=== PATIENT | female | born 1950 | race Caucasian/White ===

== ENCOUNTER 2021-06-21 01:28 | Day surgery (SDC) | payer MEDICARE, SELFPAY ==
[2021-06-10 09:20] VITALS: BMI 27.1
--- NOTE | 2021-06-20 12:38 | WPDANESEPPF ---
Anes - Initial Pre Proc Eval Procedure: Operation Date: 06/21/21 09:30 Proposed Procedures p Screening Colonoscopy - Stephon García MD Date/Time: 06/20/21 12:38 Surgeon: Stephon García MD Pre Op Diagnosis: hx of colon polyps Patient Data Age: 70 Gender: F Height: 1.5 m Weight: 61 kg Allergies Allergy/AdvReac Type Severity Reaction Status Date / Time cephalexin Allergy Mild Rash Verified 06/21/21 08:12 Cephalosporins Allergy Mild Rash Verified 06/21/21 08:12 clindamycin Allergy Mild Rash Verified 06/21/21 08:12 codeine Allergy Mild Rash Verified 06/21/21 08:12 duloxetine Allergy Mild Rash Verified 06/21/21 08:12 simvastatin Allergy Mild Rash Verified 06/21/21 08:12 Home Medications Medication Instructions Recorded Confirmed Type cholecalciferol (vitamin D3) 125 125 mcg PO DAILY #30 cap 01/04/20 06/21/21 Rx mcg (5,000 unit) capsule lorazepam 0.5 mg tablet 0.5 mg PO DAILY PRN #30 tablet 06/06/21 06/21/21 Rx Patient hx anesthesia problems: none Family hx anesthesia problems: none Results Review: All pre-operative results and documents have been reviewed as part of the pre-operative evaluation. [facility] Past Medical History Medical History (Updated 06/21/21 @ 08:43 by Stephon García MD) Breast cancer Emphysema/COPD Fibromyalgia Hyperlipidemia LDL goal <130 PAD (peripheral artery disease) Palpitations Stenosis of carotid artery 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 Family History Family History Sibling Family history of bipolar disorder Mother Hypertension Family history of transient ischemic attacks Cerebrovascular accident Father Malignant neoplasm of prostate Other Family history of mental disorder Social History Social History (Updated 06/01/21 @ 07:13 by Maico Elaine APRN) Smoking status: Former smoker Tobacco type: cigarettes Smoking end date: 03/12/16 Alcohol intake: current Alcohol use details: 2x montly Living arrangements: with family Spiritual care concerns: No Anes - Eval Final PreProcedure Day of Procedure 06/20/21 12:38 Patient weight: overweight Heart: regular rate and rhythm Lungs: clear to auscultation and normal air movement Airway: Mallampati scale class II Neurological: alert and oriented Last oral intake: >/= 8 hours ASA classification: III Emergent: no Anesthetic plan: proceed Anesthesia type and monitoring: general GIVS and standard monitoring Results Review: All pre-operative results and documents have been reviewed as part of the pre-operative evaluation. Informed Consent: The patient's anesthetic plan and its attendant risks and benefits were discussed with the patient/family/POA. Questions were solicited and answers provided to the satisfaction of the patient/family/POA.
[2021-06-21 08:13] VITALS: BP 131/52; PULSE 68; RESP 17; TEMP 36.2; O2SAT 99; BMI 26.3
[2021-06-21] MEDS: LACTATED RINGERS 1,000 ML 150 ML IV CONT (08:30)
--- NOTE | 2021-06-21 08:41 | WPDGICN ---
Assessment and Plan Assessment and plan (1) History of colon polyps: Code(s): Z86.010 - Personal history of colonic polyps Status: Acute Assessment and Plan: Patient has a personal history of colon polyps. Most recently 2012. Plan is for screening colonoscopy at this time. Patient is advised to use fiber supplementation for possible irritable bowel syndrome. She may benefit from a trial of probiotics because of change of bowel older. Charcoal taps are another consideration. Further recommendations will be given after colonoscopy. GI Consult Note Consult date/time: 06/21/21 08:41 HPI: Tiffany Palacio is a 70 year old female Presents for screening colonoscopy. Patient has a prior history of colon polyps. Most recently [address] Galicia. previous to that in 2006. Patient reports a vague right-sided abdominal pain with lifting. She is concerned whether this could be coming from her abdomen. Also can not discern because of foul-smelling stools. Patient denies any bleeding. She has had no weight loss. She has no associated pain with bowel movements. Her family history for is noncontributory. Review of Systems Review of Systems: All systems reviewed & are unremarkable except as noted in HPI and below PMFSH Past Medical History Medical History (Updated 06/21/21 @ 08:43 by Stephon García MD) Breast cancer Emphysema/COPD Fibromyalgia Hyperlipidemia LDL goal <130 PAD (peripheral artery disease) Palpitations Stenosis of carotid artery 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 Family History Family History Sibling Family history of bipolar disorder Mother Hypertension Family history of transient ischemic attacks Cerebrovascular accident Father Malignant neoplasm of prostate Other Family history of mental disorder Social History Social History (Updated 06/01/21 @ 07:13 by Maico Elaine APRN) Smoking status: Former smoker Tobacco type: cigarettes Smoking end date: 03/12/16 Alcohol intake: current Alcohol use details: 2x montly Living arrangements: with family Spiritual care concerns: No Meds Home Medications and Allergies Home Medications Medication Instructions Recorded Confirmed Type cholecalciferol (vitamin D3) 125 125 mcg PO DAILY #30 cap 01/04/20 06/21/21 Rx mcg (5,000 unit) capsule lorazepam 0.5 mg tablet 0.5 mg PO DAILY PRN #30 tablet 06/06/21 06/21/21 Rx Allergies Allergy/AdvReac Type Severity Reaction Status Date / Time cephalexin Allergy Mild Rash Verified 06/21/21 08:12 Cephalosporins Allergy Mild Rash Verified 06/21/21 08:12 clindamycin Allergy Mild Rash Verified 06/21/21 08:12 codeine Allergy Mild Rash Verified 06/21/21 08:12 duloxetine Allergy Mild Rash Verified 06/21/21 08:12 simvastatin Allergy Mild Rash Verified 06/21/21 08:12 Vital Signs Vital Signs - 24 hr 06/21/21 08:13 Temperature 97.1 F L Pulse Rate 68 Respiratory Rate 17 Blood Pressure 131/52 L Pulse Oximetry 99 Exam Narrative: Physical exam reveals patient be alert. Vital signs stable. HEENT exam is unremarkable. Patient is anicteric. Lungs are clear to auscultation and percussion. Heart is without murmur or extra sounds. Abdomen bowel sounds present soft nontender with no organomegaly. Digital external rectal exam is normal.
[2021-06-21 09:39] VITALS: BP 107/45; PULSE 74; RESP 18; O2SAT 100
[2021-06-21 09:49] VITALS: BP 117/49; PULSE 66; RESP 20; O2SAT 100
[2021-06-21 09:59] VITALS: BP 136/94; PULSE 68; RESP 22; O2SAT 100
== END 2021-06-21 10:05 | disposition home or self-care (01) ==
PROVIDERS: PCP Internal Medicine; Visit Provider Internal Medicine Gastroenterology
PROC: 0DJD8ZZ Inspection of Lower Intestinal Tract, Via Natural or Artificial Opening Endoscopic (ICD-10-PCS; CPT 45378; principal; 2021-06-21 09:30)
DX: Z12.11 Encounter for screening for malignant neoplasm of colon (principal); D12.3 Benign neoplasm of transverse colon; K63.5 Polyp of colon; K57.30 Diverticulosis of large intestine without perforation or abscess without bleeding; K64.8 Other hemorrhoids; J44.9 Chronic obstructive pulmonary disease, unspecified; I73.9 Peripheral vascular disease, unspecified; G45.8 Other transient cerebral ischemic attacks and related syndromes; E78.5 Hyperlipidemia, unspecified; M79.7 Fibromyalgia; Z87.891 Personal history of nicotine dependence
CPT/HCPCS: 45385; 88305; J2704; J7120

== ENCOUNTER 2022-02-17 11:02 | Outpatient (CLI) | payer MEDICARE, SELFPAY ==
--- NOTE | ~2022-02-17 | US_ITS ---
EXAMINATION: US carotid duplex BI DATE: 02/17/2022 11:45 INDICATION: Carotid stenosis TECHNIQUE: Grayscale, color Doppler, and pulsed Doppler images of the cervical carotid arteries were obtained. The degree of vessel stenosis is placed in one of the following categories: normal, <50%, 5 0-69%, >=70% but less than near-occlusion, near-occlusion, or total occlusion. Note that percent sten osis relative to normal distal artery lumen diameter is indirectly measured from velocity measurement s as described by Tylor, et al. Radiology 2003; 229:340-346. Notes: Normal: Peak systolic velocity <125 centimeters/sec and no plaque <50%. Peak systolic velocity <125 ( EDV <40; ICA/CCA PSV ratio <2.0; used these factors only a tandem lesions or low cardiac output or co ntralateral disease) 50-69 %: PSV 125-230 (EDV 40-100; ratio 2-4) >= 70% but less than near occlusion: PSV greater than 230 (EDV > 100; ratio> 4.0) Near Occlusion: PSV that is variable; markedly narrowed lumen Occlusion: Absent flow on color/spectral Doppler and no lumen on torres scale. COMPARISON: Ultrasound dated 08/16/2018. FINDINGS: RIGHT: The right common carotid artery (CCA) peak systolic velocity (PSV) is 96 cm/s. The right internal car otid artery (ICA) PSV is 162 cm/s. The right ICA end-diastolic velocity (EDV) is 44 cm/s. The right I CA/CCA PSV ratio is 1.7. The external carotid artery (ECA) PSV is 156 cm/s. There is antegrade flow i n the right vertebral artery. LEFT: The left CCA PSV is 91 cm/s. The left ICA PSV is 144 cm/s. The left ICA EDV is 40 cm/s. The left ICA/ CCA PSV ratio is 1.6. The ECA PSV is 94 cm/s. There is antegrade flow in the left vertebral artery. IMPRESSION: 1. 50-69% stenosis in the right internal carotid artery by sonographic criteria. 2. 50-69% stenosis in the left internal carotid artery by sonographic criteria. Reviewed, dictated and finalized at location A. ER IMPRESSION: 1. 50-69% stenosis in the right internal carotid artery by sonographic criteria . 2. 50-69% stenosis in the left internal carotid artery by sonographic criteria.
== END 2022-02-17 11:03 | disposition home or self-care (01) ==
LOC: ANHIMG 11:04
PROVIDERS: PCP Internal Medicine; Visit Provider Nurse Practitioner
DX: I65.23 Occlusion and stenosis of bilateral carotid arteries (principal)
CPT/HCPCS: 93880

== ENCOUNTER 2022-03-09 08:07 | Outpatient (CLI) | payer MEDICARE, SELFPAY ==
[2022-03-09 09:20] LABS: Cholesterol 271 mg/dL (0-200); HDL Direct 68 mg/dL; Triglycerides 123 mg/dL (<150)
[2022-03-09 09:31] LABS: LDL Cholesterol Direct 149 mg/dL
== END 2022-03-09 08:08 | disposition home or self-care (01) ==
LOC: ANHLAB 08:08
PROVIDERS: PCP Internal Medicine; Visit Provider Nurse Practitioner
DX: E78.5 Hyperlipidemia, unspecified (principal); Z13.29 Encounter for screening for other suspected endocrine disorder
CPT/HCPCS: 36415; 80061; 84443

== ENCOUNTER 2022-11-30 12:31 | Outpatient (CLI) | payer MEDICARE, SELFPAY ==
[2022-11-30 12:54] LABS: Cholesterol 236 mg/dL (0-200); HDL Direct 37 mg/dL; Triglycerides 164 mg/dL (<150)
[2022-11-30 13:05] LABS: LDL Cholesterol Direct 151 mg/dL
== END 2022-11-30 12:32 | disposition home or self-care (01) ==
LOC: ANHLAB 12:32
PROVIDERS: PCP Nurse Practitioner; Visit Provider Nurse Practitioner
DX: E78.5 Hyperlipidemia, unspecified (principal)
CPT/HCPCS: 36415; 80061

== ENCOUNTER 2022-12-22 14:48 | Outpatient (CLI) | payer MEDICARE, SELFPAY ==
--- NOTE | ~2022-12-22 | MR_ITS ---
EXAMINATION: MR pelvis wo con DATE: 12/22/2022 15:42 INDICATION: Pelvic and perineal pain. Left groin pain. TECHNIQUE: Magnetic resonance imaging (MRI) of the pelvis was performed without intravenous contrast. COMPARISON: None. FINDINGS: There is diverticulosis of the colon without evidence of diverticulitis. There are no dilated loops o f bowel. There is a left inguinal hernia containing fat. Bone alignment is normal. No fracture. There is mild osteoarthritis of the hips. There are small bilateral hip joint effusions. There is mild rig ht gluteus minimus and gluteus medius tendinopathy. There is mild right trochanteric bursitis. There is severe lumbar spondylosis. IMPRESSION: 1. Left inguinal hernia containing fat. 2. Mild osteoarthritis of the hips. 3. Small bilateral hip joint effusions. Reviewed, dictated and finalized at location A.
== END 2022-12-22 14:49 | disposition home or self-care (01) ==
LOC: ANHIMG 14:50
PROVIDERS: PCP Nurse Practitioner; Visit Provider Nurse Practitioner
DX: R10.2 Pelvic and perineal pain (principal); K40.90 Unilateral inguinal hernia, without obstruction or gangrene, not specified as recurrent; M16.0 Bilateral primary osteoarthritis of hip; M25.451 Effusion, right hip; M25.452 Effusion, left hip
CPT/HCPCS: 72195

== ENCOUNTER 2023-01-05 13:50 | Outpatient (CLI) | payer MEDICARE, SELFPAY ==
--- NOTE | ~2023-01-05 | CT_ITS ---
EXAMINATION: CT lung screening DATE: 01/05/2023 14:24 INDICATION: Personal history of nicotine dependence, prior smoker with 108 pack year history TECHNIQUE: Computed tomography (CT) of the chest was performed without intravenous contrast. The dose -length product (DLP) was 70.24 mGy-cm. Automated exposure control and iterative reconstruction techn Meal Mantraue were employed. COMPARISON: 04/12/2006 FINDINGS: There is moderate emphysema. No suspicious pulmonary nodules are identified. The lungs are free of acute opacities. No pleural effusion or pneumothorax. No pathologically enlarged thoracic lym ph nodes are identified. The heart size is normal. Bilateral breast implants are noted. There is a sm all sliding hiatal hernia. There is moderate thoracic spondylosis. IMPRESSION: 1. Lung-RADS category 1: Negative. Continue annual screening with noncontrast low-dose chest CT in 12 months. Reviewed, dictated and finalized at location F. IMPRESSION: 1. Lung-RADS category 1: Negative. Continue annual screening with noncontrast l ow-dose chest CT in 12 months.
== END 2023-01-05 13:51 | disposition home or self-care (01) ==
PROVIDERS: PCP Nurse Practitioner; Visit Provider Nurse Practitioner
DX: Z12.2 Encounter for screening for malignant neoplasm of respiratory organs (principal); Z87.891 Personal history of nicotine dependence
CPT/HCPCS: 71271

== ENCOUNTER 2023-01-08 14:33 | Outpatient (CLI) | payer MEDICARE, SELFPAY ==
--- NOTE | 2023-01-08 15:02 | ECHO_ITS ---
Patient Info Name: Tiffany Palacio Age: 72 years : 1950 Gender: Female Ht: 59 in Wt: 140 lbs BSA: 1.65 m2 HR: 88 bpm BP: 104 / 68 mmHg Technical Quality: Good Exam Date: 01/08/2023 3:14 PM Exam Location: [facility] Patient Status: Outpatient Admit Date: 01/08/2023 Staff Ordering Physician: Maico Elaine APRN Corporate Trust Officer: Yen Kim RDCS Attending Provider: Maico Elaine APRN Referring Physician: Chele FRANCO; Exam Type: CA echo doppler color flow Study Info Indications - shortness of breath Complete two-dimensional, color flow and Doppler transthoracic echocardiogram is performed. Summary 1. Complete two-dimensional, color flow and Doppler transthoracic echocardiogram is performed. 2. Left ventricular chamber dimension is normal. 3. Left ventricular systolic function is normal, estimated at 60-65%. 4. The left ventricular diastolic function is grade I diastolic dysfunction. 5. E/e' 10 is mildly elevated. 6. There is mild mitral valve regurgitation. 7. No pulmonary hypertension, estimated pulmonary arterial systolic pressure is 24 mmHg. Left Ventricle E/e' 10 is mildly elevated. Left ventricular chamber dimension is normal. Left ventricular systolic function is normal, estimated at 60-65%. The left ventricular diastolic function is grade I diastolic dysfunction. Right Ventricle Right ventricular systolic function is normal and with normal TAPSE 2.4 cm. Right ventricular chamber dimension is normal. Left Atria Left atrial chamber dimension is normal. Right Atria Right atrial chamber dimension is normal. Aortic Valve The aortic valve is trileaflet. There is no aortic valve stenosis. There is no aortic valve regurgitation. Pulmonic Valve There is no pulmonic regurgitation. Mitral Valve There is no mitral valve stenosis. There is mild mitral valve regurgitation. Tricuspid Valve There is no tricuspid valve regurgitation. No pulmonary hypertension, estimated pulmonary arterial systolic pressure is 24 mmHg. Pericardium/Pleural There is no pericardial effusion. Inferior Vena Cava Normal inferior vena cava with >50% collapse upon inspiration consistent with normal right atrial pressure, 5 mmHg. Aorta The aortic root size at the sinus of Valsalva is normal. Left Ventricular Outflow Tract Name Value Normal LVOT 2D LVOT Diameter 2.0 cm LVOT Doppler LVOT Peak Gradient 4 mmHg LVOT Mean Gradient 3 mmHg LVOT VTI 26 cm LVOT VTI/AV VTI Ratio 0.8 LVOT Stroke Volume 80 ml LVOT CO 14.6 l/min LVOT CI 8.9 l/min/m2 Pulmonic Valve Name Value Normal PV Doppler PV Peak Gradient 3 mmHg Mitral Valve Name
== END 2023-01-08 14:34 | disposition home or self-care (01) ==
LOC: ANHCARD 14:34
PROVIDERS: PCP Nurse Practitioner; Visit Provider Nurse Practitioner
DX: R06.02 Shortness of breath (principal); R53.83 Other fatigue; Z79.899 Other long term (current) drug therapy; I34.0 Nonrheumatic mitral (valve) insufficiency
CPT/HCPCS: 93306

== ENCOUNTER 2023-07-23 05:34 | Emergency (ER) | payer MEDICARE, SELFPAY ==
[2023-07-23 05:30] VITALS: BP 183/88; PULSE 94; RESP 18; TEMP 36.3; O2SAT 99
--- NOTE | 2023-07-23 05:38 | ED.GENADULT ---
HPI - General Adult General Chief complaint: Skin/Abscess/Foreign Body Stated complaint: Cat Scratch Time Seen by Provider: 07/23/23 05:38 History of Present Illness HPI narrative: This is a 72-year-old female presenting after being scratched by her cat. The cat scratched the back of her hand. She had some bleeding and then some bruising of her hand. The bleeding has now stopped. She does not have blood thinners. This happened immediately prior to arrival and she called an ambulance to be brought to the hospital. Related Data Home Medications Medication Instructions Recorded Confirmed ascorbic acid (vitamin C) 500 mg 500 mg PO DAILY 12/13/22 01/02/23 tablet multivitamin 1 tablet PO DAILY 12/13/22 01/02/23 omega-3 fatty acids 500 mg capsule 500 mg PO DAILY 12/13/22 01/02/23 vitamin K2 100 mcg capsule 100 mcg PO DAILY 12/13/22 01/02/23 B-complex with vitamin C 1 tablet PO DAILY 01/02/23 01/02/23 mecobalamin (vitamin B12) 1,000 1,000 mcg PO DAILY 01/02/23 01/02/23 mcg lozenges Allergies Allergy/AdvReac Type Severity Reaction Status Date / Time cephalexin Allergy Mild Rash Verified 04/18/23 10:35 Cephalosporins Allergy Mild Rash Verified 04/18/23 10:35 clindamycin Allergy Mild Rash Verified 04/18/23 10:35 codeine Allergy Mild Rash Verified 04/18/23 10:35 duloxetine Allergy Mild Rash Verified 04/18/23 10:35 simvastatin Allergy Mild Rash Verified 04/18/23 10:35 PMFSH Past Medical History Medical History Breast cancer Emphysema/COPD Fibromyalgia Hyperlipidemia LDL goal <130 PAD (peripheral artery disease) Palpitations Stenosis of carotid artery 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 Surgical History Surgical History History of lumpectomy of right breast History of tonsillectomy History of total hysterectomy Family History Family History Sibling Family history of bipolar disorder Mother Hypertension Cerebrovascular accident Congestive heart failure Father Malignant neoplasm of prostate Acute myocardial infarction Son Cerebrovascular accident Heart disease Other Family history of mental disorder Social History Social History Smoking packs per day: 2 Smoking cigarettes per day: 40.0 Years smoked: 54 Smoking pack-years: 108.00 Smoking status: Former smoker Tobacco type: cigarettes Smoking end date: 01/10/21 Alcohol intake: former Substance use: never Substance use type: does not use Lack of Transportation: No Lack of Food: Never True Current Housing: I Have Housing Concerned About Future Housing: No Difficulty Paying Gas/Electric Bills: No Difficulty Paying for Meds: No Currently Unemployed: No Education: Associate Degree Difficulty w/ Childcare or Family Care: No Living arrangements: with family Occupation/Education: retired Spiritual care concerns: No Exam Narrative: APPEARANCE: No apparent distress. Head: atraumatic. EYES: EOMI, NOSE: Atraumatic NECK: Trachea midline RESPIRATORY: No increased rate of breathing CARDIOVASCULAR: RRR, ABDOMINAL: Non-distended MUSCULOSKELETAl: No obvious deformities NEURO: Alert. Moving 4/4 extremities SKIN:: Patient has a small laceration to the back of her left hand. There is a hematoma. PSYCHIATRIC: Normal affect Course Vital Signs Vital signs: Vital Signs Temperature 97.4 F L 07/23/23 05:30 Pulse Rate 94 07/23/23 05:30 Respiratory Rate 18 07/23/23 05:30 Blood Pressure 183/88 H 07/23/23 05:30 Pulse Oximetry 99 07/23/23 05:30 Oxygen Delivery Room Air 07/23/23 05:30 Temperature 97.4 F L 07/23/23 05:30 Pulse Rate 94 07/23/23 05:30 Respiratory Rate 18 07/23/23 05:30 Blood Pressure 183/88 H 07/23/23 05:30 Pulse Oximetry 99
== END 2023-07-23 06:03 | disposition home or self-care (01) ==
PROVIDERS: Emergency Provider Emergency Medicine; PCP Nurse Practitioner
DX: S60.512A Abrasion of left hand, initial encounter (principal); S60.222A Contusion of left hand, initial encounter; J43.9 Emphysema, unspecified; E78.5 Hyperlipidemia, unspecified; I73.9 Peripheral vascular disease, unspecified; I65.29 Occlusion and stenosis of unspecified carotid artery; M79.7 Fibromyalgia; Z87.891 Personal history of nicotine dependence; Z90.710 Acquired absence of both cervix and uterus; W55.03XA Scratched by cat, initial encounter
CPT/HCPCS: 99282

== ENCOUNTER 2023-09-27 10:41 | Outpatient (CLI) | payer MEDICARE, SELFPAY ==
[2023-09-27 11:30] LABS: Hematocrit 41.1 % (37.0-47.0); Hemoglobin 13.6 g/dL (12.0-15.0); Mean Corpuscular HGB Conc 33.1 g/dl (32-36); Mean Corpuscular Hemoglobin 29.9 pg (26-34); Mean Corpuscular Volume 90.3 fl (80-100); Mean Platelet Volume 8.7 fl (7.4-10.4); Platelet Count Result 278 k/mm3 (150-375); Red Blood Count 4.55 M/mm3 (4.2-5.4); Red Cell Distribution Width 12.8 % (11.5-14.5); White Blood Count 5.5 K/mm3 (4.5-10.0)
[2023-09-27 11:43] LABS: Cholesterol 210 mg/dL (0-200); HDL Direct 59 mg/dL; Triglycerides 102 mg/dL (<150)
[2023-09-27 12:05] LABS: LDL Cholesterol Direct 120 mg/dL
[2023-09-27 12:39] LABS: Free T4 Free Thyroxine 1.04 ng/mL (0.78-2.19); Vitamin D 25 Hydroxy 45.1 ng/mL
== END 2023-09-27 10:42 | disposition home or self-care (01) ==
PROVIDERS: PCP Nurse Practitioner; Visit Provider Nurse Practitioner
DX: E55.9 Vitamin D deficiency, unspecified (principal); R53.83 Other fatigue; E78.5 Hyperlipidemia, unspecified; Z13.29 Encounter for screening for other suspected endocrine disorder
CPT/HCPCS: 36415; 80061; 82306; 84439; 84443; 85027

== ENCOUNTER 2023-12-21 16:43 | Observation (INO) | payer MEDICARE, SELFPAY ==
--- NOTE | ~2023-12-21 | XR_ITS ---
XR chest 1V portable Ordering provider: Alma Mcgrath PA-C History: 73 years Female with . tia w/u . Comparison: None. FINDINGS: MEDIASTINUM: The cardiac silhouette is not enlarged. LUNGS: No infiltrates, effusions or pneumothorax. Prominent markings in the lower lobe areas. OTHER: No free air under the diaphragm. Left breast implant is noted. IMPRESSION: Prominent markings in the lower lobes areas. No definite pneumonia. If clinically warranted, Follow-u p advised. Reviewed, dictated and finalized at location A. IMPRESSION: Prominent markings in the lower lobes areas. No definite pneumonia. If clinical ly warranted, Follow-up advised.
--- NOTE | ~2023-12-21 | CT_ITS ---
CT brain wo con Ordering provider: Alma Mcgrath PA-C History: 73 years Female with . TIA w/u . Comparison: July 08, 2008 Technique: CT of the head without contrast. Radiation reduction technique utilized The dose-length product was 605.33 mGy-cm. FINDINGS: BRAIN PARENCHYMA AND CSF SPACES: No midline shift, mass effect or hemorrhage. The brain parenchyma a nd CSF spaces are otherwise normal. VISUALIZED PARANASAL SINUSES: Well aerated. MASTOIDS: Well aerated. BONES: The bones appear intact. SOFT TISSUES: Visualized nasopharynx is normal. Superficial soft tissues are normal. IMPRESSION: No acute intracranial findings. Reviewed, dictated and finalized at location A.
--- NOTE | ~2023-12-21 | MR_ITS ---
MRI of the brain Clinical History: TIA Technique: Axial and sagittal T1-weighted images were acquired. These were followed by axial T2-weigh gorge, diffusion weighted, gradient, and FLAIR images. Following intravenous administration of 14 cc Mu ltiHance gadolinium, T1-weighted fat-sat imaging was performed in the axial and coronal planes. Findings: No acute infarct, intracranial hemorrhage, mass lesion seen. There are mild chronic microva scular ischemic changes in the periventricular white matter. Ventricles and subarachnoid spaces are unremarkable. Orbits are unremarkable. Paranasal sinuses and m astoid air cells are clear. Major intracranial flow voids are intact. Sagittal midline structures are intact. No abnormal postcontrast enhancement identified. IMPRESSION: Mild chronic vascular ischemic change, otherwise unremarkable exam. Reviewed, dictated and finalized at location M.
--- NOTE | ~2023-12-21 | CT_ITS ---
CTA brain carotid Ordering provider: Alma Mcgrath PA-C History: . TIA w/u, R arm uncoordinated . Comparison: None. Technique: CT angiogram head and neck was performed following timed intravenous injection of contrast . Thin slice axial images and reformatted coronal images were obtained. Three dimensional reformatted images of the brain were also obtained using a [employer] workstation. Radiation reduction technique ut ilized The dose-length product was 950.62 mGy-cm. 100 mL Omnipaque 350 was given IV. FINDINGS: HEAD: --ANTERIOR AND MIDDLE CEREBRAL ARTERIES AND BRANCHES: Absent right A1 segment. Normal caliber and con tour. --INTERNAL CAROTID ARTERIES: Mild atheromatous disease but no significant stenosis. No occlusion. --BASILAR ARTERY AND BRANCHES: Normal caliber and contour. No atheromatous disease. --POSTERIOR CEREBRAL ARTERIES: Normal caliber and contour --POSTERIOR COMMUNICATING ARTERIES: The left is noted. The right is not visualized which is probably related to congenital absence or small size. --ANEURYSM: None visualized. --BRAIN: Please refer to report of CT head performed the same day. --BONES AND SUPERFICIAL SOFT TISSUES: Please refer to report of CT head performed the same day. --PARANASAL SINUSES AND MASTOIDS: Please refer to report of CT head done the same day. NECK: --RIGHT CERVICAL CAROTID SYSTEM: Mild atheromatous disease of the carotid bulb and proximal internal carotid artery without significant stenosis. Percent stenosis per NASCET criteria is 75% No carotid dissection. Otherwise, no significant atheromatous disease or stenosis of the cervical carotid system . --LEFT CERVICAL CAROTID SYSTEM: Mild atheromatous disease of the carotid bulb and proximal internal c arotid artery without significant stenosis. Percent stenosis per NASCET criteria is 70% No carotid d issection. Otherwise, no significant atheromatous disease or stenosis of the cervical carotid system. --VERTEBRAL ARTERIES: Normal caliber and contour. --VISUALIZED AORTIC ARCH AND BRANCHING VESSELS: Mild atheromatous disease but no significant stenosis . Emphysematous changes of the lungs. Dependent atelectatic changes --SOFT TISSUES: Normal. --CERVICAL SPINE: Age appropriate degenerative changes. IMPRESSION: 1. CTA neck. Percent stenosis per NASCET criteria is 80 % on the right side and 70% on the left. 2. No evidence of intracranial occlusion or significant stenosis. Reviewed, dictated and finalized at location A. IMPRESSION: 1. CTA neck. Percent stenosis per NASCET criteria is 80 % on the right side a nd 70% on the left. 2. No evidence of intracranial occlusion or significant stenosis.
[2023-12-21 16:49] VITALS: BP 132/69; PULSE 74; RESP 18; TEMP 36.4; O2SAT 97
--- NOTE | 2023-12-21 17:42 | ECG_ITS ---
Test Date: 2023-12-21 18:23:38 Measurements Intervals [place] Rate: 67 P: 48 SC: 201 QRS: 5 QRSD: 82 T: 19 QT: 386 QTc: 410 Interpretive Statements SINUS RHYTHM LOW QRS VOLTAGE IN PRECORDIAL LEADS [QRS DEFLECTION < 1.0 mV IN CHEST LEADS] No previous ECG available for comparison Electronically Signed On 12-22-2023 08:28:28 CDT by Gloria Urena M.D.
[2023-12-21 17:54] LABS: Basophils Absolute Auto 0.1 K/mm3 (0.0-0.1); Basophils Percent Auto 1.6 % (0.2-1.2); Eosinophils Absolute Auto 0.1 K/mm3 (0-0.3); Eosinophils Percent Auto 1.6 % (0-4.4); Hematocrit 40.3 % (37.0-47.0); Hemoglobin 13.4 g/dL (12.0-15.0); Immature Granulocyte Absolute 0.01 K/mm3 (0.00-0.031); Immature Granulocyte Percent A 0.2 % (0-0.5); Lymphocytes Absolute Auto 1.03 K/mm3 (0.9-3.2); Mean Corpuscular HGB Conc 33.3 g/dl (32-36); Mean Corpuscular Hemoglobin 30.3 pg (26-34); Mean Corpuscular Volume 91.2 fl (80-100); Mean Platelet Volume 8.3 fl (7.4-10.4); Monocytes Absolute Auto 0.4 K/mm3 (0.1-0.6); Monocytes Percent Auto 8.1 % (2.6-8.5); Neutrophils Absolute Auto 3.3 K/mm3 (1.3-6.7); Neutrophils Percent Auto 67.5 % (45.5-73.1); Platelet Count Result 253 k/mm3 (150-375); Red Blood Count 4.42 M/mm3 (4.2-5.4); Red Cell Distribution Width 12.8 % (11.5-14.5); White Blood Count 4.9 K/mm3 (4.5-10.0)
[2023-12-21 18:05] LABS: INR 0.9; Prothrombin Time 12.8 Seconds (11.1-14.7)
[2023-12-21 18:06] LABS: Alanine Aminotransferase 19 U/L (6-35); Albumin Level 4.2 g/dL (3.5-5.1); Alkaline Phosphatase 68 U/L (38-126); Anion Gap 8 mmol/L (4-12); Aspartate Amino Transferase 28 U/L (14-36); Bilirubin,Total 0.4 mg/dL (0.2-1.3); Blood Urea Nitrogen 12 mg/dL (7-17); Calcium 9.2 mg/dL (8.4-10.2); Carbon Dioxide 25 mmol/L (22-30); Chloride 108 mmol/L (98-107); Estimated Glomerular Filt Rate > 60; Glucose 98 mg/dL (65-110); Magnesium 2.3 mg/dL (1.6-2.3); Partial Thromboplastin Time 25.6 Seconds (22.3-36.8); Potassium 4.8 mmol/L (3.4-5.0); Sodium 141 mmol/L (137-145)
--- NOTE | 2023-12-21 18:11 | ED.GENADULT ---
HPI - General Adult General Chief complaint: Fall <RAIN Pressley Last Filed: 12/22/23 03:24> Stated complaint: I fell over a couple hours ago <RAIN Pressley Last Filed: 12/22/23 03:24> Time Seen by Provider: 12/21/23 16:55 <RAIN Pressley Last Filed: 12/22/23 03:24> Source: patient <RAIN Pressley Last Filed: 12/22/23 03:24> Mode of arrival: EMS <RAIN Pressley Last Filed: 12/22/23 03:24> Limitations: no limitations <RAIN Pressley Last Filed: 12/22/23 03:24> History of Present Illness HPI narrative: Patient is a 73 y/o female who presents to the ED via EMS with report of a fall. patient reports she was sitting at her computer around 3:00 p.m. today when she began having a funny feeling in her R arm. States it felt like spasms throughout her arm, but denied significant pain or weakness. she attempted to get up from the computer desk, but it fell down. She states she continue to try to get up, but felt extremely weak and was unable to get up off the ground. She then called for EMS. Patient states that the symptoms have since resolved. She just feels extremely thirsty. She does not feel weak or numb in any extremity. Denies feeling dizzy or lightheaded. She does not believe that she fully lost consciousness. Denies issues with her speech, confusion that she is aware of. Denies recent illness. Denies chest pain or shortness of breath. <RAIN Pressley Last Filed: 12/22/23 03:24> Related Data Home medications: Home Medications Medication Instructions Recorded Confirmed ascorbic acid (vitamin C) 500 mg 500 mg PO DAILY 12/13/22 01/02/23 tablet multivitamin 1 tablet PO DAILY 12/13/22 01/02/23 omega-3 fatty acids 500 mg capsule 500 mg PO DAILY 12/13/22 01/02/23 vitamin K2 100 mcg capsule 100 mcg PO DAILY 12/13/22 01/02/23 B-complex with vitamin C 1 tablet PO DAILY 01/02/23 01/02/23 mecobalamin (vitamin B12) 1,000 1,000 mcg PO DAILY 01/02/23 01/02/23 mcg lozenges <Alma Mcgrath PA-C - Last Filed: 12/22/23 03:24> Allergies/adverse reactions: Allergies Allergy/AdvReac Type Severity Reaction Status Date / Time cephalexin Allergy Mild Rash Verified 12/21/23 16:44 Cephalosporins Allergy Mild Rash Verified 12/21/23 16:44 clindamycin Allergy Mild Rash Verified 12/21/23 16:44 codeine Allergy Mild Rash Verified 12/21/23 16:44 duloxetine Allergy Mild Rash Verified 12/21/23 16:44 simvastatin Allergy Mild Rash Verified 12/21/23 16:44 <Alma Mcgrath PA-C - Last Filed: 12/22/23 03:24> Review of Systems Review of Systems: All systems reviewed & are unremarkable except as noted in HPI. <Alma Mcgrath PA-C - Last Filed: 12/22/23 03:24> All systems reviewed & are unremarkable except as noted in HPI and below <Alma Mcgrath PA-C - Last Filed: 12/22/23 03:24> [facility] Past Medical History Medical History: Medical History Breast cancer Emphysema/COPD Fibromyalgia Hyperlipidemia LDL goal <130 PAD (peripheral artery disease) Palpitations Stenosis of carotid artery 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 <Alma Mcgrath PA-C - Last Filed: 12/22/23 03:24> Surgical History Surgical History: Surgical History History of lumpectomy of right breast History of tonsillectomy History of total hysterectomy <Alma Mcgrath PA-C - Last Filed: 12/22/23 03:24> Family History Family History: Family History Sibling Family history of bipolar disorder Mother Hypertension Cerebrovascular accident Congestive heart failure Father Malignant neoplasm of prostate Acute myocardial infarction Son Cerebrovascular accident Hear
[2023-12-21 18:15] LABS: Creatine Kinase 36 U/L (30-135)
[2023-12-21 18:17] LABS: Troponin I < 0.012 ng/mL (0.000-0.034)
[2023-12-21 18:21] VITALS: PULSE 71; RESP 21; O2SAT 100
[2023-12-21 18:30] VITALS: PULSE 68; RESP 12; O2SAT 100
[2023-12-21 18:38] LABS: Add Urine Microscopic? NO; Appearance Urine Clear (Clear); Bilirubin Urine Negative (Negative); Blood Urine Negative (Negative); Color Urine Yellow (Yellow); Glucose Urine UA Negative (Negative); Ketones Urine Negative (Negative); Leukocyte Esterase Ur Negative LEU/UL (Negative); Nitrate Urine Negative (Negative); Protein Urine Negative (Negative); Specific Grav Ur 1.004 (1.001-1.035); Urobilinogen Urine 0.2 mg/dL (<2.0); pH Urine 6.5 (5.0-9.0)
[2023-12-21] MEDS: ASPIRIN 81 MG CHEWABLE TABLET PO (21:39)
[2023-12-21 22:47] VITALS: BP 129/82; PULSE 67; RESP 17; O2SAT 97
[2023-12-22] VITALS (29 sets, daily range): BP systolic 101–138; BP diastolic 50–76; PULSE 66–90; RESP 14–20; TEMP 36.4–37.1; O2SAT 95–100
[2023-12-22] MEDS: ASPIRIN 81 MG CHEWABLE TABLET PO (08:03)
--- NOTE | 2023-12-22 08:34 | PC.NURSE ---
This RN spoke with Janene at [facility] transfer center regarding pt status. Janene stated pt is still waiting on a neurology bed to become available but that they will call when they have one
--- NOTE | 2023-12-22 18:27 | PC.NURSE ---
talked to Melany at [facility] transfer line. still no bed assignment for patient.
[2023-12-22 18:28] LABS: Glucose Point of Care 82 mg/dl (65-105)
--- NOTE | 2023-12-22 19:22 | PC.NURSE ---
Report received from ROLANDO Lau. Assumed care of patient at this time.
--- NOTE | 2023-12-22 23:01 | PC.NURSE ---
[id number] Pinky with [facility] transfer center calls to get update on patients status. She states high likelihood of bed placement tomorrow.
[2023-12-23] VITALS (8 sets, daily range): BP systolic 108–141; BP diastolic 52–72; PULSE 62–79; RESP 14–17; TEMP 36.4–36.7; O2SAT 95–100
--- NOTE | 2023-12-23 00:15 | PC.NURSE ---
Patient ambulated to the bathroom with a steady unassisted gait. Patient did perform some oral hygiene at this time.
[2023-12-23] MEDS: ASPIRIN 81 MG CHEWABLE TABLET PO (09:04)
--- NOTE | 2023-12-23 12:04 | PC.NURSE ---
Dietary called for meal tray selected by pt.
--- NOTE | 2023-12-23 17:17 | PC.NURSE ---
Pt taken up to shower by DANIEL Chery. Dinner tray ordered by this RN.
--- NOTE | 2023-12-23 18:26 | PC.NURSE ---
Fresh linens applied to bed. Pt given a fresh gown after shower. Pt verbalized appreciation. Pt ate dinner, and dinner tray removed from room. Denies any current pain. Pt has no additional requests at this time.
[2023-12-23 18:28] LABS: Glucose Point of Care 121 mg/dl (65-105)
--- NOTE | 2023-12-23 23:22 | PC.NURSE ---
This RN spoke with [facility] transfer center. Transfer center has no update on when bed will be ready, but requested an updated on pt condition. Update provided.
[2023-12-24 05:26] VITALS: BP 116/66; PULSE 79; RESP 14; TEMP 36.7; O2SAT 99
[2023-12-24 08:33] VITALS: BP 127/57; PULSE 72; RESP 19; TEMP 36.6; O2SAT 99
[2023-12-24] MEDS: ASPIRIN 81 MG CHEWABLE TABLET PO (08:58)
[2023-12-24 11:09] VITALS: BP 114/52; PULSE 78; RESP 14; TEMP 36.7; O2SAT 98
--- NOTE | 2023-12-24 11:29 | PC.NURSE ---
spoke to Megan at [facility] transfer center. gave the most recent set of vitals. Megan informed me there neuro floor is currently full and the ED has pt waiting for a bed also. Megan said it most likely wont be today the pt gets a bed
[2023-12-24 16:12] VITALS: BP 102/54; PULSE 64; RESP 15; TEMP 36.6; O2SAT 100
[2023-12-24 18:40] LABS: Glucose Point of Care 168 mg/dl (65-105)
[2023-12-24 19:48] VITALS: BP 120/55; PULSE 87; RESP 16; TEMP 37; O2SAT 98
--- NOTE | 2023-12-24 22:07 | PC.NURSE ---
spoke to Geeta at [facility] transfer center. gave Geeta an update on the pt status and gave the most recent set of vitals. Geeta said there is still no bed at this time
[2023-12-25 03:49] VITALS: BP 134/86; PULSE 82; RESP 16; TEMP 36.8; O2SAT 98
[2023-12-25 07:05] VITALS: BP 114/53; PULSE 70; RESP 14; O2SAT 100
--- NOTE | 2023-12-25 09:59 | PC.NURSE ---
spoke with rachid at [facility] transfer center. Optical Instrument Repairer states they are still waiting for a bed to open up. Recent set of vitals given customer care representative.
[2023-12-25] MEDS: ASPIRIN 81 MG CHEWABLE TABLET PO (10:16)
[2023-12-25 13:20] VITALS: BP 152/52; PULSE 78; RESP 16; TEMP 36.7; O2SAT 100
--- NOTE | 2023-12-25 13:27 | PC.NURSE ---
ordered meal tray for pt at 1325. assessed pt's IV. dressing intact and flushed great. no indication to changed PIV site per protocol at this time.
[2023-12-25 17:50] VITALS: BP 128/58; PULSE 68; RESP 19; O2SAT 99
[2023-12-25 17:52] LABS: Glucose Point of Care 86 mg/dl (65-105)
--- NOTE | 2023-12-25 17:52 | PC.NURSE ---
ordered pt meal tray at 2633.
--- NOTE | 2023-12-25 21:20 | PC.NURSE ---
pt taken to shower assisted by arcade game technician. private household worker and ER charge nurse aware of this
--- NOTE | 2023-12-25 21:59 | PC.NURSE ---
[facility] transfer center called at [phone] for pt update and states they are still on waitlist for a bed at this time.
--- NOTE | 2023-12-25 23:43 | PC.NURSE ---
care and report given to ROLANDO Dawkins. all questions answered.
--- NOTE | 2023-12-25 23:46 | PC.NURSE ---
RN received report from ROLANDO Mendoza. Pt is still waiting on a bed at [facility]. Pt is sitting up in bed on her lap top. Pt states having no requests at this time.
[2023-12-25 23:47] VITALS: BP 143/29; PULSE 71; RESP 19; TEMP 36.8; O2SAT 98
[2023-12-26] VITALS (7 sets, daily range): BP systolic 112–132; BP diastolic 27–76; PULSE 58–84; RESP 16–20; TEMP 36.4–36.6; O2SAT 97–100
--- NOTE | 2023-12-26 02:06 | PC.NURSE ---
[facility] was called for an update on pt status. [facility] states there is still no bed for pt at this time. Pt notified.
[2023-12-26] MEDS: ASPIRIN 81 MG CHEWABLE TABLET PO (08:47)
--- NOTE | 2023-12-26 10:17 | PC.NURSE ---
Spoke with [facility] transfer. They have no beds at this time and will call when one is available.
[2023-12-26] MEDS: LORazepam INJ (*CRX) 2 MG/ML VIAL 1 MG IV PUSH (13:19)
--- NOTE | 2023-12-26 13:45 | PM.IMHP ---
H&P: HPI History of Present Illness Date/Time: 12/26/23 13:30 Chief Complaint: Fall. Narrative: This is a 73-year-old female with known vascular disease including left subclavian steal syndrome and bilateral carotid artery stenosis, dyslipidemia, chronic obstructive disease breast cancer presented to the emergency department via private vehicle from home on 12/21/2023 for evaluation after a fall. The patient provides the following history. She reports sitting at her computer last Sunday afternoon when she noticed that her right arm felt funny, like spasms throughout the arm. She then attempted to sit up from the desk but fell down to the ground where she was unable to get herself up. She called emergency service and they came but she refused transport however drove herself in for evaluation. In the ED: Vital signs were stable on arrival. CMP and CBC were pretty unremarkable though random glucose was 168. Brain CT was without acute findings. CTA the head showed no large vessel occlusions or significant stenosis. Neck CTA showed bilateral internal carotid artery stenosis, 80% on the right and 70% on the left. She was loaded with clopidogrel 300 mg and is started on aspirin 81 mg daily. Transfer was initiated to [facility] for vascular surgery though no bed is available and she is being admitted in this setting pending transfer. Review of Systems Review of Systems: 12 systems were reviewed and are negative except for as per HPI. [facility] Past Medical History Medical History (Updated 12/26/23 @ 14:31 by Amy Piña PA-C) Bilateral carotid artery stenosis Cancer of right breast (05/2017) status post lumpectomy, radiation, tamoxifen Dyslipidemia Emphysema/COPD Fibromyalgia History of tobacco abuse 108 year pack history Palpitations Peripheral arterial disease Stenosis of carotid artery 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 Surgical History Surgical History (Updated 12/26/23 @ 14:26 by Amy Piña PA-C) History of benign breast biopsy History of colonoscopy diverticulosis, hemorrhoids, benign polyps History of partial mastectomy of right breast (05/2017) History of tonsillectomy History of total hysterectomy Family History Family History Sibling Family history of bipolar disorder Mother Hypertension Cerebrovascular accident Congestive heart failure Father Malignant neoplasm of prostate Acute myocardial infarction Son Cerebrovascular accident Heart disease Other Family history of mental disorder Social History Social History (Updated 12/26/23 @ 14:27 by Amy Piña PA-C) Social History: Surrogate medical decision maker: Code status: Full code. Smoking packs per day: 2 Smoking cigarettes per day: 40.0 Years smoked: 54 Smoking pack-years: 108.00 Smoking status: Former smoker Tobacco type: cigarettes Smoking end date: 01/10/21 Alcohol intake: never Substance use: never Substance use type: does not use Do You Feel Safe in your Home?: Yes Lack of Transportation: No Lack of Food: Never True Current Housing: I Have Housing Concerned About Future Housing: No Difficulty Paying Gas/Electric Bills: No Difficulty Paying for Meds: No Currently Unemployed: No Education: Associate Degree Difficulty w/ Childcare or Family Care: No Living arrangements: with family Occupation/Education: retired Spiritual care concerns: No Meds Home Medications and Allergies Home Medications Medication Instructions Recorded Confirmed Type cholecalciferol (vitamin D3) 125 125 mcg PO DAILY #30 caps 01/04/20 12/26/23 Rx mcg (5,000 unit) capsule lorazepam 0.5 mg tablet (Ativan) 0.5 mg PO DAILY PRN anxiety #30 06/06/21 12/26/23 Rx tabs ascorbic acid (vitamin C) 500 mg 500 mg PO DAILY 12/13/22 12/26/23 History tablet multivitamin 1 tablet PO DAILY 12/13/22 12/26/23 History o
[2023-12-26] MEDS: CLOPIDOGREL BISULFATE 300 MG TABLET PO (13:59)
--- NOTE | 2023-12-26 14:19 | ADMGEN ---
This patient, Tiffany Palacio, was admitted to [facility] Surg Room 321-01. Patient/family oriented to hospital policies and general routines including ID bracelet, bed and alarms, visiting hours, pain management, procedures, bathroom and other care routines, personal items, smoking policy, room service/diet, and visiting hours. Information on how to activate the Rapid Response Team has been discussed. Patient/Family are encouraged to report perceived risks to care and to ask questions if they do not understand what they are told or what they should do.
--- NOTE | 2023-12-26 14:36 | ECHO_ITS ---
Patient Info Name: Tiffany Palacio Age: 73 years : 1950 Gender: Female Ht: 59 in Wt: 150 lbs BSA: 1.71 m2 HR: 64 bpm BP: 112 / 55 mmHg Heart Rhythm: Sinus Rhythm Technical Quality: Good Exam Date: 12/26/2023 3:03 PM Exam Location: Echo Lab Patient Status: Inpatient Admit Date: 12/26/2023 Staff Ordering Physician: Amy Piña PA-C Vacuum Evaporation Operator: Agus Barcenas RDCS Attending Provider: Dottie Osuna DO Referring Physician: Ayana ACEVEDO; Exam Type: CA echo doppler w bubble study Study Info Indications - transient cerebal ischemia Complete two-dimensional, color flow and Doppler transthoracic echocardiogram is performed with agitated saline. Summary 1. Left ventricular chamber dimension is normal. 2. Left ventricular systolic function is normal, estimated at 55-60%. 3. The left ventricular diastolic function is grade I diastolic dysfunction. 4. Right ventricular systolic function is normal. 5. There is mild mitral valve regurgitation. 6. Intact interatrial septum visualized by color flow and agitated saline imaging. Negative bubble study. Left Ventricle Left ventricular chamber dimension is normal. Left ventricular systolic function is normal, estimated at 55-60%. There is no increased left ventricular wall thickness. The left ventricular diastolic function is grade I diastolic dysfunction. Right Ventricle Right ventricular chamber dimension is normal. Right ventricular systolic function is normal. Left Atria Left atrial chamber dimension is normal. Right Atria Right atrial chamber dimension is normal. Atrial Septum Intact interatrial septum visualized by color flow and agitated saline imaging. Negative bubble study. Aortic Valve The aortic valve is trileaflet. There is no aortic valve stenosis. There is no aortic valve regurgitation. Pulmonic Valve The pulmonic valve is not well visualized. There is trace pulmonic regurgitation. Mitral Valve There is mild mitral valve regurgitation. Tricuspid Valve There is trace tricuspid valve regurgitation. Pericardium/Pleural There is no pericardial effusion. Inferior Vena Cava Inferior vena cava is not well visualized. Aorta The aortic root size at the sinus of Valsalva is normal. Left Ventricular Outflow Tract Name Value Normal LVOT 2D LVOT Diameter 1.8 cm LVOT Doppler LVOT Peak Velocity 82 cm/s LVOT Peak Gradient 3 mmHg LVOT Mean Gradient 2 mmHg LVOT VTI 19 cm LVOT VTI/AV VTI Ratio 0.7 LVOT Stroke Volume 47 ml LVOT CO 2.8 l/min LVOT CI 1.7 l/min/m2 Pulmonic Valve Name Value Normal PV Doppler PV Peak Velocity 52 cm/s PV Peak Gradient 1 mmHg
--- NOTE | 2023-12-26 20:17 | PM.SD2 ---
Same Day Admit/Disch: HPI History of Present Illness Chief complaint: I fell over a couple hours ago Narrative: Same day admit/transfer: This is a 73-year-old female with known vascular disease including left subclavian steal syndrome and bilateral carotid artery stenosis, dyslipidemia, chronic obstructive disease, and breast cancer presented to the emergency department via private vehicle from home on 12/21/2023 for evaluation after a fall. The patient provides the following history. She reports sitting at her computer last Sunday afternoon when she noticed that her right arm felt funny and she describes a strange squeezing sensation with what felt like jerks. She then attempted to sit up from the desk but she was feeling extremely weak ?like when I had syncope before? and she had a controlled fall to the ground. She does not believe that she lost consciousness but was feeling out of it for a period of time. She attempted to get up 3 times but was unable to do so. Luckily she was able to crawl to the desk to get her phone to call 911. She was feeling back to normal on their arrival in refused transport but had her daughter bring her in for evaluation after. She denies syncope, vertigo, visual changes, facial droop, difficulties speaking and swallowing, focal weakness, chest pain, palpitations, sensations of racing heart, head trauma, injuries, and neck pain. No history of stroke or seizures. In the ED: Vital signs were stable on arrival. CMP and CBC were pretty unremarkable though random glucose was 168. Brain CT was without acute findings. CTA the head showed no large vessel occlusions or significant stenosis. Neck CTA showed bilateral internal carotid artery stenosis, 80% on the right and 70% on the left. ED provider was concerned for TIA and transfer was initiated to [facility] for vascular surgery and neurology consultations. She has been waiting for a bed for several days and she is being admitted pending transfer. Interventions thus far include aspirin 81 mg and clopidogrel 300 mg. She has not had recurrent symptoms at the time my evaluation has no complaints. [facility] Past Medical History Medical History (Updated 12/26/23 @ 20:45 by Amy Piña PA-C) Bilateral carotid artery stenosis Cancer of right breast (05/2017) status post lumpectomy, radiation, tamoxifen Dyslipidemia Emphysema/COPD Fibromyalgia History of tobacco abuse 108 year pack history Palpitations Peripheral arterial disease 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 Surgical History Surgical History History of benign breast biopsy History of colonoscopy diverticulosis, hemorrhoids, benign polyps History of partial mastectomy of right breast (05/2017) History of tonsillectomy History of total hysterectomy Family History Family History Sibling Family history of bipolar disorder Mother Hypertension Cerebrovascular accident Congestive heart failure Father Malignant neoplasm of prostate Acute myocardial infarction Son Cerebrovascular accident Heart disease Other Family history of mental disorder Social History Social History (Updated 12/26/23 @ 20:24 by Amy Piña PA-C) Social History: Surrogate medical decision maker: Andressa Ash, daughter. Code status: Full code. Smoking packs per day: 2 Smoking cigarettes per day: 40.0 Years smoked: 54 Smoking pack-years: 108.00 Smoking status: Former smoker Tobacco type: cigarettes Smoking end date: 01/10/21 Alcohol intake: never Substance use: never Substance use type: does not use Do You Feel Safe in your Home?: Yes Lack of Transportation: No Lack of Food: Never True Current Housing: I Have Housing Concerned About Future Housing: No Difficulty Paying Gas/Electric Bills: No Difficulty Paying for Meds: No Currently Unemployed: No Educat
--- NOTE | 2023-12-26 21:00 | PM.TDS ---
Transfer Discharge Sum: Prov Provider Date of admission: 12/26/23 12:41 Primary care physician: Maico Elaine APRN Admitting clinician: Nito Osuna DO Consults: 12/26/23 Consult to Physician Routine Comment: Consulting Provider: scallop dredger/MD group to consult: neurology Reason for consultation: TIA Has provider been notified: No Attending physician on discharge: Dottie Osuna Discharging clinician: Amy Piña Receiving physician/facility: [facility] DS: Admitting Diagnosis Discharge Date 12/26/2023 Admitting Diagnosis Abnormal sensation of right upper extremity Bilateral carotid artery stenosis Left subclavian steal syndrome Dyslipidemia DS: Discharge Diagnosis Discharge Diagnosis (1) Abnormal sensation of upper extremity: Code(s): R20.9 - Unspecified disturbances of skin sensation Status: Acute (2) Bilateral carotid artery stenosis: Code(s): I65.23 - Occlusion and stenosis of bilateral carotid arteries Status: Acute (3) 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: Code(s): G45.8 - Other transient cerebral ischemic attacks and related syndromes Status: Acute (4) Dyslipidemia: Code(s): E78.5 - Hyperlipidemia, unspecified Status: Acute Plan The patient presented to the emergency department on Sunday afternoon for evaluation of right arm paresthesias difficulties getting herself up following a fall as detailed in HPI. Labs, imaging, EKG, and all reports were personally reviewed. Her symptoms resolved within a very short period of time and have not returned. Symptoms seem unusual for TIA. Consider focal seizures though that seems less likely as well. Possible arm claudication given subclavian steal syndrome however this is on the opposite arm. CTA of the head and neck showed bilateral internal carotid artery stenosis (80% on the right, 70% on the left), with no evidence of large vessel occlusion or significant stenosis. ED providers spoke with vascular team at [facility] who accepted the patient in transfer however they continue to have no bed available and she is being admitted in this setting to complete her workup pending bed availability or other disposition. It may be possible for her to be discharged following workup with outpatient follow-up. She lists a statin allergy which we will need to clarify as she would definitely benefit from a high-intensity statin for secondary prevention though ezetimibe is an alternative if she is statin intolerant. Monitor on telemetry overnight. Echocardiogram with bubble study has been ordered. Neurology consulted. Her medications will be reviewed and resumed as appropriate. Findings and treatment plan were discussed with the patient. Questions were solicited and answered to satisfaction. The patient's medical management will be taken over by the hospitalist team in a.m. Transfer Discharge Sum: Med Medications Active and Home Medications: Home Medications cholecalciferol (vitamin D3) 125 mcg (5,000 unit) capsule 125 mcg PO DAILY #30 caps 01/04/20 [Rx Confirmed 12/26/23] lorazepam 0.5 mg tablet (Ativan) 0.5 mg PO DAILY PRN anxiety #30 tabs 06/06/21 [Rx Confirmed 12/26/23] ascorbic acid (vitamin C) 500 mg tablet 500 mg PO DAILY 12/13/22 [History Confirmed 12/26/23] multivitamin 1 tablet PO DAILY 12/13/22 [History Confirmed 12/26/23] omega-3 fatty acids 500 mg capsule 500 mg PO DAILY 12/13/22 [History Confirmed 12/26/23] vitamin K2 100 mcg capsule 100 mcg PO DAILY 12/13/22 [History Confirmed 12/26/23] B-complex with vitamin C 1 tablet PO DAILY 01/02/23 [History Confirmed 12/26/23] mecobalamin (vitamin B12) 1,000 mcg lozenges 1,000 mcg PO DAILY 01/02/23 [History Confirmed 12/26/23] Active Medications Acetaminophen (Acetaminophen 325 Mg Tablet) 650 mg PO Q4H PRN PRN Reason: Mild Pain (1-3) or Fever Ascorbic Acid (Ascorbic Acid 500 Mg Tablet) 500 mg PO DAILY WHIT Aspirin (Aspirin 81 Mg Chewable Tab
[2023-12-27 00:04] VITALS: PULSE 86
--- NOTE | 2023-12-28 00:36 | PM.IMHP ---
H&P: HPI History of Present Illness Date/Time: 12/26/23 18:30 Chief Complaint: ?I fell over.? Narrative: This is a 73-year-old female with known vascular disease including left subclavian steal syndrome and bilateral carotid artery stenosis, dyslipidemia, chronic obstructive disease, and breast cancer presented to the emergency department via private vehicle from home on 12/21/2023 for evaluation after a fall. The patient provides the following history. She reports sitting at her computer last Sunday afternoon when she noticed that her right arm felt funny and she describes a strange squeezing sensation with what felt like jerks. She then attempted to sit up from the desk but she was feeling extremely weak ?like when I had syncope before? and she had a controlled fall to the ground. She does not believe that she lost consciousness but was feeling out of it for a period of time. She attempted to get up 3 times but was unable to do so. Luckily she was able to crawl to the desk to get her phone to call 911. She was feeling back to normal on their arrival in refused transport but had her daughter bring her in for evaluation after. She denies syncope, vertigo, visual changes, facial droop, difficulties speaking and swallowing, focal weakness, chest pain, palpitations, sensations of racing heart, head trauma, injuries, and neck pain. No history of stroke or seizures. In the ED: Vital signs were stable on arrival. CMP and CBC were pretty unremarkable though random glucose was 168. Brain CT was without acute findings. CTA the head showed no large vessel occlusions or significant stenosis. Neck CTA showed bilateral internal carotid artery stenosis, 80% on the right and 70% on the left. ED provider was concerned for TIA and transfer was initiated to [facility] for vascular surgery and neurology consultations. She has been waiting for a bed for several days and she is being admitted pending transfer. Interventions thus far include aspirin 81 mg and clopidogrel 300 mg. She has not had recurrent symptoms at the time my evaluation has no complaints. Review of Systems Review of Systems: 12 systems were reviewed and are negative except for as per HPI. [facility] Past Medical History Medical History (Updated 12/26/23 @ 20:45 by Amy Piña PA-C) Bilateral carotid artery stenosis Cancer of right breast (05/2017) status post lumpectomy, radiation, tamoxifen Dyslipidemia Emphysema/COPD Fibromyalgia History of tobacco abuse 108 year pack history Palpitations Peripheral arterial disease 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 Surgical History Surgical History History of benign breast biopsy History of colonoscopy diverticulosis, hemorrhoids, benign polyps History of partial mastectomy of right breast (05/2017) History of tonsillectomy History of total hysterectomy Family History Family History Sibling Family history of bipolar disorder Mother Hypertension Cerebrovascular accident Congestive heart failure Father Malignant neoplasm of prostate Acute myocardial infarction Son Cerebrovascular accident Heart disease Other Family history of mental disorder Social History Social History (Updated 12/26/23 @ 20:24 by Amy Piña PA-C) Social History: Surrogate medical decision maker: Andressa Ash, daughter. Code status: Full code. Smoking packs per day: 2 Smoking cigarettes per day: 40.0 Years smoked: 54 Smoking pack-years: 108.00 Smoking status: Former smoker Tobacco type: cigarettes Smoking end date: 01/10/21 Alcohol intake: never Substance use: never Substance use type: does not use Do You Feel Safe in your Home?: Yes Lack of Transportation: No Lack of Food: Never True Current Housing: I Have Housing Concerned About Future Housing: No Difficulty Paying Gas/Elec
== END 2023-12-27 01:10 | disposition short-term general hospital (02) ==
LOC: ANHED 12-26 12:56 → ANH3MEDSUR 12-26 13:52
PROVIDERS: Admitting Provider Student in an Organized Health Care Education/Training Program; Emergency Provider Physician Assistant; PCP Nurse Practitioner; Visit Provider Physician Assistant
DX: G45.8 Other transient cerebral ischemic attacks and related syndromes (principal); R20.9 Unspecified disturbances of skin sensation; W19.XXXA Unspecified fall, initial encounter; E78.5 Hyperlipidemia, unspecified; J43.9 Emphysema, unspecified; E66.9 Obesity, unspecified; Z68.31 Body mass index [BMI] 31.0-31.9, adult; Z79.899 Other long term (current) drug therapy; Z85.3 Personal history of malignant neoplasm of breast; Z87.891 Personal history of nicotine dependence
CPT/HCPCS: 36415; 70450; 70496; 70498; 70553; 71045; 80053; 81003; 82550; 82948; 83735; 84484; 85025; 85610; 85730; 93005; 93306; 96374; 96375; 99285; A9270; A9577; G0378; J2060; Q9967

== ENCOUNTER 2024-05-07 15:59 | Outpatient (CLI) | payer MEDICARE, SELFPAY ==
--- OUTSIDE RECORDS SUMMARY | 2024-05-07 18:16 | XMS_ITS ---
Author Organization [facility] Address [address] [place] [address] Care Team Providers Care Bushler Name Role Phone Loyd Tucker MD Unavailable Aft, Isabel Chilel MD PhD Unavailable [phone] Esthela Saldana PhD Unavailable Allie Curiel MD Unavailable [phone] Maico Elaine INSTALLER TECHNICIAN Unavailable [phone] Jorge Bosch DO Primary Care Provider Active Problems Problem Noted Date Diagnosed Date Encounter for follow-up surveillance of breast c ancer 06/06/2018 History of breast cancer 06/06/2018 Malignant neoplasm of breast 11/01/2017 Malignant neoplasm of upper- outer quadrant of right female breast 10/01/2017 Cancer Staging:Clinical: Unsigned Pathologic:Stage Unknown(pT1b, pNX, cM0, G2, ER: Positive, DC: Positive, HER2: Negative) - Signed by Esthela Saldana, PhD on 11/01/2017 ER+ (estrogen receptor positive status) 07/03/19 18 Carotid artery disease 05/15/2017 Cerebral vascular disorder 05/15/2017 Pulmonary emphysema 05/15/2017 Peripheral vascular disease 05/15/2017 Subclavian steal syndrome 05/15/2017 Mammogram abnormal 03/08/2017 Hypercholesterolemia 05/16/2013 Numbness of lower extremity 05/16/2013 Paresis of single lower extremity (CMS/HCC) 09/2013 Current Treatment and Therapy Plans No current plan information found. Past Treatment and Therapy Plans No past plan information found. Lifetime Dose Tracking * Chemical Lifetime Dose Automatic Entry Manual Entr y DLP 934 mGycm 934 mGycm 0 mGycm Resolved Problems Problem Noted Date Diagnosed Date Resolved Date Cardiac arrhythmia 05/16/2013 4
--- OUTSIDE RECORDS SUMMARY | 2024-05-07 18:16 | XMS_ITS | Encounter Summary ---
Author Organization [employer] Address [address] [place] [address] Care Team Providers Care Document Preparation Specialist Name Role Phone Unavailable Primary Care Provider Unavailabl e Encounter Details Date Type Department Care Team (Late st Contact Info) Description 08/17/2001 Outpatient Historical Division of Neurology 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
--- OUTSIDE RECORDS SUMMARY | 2024-05-07 18:16 | XMS_ITS | Referral Summary ---
Author Organization [facility] Address [address] [place] [address] Care Team Providers Care Investigator Name Role Phone Loyd Tucker MD Unavailable Aft, Isabel Chilel MD PhD Unavailable [phone] Esthela Saldana PhD Unavailable [phone] Allie Curiel MD Unavailable [phone] Maico Elaine SENIOR CLINICAL PROJECT MANAGER Unavailable [phone] Jorge Bosch DO Primary Care Provider [phone] Encounters Date Type Department Care Team Description 02/19/2024 Telephone [facility] [address] [place] [phone] Carissa Brown, KASEY 02/15/2024 8:45 AM ACCOUNT EXECUTIVE SOFTWARE SALES Lab [facility] - Lab Collection [address] [place] [address] [address] [place] [address] History of breast cancer; Malignant neoplasm of upper-outer quadrant of right breast in female, estrogen receptor positive (HCC); Encounter for follow-up surveillance of breast cancer 02/15/2024 9:00 AM ACCOUNT EXECUTIVE SOFTWARE SALES Office Visit [facility] [address] [place] [address] [address] [place] [id number] Fidelina Hall, SILVINA Malignant neoplasm of upper-outer quadrant of right breast in female, estrogen receptor positive (HCC) (Primary Dx); History of breast cancer; Encounter for follow-up surveillance of breast cancer 02/15/2024 7:45 AM ACCOUNT EXECUTIVE SOFTWARE SALES - 02/15/2024 11:59 PM ACCOUNT EXECUTIVE SOFTWARE SALES Hospital Encounter [facility] ([facility]) [address] [place] [address] Screening mammogram, encounter for Discharge Disposition: Discharge to home or self care from Last 3 Months Allergies Active Allergy Reactions Criticality Noted Date Comments Celecoxib Other (See comments) Low 08/28/2023 paresthesias Codeine Unknown 05/16/2013 Cephalexin Unknown 05/16/2013 Nitrofurantoin Monohyd/M-Cryst Unknown 03/28/2017 Medications LORazepam (ATIVAN) 0.5 mg tablet TK 1 T PO QD PRN 3 9 Active tiZANidine (ZANAFLEX) 2 mg tabletIndicatio ns:Left groin pain,Left hip pain,Arthritis of left hip,Lumbar spondylosis,Hip flexor tendinitis, left Take 0.5-1 tablets (1-2 mg total) by mouth every 8 (eight) hours as needed for muscle spasms Can cause sedation, confusion, increased risk of falls 45 tablet 1 4 Active atorvastatin (LIPITOR) 40 mg tablet 4 Active aspirin 81 MG oral suspension 4 Active Active Problems Problem Noted Date Diagnosed Date Encounter for follow-up surveillance of breast c ancer 06/06/2018 History of breast cancer 06/06/2018 Malignant neoplasm of breast 11/01/2017 Malignant neoplasm of upper- outer quadrant of right female breast 10/01/2017 Cancer Staging:Clinical: Unsigned Pathologic:Stage Unknown(pT1b, pNX, cM0, G2, ER: Positive, VA: Positive, HER2: Negative) - Signed by Esthela Saldana, PhD on 11/01/2017 ER+ (estrogen receptor positive status) 07/03/19 Carotid artery disease 05/15/2017 Cerebral vascular disorder 05/15/2017 Pulmonary emphysema 05/15/2017 Peripheral vascular disease 05/15/2017 Subclavian steal syndrome 05/15/2017 Mammogram abnormal 03/08/2017 Hypercholesterolemia 05/16/2013 Numbness of lower extremity 05/16/2013 Paresis of single lower extremity (CMS/HCC) 09/2013 Resolved Problems Problem Noted Date Diagnosed Date Resolved Date Cardiac arrhythmia 05/16/2013 4 Immunizations Immunization Administration Dates Next Due Influenza, Quadrivalent, Gretchen l Culture-based MDCK, Antibiotic Free, Intramuscular 02/08/2018 Influenza, Quadrivalent, Gretchen l Culture-based MDCK, Preservative Free, Antibiotic Free, Intramuscular 03/10/2019 Influenza, Quadrivalent, Hig h Dose, Preservative Free, Intrr 01/09/2020 Influenza, Trivalent, High D ose, Split, Preservative Free, Intramuscular 01/25/2017 Influenza, Trivalent, IM (MDV) 02/26/2012 Pneumococcal Conjugate PCV 13 01/25/2017 Pneumococcal Polysaccharide PPV23 02/08/2018 Social History Tobacco Use Types Packs/Day Years Used Date Smoking Tobacco: Former Cigarettes 1.3 55.8 0 03/12/1965 - 01/10/2021 Passive Smoke Exposure: Past Smokeless Tobacco: Never Tobacco Cessation:Counseling Given: Not Answered Alcohol Use Standard Drinks/Week Comments No 0 (1 standard drink = 0.6 oz pur e alcohol) PHQ-2 Answer Date Recorded PHQ-2 Total Score (If total score is 3 or more points, staff should administer the PHQ-9) 0 12/27/2023 Personal Safety Answer Date Recorded Have you ever been in or are you currently in a harmful physical or emotional relationship or is someone making you feel afraid or unsafe? Denies 12/27/2023 Comments No Sex and Gender Information Value Date Recorded Sex Assigned at Female 06/06/2018 12:44 AM CDT Legal Sex Female 6:34 AM ACCOUNT EXECUTIVE SOFTWARE SALES Gender Identity Female 12/20/2020 11:06 AM CDT Sexual Orientation Straight 06/06/2018 12 :44 AM CDT Last Filed Vital Signs Vital Sign Reading Time Taken Comments Blood Pressure 115/70 02/15/2024 9:03 AM ACCOUNT EXECUTIVE SOFTWARE SALES Pulse 80 02/15/2024 9:03 AM ACCOUNT EXECUTIVE SOFTWARE SALES Temperature 36.7 C (98.1 F) 02/15/2024 9:03 AM ACCOUNT EXECUTIVE SOFTWARE SALES Respiratory Rate 16 02/15/2024 9:03 AM ACCOUNT EXECUTIVE SOFTWARE SALES Oxygen Saturation 98% 02/15/2024 9:03 AM ACCOUNT EXECUTIVE SOFTWARE SALES Inhaled Oxygen Concentration - - Weight 66.2 kg (146 lb) 02/15/2024 9:03 AM ACCOUNT EXECUTIVE SOFTWARE SALES Height 149.9 cm (4' 11 ) 01/07/2024 1:28 PM CDT Body Mass Index 29.49 01/07/2024 1:28 PM CDT Plan of Treatment Not on file Procedures Procedure Name Priority Date/Time Associated Diagnosis Comments EGFR Routine 02/15/2024 8:46 AM ACCOUNT EXECUTIVE SOFTWARE SALES History of breast cancer Malignant neoplasm of upper-outer quadrant of right breast in female, estrogen receptor positive (HCC) Encounter for follow-up surveillance of breast cancer CANCER ANTIGEN 15-3 Routine 02/15/2024 8 :46 AM ACCOUNT EXECUTIVE SOFTWARE SALES History of breast cancer Malignant neoplasm of upper-outer quadrant of right breast in female, estrogen receptor positive (HCC) Encounter for follow-up surveillance of breast cancer VITAMIN D 25 HYDROXY Routine 02/15/2024 8:46 AM ACCOUNT EXECUTIVE SOFTWARE SALES History of breast cancer Malignant neoplasm of upper-outer quadrant of right breast in female, estrogen receptor positive (HCC) Encounter for follow-up surveillance of breast cancer COMPREHENSIVE METABOLIC PANEL Routine 02/15/2024 8:46 AM ACCOUNT EXECUTIVE SOFTWARE SALES History of breast cancer Malignant neoplasm of upper-outer quadrant of right breast in female, estrogen receptor positive (HCC) Encounter for follow-up surveillance of breast cancer SCREENING MAMMOGRAM BILATERAL W SALAZAR W IMPLANTS Schedule Routine, Read Routine (OP Routine) 02/15/2024 8:07 AM ACCOUNT EXECUTIVE SOFTWARE SALES Screening mammogram, encounter for DEXA SCAN Routine 03/17/2016 COLONOSCOPY Routine 03/12/2013 from Last 3 Months or Most Recently Relevant to Health Maintenance Results * eGFR (02/15/2024 8:46 AM ACCOUNT EXECUTIVE SOFTWARE SALES) eGFR 76 >=60 mL/min/1. 73 m2 Comment: Interpretive Data Reference Interval Normal >/= 90 mL/min/1.73m2 Mildly decreased* 60 - 89 mL/min/1.73m2 Mildly to moderately decreased 45 - 59 mL/min/1.73m2 Moderately to severely decreased 30 - 44 mL/min/1.73m2 Severely decreased 15 - 29 mL/min/1.73m2 Kidney Failure < 15 mL/min/1.73m2 *Relative to young adult level Estimated glomerular filtration rate is determined by the 2020 CKD-EPI equation recommended by the National Kidney Foundation (A Unifying Approach to GFR Estimation: Recommendations of the NKF-ASK Task Force on Reassessing the Inclusion of Race in Diagnosing Kidney Disease, JASN 2020). The CKD-EPI equation should not be used for patients with unstable renal function and has not been validated in children and those over 70. Current interpretive data was last reviewed 2021. Blood 02/15/2024 8:46 AM ACCOUNT EXECUTIVE SOFTWARE SALES 02/15/2024 8:58 AM ACCOUNT EXECUTIVE SOFTWARE SALES Fidelina Hall SENIOR CLINICAL PROJECT MANAGER LAB BLOOD ORDERABLES Final Resu lt Performing Organization Address [facility] de Phone Number [facility] [address] * Cancer antigen 15-3 (02/15/2024 8:46 AM ACCOUNT EXECUTIVE SOFTWARE SALES) CA 15-3 ag 19.7 <=25.0 units/mL Comment: Interpretive Data The Xumii CA 15-3 assay procedure was used. Results from different manufacturers or methods may not be comparable. Serial testing should be performed using the same method. Blood 02/15/2024 8:46 AM ACCOUNT EXECUTIVE SOFTWARE SALES 02/15/2024 9:28 AM ACCOUNT EXECUTIVE SOFTWARE SALES Fidelina Hall SENIOR CLINICAL PROJECT MANAGER LAB BLOOD ORDERABLES Final Resu lt Performing Organization Address [facility] Co de Phone Number [facility] [address] * Vitamin D 25 hydroxy (02/15/2024 8:46 AM ACCOUNT EXECUTIVE SOFTWARE SALES) Vitamin D 25-OH 31 30 - 80 ng/mL Blood 02/15/2024 8:46 AM ACCOUNT EXECUTIVE SOFTWARE SALES 02/15/2024 8:58 AM ACCOUNT EXECUTIVE SOFTWARE SALES Fidelina Hall SENIOR CLINICAL PROJECT MANAGER LAB BLOOD ORDERABLES Final Resu lt [facility] Department [place] [address] * Comprehensive metabolic panel (02/15/2024 8:46 AM ACCOUNT EXECUTIVE SOFTWARE SALES) Sodium 140 135 - 145 mmol/L Potassium, pl 4.2 3.3 - 4.9 mmol/L [facility] Chloride 105 97 - 110 mmol/L [facility] CO2 28 22 - 32 mmol/L [facility] Anion gap 7 2 - 15 mmol/L [facility] BUN 11 6 - 25 mg/dL [facility] Creatinine 0.81 0.60 - 1.10 mg/dL [facility] Glucose 104 70 - 199 mg/dL [facility] Comment: Interpretive Data Fasting glucose >/= 126 mg/dl is diagnostic for diabetes. Fasting is defined as no caloric intake for at least 8 hours. Fasting glucose between 100 mg/dl to 125 mg/dl is diagnostic of prediabetes. In a patient with classic symptoms of hyperglycemia or hyperglycemic crisis, a random glucose >/= 200 mg/dl is diagnostic for diabetes. In the absence of unequivocal hyperglycemia, results should be confirmed by repeat testing. The classification and Diagnosis of Diabetes Diabetes Care 2021; 46: S19-S40. Current interpretive data was last revised 2022. Calcium 9.6 8.5 - 10.3 mg/dL [facility] Bilirubin, total 0.5 0.1 - 1.2 mg/dL [facility] Protein, pl 7.3 6.5 - 8.5 g/dL [facility] Albumin 4.4 3.5 - 5.0 g/dL [facility] Alk phos 72 40 - 130 Units/L [facility] ALT 22 7 - 45 Units/L [facility] AST 23 10 - 45 Units/L [facility] Blood 02/15/2024 8:46 AM ACCOUNT EXECUTIVE SOFTWARE SALES 02/15/2024 8:58 AM ACCOUNT EXECUTIVE SOFTWARE SALES Fidelina Hall SENIOR CLINICAL PROJECT MANAGER LAB BLOOD ORDERABLES Final Resu lt [facility] Department [place] [address] * Screening Mammogram Bilateral w Salazar w Implants (02/15/2024 8:07 AM ACCOUNT EXECUTIVE SOFTWARE SALES) Anatomical Region Laterality Modality Breast Bilateral Mammography Narrative 02/18/2024 2:22 PM ACCOUNT EXECUTIVE SOFTWARE SALES Mammogram Technique: Bilateral Digital Breast Tomosynthesis, Bilateral C-view 2D Screening mammogram. Views obtained: bilateral craniocaudal and bilateral mediolateral oblique. Computer Aided Detection was performed. Mammogram Findings: The present examination has been compared to prior imaging studies performed at [facility] on 01/08/2019, 08/26/2020, 11/24/2021 and 11/24/2022. The breasts are heterogeneously dense, which may obscure small masses. There are bilateral silicone gel implants. There is no suspicious abnormality in either breast. Impression: There is no mammographic evidence of malignancy. Annual screening mammography is recommended. If supplemental screening is desired, breast MRI would be recommended in this patient with heterogeneously dense breasts. OVERALL FINAL ASSESSMENT: BI-RADS CATEGORY 1: Negative. Procedure Note Donita Houston MD - 02/18/2024 Mammogram Technique: Bilateral Digital Breast Tomosynthesis, Bilateral C-view 2D Screening mammogram. Views obtained: bilateral craniocaudal and bilateral mediolateral oblique. Computer Aided Detection was performed. Mammogram Findings: The present examination has been compared to prior imaging studies performed at [facility] on 01/08/2019, 08/26/2020,11/24/2021 and 11/24/2022. The breasts are heterogeneously dense, which may obscure small masses. There are bilateral silicone gel implants. There is no suspicious abnormality in either breast. Impression: There is no mammographic evidence of malignancy. Annual screening mammography is recommended. If supplemental screeningis desired, breast MRI would be recommended in this patient with heterogeneously dense breasts. OVERALL FINAL ASSESSMENT: BI-RADS CATEGORY 1: Negative. us Self Screening Mammogram IMG MAMMO PROCEDURES Fi nal Result * DEXA SCAN (03/17/2016) DEXA Scan Abnormal Historical Provider HEALTH MAINTENANCE Final Result * COLONOSCOPY (03/12/2013) Colonoscopy Normal Historical Provider HEALTH MAINTENANCE Final Result from Last 3 Months or Most Recently Relevant to Health Maintenance Insurance MEDICARE [facility] MEDICARE SUPPLEMENT MEDICARE [employer] MEDICARE [facility] MEDICARE SUPPLEMENT Advance Directives For more information, please contact: [phone] * Full Code (Latest Code Status on File) Date Activated Date Inactivated Comments 12/27/2023 2:11 AM 12/27/2023 8:08 PM Care Teams Investigator Relationship Specialty Start Date End Date Jorge Bosch DO [address] [facility] [address] [place], [place] [id number] PCP - General Internal Medicine 12/27/23 Loyd Tucker MD [address] [facility] [address] [place] [address] Radiation Oncologist Radiation Oncology 11/01/17 AftIsabel MD PhD [address] [place] [address] Referring Physician Surgical Oncology 11/01/17 Esthela Saldana, PhD [address] [place] [address] Nurse Practitioner Radiation Oncology 11/01/17 Allie Curiel MD [address] [place] [address] Referring Physician Medical Oncology 06/06/18 Maico Elaine, SENIOR CLINICAL PROJECT MANAGER [address] [facility] [address] [place] [address] Nurse Practitioner Nurse Practitioner 01/29/23
--- OUTSIDE RECORDS SUMMARY | 2024-05-07 18:16 | XMS_ITS | Encounter Summary ---
Author Organization [employer] Address [address] [place] [address] Care Team Providers Care Clerical Support Specialist Name Role Phone Unavailable Primary Care Provider Unavailabl e Encounter Details Date Type Department Care Team (Late st Contact Info) Description 08/16/2001 Outpatient Historical [facility] [place] [facility]) [address] 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
--- OUTSIDE RECORDS SUMMARY | 2024-05-07 18:16 | XMS_ITS | Clinical Summary ---
Author Organization [facility] Address [address] [place] [address] Care Team Providers Care Hedge Fund Accountant Name Role Phone Loyd Tucker MD Unavailable Aft, Isabel Chilel MD PhD Unavailable [phone] Esthela Saldana PhD Unavailable [phone] Allie Curiel MD Unavailable [phone] Maico Elaine MAINTENANCE INSTRUCTOR Unavailable [phone] Jorge Bosch DO Primary Care Provider [phone] Allergies Active Allergy Reactions Criticality Noted Date [...] Pathologic:Stage Unknown(pT1b, pNX, cM0, G2, ER: Positive, WV: Positive, HER2: Negative) - Signed by Esthela [...] Date Resolved Date Cardiac arrhythmia 05/16/2013 4 Encounters Date Type Department Care Team Description 02/19/2024 Telephone [facility] Physicians [facility] Oncology [facility] [facility] [address] [place] [address] Carissa Brown RMA 02/15/2024 9:00 AM CHIEF DIVERSITY OFFICER Office Visit [facility] Oncology [facility] Floor [address] [place] [address] Fidelina Hall, MAINTENANCE INSTRUCTOR Malignant neoplasm of upper-outer quadrant of right breast in female, estrogen receptor positive (HCC) (Primary Dx); History of breast cancer; Encounter for follow-up surveillance of breast cancer 02/15/2024 8:45 AM CHIEF DIVERSITY OFFICER Lab [facility] - Lab Collection [address] [facility] Floor [address] [place] [address] History of breast cancer; Malignant neoplasm of upper-outer quadrant of right breast in female, estrogen receptor positive (HCC); Encounter for follow-up surveillance of breast cancer 02/15/2024 7:45 AM CHIEF DIVERSITY OFFICER - 02/15/2024 11:59 PM CHIEF DIVERSITY OFFICER Hospital Encounter [facility] [address] [place], [place] [id number] Screening mammogram, encounter for Discharge Disposition: Discharge to home or self care from Last 3 Months Immunizations Immunization Administration Dates Next Due Influenza, Quadrivalent, Gretchen l Culture-based MDCK, Antibiotic Free, Intramuscular 02/08/2018 Influenza, Quadrivalent, Gretchen l Culture-based MDCK, Preservative Free, Antibiotic Free, Intramuscular 03/10/2019 Influenza, Quadrivalent, Hig h Dose, Preservative Free, Intrr 01/09/2020 Influenza, Trivalent, High D ose, Split, Preservative Free, Intramuscular 01/25/2017 Influenza, Trivalent, IM (MDV) 02/26/2012 Pneumococcal Conjugate PCV 13 01/25/2017 Pneumococcal Polysaccharide PPV23 02/08/2018 Surgical History Surgery Date Site/Laterality Comments WV TONSILLECTOMY PRIMARY/SECONDARY <AGE 10 Tonsillectomy - (Added by TW Conv) WV ANTERIOR COLPORRAPHY RPR CYSTOCELE W/CYSTO Anterior Colporrhaphy, Repair Of Cystocele - (Added by TW Conv) WV TOTAL ABDOMINAL HYSTERECT W/WO RMVL TUBE OVARY Hysterectomy - (Added by TW Conv) CATARACT EXTRACTION Cataract Surgery - (Added by TW Conv) URETHRAL DIVERTICULECTOMY 03/12/2004 - 03/11/2005 trans vaginal BREAST SURGERY 1967, 1984, 2018 CATARACT EXTRACTION 2017 COSMETIC SURGERY 1984 HYSTERECTOMY 2005 NOSE SURGERY Medical History Medical History Date Comments Personal history of other di seases of the circulatory system History of cardiac arrhythmi a - (Added by TW Conv) Personal history of other en docrine, nutritional and metabolic disease History of high chol esterol - (Added by TW Conv) Personal history of other di seases of the respiratory system History of pulmonary emphyse ma - (Added by TW Conv) Arthritis ~2011 Cancer (CMS/HCC) (HCC) 2018 Cataract ~2016 Emphysema of lung (HCC) 2015 Osteoporosis Family History Medical History Relation Name Comments COPD Brother 1 Masoud Palacio Lung cancer Brother 1 Masoud Palacio Family history of lung cancer - (Added by TW Conv) Stroke Brother 1 Masoud Palacio Depression Brother 2 Larry Palacio Mental illness Brother 2 Larry Palacio Arthritis Father Bertram Hakeem Heart attack Father Bertram Palacio Heart disease Father Bertram Hakeem Obesity Father Bertram Hakeem Prostate cancer Father Bertram Hakeem Family histo ry of malignant neoplasm of prostate - (Added by TW Conv) Mental illness Maternal Grandfather Noah Choi Mental illness Maternal Grandmother Nini Choi Dementia Mother Becca Palacio Family history of dementia - (Added by TW Conv) Heart disease Mother Becca Palacio Family histor y of cardiac disorder - (Added by TW Conv) Hyperlipidemia Mother Becca Palacio Memory loss Mother Becca Palacio Skin cancer Mother Becca Palacio Family history of skin cancer - (Added by TW Conv) Stroke Mother Becca Palacio Hyperlipidemia Mother's Sister Nydia Sterling Dementia Other Family history of dementia - Relation: Aunt (Added by TW Conv) Gout Other Cancer Paternal Grandfather Bertram Palacio Arthritis Paternal Grandmother Keturah Palacio Arthritis Sister 1 Renetta Jones Depression Sister 1 Renetta Jones Hyperlipidemia Sister 1 Renetta Jones Hypertension Sister 1 Renetta Jones Obesity Sister 1 Renetta Jones COPD Sister 2 Andressa Gorman Cancer Sister 2 Andressa Gorman Heart disease Sister 2 Andressa Gorman Hyperlipidemia Sister 2 Andressa Gorman Obesity Sister 2 Andressa Gorman Stroke Sister 2 Andressa Gorman Depression Son Alfred Rangel Rashes / Skin problems Son Alfred Rangel Relation Name Status Comments Brother 1 Masoud Palacio Brother 2 Larry Palacio Father Bertram Palacio Maternal Grandfather Noah Choi Maternal Grandmother Nini Choi Mother Becca Palacio Mother's Sister Nydia Sterling Other Paternal Grandfather Bertram Palacio Paternal Grandmother Keturah Palacio Sister 1 Renetta Jones Sister 2 Andressa Gorman Son Alfred Rangel Social History Tobacco Use Types Packs/Day Years [...] AM CDT Legal Sex Female 6:34 AM CHIEF DIVERSITY OFFICER Gender Identity Female 12/20/2020 11:06 AM CDT Sexual Orientation Straight 06/06/2018 12 :44 AM CDT Obstetrics History Para Term AB IAB SAB Ectopic Multiple Livin g Live Births 3 2 2 1 1 2 2 Date Outcome GA Total Labor Labor/2nd/3rd Weight Sex Type Anes PTL Nan A1 A5 Name Clin 1969 Term M Vag-S pont Living Complications:None 1971 Term F Vag-S pont Living Complications:None 1988 SAB SAB Demise Last Filed Vital Signs Vital Sign Reading Time Taken Comments Blood Pressure 115/70 02/15/2024 9:03 AM CHIEF DIVERSITY OFFICER Pulse 80 02/15/2024 9:03 AM CHIEF DIVERSITY OFFICER Temperature 36.7 C (98.1 F) 02/15/2024 9:03 AM CHIEF DIVERSITY OFFICER Respiratory Rate 16 02/15/2024 9:03 AM CHIEF DIVERSITY OFFICER Oxygen Saturation 98% 02/15/2024 9:03 AM CHIEF DIVERSITY OFFICER Inhaled Oxygen Concentration - - Weight 66.2 kg (146 lb) 02/15/2024 9:03 AM CHIEF DIVERSITY OFFICER Height 149.9 cm (4' 11 ) 01/07/2024 1:28 PM CDT Body Mass Index 29.49 01/07/2024 1:28 PM CDT Plan of Treatment Health Maintenance Due Date Last Done Comments Hepatitis C Screening 1950 DTaP/Tdap/Td Vaccine (1 - Tdap) 12/20/1959 Hepatitis B Screening 1966 Lung Cancer Screening 1998 Zoster Vaccine (1 of 2) 1998 Well Visit 65+ 2013 Osteoporosis Screening-Bone Density Scan 03/17/2018 03/17/2016 Colon Cancer Screening-Colonoscopy 03/12/2023 03/12/2013 Influenza Vaccine (#1) 2023 , 03/10/2019, 02/08/2018, Additional history exists Depression Screening 12/20/2024 12/21/2023 Fall Risk Assessment 12/26/2024 12/27/2023 Colon Cancer Screening-CT Colonography Discontinued 03/12/2013 Colon Cancer Screening-DNA Stool Discontinued 03/12/19 14 Colon Cancer Screening-FIT Discontinued 03/12/2013 Colon Cancer Screening-Sigmoidoscopy Discontinued 03/12/2013 Pneumococcal vaccine 65+ Completed 02/08/2018, 01/10 Breast Cancer Screening-Mammogram Discontinued 02/15/2024, 11/24/2022, 11/24/2021, Additional history exists Procedures Procedure Name Priority Date/Time Associated Diagnosis Comments EGFR Routine 02/15/2024 8:46 AM CHIEF DIVERSITY OFFICER History of breast cancer Malignant neoplasm of upper-outer quadrant of right breast in female, estrogen receptor positive (HCC) Encounter for follow-up surveillance of breast cancer CANCER ANTIGEN 15-3 Routine 02/15/2024 8 :46 AM CHIEF DIVERSITY OFFICER History of breast cancer Malignant neoplasm of upper-outer quadrant of right breast in female, estrogen receptor positive (HCC) Encounter for follow-up surveillance of breast cancer VITAMIN D 25 HYDROXY Routine 02/15/2024 8:46 AM CHIEF DIVERSITY OFFICER History of breast cancer Malignant neoplasm of upper-outer quadrant of right breast in female, estrogen receptor positive (HCC) Encounter for follow-up surveillance of breast cancer COMPREHENSIVE METABOLIC PANEL Routine 02/15/2024 8:46 AM CHIEF DIVERSITY OFFICER History of breast cancer Malignant neoplasm of upper-outer quadrant of right breast in female, estrogen receptor positive (HCC) Encounter for follow-up surveillance of breast cancer SCREENING MAMMOGRAM BILATERAL W SALAZAR W IMPLANTS Schedule Routine, Read Routine (OP Routine) 02/15/2024 8:07 AM CHIEF DIVERSITY OFFICER Screening mammogram, encounter for DEXA SCAN Routine 03/17/2016 COLONOSCOPY Routine 03/12/2013 from Last 3 Months or Most Recently Relevant to Health Maintenance Results * eGFR (02/15/2024 8:46 AM CHIEF DIVERSITY OFFICER) eGFR 76 >=60 mL/min/1. 73 m2 Comment: [...] last reviewed 2021. Blood 02/15/2024 8:46 AM CHIEF DIVERSITY OFFICER 02/15/2024 8:58 AM CHIEF DIVERSITY OFFICER Fidelina Hall MAINTENANCE INSTRUCTOR LAB BLOOD ORDERABLES Final Resu lt Performing Organization Address [facility] Phone Number [facility] Department [place] [address] * Cancer antigen 15-3 (02/15/2024 8:46 AM CHIEF DIVERSITY OFFICER) CA 15-3 ag 19.7 <=25.0 units/mL Comment: Interpretive Data The Félix CA 15-3 assay procedure was used. Results from different manufacturers or methods may not be comparable. Serial testing should be performed using the same method. Blood 02/15/2024 8:46 AM CHIEF DIVERSITY OFFICER 02/15/2024 9:28 AM CHIEF DIVERSITY OFFICER Fidelina Hall NP LAB BLOOD ORDERABLES Final Resu lt Performing Organization Address [facility] Phone Number [facility] Department [place] [address] * Vitamin D 25 hydroxy (02/15/2024 8:46 AM CHIEF DIVERSITY OFFICER) Vitamin D 25-OH 31 30 - 80 ng/mL Blood 02/15/2024 8:46 AM CHIEF DIVERSITY OFFICER 02/15/2024 8:58 AM CHIEF DIVERSITY OFFICER Fidelina Hall MAINTENANCE INSTRUCTOR LAB BLOOD ORDERABLES Final Resu lt [facility] [place] [address] * Comprehensive metabolic panel (02/15/2024 8:46 AM CHIEF DIVERSITY OFFICER) Sodium 140 135 - 145 mmol/L Potassium, pl 4.2 3.3 - 4.9 mmol/L [facility] Chloride 105 97 - 110 mmol/L [facility] CO2 28 22 - 32 mmol/L [facility] Anion gap 7 2 - 15 mmol/L [facility] BUN 11 6 - 25 mg/dL [facility] Creatinine 0.81 0.60 - 1.10 mg/dL [facility] Glucose 104 70 - 199 mg/dL [facility] Comment: Interpretive Data Fasting glucose >/= 126 [...] 2022. Calcium 9.6 8.5 - 10.3 mg/dL [facility] Bilirubin, total 0.5 0.1 - 1.2 mg/dL [facility] Protein, pl 7.3 6.5 - 8.5 g/dL [facility] Albumin 4.4 3.5 - 5.0 g/dL [facility] Alk phos 72 40 - 130 Units/L [facility] ALT 22 7 - 45 Units/L [facility] AST 23 10 - 45 Units/L [facility] Blood 02/15/2024 8:46 AM CHIEF DIVERSITY OFFICER 02/15/2024 8:58 AM CHIEF DIVERSITY OFFICER us Fidelina Hall MAINTENANCE INSTRUCTOR LAB BLOOD ORDERABLES Final Resu lt [facility] [place] [address] * Screening Mammogram Bilateral w Salazar w Implants (02/15/2024 8:07 AM CHIEF DIVERSITY OFFICER) Anatomical Region Laterality Modality Breast Bilateral Mammography Narrative 02/18/2024 2:22 PM CHIEF DIVERSITY OFFICER Mammogram Technique: Bilateral Digital Breast Tomosynthesis, Bilateral C-view 2D Screening mammogram. Views obtained: bilateral craniocaudal and bilateral mediolateral oblique. Computer Aided Detection was performed. Mammogram Findings: The present examination has been compared to prior imaging studies performed at [facility] on 01/08/2019, 08/26/2020, 11/24/2021 and 11/24/2022. The [...] compared to prior imaging studies performed at [facility] on 01/08/2019, 08/26/2020,11/24/2021 and 11/24/2022. The breasts [...] Recently Relevant to Health Maintenance Insurance MEDICARE [facility] MEDICARE SUPPLEMENT MEDICARE [place] [employer] [place] [id number] MEDICARE [facility] MEDICARE SUPPLEMENT Advance Directives For more information, please contact: [phone] * Full Code (Latest Code Status on File) Date Activated Date Inactivated Comments 12/27/2023 2:11 AM 12/27/2023 8:08 PM Care Teams Hedge Fund Accountant Relationship Specialty Start Date End Date Jorge Bosch DO [address] [facility] [address] [place] [address] PCP - General Internal Medicine 12/27/23 Loyd Tucker MD [address] [facility] [address] [place], [place] [id number] Radiation Oncologist Radiation Oncology 11/01/17 AftIsabel MD PhD [address] [place] [address] Referring Physician Surgical Oncology 11/01/17 Esthela Saldana, PhD [address] [place] [address] Nurse Practitioner Radiation Oncology 11/01/17 Allie Curiel MD [address] [place] [address] Referring Physician Medical Oncology 06/06/18 Maico Elaine MAINTENANCE INSTRUCTOR [address] [address] Nurse Practitioner Nurse Practitioner 01/29/23
--- OUTSIDE RECORDS SUMMARY | 2024-05-07 18:16 | XMS_ITS | Clinical Summary ---
Author Organization [facility] Address [address] [place] [address] Care Team Providers Care Soubrette Name Role Phone Jorge Bosch DO Primary Care Provider [phone] Source Comments [facility],non-owned Affiliates and Associated Physician Practices is amultiple site organization consisting of ambulatory clinics and hospital sitesin [place], [place], [place] and [place]. This disclosure is being madepursuant to the Care Everywhere program and may not contain all information available regarding this patient. Last updated 17.[facility] Social History Tobacco Use Types Packs/Day Years Used Date Smoking Tobacco: Never Assessed Sex and Gender Information Value Date Recorded Sex Assigned at Not on file Gender Identity Not on file Sexual Orientation Not on file Plan of Treatment Health Maintenance Due Date Last Done Comments BONE DENSITY TESTING 1950 COLOGUARD (AGES 45-75) - COL ON CA SCREENING 1948 COLON MONITORING 1948 COLONOSCOPY - COLON CA SCREENING 1948 CT COLONOGRAPHY - COLON CA SCREENING 1948 Colorectal Cancer Screening 1948 FIT - COLON CA SCREENING 1948 FLEX SIG - COLON CA SCREENING 1948 LIPID TESTING 1948 MAMMOGRAM 1950 MEDICARE AWV 12 MONTHS 1948 HEPATITIS C SCREENING 12/15/1966 DTAP/TDAP/TD VACCINES (1 - Tdap) 12/20/1967 PNEUMOCOCCAL VACCINE 50+ (1 of 1 - PCV) 1998 ZOSTER VACCINE (1 of 2) 1998 COVID-19 VACCINE ( - 2023-2 5 season) 2023 INFLUENZA VACCINE (#1) 2023 Respiratory Syncytial Virus (RSV) Vaccine Pt: or over 60 yrs (1 - 1-dose 75+ series) 12/20/2023 DEPRESSION SCREENING 03/12/2024 HEPATITIS B VACCINE Aged Out No longe r eligible based on patient's age to complete this topic HIB VACCINE Aged Out No longer eligi ble based on patient's age to complete this topic HPV VACCINE Aged Out No longer eligi ble based on patient's age to complete this topic MENINGOCOCCAL (Group B) VACCINE Aged Out No longer eligible based on patient's age to complete this topic MENINGOCOCCAL VACCINE Aged Out No seth emelyn eligible based on patient's age to complete this topic Care Teams Soubrette Relationship Specialty Start Date End Date Jorge Bosch DO [address] [place], [place] [phone] PCP - General 06/22/21
--- OUTSIDE RECORDS SUMMARY | 2024-05-07 18:16 | XMS_ITS | Encounter Summary ---
Author Organization [facility] Address [address] [facility] [place] [address] Care Team Providers Care Seat Maker Name Role Phone Jorge Bosch DO Primary Care Provider [phone] Encounter Details Date Type Department Care Team (Late st Contact Info) Description 06/21/2022 Lab Requisition [facility] Lab [address] [facility] [place] [address] Jayme Mahoney MD [address] [place] [address] Social History Tobacco Use Types Packs/Day Years Used Date Smoking Tobacco: Never Assessed Sex and Gender Information Value Date Recorded Sex Assigned at Not on file Gender Identity Not on file Sexual Orientation Not on file documented as of this encounter Plan of Treatment Not on file documented as of this encounter Procedures Procedure Name Priority Date/Time Associated Diagnosis Comments DERMATOPATHOLOGY Routine 06/20/2022 3:33 AM CDT documented in this encounter Results * DERMATOPATHOLOGY (06/20/2022 3:33 AM CDT) Case Report Dermatopathology Report Case: [id number] Authorizing Provider: Jayme Mahoney MD Collected: 06/20/2022 03:33 AM Ordering Location: [facility] Lab Received: 06/21/2022 01:49 PM Pathologist: Kelsi Palacio MD Specimen: Skin, right nasal bulb 2:06 PM CDT DERMATOPATHOLOGY LABORATORY Final Diagnosis Specimen A. 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 The specimen consists of a shave biopsy measuring 4x4x1 mm. Jar 0. 3 2:06 PM CDT DERMATOPATHOLOGY LABORATORY Microscopic Description Specimen A. SKIN, right nasal bulb: The epidermis shows parakeratosis, full thickness disorderly maturation of keratinocytes. The adjacent lower half of the epidermis shows disorderly maturation of keratinocytes with nuclear pleomorphism. 3 2:06 PM CDT DERMATOPATHOLOGY LABORATORY Disclaimer An external and internal positive and negative controls are appropriate for the histochemical, immunohistochemical and immunofluorescence stain(s) in this case (if any), except where stated explicitly. The performance characteristics of the stain(s) cited in this report were developed and its performance characteristic determined by the Dermatopathology Laboratory at [facility], directed by Dr. Elyse Banks. These tests need not be, and therefore are not, approved by the [place] Food and Drug Administration. The tests are used for clinical purposes. Billing Codes Specimen Charges Stain Charges 91645 1 3 2:06 PM CDT DERMATOPATHOLOGY LABORATORY Embedded Images 3 2:06 PM CDT DERMATOPATHOLOGY LABORATORY Pathology/Cytolo gy TISSUE SPECIMEN FROM SKIN / Unknown 06/20/2022 3:33 AM CDT 06/21/2022 1:49 PM CDT Jayme Mahoney MD LAB - PATHOLOGY/CYTO LOGY ORDERABLES DERMATOPATHOLOGY LABORATORY [facility] - Department of Dermatology [address], [address] [phone] documented in this encounter Visit Diagnoses Not on filedocumented in this encounter Care Teams Seat Maker Relationship Specialty Start Date End Date Jorge Bosch DO [address] [place] [address] PCP - General 06/22/21 documented as of this encounter
--- OUTSIDE RECORDS SUMMARY | 2024-05-07 18:16 | XMS_ITS | Patient Health Summary ---
Author Organization [facility] Address [address] [place] [address] Care Team Providers Care Business Office Associate Name Role Phone Jorge Bosch DO Primary Care Provider [phone] Note from [facility],non-owned Affiliates and Associated Physician Practices is amultiple site organization consisting of ambulatory clinics and hospital sitesin [place], [place], [place] and [place]. This disclosure is being madepursuant to the Care Everywhere program and may not contain all information available regarding this patient. Last updated 17.[facility] Social History Tobacco Use Types Packs/Day Years Used Date Smoking Tobacco: Never Assessed Sex and Gender Information Value Date Recorded Sex Assigned at Not on file Gender Identity Not on file Sexual Orientation Not on file Procedures * DERMATOPATHOLOGY(Performed 06/20/2022) * PATHOLOGY TISSUE(Performed 09/17/2018) Performed for Gross hematuria * CULTURE URINE(Performed 02/26/2014) Results * DERMATOPATHOLOGY (06/20/2022 3:33 AM CDT) Case Report Dermatopathology Report Case: [id number] Authorizing Provider: Jayme Mahoney MD Collected: 06/20/2022 03:33 AM Ordering Location: [facility] Received: 06/21/2022 01:49 PM Pathologist: Kelsi Palacio MD Specimen: Skin, right nasal bulb 3 2:06 PM CDT DERMATOPATHOLOGY LABORATORY Final Diagnosis [...] characteristic determined by the Dermatopathology Laboratory at [facility], directed by Dr. Elyse Banks. These tests need not be, and therefore are not, approved by the [place] Food and Drug Administration. The tests are used for clinical purposes. Billing Codes Specimen Charges Stain Charges 71977 1 3 2:06 PM CDT DERMATOPATHOLOGY LABORATORY Embedded Images 3 2:06 PM CDT DERMATOPATHOLOGY LABORATORY Pathology/Cytolo gy TISSUE SPECIMEN FROM SKIN / Unknown 06/20/2022 3:33 AM CDT 06/21/2022 1:49 PM CDT Jayme Mahoney MD LAB - PATHOLOGY/CYTO LOGY ORDERABLES DERMATOPATHOLOGY LABORATORY [facility] - Department of Dermatology [address], [address] Floor [address] [phone] * PATHOLOGY TISSUE (09/17/2018 1:32 PM CDT) Case Report Surgical Pathology Report Case: [id number] Authorizing Provider: Nafisa King MD Collected: 09/17/2018 01:32 PM Pathologist: Vahe Mcdermott MD Received: 09/19/2018 01:32 PM Specimen: Urine 09/20/2018 9:53 AM [facility] PATHOLOGY LAB Final Diagnosis Urine, voided, Thin Prep, cytology: - Negative for a high-grade urothelial neoplasm Benign urothelial cells admixed with benign squamous cells 09/20/2018 9:53 AM [facility] PATHOLOGY LAB Clinical History Hematuria. 09/20/2018 9:53 AM [facility] PATHOLOGY LAB Gross Description Prepared slide (1) received from [facility] labeled [id number], Tiffany Palacio . All material will be returned. 09/20/2018 9:53 AM [facility] PATHOLOGY LAB Disclaimer The performance characteristics of all immunohistochemical and indirect immunofluorescence stains (if any) cited in this report were determined by the Histopathology Laboratory of [facility]. Some of these tests were developed by our own laboratory and have not been cleared or approved by the [place] Food and Drug Administration. The FDA does not require this test to go through premarket FDA review. These tests are used for clinical purposes. They should not be regarded as investigational or for research. This laboratory is certified under the Clinical Laboratory Improvement Amendments (CLIA) as qualified to perform high complexity clinical laboratory testing. This case has been personally reviewed and interpreted by the attending (teaching) pathologist. 09/20/2018 9:53 AM [facility] PATHOLOGY LAB Embedded Images 09/20/2018 9:53 AM [facility] PATHOLOGY LAB Pathology/Cytolo gy URINE / Unknown 09/17/2018 1:32 PM CDT 09/19/2018 1:32 PM CDT Nafisa King MD LAB - PATHOLOGY/CYTO LOGY ORDERABLES [facility] PATHOLOGY LAB [address] [place], [place] [address] [place] [address] * CULTURE URINE (02/26/2014 8:42 AM FUSE SPOOLER) Culture Urine No Growth of >100 CFU/ml after 48 Hours [facility] Urine specimen (specimen) URINE SPECIMEN OBTAINED BY CLEAN CATCH PROCEDURE / Unknown 02/26/2014 8:42 AM FUSE SPOOLER 02/26/2014 9:38 PM FUSE SPOOLER Narrative [facility] - 02/28/2014 10:34 AM FUSE SPOOLER AndersonSpecimen#[id number] Yuri Loc/Rm/Bed: EXPCARE G// CLN CATCH U Historical Provider LAB - MICROBIOLOG Y ORDERABLES Performing Organization Address City/State/[facility] Co de Phone Number [facility] [address] [place] [address] Care Teams Business Office Associate Relationship Specialty Start Date End Date Jorge Bosch DO [address] [place] [address] PCP - General 06/22/21
--- OUTSIDE RECORDS SUMMARY | 2024-05-07 18:16 | XMS_ITS | Encounter Summary ---
Author Organization [facility] Address [address] [place] [address] Care Team Providers Care Belt And Link Assembly Supervisor Name Role Phone Dg Gilliam MD Primary Care Provider Jorge Bosch DO Primary Care Provider [phone] Encounter Details Date Type Department Care Team (Late st Contact Info) Description 09/19/2018 Lab Requisition [facility] Care Pathology Lab [address] [place] [address] Nafisa King MD [address] [place] [address] Gross hematuria Social History Tobacco Use Types Packs/Day Years Used Date Smoking Tobacco: Never Assessed Sex and Gender Information Value Date Recorded Sex Assigned at Not on file Gender Identity Not on file Sexual Orientation Not on file documented as of this encounter Plan of Treatment Not on file documented as of this encounter Procedures Procedure Name Priority Date/Time Associated Diagnosis Comments PATHOLOGY TISSUE Routine 09/17/2018 1:32 PM CDT Gross hematuria documented in this encounter Results * PATHOLOGY TISSUE (09/17/2018 1:32 PM CDT) Case Report Surgical Pathology Report Case: [id number] Authorizing Provider: Nafisa King MD Collected: 09/17/2018 01:32 PM Pathologist: Vahe Mcdermott MD Received: 09/19/2018 01:32 PM Specimen: Urine 09/20/2018 9:53 AM CDT [facility] Final Diagnosis Urine, voided, Thin Prep, cytology: - Negative for a high-grade urothelial neoplasm Benign urothelial cells admixed with benign squamous cells 09/20/2018 9:53 AM [facility] PATHOLOGY LAB Clinical History Hematuria. 09/20/2018 9:53 AM T [facility] PATHOLOGY LAB Gross Description Prepared slide (1) received from [facility] labeled [id number], Tiffany Palacio . All material will be returned. 09/20/2018 9:53 AM T [facility] PATHOLOGY LAB Disclaimer The performance characteristics of all immunohistochemical and indirect immunofluorescence stains (if any) cited in this report were determined by the Histopathology Laboratory of [facility]. Some of these tests were developed by [...] the attending (teaching) pathologist. 09/20/2018 9:53 AM [facility] Embedded Images 09/20/2018 9:53 AM [facility] PATHOLOGY LAB Pathology/Cytolo gy URINE / Unknown 09/17/2018 1:32 PM CDT 09/19/2018 1:32 PM CDT Nafisa King MD LAB - PATHOLOGY/CYTO LOGY ORDERABLES Performing Organization Address [facility] [place] [facility] Phone Number [facility] PATHOLOGY LAB [address] [phone] documented in this encounter Visit Diagnoses Diagnosis Gross hematuria documented in this encounter Care Teams Belt And Link Assembly Supervisor Relationship Specialty Start Date End Date Dg Gilliam MD [address] [place] [address] PCP - General 06/04/12 06/21/21 Jorge Bosch DO [address] [place] [address] PCP - General 06/22/21 documented as of this encounter
--- OUTSIDE RECORDS SUMMARY | 2024-05-07 18:16 | XMS_ITS | Encounter Summary ---
Author Organization [employer] [facility] Address [address] [place] [address] Care Team Providers Care Pet Care Associate Name Role Phone Unavailable Primary Care Provider Unavailabl e Encounter Details Date Type Department Care Team (Latest Contact Info) Description 08/16/2001 Outpatient Historical HIS PATIENT IN A BED Konstantin Cardenas MD LIPOMA NEC (Primary Dx) Social History Tobacco Use Types Packs/Day Years Used Date Smoking Tobacco: Never Assessed Comments Unknown Sex and Gender Information Value Date Recorded Sex Assigned at Not on file Legal Sex Female 3:44 AM WINDOWS SYSTEMS ADMINISTRATOR Gender Identity Not on file Sexual Orientation Not on file documented as of this encounter Plan of Treatment Not on file documented as of this encounter Visit Diagnoses Diagnosis Lipoma of other specified sites- Primary documented in this encounter
--- OUTSIDE RECORDS SUMMARY | 2024-05-07 18:16 | XMS_ITS | Encounter Summary ---
Author Organization [facility] [employer] [facility] Address [address] [place] [address] Phone Care Team Providers Care Fibreglass Laminator Name Role Phone Jorge Bosch DO Primary Care Provider [phone] Loyd Tucker MD Unavailable Aft, Isabel Chilel MD PhD Unavailable [phone] Danette Schuster TIRE FABRIC IMPREGNATING RANGE TENDER Unavailable [phone] Esthela Saldana PhD Unavailable [phone] Allie Curiel MD Unavailable [phone] Jorge Bosch DO Primary Care Provider [phone] Maico Elaine ELECTRICIAN CRANE MAINTENANCE Unavailable [phone] Maico Elaine NP Primary Care Provider [phone] Jorge Bosch DO Primary Care Provider [phone] Encounter Details Date Type Department Care Team (Latest Contact Info) Description 12/31/2019 Orders Only [facility] Scanning, Provider Social History Tobacco Use Types Packs/Day Years Used Date Smoking Tobacco: Smoker, Current Status Unknown Smokeless Tobacco: Never Alcohol Use Standard Drinks/Week Comments No 0 (1 standard drink = 0.6 oz pur e alcohol) Comments No Sex and Gender Information Value Date Recorded Sex Assigned at Female 06/06/2018 12:44 AM CDT Legal Sex Female 6:34 AM PRINCIPAL PROGRAMMER Gender Identity Female 12/20/2020 11:06 AM CDT Sexual Orientation Straight 06/06/2018 12 :44 AM CDT documented as of this encounter Plan of Treatment Not on file documented as of this encounter Procedures Procedure Name Priority Date/Time Associated Diagnosis Comments SCAN - LABS 12/31/2019 documented in this encounter Results * SCAN - LABS (12/31/2019) us Provider Scanning Final Result documented in this encounter Visit Diagnoses Not on filedocumented in this encounter Care Teams Fibreglass Laminator Relationship Specialty Start Date End Date Jorge Bosch DO PCP - General 07/05/17 11/23/21 Jorge Bosch DO [address] [place] [address] PCP - General Internal Medicine 11/24/21 01/28/23 Maico Elaine ELECTRICIAN CRANE MAINTENANCE [address] [facility] [address] [place], [place] [id number] PCP - General Nurse Practitioner 01/29/23 12/26/23 Jorge Bosch DO [address] [place], [place] [address] PCP - General Internal Medicine 12/27/23 Loyd Tucker MD [address] [facility] [address] [place] [address] Radiation Oncologist Radiation Oncology 11/01/17 AftIsabel MD PhD [address] [place] [address] Referring Physician Surgical Oncology 11/01/17 Danette Schuster, TIRE FABRIC IMPREGNATING RANGE TENDER [address] [place] [address] Nurse Practitioner Certified Clinical Nurse Specialist 11/01/17 11/23/22 Esthela Saldana, PhD [address] [place] [address] Nurse Practitioner Radiation Oncology 11/01/17 Allie Curiel MD [address] [place] [address] Referring Physician Medical Oncology 06/06/18 Maico Elaine, SILVINA [address] [address] Nurse Practitioner Nurse Practitioner 01/29/23 documented as of this encounter
--- OUTSIDE RECORDS SUMMARY | 2024-05-07 18:16 | XMS_ITS | Clinical Summary ---
Author Organization [employer] Address [address] Attn: Epic Prelude ADT [place] [address] Care Team Providers Care Councilor Name Role Phone Unavailable Primary Care Provider Unavailabl e Social History Tobacco Use Types Packs/Day Years Used Date Smoking Tobacco: Never Assessed Comments Unknown Sex and Gender Information Value Date Recorded Sex Assigned at Not on file Legal Sex Female 3:44 AM RADIATION OFFICER Gender Identity Not on file Sexual Orientation Not on file Plan of Treatment Health Maintenance Due Date Last Done Comments DTAP/TDAP/TD VACCINES (1 - Tdap) 12/20/1967 COLORECTAL SCREENING 1993 Colorectal Cancer Screening 1993 FIT-DNA Q 3 years 1993 FIT/FOBT Q 1 year 1993 Flex Sig/CT Colonography Q 5 years 1993 PNEUMOCOCCAL VACCINE 65+ YEARS (1 of 1 - PCV) 12/19/18 99 ZOSTER VACCINE (1 of 2) 1998 OSTEOPOROSIS SCREENING 2013 INFLUENZA VACCINE (#1) 2023 RSV VACCINE (60+ or ) (1 - 1-dose 75+ series) 12/20/2023
--- OUTSIDE RECORDS SUMMARY | 2024-05-07 18:16 | XMS_ITS | Referral Summary ---
Author Organization [facility] Address [address] [place] [address] Care Team Providers Care Clerical Receptionist Name Role Phone Jorge Bosch DO Primary Care Provider [phone] Source Comments [facility],non-owned Affiliates and Associated Physician Practices is amultiple site organization consisting of ambulatory clinics and hospital sitesin [place], [place], [place] and [place]. This disclosure is being madepursuant to the Care Everywhere program and may not contain all information available regarding this patient. Last updated 17.[facility] [employer] Social History Tobacco Use Types Packs/Day Years Used Date Smoking Tobacco: Never Assessed Sex and Gender Information Value Date Recorded Sex Assigned at Not on file Gender Identity Not on file Sexual Orientation Not on file Plan of Treatment Not on file Care Teams Clerical Receptionist Relationship Specialty Start Date End Date Jorge Bosch DO [address] [place], [place] [address] PCP - General 06/22/21
[2024-05-07 18:22] LABS: Alanine Aminotransferase 43 U/L (6-35); Albumin Level 4.2 g/dL (3.5-5.1); Alkaline Phosphatase 137 U/L (38-126); Anion Gap 12 mmol/L (4-12); Aspartate Amino Transferase 35 U/L (14-36); Bilirubin,Total 0.5 mg/dL (0.2-1.3); Blood Urea Nitrogen 18 mg/dL (7-17); Calcium 9.9 mg/dL (8.4-10.2); Carbon Dioxide 24 mmol/L (22-30); Chloride 105 mmol/L (98-107); Cholesterol 161 mg/dL (0-200); Creatine Kinase 37 U/L (30-135); Estimated Glomerular Filt Rate > 60; Glucose 80 mg/dL (65-110); HDL Direct 63 mg/dL; Potassium 4.2 mmol/L (3.4-5.0); Sodium 141 mmol/L (137-145); Triglycerides 86 mg/dL (<150)
[2024-05-07 18:33] LABS: LDL Cholesterol Direct 69 mg/dL
== END 2024-05-07 16:00 | disposition home or self-care (01) ==
LOC: ANHLAB 16:05
PROVIDERS: PCP Nurse Practitioner; Visit Provider Nurse Practitioner
DX: E78.5 Hyperlipidemia, unspecified (principal)
CPT/HCPCS: 36415; 80053; 80061; 82550

== ENCOUNTER 2024-09-16 10:43 | Outpatient (CLI) | payer MEDICARE, SELFPAY ==
--- NOTE | ~2024-09-16 | CT_ITS ---
CT Scan of the Chest without Contrast: Clinical Indication: Lung cancer screening, nicotine dependence Technique: Contiguous sections were acquired throughout the chest without intravenous contrast. Dose reduction technique was used on this scan by utilizing automated exposure control and iterative recon struction technique. The dose-length product (DLP) was 68.46 mGy-cm. COMPARISON: 01/05/2023 Findings: There is no evidence of any significant mediastinal, hilar or axillary lymphadenopathy. The mediastin al soft tissues appear normal. There is no evidence of pleural or pericardial effusion. The lungs are clear. No pulmonary nodules or infiltrates are noted. There is advanced emphysema. Images through the upper abdomen reveal no abnormalities. Impression: Lung RADS 1: Negative. [address] advised. Advanced emphysema. Reviewed, dictated and finalized at [facility]. Impression: Lung RADS 1: Negative. [address] advised. Advanced emphysema.
--- OUTSIDE RECORDS SUMMARY | 2024-09-16 10:46 | XMS_ITS | Encounter Summary ---
Author Organization [facility] [employer] [facility] Address [address] [place] [address] Phone Care Team Providers Care Production Tech Name Role Phone Jorge Bosch DO Primary Care Provider Loyd Tucker MD Unavailable Aft, Isabel Chilel MD PhD Unavailable [phone] Danette Schuster VACUUM TRUCK DRIVER Unavailable [phone] Esthela Saldana PhD Unavailable [phone] Allie Curiel MD Unavailable [phone] Jorge Bosch DO Primary Care Provider [phone] Maico Elaine BUSINESS EDUCATION TEACHER Unavailable [phone] Maico Elaine NP Primary Care Provider [phone] Jorge Bosch DO Primary Care Provider [phone] Encounter Details Date Type Department Care Team [...] AM CDT Legal Sex Female 6:34 AM DELIVERY REP Gender Identity Female 12/20/2020 11:06 AM CDT [...] on filedocumented in this encounter Care Teams Production Tech Relationship Specialty Start Date End Date Jorge Bosch DO PCP - General 07/05/17 11/23/21 Jorge Bosch DO [address] [place] [address] PCP - General Internal Medicine 11/24/21 01/28/23 Maico Elaine BUSINESS EDUCATION TEACHER [address] [place] [address] PCP - General Nurse Practitioner 01/29/23 12/26/23 Jorge Bosch DO [address] [place] [address] PCP - General Internal Medicine 12/27/23 Loyd Tucker MD [address] [facility] [address] [place] [address] Radiation Oncologist Radiation Oncology 11/01/17 AftIsabel MD PhD [address] [place] [address] Referring Physician Surgical Oncology 11/01/17 Danette Schuster VACUUM TRUCK DRIVER [address] [place] [address] Nurse Practitioner Certified Clinical Nurse Specialist 11/01/17 11/23/22 Esthela Saldana, PhD [address] [place] [address] Nurse Practitioner Radiation Oncology 11/01/17 Allie Curiel MD [address] [place] [address] Referring Physician Medical Oncology 06/06/18 Maico Elaine, BUSINESS EDUCATION TEACHER [address] [place] [address] Nurse Practitioner Nurse Practitioner 01/29/23 documented as of this encounter
--- OUTSIDE RECORDS SUMMARY | 2024-09-16 10:46 | XMS_ITS ---
Author Organization [facility] Address [address] [place] [address] Care Team Providers Care Junior Programmer Analyst Name Role Phone Loyd uTcker MD Unavailable Aft, Isabel Chilel MD PhD Unavailable [phone] Esthela Saldana PhD Unavailable [phone] Allie Curiel MD Unavailable [phone] Maico Elaine RECREATIONAL COUNSELOR Unavailable [phone] Jorge Bosch DO Primary Care Provider [phone] Active Problems Problem Noted Date Diagnosed Date Encounter for follow-up surveillance of breast c ancer 06/06/2018 History of breast cancer 06/06/2018 Malignant neoplasm of breast 11/01/2017 Malignant neoplasm of upper- outer quadrant of right female breast 10/01/2017 Cancer Staging:Clinical: Unsigned Pathologic:Stage Unknown(pT1b, pNX, cM0, G2, ER: Positive, AR: Positive, HER2: Negative) - Signed by Esthela Saldana, PhD on 11/01/2017 ER+ (estrogen receptor positive status) 07/03/19 18 Carotid artery disease 05/15/2017 Cerebral vascular disorder 05/15/2017 Pulmonary emphysema 05/15/2017 Peripheral vascular disease 05/15/2017 Subclavian steal syndrome 05/15/2017 Mammogram abnormal 03/08/2017 Hypercholesterolemia 05/16/2013 Numbness of lower extremity 05/16/2013 Paresis of single lower extremity 05/16/2013 Current Treatment and Therapy Plans No current plan information found. Past Treatment and Therapy Plans No past plan information found. Lifetime Dose Tracking * Chemical Lifetime Dose Automatic Entry Manual Entr y DLP 934 mGycm 934 mGycm 0 mGycm Resolved Problems Problem Noted Date Diagnosed Date Resolved Date Cardiac arrhythmia 05/16/2013 4
--- OUTSIDE RECORDS SUMMARY | 2024-09-16 10:46 | XMS_ITS | Encounter Summary ---
Author Organization [email or web address] Address [address] [place] [address] Care Team Providers Care Derrick Engineer Name Role Phone Unavailable Primary Care Provider Unavailabl e Encounter Details Date Type Department Care Team (Late st Contact Info) Description 08/17/2001 Outpatient Historical Division of Neurology [address] [place], [place] [id number] (Excluded Provider) [place] [address] [facility] [address] [place] [address] Social History Tobacco Use Types Packs/Day Years Used Date Smoking Tobacco: Never Assessed Comments Unknown Sex and Gender Information Value Date Recorded Sex Assigned at Not on file Legal Sex Female 3:44 AM MANAGEMENT COORDINATOR Gender Identity Not on file Sexual Orientation Not on file documented as of this encounter Plan of Treatment Not on file documented as of this encounter Visit Diagnoses Not on filedocumented in this encounter
--- OUTSIDE RECORDS SUMMARY | 2024-09-16 10:46 | XMS_ITS | Encounter Summary ---
Author Organization [facility] Address [address] [place] [address] Care Team Providers Care Quality Control Inspector Name Role Phone Dg Gilliam MD Primary Care Provider [phone] Jorge Bosch DO Primary Care Provider [phone] Encounter Details Date Type Department Care Team (Late st Contact Info) Description 09/19/2018 Lab Requisition [facility] Care Pathology Lab [address] [place] [address] Nafisa King MD [address] [place] [address] Gross hematuria Social History Tobacco Use Types Packs/Day Years Used Date Smoking Tobacco: Never Assessed Comments Unknown Sex and Gender Information Value Date Recorded Sex Assigned at Not on file Legal Sex Female 6:23 PM SOA ENGINEER Gender Identity Not on file Sexual Orientation Not on file documented as of this encounter Plan of Treatment Not on file documented as of this encounter Procedures Procedure Name Priority Date/Time Associated Diagnosis Comments PATHOLOGY TISSUE Routine 09/17/2018 1:32 PM CDT Gross hematuria documented in this encounter Results * PATHOLOGY TISSUE (09/17/2018 1:32 PM CDT) Case Report Surgical Pathology Report Case: [id number] Authorizing Provider: Nafisa King MD Collected: 09/17/2018 01:32 PM Pathologist: Vahe Mcdermott MD Received: 09/19/2018 01:32 PM Specimen: Urine 09/20/2018 9:53 AM CDT [facility] Final Diagnosis Urine, voided, Thin Prep, cytology: - Negative for a high-grade urothelial neoplasm Benign urothelial cells admixed with benign squamous cells 09/20/2018 9:53 AM CDT [facility] at 0[address] CDT Clinical History Hematuria. 09/20/2018 9:53 AM CDT [facility] Gross Description Prepared slide (1) received from [facility] labeled [id number], Tiffany Palacio. All material will be returned. 09/20/2018 9:53 AM CDT [facility] Disclaimer The performance characteristics of all immunohistochemical and indirect immunofluorescence stains (if any) cited in this report were determined by the Histopathology Laboratory of [facility]. Some of these tests were developed by [...] the attending (teaching) pathologist. 09/20/2018 9:53 AM CDT [facility] Embedded Images 09/20/2018 9:53 AM CDT [facility] PATHOLOGY LAB Pathology/Cytolo gy URINE / Unknown 09/17/2018 1:32 PM CDT 09/19/2018 1:32 PM CDT us Nafisa King MD LAB - PATHOLOGY/CYTOLOGY ORDERAB LES Final Result Performing Organization Address City/State/[facility] Co de Phone Number [facility] PATHOLOGY LAB [address] [phone] documented in this encounter Visit Diagnoses Diagnosis Gross hematuria documented in this encounter Care Teams Quality Control Inspector Relationship Specialty Start Date End Date Dg Gilliam MD [address] [facility] [address] [place] [address] PCP - General 06/04/12 06/21/21 Jorge Bosch DO [address] [place] [address] PCP - General 06/22/21 documented as of this encounter
--- OUTSIDE RECORDS SUMMARY | 2024-09-16 10:46 | XMS_ITS | Encounter Summary ---
Author Organization [employer] Address [address] [place] [address] Care Team Providers Care Power Line Installer Name Role Phone Unavailable Primary Care Provider Unavailabl e Encounter Details Date Type Department Care Team (Late st Contact Info) Description 08/16/2001 Outpatient Historical [facility] (Adt Cardiology-[facility]) [address] [place] [address] William Barriga MD [address] [place] [address] Social History Tobacco Use Types Packs/Day Years Used Date Smoking Tobacco: Never Assessed Comments Unknown Sex and Gender Information Value Date Recorded Sex Assigned at Not on file Legal Sex Female 3:44 AM GROUND CREWMAN AIRCRAFT SUPPORT Gender Identity Not on file Sexual Orientation Not on file documented as of this encounter Plan of Treatment Not on file documented as of this encounter Visit Diagnoses Not on filedocumented in this encounter
--- OUTSIDE RECORDS SUMMARY | 2024-09-16 10:46 | XMS_ITS | Clinical Summary ---
Author Organization [facility]dit Address [address] [place] [address] Care Team Providers Care Insulation Worker Interior Surface Name Role Phone Jorge Bosch DO Primary Care Provider [phone] Source Comments [facility],non-owned Affiliates and Associated Physician Practices is amultiple site organization consisting of ambulatory clinics and hospital sitesin [place], [place], [place] and [place]. This disclosure is being madepursuant to the Care Everywhere program and may not contain all information available regarding this patient. Last updated 17.[facility] Social History Tobacco Use Types Packs/Day Years Used Date Smoking Tobacco: Never Assessed Comments Unknown Sex and Gender Information Value Date Recorded Sex Assigned at Not on file Legal Sex Female 6:23 PM WORM SORTER Gender Identity Not on file Sexual Orientation Not on file Plan of Treatment Health Maintenance Due Date Last Done Comments BONE DENSITY TESTING 1948 COLOGUARD (AGES 45-75) - COLON CA SCREENING 1948 COLON MONITORING 1948 COLONOSCOPY - COLON CA SCREENING 1948 CT COLONOGRAPHY - COLON CA SCREENING 1948 Colorectal Cancer Screening 1948 FIT - COLON CA SCREENING 1948 FLEX SIG - COLON CA SCREENING 1948 LIPID TESTING 1948 MEDICARE AWV 12 MONTHS 1948 HEPATITIS C SCREENING 12/15/1966 DTAP/TDAP/TD VACCINES (1 - Tdap) 12/20/1967 PNEUMOCOCCAL VACCINE 50+ (1 of 1 - PCV) 1998 ZOSTER VACCINE (1 of 2) 1998 COVID-19 VACCINE (1 - 2023-25 season) 2023 Respiratory Syncytial Virus (RSV) Vaccine Pt: or over 60 yrs (1 - 1-dose 75+ series) 12/20/2023 DEPRESSION SCREENING 03/12/2024 INFLUENZA VACCINE (Season Ended) 2024 03/10/2019, 02/08/2018, 01/25/2017, Additional history exists MAMMOGRAM 02/14/2026 02/15/2024, 02/15/2024 HEPATITIS B VACCINE Aged Out No longe r eligible based on patient's age to complete this topic HIB VACCINE Aged Out No longer eligi ble based on patient's age to complete this topic HPV VACCINE Aged Out No longer eligi ble based on patient's age to complete this topic MENINGOCOCCAL (Group B) VACCINE SHARED DECISION-MAKING Aged Out No longer eligible based on patient's age to complete this topic MENINGOCOCCAL GROUPS A/C/Y/W VACCINE Aged Out No longer eligible based on patient's age to complete this topic Insurance MEDICARE [facility] [place] [id number] Care Teams Insulation Worker Interior Surface Relationship Specialty Start Date End Date Jorge Bosch DO [address] [place] [address] (work) PCP - General 06/22/21
--- OUTSIDE RECORDS SUMMARY | 2024-09-16 10:46 | XMS_ITS | Clinical Summary ---
Author Organization [facility] Main [facility] Address [address] [place] [address] Care Team Providers Care Qa Tester Name Role Phone Loyd Tucker MD Unavailable Aft, Isabel Chilel MD PhD Unavailable [phone] Esthela Saldana PhD Unavailable [phone] Allie Curiel MD Unavailable [phone] Maico Elaine COTTAGE CHEESE MAKER Unavailable [phone] Jorge Bosch DO Primary Care Provider [phone] Allergies Active Allergy Reactions Criticality Noted Date [...] Pathologic:Stage Unknown(pT1b, pNX, cM0, G2, ER: Positive, DE: Positive, HER2: Negative) - Signed by Esthela Saldana, PhD on 11/01/2017 ER+ (estrogen receptor positive status) 07/03/19 Carotid artery disease 05/15/2017 Cerebral vascular disorder 05/15/2017 Pulmonary emphysema 05/15/2017 Peripheral vascular disease 05/15/2017 Subclavian steal syndrome 05/15/2017 Mammogram abnormal 03/08/2017 Hypercholesterolemia 05/16/2013 Numbness of lower extremity 05/16/2013 Paresis of single lower extremity 05/16/2013 Resolved Problems Problem Noted Date Diagnosed Date Resolved Date Cardiac arrhythmia 05/16/2013 4 Encounters Date Type Department Care Team Description 07/07/2024 1:30 PM CDT Ancillary Procedure [facility] Imaging at [address] [address] Chronic bilateral low back pain without sciatica 07/07/2024 1:00 PM CDT Office Visit [facility] Sports Medicine and Primary Care at [address] [place] [address] Chetan Bueno DO Chronic bilateral low back pain without sciatica (Primary Dx); Left hip pain from Last 3 Months Immunizations Immunization Administration [...] 02/08/2018 Surgical History Surgery Date Site/Laterality Comments DE TONSILLECTOMY PRIMARY/SECONDARY <AGE 12 Tonsillectomy - (Added by TW Conv) DE ANTERIOR COLPORRAPHY RPR CYSTOCELE W/CYSTO Anterior Colporrhaphy, Repair Of Cystocele - (Added by TW Conv) DE TOTAL ABDOMINAL HYSTERECT W/WO RMVL TUBE OVARY Hysterectomy - (Added by TW Conv) CATARACT EXTRACTION Cataract Surgery - (Added by TW Conv) URETHRAL DIVERTICULECTOMY 03/12/2004 - 03/11/2005 trans vaginal BREAST SURGERY 1967, 1983, 2018 CATARACT EXTRACTION 2017 COSMETIC SURGERY 1984 [...] (Added by TW Conv) Arthritis ~2011 Cancer (HCC) 2017 Cataract ~2015 Emphysema of lung (HCC) 2015 Osteoporosis Family History Medical History Relation Name Comments COPD Brother 1 Masoud Hakeem Lung cancer Brother 1 Masoud Palacio Family history of lung cancer - (Added by TW Conv) Stroke Brother 1 Masoud Palacio Depression Brother 2 Larry Palacio Mental illness Brother 2 Larry Palacio Arthritis Father Bertram Palacio Heart attack Father Bertramkathi Palacio Heart disease Father Bertram Palacio Obesity Father Bertram Palacio Prostate cancer Father Bertram Palacio Family histo ry of malignant neoplasm of prostate - (Added by TW Conv) Mental illness Maternal Grandfather Noah Jimbo Mental illness Maternal Grandmother Nini Jimbo Dementia Mother Becca Palacio Family history of [...] TW Conv) Gout Other Cancer Paternal Grandfather Bertramkathi Palacio Arthritis Paternal Grandmother Keturah Palacio Arthritis Sister 1 Reenttapauly Jones Depression Sister 1 Renettapauly Jones Hyperlipidemia Sister 1 Renetta Jones Hypertension Sister 1 Renetta Jones Obesity Sister 1 Renetta Jones COPD Sister 2 Andressa Gorman Cancer Sister 2 Andressa Gorman Heart disease Sister 2 Andressa Gorman Hyperlipidemia Sister 2 Andressa Sherif Obesity Sister 2 Andressa Gorman Stroke Sister 2 Andressa Sherif Depression Son Alfred Rangel Rashes / Skin [...] AM CDT Legal Sex Female 6:34 AM SHAREPOINT DEVELOPER Gender Identity Female 12/20/2020 11:06 AM CDT [...] Sign Reading Time Taken Comments Blood Pressure 111/64 07/07/2024 1:04 PM CDT Pulse 59 07/07/2024 1:04 PM CDT Temperature 36.7 C (98.1 F) 02/15/2024 9:03 AM SHAREPOINT DEVELOPER Respiratory Rate 16 02/15/2024 9:03 AM SHAREPOINT DEVELOPER Oxygen Saturation 98% 02/15/2024 9:03 AM SHAREPOINT DEVELOPER Inhaled Oxygen Concentration - - Weight 66.7 kg (147 lb) 07/07/2024 1:04 PM CDT Height 149.9 cm (4' 11) 07/07/2024 1:04 PM CDT Body Mass Index 29.69 07/07/2024 1:04 PM CDT Plan of Treatment Health Maintenance Due Date Last Done Comments Hepatitis C Screening 1948 DTaP/Tdap/Td Vaccine (1 - Tdap) 12/20/1959 Hepatitis B Screening 1966 Lung Cancer Screening 1998 Zoster Vaccine (1 of 2) 1998 Well Visit 65+ 2013 Osteoporosis Screening-Bone Density Scan 03/17/2018 03/17/2016 Colon Cancer Screening-Colonoscopy 03/12/2023 03/12/2013 Influenza Vaccine (#1) 2024 , 03/10/2019, 02/08/2018, Additional history exists Depression Screening 12/20/2024 12/21/2023 Fall Risk Assessment 12/26/2024 12/27/2023 Colon Cancer Screening-CT Colonography Discontinued 03/12/2013 Colon Cancer Screening-DNA Stool Discontinued 03/12/19 14 Colon Cancer Screening-FIT Discontinued 03/12/2013 Colon Cancer Screening-Sigmoidoscopy Discontinued 03/12/2013 Pneumococcal vaccine 65+ Completed 02/08/2018, 01/10 Breast Cancer Screening-Mammogram Discontinued 02/15/2024, 11/24/2022, 11/24/2021, Additional history exists Procedures Procedure Name Priority Date/Time Associated Diagnosis Comments XR SPINE LUMBAR ROUTINE Schedule Routine, Read Routine (OP Routine) 07/07/2024 1:36 PM CDT Chronic bilateral low back pain without sciatica SCREENING MAMMOGRAM BILATERAL W SALAZAR W IMPLANTS Schedule Routine, Read Routine (OP Routine) 02/15/2024 8:07 AM SHAREPOINT DEVELOPER Screening mammogram, encounter for DEXA SCAN Routine 03/17/2016 COLONOSCOPY Routine 03/12/2013 from Last 3 Months or Most Recently Relevant to Health Maintenance Results * XR Spine Lumbar 4 or More Views (07/07/2024 1:36 PM CDT) Anatomical Region Laterality Modality L-spine N/A Digital Radiogra phy 07/07/2024 10:4 5 PM CDT Narrative 07/07/2024 10:46 PM CDT EXAM DESCRIPTION: XR SPINE LUMBAR 4 OR MORE VIEWS REASON FOR STUDY: low back pain Pt complains of chronic lower back pain without sciatica. No recent injury. No prior surgery to the lumbar TECHNIQUE: 4 radiographic view(s) of the lumbar spine. COMPARISON: None FINDINGS: ALIGNMENT: Mild curvature of spine convex to the left. VERTEBRAE: Vertebral bodies of normal height. Moderate facet arthropathy worse at L4-L5 and L5-S1. DISCS: Moderate disc space narrowing endplate osteophytosis most pronounced at L2-L3. SOFT TISSUES: Within normal limits. IMPRESSION: Moderate spondylosis of the lumbar spine. THIS IS AN ELECTRONICALLY VERIFIED FINAL REPORT 07/07/2024 10:46 PM - Electronically signed by Cornell Winters M.D. RW T: Report ID: [id number] Reading Location: [id number] Procedure Note Cornell Winters MD - 07/07/2024 EXAM DESCRIPTION: XR SPINE LUMBAR 4 OR MORE VIEWS REASON FOR STUDY: low back pain Pt complains of chronic lower back pain without sciatica. No recentinjury. No prior surgery to the lumbar TECHNIQUE: 4 radiographic view(s) of the lumbar spine. COMPARISON: None FINDINGS: ALIGNMENT: Mild curvature of spine convex to the left. VERTEBRAE: Vertebral bodies of normal height. Moderate facet arthropathyworse at L4-L5 and L5-S1. DISCS: Moderate disc space narrowing endplate osteophytosis mostpronounced at L2-L3. SOFT TISSUES: Within normal limits. IMPRESSION: Moderate spondylosis of the lumbar spine. THIS IS AN ELECTRONICALLY VERIFIED FINAL REPORT 07/07/2024 10:46 PM - Electronically signed by Cornell Winters M.D. RW T: Report ID: [id number] Reading Location: [id number] Chetan Bueno DO IMG XR PROCEDURES Mariana l Result * Screening Mammogram Bilateral w Salazar w Implants (02/15/2024 8:07 AM SHAREPOINT DEVELOPER) Anatomical Region Laterality Modality Breast Bilateral Mammography Narrative 02/18/2024 2:22 PM SHAREPOINT DEVELOPER Mammogram Technique: Bilateral Digital Breast Tomosynthesis, Bilateral C-view 2D Screening mammogram. Views obtained: bilateral craniocaudal and bilateral mediolateral oblique. Computer Aided Detection was performed. Mammogram Findings: The present examination has been compared to prior imaging studies performed at [facility] on 01/08/2019, 08/26/2020, 11/24/2021 and 11/24/2022. [...] compared to prior imaging studies performed at [facility] on 01/08/2019, 08/26/2020,11/24/2021 and 11/24/2022. The [...] OVERALL FINAL ASSESSMENT: BI-RADS CATEGORY 1: Negative. Self Screening Mammogram IMG MAMMO PROCEDURES Fi nal Result * HM DEXA SCAN (03/17/2016) DEXA Scan Abnormal us Historical Provider HEALTH MAINTENANCE Final Result * COLONOSCOPY (03/12/2013) Colonoscopy Normal us Historical Provider HEALTH MAINTENANCE Final Result from Last 3 Months or Most Recently Relevant to Health Maintenance [place] [address] [facility] MEDICARE SUPPLEMENT MEDICARE [employer] [place] [employer] INSURANCE [place] Rooney [id number] MEDICARE [facility] MEDICARE SUPPLEMENT Advance Directives For more information, please contact: [phone] * Full Code (Latest Code Status on File) Date Activated Date Inactivated Comments 12/27/2023 2:11 AM 12/27/2023 8:08 PM Care Teams Qa Tester Relationship Specialty Start Date End Date Jorge Bosch DO [address] [facility] [address] [place] [address] PCP - General Internal Medicine 12/27/23 Loyd Tucker MD [address] [facility] # LL LL [address] [place], [place] [id number] Radiation Oncologist Radiation Oncology 11/01/17 Isabel Kennedy MD PhD [address] [place] [address] Referring Physician Surgical Oncology 11/01/17 Esthela Saldana, PhD [address] [place] [address] Nurse Practitioner Radiation Oncology 11/01/17 Allie Curiel MD [address] [place] [address] Referring Physician Medical Oncology 06/06/18 Maico Elaine, COTTAGE CHEESE MAKER [address] [facility] [address] [address] Nurse Practitioner Nurse Practitioner 01/29/23
--- OUTSIDE RECORDS SUMMARY | 2024-09-16 10:46 | XMS_ITS | Referral Summary ---
Author Organization [facility] Address [address] [place] [address] Care Team Providers Care Police Dispatcher Name Role Phone Loyd Tucker MD Unavailable Aft, Isabel Chilel MD PhD Unavailable [phone] Esthela Saldana PhD Unavailable [phone] Allie Curiel MD Unavailable [phone] Maico Elaine PRODUCT TRAINER Unavailable [phone] Jorge Bosch DO Primary Care Provider [phone] Encounters Date Type Department Care Team Description 07/07/2024 1:30 PM CDT Ancillary Procedure [facility] Imaging at [address] [address] Chronic bilateral low back pain without sciatica 07/07/2024 1:00 PM CDT Office Visit [facility] Sports Medicine and Primary Care at [address] [place] [id number] Chetan Bueno DO Chronic bilateral low back pain without sciatica (Primary Dx); Left hip pain from Last 3 Months Allergies Active Allergy [...] Pathologic:Stage Unknown(pT1b, pNX, cM0, G2, ER: Positive, MI: Positive, HER2: Negative) - Signed by Esthela [...] AM CDT Legal Sex Female 6:34 AM DRIER AND GRINDER TENDER Gender Identity Female 12/20/2020 11:06 AM CDT Sexual Orientation Straight 06/06/2018 12 :44 AM CDT Last Filed Vital Signs Vital Sign Reading Time Taken Comments Blood Pressure 111/64 07/07/2024 1:04 PM CDT Pulse 59 07/07/2024 1:04 PM CDT Temperature 36.7 C (98.1 F) 02/15/2024 9:03 AM DRIER AND GRINDER TENDER Respiratory Rate 16 02/15/2024 9:03 AM DRIER AND GRINDER TENDER Oxygen Saturation 98% 02/15/2024 9:03 AM DRIER AND GRINDER TENDER Inhaled Oxygen Concentration - - Weight 66.7 kg (147 lb) 07/07/2024 1:04 PM CDT Height 149.9 cm (4' 11) 07/07/2024 1:04 PM CDT Body Mass Index 29.69 07/07/2024 1:04 PM CDT Plan of Treatment Not on file Procedures Procedure Name Priority Date/Time Associated Diagnosis Comments XR SPINE LUMBAR ROUTINE Schedule Routine, Read Routine (OP Routine) 07/07/2024 1:36 PM CDT Chronic bilateral low back pain without sciatica SCREENING MAMMOGRAM BILATERAL W SALAZAR W IMPLANTS Schedule Routine, Read Routine (OP Routine) 02/15/2024 8:07 AM DRIER AND GRINDER TENDER Screening mammogram, encounter for HM DEXA SCAN Routine 03/17/2016 COLONOSCOPY Routine 03/12/2013 [...] Cornell Winters M.D. RW T: Report ID: [id number] Reading Location: [id number] Procedure Note Cornell Winters MD - 07/07/2024 [...] Cornell Winters M.D. RW T: Report ID: [id number] Reading Location: [id number] Chetan Bueno DO IMG XR PROCEDURES Mariana l Result * Screening Mammogram Bilateral w Salazar w Implants (02/15/2024 8:07 AM DRIER AND GRINDER TENDER) Anatomical Region Laterality Modality Breast Bilateral Mammography Narrative 02/18/2024 2:22 PM DRIER AND GRINDER TENDER Mammogram Technique: Bilateral Digital Breast Tomosynthesis, Bilateral C-view 2D Screening mammogram. Views obtained: bilateral craniocaudal and bilateral mediolateral oblique. Computer Aided Detection was performed. Mammogram Findings: The present examination has been compared to prior imaging studies performed at [facility] on 01/08/2019, 08/26/2020, 11/24/2021 [...] compared to prior imaging studies performed at [facility] on 01/08/2019, 08/26/2020,11/24/2021 and [...] Recently Relevant to Health Maintenance Insurance MEDICARE [facility] MEDICARE SUPPLEMENT MEDICARE [facility] INSURANCE [place] Rooney [id number] MEDICARE [facility] MEDICARE SUPPLEMENT Advance Directives For more information, please contact: [phone] * Full Code (Latest Code Status on File) Date Activated Date Inactivated Comments 12/27/2023 2:11 AM 12/27/2023 8:08 PM Care Teams Police Dispatcher Relationship Specialty Start Date End Date Jorge Bosch DO [address] [place], [place] [address] PCP - General Internal Medicine 12/27/23 Loyd Tucker MD [address] [facility] # [address] [place] [address] Radiation Oncologist Radiation Oncology 11/01/17 AftIsabel MD PhD [address] [place] [address] Referring Physician Surgical Oncology 11/01/17 Esthela Saldana, PhD [address] [place] [address] Nurse Practitioner Radiation Oncology 11/01/17 Allie Curiel MD [address] [place] [address] Referring Physician Medical Oncology 06/06/18 Maico Elaine, PRODUCT TRAINER [address] [place], [place] [id number] Nurse Practitioner Nurse Practitioner 01/29/23
--- OUTSIDE RECORDS SUMMARY | 2024-09-16 10:46 | XMS_ITS | Encounter Summary ---
Author Organization [employer] Address [address] [place] [address] Care Team Providers Care Wharf Attendant Name Role Phone Unavailable Primary Care Provider [...] on file Legal Sex Female 3:44 AM SUPPLIES PACKER Gender Identity Not on file Sexual Orientation Not on file documented as of this encounter Plan of Treatment Not on file documented as of this encounter Visit Diagnoses Diagnosis Lipoma of other specified sites- Primary documented in this encounter
--- OUTSIDE RECORDS SUMMARY | 2024-09-16 10:46 | XMS_ITS | Clinical Summary ---
Author Organization [employer] Address [address] [facility] Attn: Epic Prelude ADT [place] [address] Care Team Providers Care Drawing Kiln Supervisor Name Role Phone Unavailable Primary Care Provider Unavailabl e Social History Tobacco Use Types Packs/Day Years Used Date Smoking Tobacco: Never Assessed Comments Unknown Sex and Gender Information Value Date Recorded Sex Assigned at Not on file Legal Sex Female 3:44 AM LOGGING EQUIPMENT MECHANIC Gender Identity Not on file Sexual Orientation Not on file Plan of Treatment Health Maintenance Due Date Last Done Comments DTAP/TDAP/TD VACCINES (1 - Tdap) 12/20/1967 COLORECTAL SCREENING 1993 Colorectal Cancer Screening 1993 FIT-DNA Q 3 years 1993 FIT/FOBT Q 1 year 1993 Flex Sig/CT Colonography Q 5 years 1993 PNEUMOCOCCAL VACCINE 50+ YEARS (1 of 1 - PCV) 12/19/18 99 ZOSTER VACCINE (1 of 2) 1998 OSTEOPOROSIS SCREENING 2013 RSV VACCINE (60+ or ) (1 - 1-dose 75+ series) 12/20/2023 INFLUENZA VACCINE (#1) 2024
--- OUTSIDE RECORDS SUMMARY | 2024-09-16 10:47 | XMS_ITS | Encounter Summary ---
Author Organization [facility] Address [address] [facility] [place] [address] Care Team Providers Care Proposition Player Name Role Phone Jorge Bosch DO Primary Care Provider [phone] Encounter Details Date Type Department Care Team (Late st Contact Info) Description 06/21/2022 Lab Requisition [facility] [address] [place] [address] Jayme Mahoney MD [address] [place] [address] Social History Tobacco Use Types Packs/Day Years Used Date Smoking Tobacco: Never Assessed Comments Unknown Sex and Gender Information Value Date Recorded Sex Assigned at Not on file Legal Sex Female 6:23 PM MIRROR PAINTER Gender Identity Not on file Sexual Orientation Not on file documented as of this encounter Plan of Treatment Not on file documented as of this encounter Procedures Procedure Name Priority Date/Time Associated Diagnosis Comments DERMATOPATHOLOGY Routine 06/20/2022 3:33 AM CDT documented in this encounter Results * DERMATOPATHOLOGY (06/20/2022 3:33 AM CDT) Case Report Dermatopathology Report Case: [id number] Authorizing Provider: Jayme Mahoney MD Collected: 06/20/2022 03:33 AM Ordering Location: [facility] Received: 06/21/2022 01:49 PM Pathologist: Kelsi Palacio MD Specimen: Skin, right nasal bulb 2:06 PM CDT DERMATOPATHOLOGY LABORATORY Final Diagnosis Specimen A. 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 Elyse Banks. These tests need not be, and therefore are not, approved by the [place] Food and Drug Administration. The tests are used for clinical purposes. Billing Codes Specimen Charges Stain Charges 94867 1 3 2:06 PM CDT DERMATOPATHOLOGY LABORATORY Embedded Images 3 2:06 PM CDT DERMATOPATHOLOGY LABORATORY Pathology/Cytolo gy TISSUE SPECIMEN FROM SKIN / Unknown 06/20/2022 3:33 AM CDT 06/21/2022 1:49 PM CDT us Jayme Mahoney MD LAB - PATHOLOGY/CYTOLOGY ORD ERABLES Final Result DERMATOPATHOLOGY LABORATORY [facility] - Department of Dermatology [facility] Medicine [address] [place] [address], [address] [place] [address], [facility] [phone] documented in this encounter Visit Diagnoses Not on filedocumented in this encounter Care Teams Proposition Player Relationship Specialty Start Date End Date Jorge Bosch DO [address] [place] [address] PCP - General 06/22/21 documented as of this encounter
== END 2024-09-16 10:44 | disposition home or self-care (01) ==
LOC: ANHIMG 10:44
PROVIDERS: PCP Nurse Practitioner; Visit Provider Nurse Practitioner
DX: Z12.2 Encounter for screening for malignant neoplasm of respiratory organs (principal); Z87.891 Personal history of nicotine dependence; J43.9 Emphysema, unspecified
CPT/HCPCS: 71271

== ENCOUNTER 2024-09-25 12:52 | Emergency (ER) | payer MEDICARE, SELFPAY ==
--- NOTE | ~2024-09-25 | US_ITS ---
EXAMINATION:US venous doppler LE LT INDICATION:Leg pain TECHNIQUE: Multiple grayscale, color flow and Doppler images of the left lower extremity deep venous systems were obtained and reviewed. COMPARISON:No prior studies for comparison. FINDINGS: The common femoral, superficial femoral and popliteal veins demonstrate normal respiratory variation, augmentation and compressibility. Color flow is also seen within the posterior tibial, pe roneal, greater saphenous and profunda veins. IMPRESSION: 1: No lower extremity deep venous thrombosis. Reviewed, dictated and finalized at location B.
--- NOTE | ~2024-09-25 | CT_ITS ---
EXAMINATION: CT lumbar spine wo con DATE: 09/25/2024 14:05 CDT INDICATION: Radicular pain down left leg TECHNIQUE: Computed tomography (CT) of the lumbar spine was performed without intravenous contrast. T he dose-length product was 808.32 mGy-cm. Automated exposure control and iterative reconstruction joaquín hnique were employed. COMPARISON: None FINDINGS: There is disc narrowing at L3-4, L4-5 and L5-S1. There is calcification of the L5-S1 disc s pace. Vertebral body heights are maintained. There is wedge-shaped appearance to T12 which appears ch ronic. There is degenerative disc disease at T11-12. No acute fracture or traumatic malalignment. The following disc levels are specifically discussed: T11-T12: The disc does not extend beyond the endplate margin. There is no facet joint osteoarthritis. There is no neural foraminal stenosis. There is no central canal stenosis. T12-L1: The disc does not extend beyond the endplate margin. There is no facet joint osteoarthritis. There is no neural foraminal stenosis. There is no central canal stenosis. L1-L2: There is mild annular disc bulging. There is no facet joint osteoarthritis. There is no neural foraminal stenosis. There is no central canal stenosis. L2-L3: There is mild annular disc bulging. There is mild facet joint osteoarthritis. There is no neur al foraminal stenosis. There is no central canal stenosis. L3-L4: There is mild annular disc bulging There is mild-moderate facet joint osteoarthritis. There is no neural foraminal stenosis. There is no central canal stenosis. L4-L5: Moderate annular disc bulging. There is moderate facet joint osteoarthritis. There is left dale ral foraminal stenosis. There is mild central canal stenosis. L5-S1: There is mild annular disc bulging There is moderate bilateral facet joint osteoarthritis. The re is no neural foraminal stenosis. There is no central canal stenosis. IMPRESSION: 1. Severe lumbar spondylosis with spinal stenosis at L4-5. Reviewed, dictated and finalized at location B.
--- OUTSIDE RECORDS SUMMARY | 2024-09-25 12:55 | XMS_ITS | Patient Health Record ---
Author Organization [facility] Address [address] [facility] [address] [place] [address] Care Team Providers Care Street Roller Engineer Name Role Phone Aaron Hernandez Unavailable [phone] Reason For Referral No Information Medications Medication SIG (Take, Route, Frequency, Duration) Notes Start Date End Date Status buPROPion HCl 75 MG Oral Active Wellbutrin SR 100 MG Oral Active Vivelle-Dot 0.075 mg/24 hr Transdermal Active Wellbutrin 75 mg ORAL *Reorder from [facility] for eRx and Interaction Alerts* Active Propranolol HCl 20 MG Oral Active chlordiazePOXIDE HCl 10 MG Oral Active MethylPREDNISolone (Phani) *Reorde r from [facility] for eRx and Interaction Alerts* Active buPROPion HCl ER (XL) 150 MG Oral Active Wellbutrin SR 150 MG Oral Active Amoxicillin 500 MG Oral A ctive KlonoPIN 0.5 MG Oral Acti ve Azithromycin 250 MG Oral Active Plan Of Treatment No Information
--- OUTSIDE RECORDS SUMMARY | 2024-09-25 12:55 | XMS_ITS | Referral Summary ---
Author Organization [facility] Address 1 [place] [address] Care Team Providers Care Narcotics Agent Name Role Phone Loyd Tucker MD Unavailable Aft, Isabel Chilel MD PhD Unavailable [phone] Esthela Saldana PhD Unavailable [phone] Allie Curiel MD Unavailable [phone] Maico Elaine LOCOMOTIVE OPERATOR Unavailable [phone] Jorge Bosch DO Primary Care Provider [phone] Encounters Date Type Department Care Team Description 07/07/2024 1:30 PM CDT Ancillary Procedure [facility] Imaging at [address] [address] Chronic bilateral low back pain without sciatica 07/07/2024 1:00 PM CDT Office Visit [facility] Sports Medicine and Primary Care at [address] [place] [address] Chetan Bueno DO Chronic bilateral low back [...] Pathologic:Stage Unknown(pT1b, pNX, cM0, G2, ER: Positive, WA: Positive, HER2: Negative) - Signed by Esthela [...] AM CDT Legal Sex Female 6:34 AM CLEANING PROFESSIONAL Gender Identity Female 12/20/2020 11:06 AM CDT Sexual Orientation Straight 06/06/2018 12 :44 AM CDT Last Filed Vital Signs Vital Sign Reading Time Taken Comments Blood Pressure 111/64 07/07/2024 1:04 PM CDT Pulse 59 07/07/2024 1:04 PM CDT Temperature 36.7 C (98.1 F) 02/15/2024 9:03 AM CLEANING PROFESSIONAL Respiratory Rate 16 02/15/2024 9:03 AM CLEANING PROFESSIONAL Oxygen Saturation 98% 02/15/2024 9:03 AM CLEANING PROFESSIONAL Inhaled Oxygen Concentration - - Weight 66.7 [...] Read Routine (OP Routine) 02/15/2024 8:07 AM CLEANING PROFESSIONAL Screening mammogram, encounter for HM DEXA SCAN [...] Cornell Winters M.D. RW T: Report ID: [id number] Reading Location: [id number] Procedure Note Cornell Winters MD - 07/07/2024 [...] Cornell Winters M.D. RW T: Report ID: [id number] Reading Location: [id number] Chetan Bueno DO IMG XR PROCEDURES Mariana l Result * Screening Mammogram Bilateral w Salazar w Implants (02/15/2024 8:07 AM CLEANING PROFESSIONAL) Anatomical Region Laterality Modality Breast Bilateral Mammography Narrative 02/18/2024 2:22 PM CLEANING PROFESSIONAL Mammogram Technique: Bilateral Digital Breast Tomosynthesis, Bilateral C-view 2D Screening mammogram. Views obtained: bilateral craniocaudal and bilateral mediolateral oblique. Computer Aided Detection was performed. Mammogram Findings: The present examination has been compared to prior imaging studies performed at [facility] on 01/08/2019, 08/26/2020, 11/24/2021 and 11/24/2022. [...] compared to prior imaging studies performed at [facility] on 01/08/2019, 08/26/2020,11/24/2021 and 11/24/2022. The [...] Recently Relevant to Health Maintenance Insurance MEDICARE [facility] MEDICARE SUPPLEMENT MEDICARE [facility] INSURANCE TAYLOR Rooney [id number] MEDICARE [facility] MEDICARE SUPPLEMENT Advance Directives For more information, please contact: [phone] * Full Code (Latest Code Status on File) Date Activated Date Inactivated Comments 12/27/2023 2:11 AM 12/27/2023 8:08 PM Care Teams Narcotics Agent Relationship Specialty Start Date End Date Jorge Bosch DO [address] [place], [place] [id number] PCP - General Internal Medicine 12/27/23 Loyd Tucker MD [address] [facility] [address] [place] [address] Radiation Oncologist Radiation Oncology 11/01/17 AftIsabel MD PhD [address] [place] [address] Referring Physician Surgical Oncology 11/01/17 Esthela Saldana, PhD [address] [place] [address] Nurse Practitioner Radiation Oncology 11/01/17 Allie Curiel MD [address] [place] [address] Referring Physician Medical Oncology 06/06/18 Maico Elaine, LOCOMOTIVE OPERATOR [address] [place], [place] [address] Nurse Practitioner Nurse Practitioner 01/29/23
--- OUTSIDE RECORDS SUMMARY | 2024-09-25 12:55 | XMS_ITS | Encounter Summary ---
Author Organization [facility] Address [address] [facility] [place] [address] Care Team Providers Care Buttonholer Name Role Phone Dg Gilliam MD Primary Care Provider [phone] Jorge Bosch DO Primary Care Provider [phone] Encounter Details Date Type Department Care Team (Late st Contact Info) Description 09/19/2018 Lab Requisition [facility] Care Pathology Lab [address] [place] [address] Nafisa King MD [address] [place] [address] Gross hematuria Social History Tobacco Use Types Packs/Day Years Used Date Smoking Tobacco: Never Assessed Comments Unknown Sex and Gender Information Value Date Recorded Sex Assigned at Not on file Legal Sex Female 6:23 PM FREIGHT BROKER AGENT Gender Identity Not on file Sexual Orientation Not on file documented as of this encounter Plan of Treatment Not on file documented as of this encounter Procedures Procedure Name Priority Date/Time Associated Diagnosis Comments PATHOLOGY TISSUE Routine 09/17/2018 1:32 PM CDT Gross hematuria documented in this encounter Results * PATHOLOGY TISSUE (09/17/2018 1:32 PM CDT) Case Report Surgical Pathology Report Case: [id number] Authorizing Provider: Nafisa King MD Collected: 09/17/2018 [...] Gross Description Prepared slide (1) received from [facility] labeled [id number], Tiffany Palacio. All material will be returned. 09/20/2018 9:53 AM CDT [facility] PATH[facility] Disclaimer The performance characteristics of all immunohistochemical and indirect immunofluorescence stains (if any) cited in this report were determined by the Histopathology Laboratory of [facility]. Some of these tests were developed [...] LAB Embedded Images 09/20/2018 9:53 AM CDT [facility] PATHOLOGY LAB Pathology/Cytolo gy URINE / Unknown 09/17/2018 1:32 PM CDT 09/19/2018 1:32 PM CDT us Nafisa King MD LAB - PATHOLOGY/CYTOLOGY ORDERAB LES Final Result Performing Organization Address City/State/[facility] Co de Phone Number U PATHOLOGY LAB [address] [phone] documented in this encounter Visit Diagnoses Diagnosis Gross hematuria documented in this encounter Care Teams Buttonholer Relationship Specialty Start Date End Date Dg Gilliam MD [address] [facility] [address] [place] [address] PCP - General 06/04/12 06/21/21 Jorge Bosch DO [address] [place] [address] PCP - General 06/22/21 documented as of this encounter
--- OUTSIDE RECORDS SUMMARY | 2024-09-25 12:55 | XMS_ITS | Encounter Summary ---
Author Organization [facility] Address [address] [place] [address] Phone Care Team Providers Care Rod Hanger Name Role Phone Jorge Bosch DO Primary Care Provider [phone] Loyd Tucker MD Unavailable Aft, Isabel Chilel MD PhD Unavailable [phone] Danette Schuster COUNTERINTELLIGENCE/HUMINT SPECIALIST Unavailable [phone] Esthela Saldana PhD Unavailable [phone] Allie Curiel MD Unavailable [phone] Jorge Bosch DO Primary Care Provider [phone] Maico Elaine CLINICAL RESEARCH PHYSICIAN Unavailable [phone] Maico Elaine NP Primary Care Provider [phone] Jorge Bosch DO Primary Care Provider [phone] Encounter Details Date Type Department Care Team [...] AM CDT Legal Sex Female 6:34 AM HIGHER LEVEL 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 Gender Identity Female 12/20/2020 11:06 AM CDT [...] on filedocumented in this encounter Care Teams Rod Hanger Relationship Specialty Start Date End Date Jorge Bosch DO PCP - General 07/05/17 11/23/21 Jorge Bosch DO [address] [place] [address] PCP - General Internal Medicine 11/24/21 01/28/23 Maico Elaine CLINICAL RESEARCH PHYSICIAN [address] [place] [address] PCP - General Nurse Practitioner 01/29/23 12/26/23 Jorge Bosch DO [address] [place] [address] PCP - General Internal Medicine 12/27/23 Loyd Tucker MD [address] [facility] [address] [place] [address] Radiation Oncologist Radiation Oncology 11/01/17 AftIsabel MD PhD [address] [place] [address] Referring Physician Surgical Oncology 11/01/17 Danette Schuster COUNTERINTELLIGENCE/HUMINT SPECIALIST [address] [place] [address] Nurse Practitioner Certified Clinical Nurse Specialist 11/01/17 11/23/22 Esthela Saldana, PhD [address] [place] [address] Nurse Practitioner Radiation Oncology 11/01/17 Allie Curiel MD [address] [place] [address] Referring Physician Medical Oncology 06/06/18 Maico Elaine, CLINICAL RESEARCH PHYSICIAN [address] [place] [address] Nurse Practitioner Nurse Practitioner 01/29/23 documented as of this encounter
--- OUTSIDE RECORDS SUMMARY | 2024-09-25 12:55 | XMS_ITS | Encounter Summary ---
Author Organization [facility] Address [address] [place] [address] Care Team Providers Care Attending Urologist Name Role Phone Unavailable Primary Care Provider [...] on file Legal Sex Female 3:44 AM HAND BUFFING WHEEL FORMER Gender Identity Not on file Sexual Orientation Not on file documented as of this encounter Plan of Treatment Not on file documented as of this encounter Visit Diagnoses Diagnosis Lipoma of other specified sites- Primary documented in this encounter
--- OUTSIDE RECORDS SUMMARY | 2024-09-25 12:55 | XMS_ITS | Encounter Summary ---
Author Organization [facility] Address [address] [place] [address] Care Team Providers Care Line Out Worker Name Role Phone Unavailable Primary Care Provider Unavailabl e Encounter Details Date Type Department Care Team (Late st Contact Info) Description 08/17/2001 Outpatient Historical Division of Neurology [address] [place], [place] [id number] (Excluded Provider) [place] [address] [facility] [address] [place] [address] Social History Tobacco Use Types Packs/Day Years Used Date Smoking Tobacco: Never Assessed Comments Unknown Sex and Gender Information Value Date Recorded Sex Assigned at Not on file Legal Sex Female 3:44 AM NEUROLOGY TECHNOLOGIST Gender Identity Not on file Sexual Orientation Not on file documented as of this encounter Plan of Treatment Not on file documented as of this encounter Visit Diagnoses Not on filedocumented in this encounter
--- OUTSIDE RECORDS SUMMARY | 2024-09-25 12:55 | XMS_ITS | Encounter Summary ---
Author Organization [facility] Address [address] [facility] [place] [address] Care Team Providers Care Oil Driller Name Role Phone Jorge Bosch DO Primary Care Provider [phone] Encounter Details Date Type Department Care Team (Late st Contact Info) Description 06/21/2022 Lab Requisition [facility] DermPath Lab [address] [facility] [place] [address] Jayme Mahoney MD [address] [place] [address] Social History Tobacco Use Types Packs/Day Years Used Date Smoking Tobacco: Never Assessed Comments Unknown Sex and Gender Information Value Date Recorded Sex Assigned at Not on file Legal Sex Female 6:23 PM SHAFT 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 Gender Identity Not on file Sexual Orientation Not on file documented as of this encounter Plan of Treatment Not on file documented as of this encounter Procedures Procedure Name Priority Date/Time Associated Diagnosis Comments DERMATOPATHOLOGY Routine 06/20/2022 3:33 AM CDT documented in this encounter Results * DERMATOPATHOLOGY (06/20/2022 3:33 AM CDT) Case Report Dermatopathology Report Case: [id number] Authorizing Provider: Jayme Mahoney MD Collected: 06/20/2022 03:33 AM Ordering Location: [facility] DermPath Lab Received: 06/21/2022 [...] characteristic determined by the Dermatopathology Laboratory at [facility], directed by Dr. Elyse Banks. These tests need not be, and therefore are not, approved by the [place] Food and Drug Administration. The tests are used for clinical purposes. Billing Codes Specimen Charges Stain Charges 97687 1 3 2:06 PM CDT DERMATOPATHOLOGY LABORATORY Embedded Images 3 2:06 PM CDT DERMATOPATHOLOGY LABORATORY Pathology/Cytolo gy TISSUE SPECIMEN FROM SKIN / Unknown 06/20/2022 3:33 AM CDT 06/21/2022 1:49 PM CDT us Jayme Mahoney MD LAB - PATHOLOGY/CYTOLOGY ORD ERABLES Final Result DERMATOPATHOLOGY LABORATORY [facility] [place] [facility] - Department of Dermatology [facility] [address] [place] [address], [address] [place] [address], [facility] [phone] documented in this encounter Visit Diagnoses Not on filedocumented in this encounter Care Teams Oil Driller Relationship Specialty Start Date End Date Jorge Bosch DO [address] [place] [address] PCP - General 06/22/21 documented as of this encounter
--- OUTSIDE RECORDS SUMMARY | 2024-09-25 12:55 | XMS_ITS | Continuity of Care Document ---
Author Organization [facility] Address [address] [place] [address] [address] [place] [address] Phone Care Team Providers Care Drapery Sewer Hand Name Role Phone Kentrell Carrizales DO Unavailable Unavailable Advance Directives Directive Yes / No Effective Date File Name No Information Encounters Encounter Description Practice Location Reason(s) For Visit Diagnoses Date Provider Providers Copied on Encounter [facility], [address], [place], [place], [id number], tel:[phone] [facility] No Information Sofie Avitia. [address] [facility], [place], [address], [place]. tel: [phone] Family History Family Member Type Diagnosis Age At Onset No Information Payers Payer name Insurance type Covered libertarian ID Authoriza tion(s) [facility] Out Of State [id number] Social History Type Description Quantity Date Captured [...]
--- OUTSIDE RECORDS SUMMARY | 2024-09-25 12:55 | XMS_ITS | Clinical Summary ---
Author Organization [facility] Address [address] [facility] Attn: Epic Prelude ADT STEPHEN[place] PRADO [address] Care Team Providers Care Plug Assembler Name Role Phone Unavailable Primary Care Provider Unavailabl e Social History Tobacco Use Types Packs/Day Years Used Date Smoking Tobacco: Never Assessed Comments Unknown Sex and Gender Information Value Date Recorded Sex Assigned at Not on file Legal Sex Female 3:44 AM CRESTER Gender Identity Not on file Sexual Orientation [...]
--- OUTSIDE RECORDS SUMMARY | 2024-09-25 12:55 | XMS_ITS | Clinical Summary ---
Author Organization [facility] Main [facility] Address [address] [place] [address] Care Team Providers Care Cytogenetics Laboratory Manager Name Role Phone Loyd Tucker MD Unavailable Aft, Isabel Chilel MD PhD Unavailable [phone] Esthela Saldana PhD Unavailable [phone] Allie Curiel MD Unavailable [phone] Maico Elaine FERMENTING CELLAR DROPPER Unavailable [phone] Jorge Bosch DO Primary Care Provider [phone] Allergies Active Allergy Reactions Criticality Noted Date [...] Pathologic:Stage Unknown(pT1b, pNX, cM0, G2, ER: Positive, [place]: Positive, HER2: Negative) - Signed by Esthela [...] Description 07/07/2024 1:30 PM CDT Ancillary Procedure [facility] Imaging at [address] [address] Chronic bilateral low back pain without sciatica 07/07/2024 1:00 PM CDT Office Visit [facility] Sports Medicine and Primary Care at [address] [place] [address] Chetan Bueno DO Chronic bilateral low back [...] 02/08/2018 Surgical History Surgery Date Site/Laterality Comments [place] TONSILLECTOMY PRIMARY/SECONDARY <AGE 12 Tonsillectomy - (Added by TW Conv) [place] ANTERIOR COLPORRAPHY RPR CYSTOCELE W/CYSTO Anterior Colporrhaphy, Repair Of Cystocele - (Added by TW Conv) [place] TOTAL ABDOMINAL HYSTERECT W/WO RMVL TUBE OVARY [...] Paternal Grandmother Keturah Palacio Arthritis Sister 1 Renettapauly Jones Depression Sister 1 Renettapauly Jones Hyperlipidemia [...] AM CDT Legal Sex Female 6:34 AM RAG WILLOW OPERATOR Gender Identity Female 12/20/2020 11:06 AM CDT [...] 36.7 C (98.1 F) 02/15/2024 9:03 AM RAG WILLOW OPERATOR Respiratory Rate 16 02/15/2024 9:03 AM RAG WILLOW OPERATOR Oxygen Saturation 98% 02/15/2024 9:03 AM RAG WILLOW OPERATOR Inhaled Oxygen Concentration - - Weight 66.7 [...] Read Routine (OP Routine) 02/15/2024 8:07 AM RAG WILLOW OPERATOR Screening mammogram, encounter for DEXA SCAN Routine [...] Cornell Winters M.D. RW T: Report ID: [id number] Reading Location: [id number] Procedure Note Cornell Winters MD - 07/07/2024 [...] Cornell Winters M.D. RW T: Report ID: [id number] Reading Location: [id number] Chetan Bueno DO IMG XR PROCEDURES Mariana l Result * Screening Mammogram Bilateral w Salazar w Implants (02/15/2024 8:07 AM RAG WILLOW OPERATOR) Anatomical Region Laterality Modality Breast Bilateral Mammography Narrative 02/18/2024 2:22 PM RAG WILLOW OPERATOR Mammogram Technique: Bilateral Digital Breast Tomosynthesis, Bilateral C-view 2D Screening mammogram. Views obtained: bilateral craniocaudal and bilateral mediolateral oblique. Computer Aided Detection was performed. Mammogram Findings: The present examination has been compared to prior imaging studies performed at [facility] on 01/08/2019, 08/26/2020, 11/24/2021 and [...] compared to prior imaging studies performed at [facility] on 01/08/2019, 08/26/2020,11/24/2021 and 11/24/2022. [...] Recently Relevant to Health Maintenance Insurance MEDICARE [facility] MEDICARE SUPPLEMENT MEDICARE [facility] INSURANCE TAYLOR Rooney [id number] MEDICARE [facility] MEDICARE SUPPLEMENT Advance Directives For more information, please contact: [phone] * Full Code (Latest Code Status on File) Date Activated Date Inactivated Comments 12/27/2023 2:11 AM 12/27/2023 8:08 PM Care Teams Cytogenetics Laboratory Manager Relationship Specialty Start Date End Date Jorge Bosch DO [address] [facility] [address] [place] [address] PCP - General Internal Medicine 12/27/23 Loyd Tucker MD [address] [facility] [address] [place], [place] [id number] Radiation Oncologist Radiation Oncology 11/01/17 Isabel Kennedy MD PhD [address] [place] [address] Referring Physician Surgical Oncology 11/01/17 Esthela Saldana, PhD [address] [place] [address] Nurse Practitioner Radiation Oncology 11/01/17 Allie Curiel MD [address] [place] [address] Referring Physician Medical Oncology 06/06/18 Maico Elaine, FERMENTING CELLAR DROPPER [address] [facility] [address] [address] Nurse Practitioner Nurse Practitioner 01/29/23
--- OUTSIDE RECORDS SUMMARY | 2024-09-25 12:55 | XMS_ITS | Encounter Summary ---
Author Organization [employer] Address [address] [place] [address] Care Team Providers Care Solar Resource Assessor Name Role Phone Unavailable Primary Care Provider Unavailabl e Encounter Details Date Type Department Care Team (Late st Contact Info) Description 08/16/2001 Outpatient Historical [facility] Support Serv. (Adt Cardiology-[facility]) [address] [place] [address] William Barriga MD [address] [place] [address] Social History Tobacco Use Types Packs/Day Years Used Date Smoking Tobacco: Never Assessed Comments Unknown Sex and Gender Information Value Date Recorded Sex Assigned at Not on file Legal Sex Female 3:44 AM FRONT DESK COORDINATOR Gender Identity Not on file Sexual Orientation Not on file documented as of this encounter Plan of Treatment Not on file documented as of this encounter Visit Diagnoses Not on filedocumented in this encounter
--- OUTSIDE RECORDS SUMMARY | 2024-09-25 12:55 | XMS_ITS | Clinical Summary ---
Author Organization [facility] Address [address] [place] [address] Care Team Providers Care Catering Service Manager Name Role Phone Jorge Bosch DO Primary Care Provider [phone] Source Comments [facility],non-owned Affiliates and Associated Physician Practices is amultiple site organization consisting of ambulatory clinics and hospital sitesin [place], [place], [place] and [place]. This disclosure is being madepursuant to the Care Everywhere program and may not contain all information available regarding this patient. Last updated 17.[facility] Social History Tobacco Use Types Packs/Day Years Used Date Smoking Tobacco: Never Assessed Comments Unknown Sex and Gender Information Value Date Recorded Sex Assigned at Not on file Legal Sex Female 6:23 PM LAYER OUT Gender Identity Not on file Sexual Orientation [...] series) 12/20/2023 DEPRESSION SCREENING 03/12/2024 INFLUENZA VACCINE (#1) 2024 9, 02/08/2018, 01/25/2017, Additional history exists MAMMOGRAM 02/14/2026 [...] age to complete this topic Insurance MEDICARE [facility] [place] [id number] Care Teams Catering Service Manager Relationship Specialty Start Date End Date Jorge Bosch DO [address] [place] [address] (work) PCP - General 06/22/21
--- OUTSIDE RECORDS SUMMARY | 2024-09-25 12:55 | XMS_ITS ---
Author Organization [facility] Main [facility] Address [address] [place] [address] Care Team Providers Care Shop Worker Name Role Phone Loyd Tucker MD Unavailable Aft, Isabel Chilel MD PhD Unavailable [phone] Esthela Saldana PhD Unavailable [phone] Allie Curiel MD Unavailable [phone] Maico Elaine MAKE UP WORKER Unavailable [phone] Jorge Bosch DO Primary Care Provider [phone] Active Problems Problem Noted Date Diagnosed Date Encounter for follow-up surveillance of breast c ancer 06/06/2018 History of breast cancer 06/06/2018 Malignant neoplasm of breast 11/01/2017 Malignant neoplasm of upper- outer quadrant of right female breast 10/01/2017 Cancer Staging:Clinical: Unsigned Pathologic:Stage Unknown(pT1b, pNX, cM0, G2, ER: Positive, [place]: Positive, HER2: Negative) - Signed by Esthela [...]
[2024-09-25 13:08] VITALS: PULSE 87; RESP 16; TEMP 36.4; O2SAT 98
[2024-09-25 13:13] VITALS: BP 113/64; PULSE 68; RESP 16; TEMP 36.6; O2SAT 97
--- OUTSIDE RECORDS SUMMARY | 2024-09-25 13:25 | XMS_ITS | Continuity of Care Document ---
Author Organization [facility] Address [address] [place] [address] [address] [place] [address] Phone Care Team Providers Care Electronic Tech Name Role Phone Kentrell Carrizales DO Unavailable Unavailable Advance Directives Directive Yes / No Effective Date File Name No Information Encounters Encounter Description Practice Location Reason(s) For Visit Diagnoses Date Provider Providers Copied on Encounter [facility], [address], [place], [place], [id number], tel:[phone] [facility] No Information Sofie Avitia. [address] [facility], [place], [address], [place]. tel: [phone] Family History Family Member Type Diagnosis Age At Onset No Information Payers Payer name Insurance type Covered constitution party ID Authoriza tion(s) [facility] Out Of State [id number] Social History Type Description Quantity Date Captured [...]
--- OUTSIDE RECORDS SUMMARY | 2024-09-25 13:25 | XMS_ITS | Encounter Summary ---
Author Organization [facility] Address [address] [place] [address] Care Team Providers Care Developing Machine Operator Name Role Phone Jorge Bosch DO Primary Care Provider [phone] Encounter Details Date Type Department Care Team (Late st Contact Info) Description 06/21/2022 Lab Requisition [facility] D[facility] Lab [address] [facility] [place] [address] Jayme Mahoney MD [address] [place] [address] Social History Tobacco Use Types Packs/Day Years Used Date Smoking Tobacco: Never Assessed Comments Unknown Sex and Gender Information Value Date Recorded Sex Assigned at Not on file Legal Sex Female 6:23 PM PICKING TABLE WORKER Gender Identity Not on file Sexual Orientation Not on file documented as of this encounter Plan of Treatment Not on file documented as of this encounter Procedures Procedure Name Priority Date/Time Associated Diagnosis Comments DERMATOPATHOLOGY Routine 06/20/2022 3:33 AM CDT documented in this encounter Results * DERMATOPATHOLOGY (06/20/2022 3:33 AM CDT) Case Report Dermatopathology Report Case: [id number] Authorizing Provider: Jayme Mahoney MD Collected: 06/20/2022 03:33 AM Ordering Location: [facility] Received: 06/21/2022 01:49 PM Pathologist: [...] characteristic determined by the Dermatopathology Laboratory at [facility], directed by Dr. Elyse Banks. These tests need not be, and therefore are not, approved by the [place] Food and Drug Administration. The tests are used for clinical purposes. Billing Codes Specimen Charges Stain Charges 37049 1 3 2:06 PM CDT DERMATOPATHOLOGY LABORATORY Embedded Images 3 2:06 PM CDT DERMATOPATHOLOGY LABORATORY Pathology/Cytolo gy TISSUE SPECIMEN FROM SKIN / Unknown 06/20/2022 3:33 AM CDT 06/21/2022 1:49 PM CDT us Jayme Mahoney MD LAB - PATHOLOGY/CYTOLOGY ORD ERABLES Final Result DERMATOPATHOLOGY LABORATORY [facility] - Department of Dermatology [facility] [address] [place] [address], [address] [place] [address], [facility] [phone] documented in this encounter Visit Diagnoses Not on filedocumented in this encounter Care Teams Developing Machine Operator Relationship Specialty Start Date End Date Jorge Bosch DO [address] [place] [address] PCP - General 06/22/21 documented as of this encounter
--- OUTSIDE RECORDS SUMMARY | 2024-09-25 13:25 | XMS_ITS | Clinical Summary ---
Author Organization [facility] Address [address] [facility] Attn: Epic Prelude ADT STEPHENIE PRADO [address] Care Team Providers Care Utility Manager Name Role Phone Unavailable Primary Care Provider Unavailabl e Social History Tobacco Use Types Packs/Day Years Used Date Smoking Tobacco: Never Assessed Comments Unknown Sex and Gender Information Value Date Recorded Sex Assigned at Not on file Legal Sex Female 3:44 AM MANAGING MEMBER Gender Identity Not on file Sexual Orientation [...]
--- OUTSIDE RECORDS SUMMARY | 2024-09-25 13:25 | XMS_ITS | Encounter Summary ---
Author Organization [facility] Address [address] [place] [address] Care Team Providers Care Lean Coach Name Role Phone Unavailable Primary Care Provider Unavailabl e Encounter Details Date Type Department Care Team (Late st Contact Info) Description 08/17/2001 Outpatient Historical Division of Neurology [address] [place], [place] [id number] (Excluded Provider) [place] [address] [facility] [address] [place] [address] Social History Tobacco Use Types Packs/Day Years Used Date Smoking Tobacco: Never Assessed Comments Unknown Sex and Gender Information Value Date Recorded Sex Assigned at Not on file Legal Sex Female 3:44 AM INSHORE UNDERSEA WARFARE OFFICER Gender Identity Not on file Sexual Orientation Not on file documented as of this encounter Plan of Treatment Not on file documented as of this encounter Visit Diagnoses Not on filedocumented in this encounter
--- OUTSIDE RECORDS SUMMARY | 2024-09-25 13:25 | XMS_ITS | Encounter Summary ---
Author Organization [facility] Address [address] [facility] [place] [address] Care Team Providers Care Heater Tender Name Role Phone Dg Gilliam MD Primary Care Provider [phone] Jorge Bosch DO Primary Care Provider [phone] Encounter Details Date Type Department Care Team (Late st Contact Info) Description 09/19/2018 Lab Requisition [facility] Care Pathology Lab [address] [place] [address] Nafisa King MD [address] [place] [address] Gross hematuria Social History Tobacco Use Types Packs/Day Years Used Date Smoking Tobacco: Never Assessed Comments Unknown Sex and Gender Information Value Date Recorded Sex Assigned at Not on file Legal Sex Female 6:23 PM RESTAURANT HOURLY MANAGER Gender Identity Not on file Sexual Orientation Not on file documented as of this encounter Plan of Treatment Not on file documented as of this encounter Procedures Procedure Name Priority Date/Time Associated Diagnosis Comments PATHOLOGY TISSUE Routine 09/17/2018 1:32 PM CDT Gross hematuria documented in this encounter Results * PATHOLOGY TISSUE (09/17/2018 1:32 PM CDT) Case Report Surgical Pathology Report Case: [id number] Authorizing Provider: Nafisa King MD Collected: 09/17/2018 [...] Gross Description Prepared slide (1) received from [facility] labeled [id number], Tiffany Palacio. All material will be returned. 09/20/2018 9:53 AM CDT [facility] PATH[facility] Disclaimer The performance characteristics of all immunohistochemical and indirect immunofluorescence stains (if any) cited in this report were determined by the Histopathology Laboratory of [facility]. Some of these tests were developed by [...] LAB Embedded Images 09/20/2018 9:53 AM CDT [facility] PATHOLOGY LAB Pathology/Cytolo gy URINE / Unknown 09/17/2018 1:32 PM CDT 09/19/2018 1:32 PM CDT us Nafisa King MD LAB - PATHOLOGY/CYTOLOGY ORDERAB LES Final Result Performing Organization Address City/State/[facility] Co de Phone Number U PATHOLOGY LAB [address] [phone] documented in this encounter Visit Diagnoses Diagnosis Gross hematuria documented in this encounter Care Teams Heater Tender Relationship Specialty Start Date End Date Dg Gilliam MD [address] [facility] [address] [place] [address] PCP - General 06/04/12 06/21/21 Jorge Bosch DO [address] [place] [address] PCP - General 06/22/21 documented as of this encounter
--- OUTSIDE RECORDS SUMMARY | 2024-09-25 13:25 | XMS_ITS | Clinical Summary ---
Author Organization [facility] Address [address] [place] [address] Care Team Providers Care Asphalt Paving Supervisor Name Role Phone Jorge Bosch DO Primary Care Provider [phone] [facility],non-owned Affiliates and Associated Physician Practices is amultiple site organization consisting of ambulatory clinics and hospital sitesin [place], [place], [place] and [place]. This disclosure is being madepursuant to the Care Everywhere program and may not contain all information available regarding this patient. 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
--- OUTSIDE RECORDS SUMMARY | 2024-09-25 13:25 | XMS_ITS | Encounter Summary ---
Author Organization [facility] Address [address] [place] [address] Care Team Providers Care Car Parker Name Role Phone Unavailable Primary Care Provider Unavailabl e Encounter Details Date Type Department Care Team (Late st Contact Info) Description 08/16/2001 Outpatient Historical [facility] Support Serv. (Adt Cardiology-[facility]) [address] 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
--- OUTSIDE RECORDS SUMMARY | 2024-09-25 13:25 | XMS_ITS | Encounter Summary ---
Author Organization [facility] Address 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
--- OUTSIDE RECORDS SUMMARY | 2024-09-25 13:25 | XMS_ITS | Referral Summary ---
Author Organization [facility] Address [address] [place] [address] Care Team Providers Care Patient Financial Services Specialist Name Role Phone Loyd Tucker MD Unavailable Aft, Isabel Chilel MD PhD Unavailable [phone] Esthela Saldana PhD Unavailable [phone] Allie Curiel MD Unavailable [phone] Maico Elaine TRUCK CATERER Unavailable [phone] Jorge Bosch DO Primary Care Provider [phone] Encounters Date Type Department Care Team Description 07/07/2024 1:30 PM CDT Ancillary Procedure [facility] Imaging at [address] [address] Chronic bilateral low back pain without sciatica 07/07/2024 1:00 PM CDT Office Visit [facility] Sports Medicine and Primary Care at [address] [place] [address] Chetan Bueno DO Chronic bilateral low back [...] Pathologic:Stage Unknown(pT1b, pNX, cM0, G2, ER: Positive, [place]: Positive, HER2: Negative) - Signed by Esthela [...] AM CDT Legal Sex Female 6:34 AM CAMBERING MACHINE 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 Gender Identity Female 12/20/2020 11:06 AM CDT Sexual Orientation Straight 06/06/2018 12 :44 AM CDT Last Filed Vital Signs Vital Sign Reading Time Taken Comments Blood Pressure 111/64 07/07/2024 1:04 PM CDT Pulse 59 07/07/2024 1:04 PM CDT Temperature 36.7 C (98.1 F) 02/15/2024 9:03 AM CAMBERING MACHINE OPERATOR Respiratory Rate 16 02/15/2024 9:03 AM CAMBERING MACHINE OPERATOR Oxygen Saturation 98% 02/15/2024 9:03 AM CAMBERING MACHINE OPERATOR Inhaled Oxygen Concentration - - Weight [...] Read Routine (OP Routine) 02/15/2024 8:07 AM CAMBERING MACHINE OPERATOR Screening mammogram, encounter for HM DEXA SCAN [...] Cornell Winters M.D. RW T: Report ID: [id number] Reading Location: [id number] Procedure Note Cornell Winters MD - 07/07/2024 [...] Cornell Winters M.D. RW T: Report ID: [id number] Reading Location: [id number] Chetan Bueno DO IMG XR PROCEDURES Mariana l Result * Screening Mammogram Bilateral w Salazar w Implants (02/15/2024 8:07 AM CAMBERING MACHINE OPERATOR) Anatomical Region Laterality Modality Breast Bilateral Mammography Narrative 02/18/2024 2:22 PM CAMBERING MACHINE OPERATOR Mammogram Technique: Bilateral Digital Breast Tomosynthesis, Bilateral C-view 2D Screening mammogram. Views obtained: bilateral craniocaudal and bilateral mediolateral oblique. Computer Aided Detection was performed. Mammogram Findings: The present examination has been compared to prior imaging studies performed at [facility] on 01/08/2019, 08/26/2020, 11/24/2021 and [...] compared to prior imaging studies performed at [facility] on 01/08/2019, 08/26/2020,11/24/2021 and 11/24/2022. [...] Recently Relevant to Health Maintenance Insurance MEDICARE [facility] MEDICARE SUPPLEMENT MEDICARE [facility] INSURANCE TAYLOR Rooney [id number] MEDICARE [facility] MEDICARE SUPPLEMENT Advance Directives For more information, please contact: [phone] * Full Code (Latest Code Status on File) Date Activated Date Inactivated Comments 12/27/2023 2:11 AM 12/27/2023 8:08 PM Care Teams Patient Financial Services Specialist Relationship Specialty Start Date End Date Jorge Bosch DO [address] [place], [place] [address] PCP - General Internal Medicine 12/27/23 Loyd Tucker MD [address] [facility] [address] [place] [address] Radiation Oncologist Radiation Oncology 11/01/17 AftIsabel MD PhD [address] [place] [address] Referring Physician Surgical Oncology 11/01/17 Esthela Saldana, PhD [address] [place] [address] Nurse Practitioner Radiation Oncology 11/01/17 Allie Curiel MD [address] [place] [address] Referring Physician Medical Oncology 06/06/18 Maico Elaine, TRUCK CATERER [address] [place], [place] [address] Nurse Practitioner Nurse Practitioner 01/29/23
--- OUTSIDE RECORDS SUMMARY | 2024-09-25 13:25 | XMS_ITS | Clinical Summary ---
Author Organization [facility] Main [facility] Address [address] [place] [address] Care Team Providers Care Motion Picture Equipment Supervisor Name Role Phone Loyd Tucker MD Unavailable Aft, Isabel Chilel MD PhD Unavailable [phone] Esthela Saldana PhD Unavailable [phone] Allie Curiel MD Unavailable [phone] Maico Elaine THIRD OFFICER Unavailable [phone] Jorge Bosch DO Primary Care Provider [phone] Allergies Active Allergy Reactions Criticality Noted Date [...] Pathologic:Stage Unknown(pT1b, pNX, cM0, G2, ER: Positive, MT: Positive, HER2: Negative) - Signed by Esthela [...] Description 07/07/2024 1:30 PM CDT Ancillary Procedure [facility] Imaging at [address] [address] Chronic bilateral low back pain without sciatica 07/07/2024 1:00 PM CDT Office Visit [facility] Sports Medicine and Primary Care at [address] [place] [address] Chetan Bueno DO Chronic bilateral low back [...] 02/08/2018 Surgical History Surgery Date Site/Laterality Comments MT TONSILLECTOMY PRIMARY/SECONDARY <AGE 10 Tonsillectomy - (Added by TW Conv) MT ANTERIOR COLPORRAPHY RPR CYSTOCELE W/CYSTO Anterior Colporrhaphy, Repair Of Cystocele - (Added by TW Conv) MT TOTAL ABDOMINAL HYSTERECT W/WO RMVL TUBE OVARY [...] AM CDT Legal Sex Female 6:34 AM 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 RW T: Report ID: [id number] Reading Location: [id number] Procedure Note Cornell Winters MD - 07/07/2024 [...] Cornell Winters M.D. RW T: Report ID: [id number] Reading Location: [id number] Chetan Bueno DO IMG XR PROCEDURES Mariana l Result * Screening Mammogram Bilateral w Salazar w Implants (02/15/2024 8:07 AM VACUUM CLEANER REPAIRER) Anatomical Region Laterality Modality Breast Bilateral Mammography Narrative 02/18/2024 2:22 PM VACUUM CLEANER REPAIRER Mammogram Technique: Bilateral Digital Breast Tomosynthesis, Bilateral C-view 2D Screening mammogram. Views obtained: bilateral craniocaudal and bilateral mediolateral oblique. Computer Aided Detection was performed. Mammogram Findings: The present examination has been compared to prior imaging studies performed at [facility] on 01/08/2019, 08/26/2020, 11/24/2021 and 11/24/2022. [...] compared to prior imaging studies performed at [facility] on 01/08/2019, 08/26/2020,11/24/2021 and 11/24/2022. The [...] Recently Relevant to Health Maintenance Insurance MEDICARE [facility] MEDICARE SUPPLEMENT MEDICARE [employer] INSURANCE [place] Rooney [id number] MEDICARE [facility] MEDICARE SUPPLEMENT Advance Directives For more information, please contact: [phone] * Full Code (Latest Code Status on File) Date Activated Date Inactivated Comments 12/27/2023 2:11 AM 12/27/2023 8:08 PM Care Teams Motion Picture Equipment Supervisor Relationship Specialty Start Date End Date Jorge Bosch DO [address] [facility] [address] [place] [address] PCP - General Internal Medicine 12/27/23 Loyd Tucker MD [address] [facility] [address] [place], [place] [id number] Radiation Oncologist Radiation Oncology 11/01/17 Isabel Kennedy MD PhD [address] [place] [address] Referring Physician Surgical Oncology 11/01/17 Esthela Saldana, PhD [address] [place] [address] Nurse Practitioner Radiation Oncology 11/01/17 Allie Curiel MD [address] [place] [address] Referring Physician Medical Oncology 06/06/18 Maico Elaine, THIRD OFFICER [address] [facility] [address] [address] Nurse Practitioner Nurse Practitioner 01/29/23
--- OUTSIDE RECORDS SUMMARY | 2024-09-25 13:25 | XMS_ITS | Encounter Summary ---
Author Organization [facility] Address [address] [place] [address] Phone Care Team Providers Care Services Engineer Name Role Phone Jorge Bosch DO Primary Care Provider [phone] Loyd Tucker MD Unavailable Aft, Isabel Chilel MD PhD Unavailable [phone] Danette Schuster CARDIOLOGY RN Unavailable [phone] Esthela Saldana PhD Unavailable [phone] Allie Curiel MD Unavailable [phone] Jorge Bosch DO Primary Care Provider [phone] Maico Elaine FLUOROSCOPE OPERATOR Unavailable [phone] Maico Elaine NP Primary Care Provider [phone] Jorge Bosch DO Primary Care Provider [phone] Encounter Details Date Type Department Care Team [...] AM CDT Legal Sex Female 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 Gender Identity Female 12/20/2020 11:06 AM CDT [...] on filedocumented in this encounter Care Teams Services Engineer Relationship Specialty Start Date End Date Jorge Bosch DO PCP - General 07/05/17 11/23/21 Jorge Bosch DO [address] [place] [address] PCP - General Internal Medicine 11/24/21 01/28/23 Maico Elaine FLUOROSCOPE OPERATOR [address] [place] [address] PCP - General Nurse Practitioner 01/29/23 12/26/23 Jorge Bosch DO [address] [place] [address] PCP - General Internal Medicine 12/27/23 Loyd Tucker MD [address] [facility] [address] [place] [address] Radiation Oncologist Radiation Oncology 11/01/17 AftIsabel MD PhD [address] [place] [address] Referring Physician Surgical Oncology 11/01/17 Danette Schuster CARDIOLOGY RN [address] [place] [address] Nurse Practitioner Certified Clinical Nurse Specialist 11/01/17 11/23/22 Esthela Saldana, PhD [address] [place] [address] Nurse Practitioner Radiation Oncology 11/01/17 Allie Curiel MD [address] [place] [address] Referring Physician Medical Oncology 06/06/18 Maico Elaine, FLUOROSCOPE OPERATOR [address] [place] [address] Nurse Practitioner Nurse Practitioner 01/29/23 documented as of this encounter
--- OUTSIDE RECORDS SUMMARY | 2024-09-25 13:25 | XMS_ITS ---
Author Organization [facility] Main [facility] Address [address] [place] [address] Care Team Providers Care Lobster Fisherman Name Role Phone Loyd Tucker MD Unavailable Aft, Isabel Chilel MD PhD Unavailable [phone] Esthela Saldana PhD Unavailable [phone] Allie Curiel MD Unavailable [phone] Maico Elaine TREE GIRDLER Unavailable [phone] Jorge Bosch DO Primary Care Provider [phone] Active Problems Problem Noted Date Diagnosed Date Encounter for follow-up surveillance of breast c ancer 06/06/2018 History of breast cancer 06/06/2018 Malignant neoplasm of breast 11/01/2017 Malignant neoplasm of upper- outer quadrant of right female breast 10/01/2017 Cancer Staging:Clinical: Unsigned Pathologic:Stage Unknown(pT1b, pNX, cM0, G2, ER: Positive, [place]: Positive, HER2: Negative) - Signed by Esthela [...]
[2024-09-25 14:00] VITALS: BP 104/58; PULSE 72; RESP 16; TEMP 36.6; O2SAT 97
--- NOTE | 2024-09-25 14:28 | ED_ITS ---
HPI - Extremity Injury (Lower) General Chief Complaint: Extremity Injury, Lower Stated Complaint: pain in L leg Time Seen by Provider: 09/25/24 13:11 Source: patient Mode of arrival: ambulatory Limitations: no limitations History of Present Illness HPI Narrative: 73-year-old with a history of hyperlipidemia, fibromyalgia here with a complains of low back pain radiating into his left leg for past few days. Patient states that she was fixing a cabinet 2 days ago , woke up this morning with pain radiating to er left leg also noticed a indentation in her left calf . Onset (ago): day(s) (1) Place: home Severity: moderate Relieving factors: nothing Other symptoms: none Related Data Home Medications ?Medication ?Instructions ?Recorded ?Confirmed ?Last Taken ?Type ascorbic acid (vitamin C) 500 mg 500 mg PO DAILY 12/13/22 09/19/24 Unknown History tablet multivitamin 1 tablet PO DAILY 12/13/22 09/19/24 Unknown History omega-3 fatty acids 500 mg capsule 500 mg PO DAILY 12/13/22 09/19/24 Unknown History vitamin K2 100 mcg capsule 100 mcg PO DAILY 12/13/22 09/19/24 Unknown History B-complex with vitamin C 1 tablet PO DAILY 01/02/23 09/19/24 Unknown History mecobalamin (vitamin B12) 1,000 1,000 mcg PO DAILY 01/02/23 09/19/24 Unknown History mcg lozenges coenzyme Q10 100 mg capsule 100 mg PO DAILY 05/14/24 09/19/24 Unknown History (CoQ-10) Allergies Allergy/AdvReac Type Severity Reaction Status Date / Time cephalexin Allergy Mild Rash Verified 09/19/24 12:48 Cephalosporins Allergy Mild Rash Verified 09/19/24 12:48 clindamycin Allergy Mild Rash Verified 09/19/24 12:48 codeine Allergy Mild Rash Verified 09/19/24 12:48 duloxetine Allergy Mild Rash Verified 09/19/24 12:48 simvastatin Allergy Mild Rash Verified 09/19/24 12:48 Review of Systems Review of Systems: All systems reviewed & are unremarkable except as noted in HPI and below Constitutional: Constitutional: Reports no additional constitutional complaints Eyes: Eyes: Reports no additional eye complaints ENT: Reports system reviewed and no additional complaints, except as documented Cardiovascular: Cardiovascular: Reports no additional cardiovascular complaints Respiratory: Respiratory: Reports no additional respiratory complaints Gastrointestinal: Gastrointestinal: Reports no additional gastrointestinal complaints Musculoskeletal: Musculoskeletal: Reports as per HPI Neurologic: Reports system reviewed and no additional complaints, except as documented Psychiatric: Psychiatric: Reports no additional psychiatric complaints Endocrine: Endocrine: Reports no additional endocrine complaints PMFSH Past Medical History Medical History BMI 30.0-30.9,adult 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 Bilateral carotid artery stenosis Dyslipidemia Cancer of right breast (05/2017) status post lumpectomy, radiation, tamoxifen Peripheral arterial disease History of tobacco abuse 108 year pack history Emphysema/COPD Fibromyalgia Palpitations Surgical History Surgical History History of benign breast biopsy History of partial mastectomy of right breast (05/2017) History of colonoscopy diverticulosis, hemorrhoids, benign polyps History of total hysterectomy History of tonsillectomy Family History Family History Sibling Family history of bipolar disorder Lung cancer Bladder cancer Emphysema of lung Mother Hypertension Cerebrovascular accident Congestive heart failure Father Malignant neoplasm of prostate Acute myocardial infarction Son Cerebrovascular accident Heart disease Other Family history of mental disorder Social History Social History Social History: Surrogate medical decision maker: Andressa Ash, daughter. Code status: Full code. Smoking packs per day: 2 Smoking cigarettes per day: 40.0 Years smoked: 54 Smoking pack-years: 108.00 Smoking status: Former smoker Tobacco type: cigarettes Second hand tobacco smoke exposure: Yes Smoking end date: 01/10/21 Alcohol intake: current Substance use: never Substance use type: does not use Do You Feel Safe in your Home?: Yes Lack of Transportation: No Lack of Food: Never True Current Housing: I Have Housing Concerned About Future Housing: No Difficulty Paying Gas/Electric Bills: No Difficulty Paying for Meds: No Currently Unemployed: No Education: Associate Degree Difficulty w/ Childcare or Family Care: No Living arrangements: alone Occupation/Education: retired 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 HEAD: Normocephalic, atraumatic. EYES: PERRLA and EOMI. ENT: Nares clear, no rhinorrhea or epistaxis. Mucous membranes moist. NECK: Supple. CHEST: Clear to auscultation. No respiratory distress. HEART: Regular rate and rhythm. No murmur heard. Normal peripheral pulses. EXTREMITIES: Normal range of motion. No edema. SLR negative. No obvious swe lling noted in the left calf SKIN: Warm, dry, no rash. NEURO: No focal deficits. Alert and oriented x3. PSYCH: Normal mood and affect. Course Course Emergency Course: Informed patient about her CT and ultrasound findings. Advised her to take medications as prescribed. Vital Signs Vital signs: Vital Signs Temperature 36.4 C 09/25/24 13:08 Pulse Rate 87 09/25/24 13:08 Respiratory Rate 16 09/25/24 13:08 Pulse Oximetry 98 09/25/24 13:08 Oxygen Delivery Room Air 09/25/24 13:08 Temperature 36.4 C 09/25/24 13:08 Pulse Rate 87 09/25/24 13:08 Respiratory Rate 16 09/25/24 13:08 Pulse Oximetry 98 09/25/24 13:08 Oxygen Delivery Room Air 09/25/24 13:08 MDM - Extremity Injury (Lower) Differential Diagnosis Differential diagnosis: Likely other (Compression fracture, DJD, disc herniation, DVT) Medical Records Attestation: I reviewed the patient's medical records. Imaging Data Radiologist's impression: ITS Impressions Venous Doppler Study 09/25/24 14:03 IMPRESSION: 1: No lower extremity deep venous thrombosis. Lumbar Spine CT 09/25/24 14:05 IMPRESSION: 1. Severe lumbar spondylosis with spinal stenosis at L4-5. Discharge Plan Discharge Clinical Impression: Lumbar radicular pain Patient Disposition: Home Condition: Stable Instructions: Lumbar Radiculopathy (ED) Patient Language: Portuguese Prescriptions: New methylprednisolone [Medrol (Phani)] 4 mg tablets,dose pack See Rx Instructions .ROUTE .COMPLEX Qty: 21 0RF Rx Instructions: for 6 days cyclobenzaprine 5 mg tablet 5 mg PO TID PRN (Reason: muscle spasm) Qty: 20 0RF hydrocodone-acetaminophen 5-325 mg tablet 1 tablet PO Q8H PRN (Reason: pain) Qty: 10 0RF No Action multivitamin Tablet 1 tablet PO DAILY omega-3 fatty acids 500 mg capsule 500 mg PO DAILY vitamin K2 100 mcg capsule 100 mcg PO DAILY ascorbic acid (vitamin C) 500 mg tablet 500 mg PO DAILY mecobalamin (vitamin B12) 1,000 mcg lozenge 1,000 mcg PO DAILY Rx Instructions: allow to dissolve in mouth OR may chew lightly before swallowing B-complex with vitamin C Tablet 1 tablet PO DAILY coenzyme Q10 [CoQ-10] 100 mg capsule 100 mg PO DAILY lorazepam [Ativan] 0.5 mg tablet 0.5 mg PO DAILY PRN (Reason: anxiety) Qty: 30 0RF cholecalciferol (vitamin D3) 125 mcg (5,000 unit) capsule 125 mcg PO DAILY Qty: 30 0RF atorvastatin [Lipitor] 40 mg tablet 40 mg PO DAILY Qty: 90 1RF Follow-up/Referrals: Maico Elaine APRN [Primary Care Provider] - Time of Disposition: 14:38
[2024-09-25] MEDS: KETOROLAC 30 MG/ML VIAL (*BKC) IM (14:39)
[2024-09-25 14:50] VITALS: BP 118/70; PULSE 74; RESP 16; TEMP 36.6; O2SAT 98
== END 2024-09-25 14:51 | disposition home or self-care (01) ==
PROVIDERS: Emergency Provider Family Medicine; PCP Nurse Practitioner
DX: M47.26 Other spondylosis with radiculopathy, lumbar region (principal); J43.9 Emphysema, unspecified; I65.23 Occlusion and stenosis of bilateral carotid arteries; I73.9 Peripheral vascular disease, unspecified; E78.5 Hyperlipidemia, unspecified; M79.7 Fibromyalgia; Z85.3 Personal history of malignant neoplasm of breast; Z87.891 Personal history of nicotine dependence; M48.061 Spinal stenosis, lumbar region without neurogenic claudication
CPT/HCPCS: 72131; 93971; 96372; 99284; J1885; J7512

== ENCOUNTER 2024-11-13 07:45 | Emergency (ER) | payer MEDICARE, SELFPAY ==
--- OUTSIDE RECORDS SUMMARY | 2001-01-28 09:45 | XMS_ITS | Continuity of Care Document ---
Author Organization [facility] Address [id number] [place] [address] [address] [place] [address] Phone Care Team Providers Care Sheet Cutting Operator Name Role Phone Kentrell Carrizales DO Unavailable Unavailable Advance Directives Directive Yes / No Effective Date File Name No Information Encounters Encounter Description Practice Location Reason(s) For Visit Diagnoses Date Provider Providers Copied on Encounter [facility], [address], [place], [place], [id number], tel:[phone] [facility] No Information Sofie Avitia. [address] [facility], [place], [address], [place]. tel: [phone] Family History Family Member Type Diagnosis Age At Onset No Information Payers Payer name Insurance type Covered libertarian ID Authoriza tion(s) [facility] Out Of State [id number] Social History Type Description Quantity Date Captured Comments Sex Female Smoking Status No Information Chief Complaint And Reason For Visit No Information Reason For Referral Reason For Referral No Information History Of Present Illness Encounter Date Complaint History Of Prese nt Illness No Information Functional Status Date Functional Assessmen t No Information Instructions Date Instruction Additional Infor mation No Information Assessments Type Assessment Date No Information Patient Care Teams Name Effective Dates (start - stop) Status Members No Information
--- OUTSIDE RECORDS SUMMARY | 2001-01-28 09:45 | XMS_ITS | Continuity of Care Document ---
Author Organization [facility] Address [address] [place] [address] [address] [place] [address] Phone Care Team Providers Care Dispatch Clerk Name Role Phone Kentrell Carrizales DO Unavailable Unavailable Advance Directives Directive Yes / No Effective Date File Name No Information Encounters Encounter Description Practice Location Reason(s) For Visit Diagnoses Date Provider Providers Copied on Encounter [facility], [address], [place], [place], [id number], tel:[phone] [facility] No Information Sofie Avitia. [address] [facility], [place], [address], [place]. tel: [phone] Family History Family Member Type Diagnosis Age At Onset No Information Payers Payer name Insurance type Covered democrat ID Authoriza tion(s) [facility] Out Of State [id number] Social History Type Description Quantity Date Captured [...]
[2024-11-13] VITALS (37 sets, daily range): BP systolic 74–135; BP diastolic 47–64; PULSE 75–101; RESP 12–26; TEMP 36.8; O2SAT 95–100
--- NOTE | ~2024-11-13 | XR_ITS ---
EXAM/PROCEDURE: XR chest 1V portable - 11/13/2024 8:22 CDT HISTORY: 73 years old Female with weakness, HIVES, LOW BLOOD PRESSURE X TECHNIQUE: AP view(s) of the chest. COMPARISON: None available. FINDINGS: LUNGS/ PLEURA: No focal consolidation. No appreciable pneumothorax or large pleural effusion. HEART/ MEDIASTINUM: Heart appears normal in size. BONES: No acute osseous abnormality. OTHER: Visualized upper abdomen is unremarkable. IMPRESSION: No acute process. Reviewed, dictated and finalized at location N. IMPRESSION: No acute process.
--- OUTSIDE RECORDS SUMMARY | 2024-11-13 07:48 | XMS_ITS | Encounter Summary ---
Author Organization [employer] Address 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
--- OUTSIDE RECORDS SUMMARY | 2024-11-13 07:48 | XMS_ITS | Encounter Summary ---
Author Organization [employer] Address [address] [place] [address] Care Team Providers Care Lighter Captain Name Role Phone Unavailable Primary Care Provider Unavailabl e Encounter Details Date Type Department Care Team (Late st Contact Info) Description 08/16/2001 Outpatient Historical [facility] Support Serv. (Adt Cardiology-[facility]) [address] 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
--- OUTSIDE RECORDS SUMMARY | 2024-11-13 07:48 | XMS_ITS | Patient Health Record ---
Author Organization [facility] Address [address] [facility] [address] [place] [address] Care Team Providers Care Hearing Screen Coordinator Name Role Phone Aaron Hernandez Unavailable [phone] Reason For Referral No Information Medications Medication SIG (Take, Route, Frequency, Duration) Notes Start Date End Date Status buPROPion HCl 75 MG Tablet Oral Active Wellbutrin SR 100 MG Tablet Extended Release 12 Hour Oral Active Vivelle-Dot 0.075 mg/24 hr Patch Twice Weekly Transdermal Active Wellbutrin 75 mg TABLET ORAL *Reorder from [employer] for eRx and Interaction Alerts* Active Propranolol HCl 20 MG Tablet Oral Active chlordiazePOXIDE HCl 10 MG Capsule Oral Active MethylPREDNISolone (Phani) *Brittany r from [employer] for eRx and Interaction Alerts* Active buPROPion HCl ER (XL) 150 MG Tablet Extended Release 24 Hour Oral Active Wellbutrin SR 150 MG Tablet Extended Release 12 Hour Oral Active Amoxicillin 500 MG Capsule Oral Active KlonoPIN 0.5 MG Tablet Oral Active Azithromycin 250 MG Tablet Oral Active Plan Of Treatment No Information
--- OUTSIDE RECORDS SUMMARY | 2024-11-13 07:48 | XMS_ITS | Encounter Summary ---
Author Organization [employer] Address [address] [place] [address] Care Team Providers Care Gis Developer Name Role Phone Unavailable Primary Care Provider Unavailabl e Encounter Details Date Type Department Care Team (Late st Contact Info) Description 08/17/2001 Outpatient Historical Division of Neurology 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
--- OUTSIDE RECORDS SUMMARY | 2024-11-13 07:48 | XMS_ITS | Clinical Summary ---
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
--- OUTSIDE RECORDS SUMMARY | 2024-11-13 07:49 | XMS_ITS | Encounter Summary ---
Author Organization [facility] Address [address] [facility] [place] [address] Care Team Providers Care Credit Operations Specialist Name Role Phone Jorge Bosch DO Primary Care Provider [phone] Encounter Details Date Type Department Care Team (Late st Contact Info) Description 06/21/2022 Lab Requisition [facility] DermPath Lab [address] [place] [address] Jayme Mahoney MD [address] [place] [address] Social History Tobacco Use Types Packs/Day Years Used Date Smoking Tobacco: Never Assessed Comments Unknown Sex and Gender Information Value Date Recorded Sex Assigned at Not on file 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 Gender Identity Not on file Sexual Orientation Not on file documented as of this encounter Plan of Treatment Not on file documented as of this encounter Procedures Procedure Name Priority Date/Time Associated Diagnosis Comments DERMATOPATHOLOGY Routine 06/20/2022 3:33 AM CDT documented in this encounter Results * DERMATOPATHOLOGY (06/20/2022 3:33 AM CDT) Case Report Dermatopathology Report Case: [id number] Authorizing Provider: Jayme Mahoney MD Collected: 06/20/2022 03:33 AM Ordering Location: [facility] Received: 06/21/2022 01:49 PM Pathologist: Kelsi Palacio MD Specimen: Skin, right nasal bulb 2:06 PM CDT DERMATOPATHOLOGY LABORATORY Final Diagnosis Specimen A. 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 Elyse Banks. These tests need not be, and therefore are not, approved by the [place] Food and Drug Administration. The tests are used for clinical purposes. Billing Codes Specimen Charges Stain Charges 48894 1 3 2:06 PM CDT DERMATOPATHOLOGY LABORATORY Embedded Images 3 2:06 PM CDT DERMATOPATHOLOGY LABORATORY Pathology/Cytolo gy TISSUE SPECIMEN FROM SKIN / Unknown 06/20/2022 3:33 AM CDT 06/21/2022 1:49 PM CDT us Jayme Mahoney MD LAB - PATHOLOGY/CYTOLOGY ORD ERABLES Final Result DERMATOPATHOLOGY LABORATORY [facility] - Department of Dermatology [facility] [address] [place] [address], [address] [place] [address], [facility] [phone] documented in this encounter Visit Diagnoses Not on filedocumented in this encounter Care Teams Credit Operations Specialist Relationship Specialty Start Date End Date Jorge Bosch DO [address] [place] [address] PCP - General 06/22/21 documented as of this encounter
--- OUTSIDE RECORDS SUMMARY | 2024-11-13 07:49 | XMS_ITS | Encounter Summary ---
Author Organization [facility] Address [address] [facility] [place] [address] Care Team Providers Care Locker Room Supervisor Name Role Phone Dg Gilliam MD Primary Care Provider [phone] Jorge Bosch DO Primary Care Provider [phone] Encounter Details Date Type Department Care Team (Late st Contact Info) Description 09/19/[address] 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 Gender Identity Not on file Sexual Orientation Not on file documented as of this encounter Plan of Treatment Not on file documented as of this encounter Procedures Procedure Name Priority Date/Time Associated Diagnosis Comments PATHOLOGY TISSUE Routine 09/17/2018 1:32 PM CDT Gross hematuria documented in this encounter Results * PATHOLOGY TISSUE (09/17/2018 1:32 PM CDT) Case Report Surgical Pathology Report Case: [id number] Authorizing Provider: Nafisa King MD Collected: 09/17/2018 [...] Gross Description Prepared slide (1) received from [facility] labeled [id number], Tiffany Palacio. All material will be returned. 09/20/2018 9:53 AM CDT [facility] Disclaimer The performance characteristics of all immunohistochemical and indirect immunofluorescence stains (if any) cited in this report were determined by the Histopathology Laboratory of [facility]. Some of these tests were developed [...] LAB Embedded Images 09/20/2018 9:[address] [facility] PATHOLOGY LAB Pathology/Cytolo gy URINE / Unknown 09/17/2018 1:32 PM CDT 09/19/2018 1:32 PM CDT us Nafisa King MD LAB - PATHOLOGY/CYTOLOGY ORDERAB LES Final Result Performing Organization Address City/State/[facility] Co de Phone Number [facility] [address] [phone] documented in this encounter Visit Diagnoses Diagnosis Gross hematuria documented in this encounter Care Teams Locker Room Supervisor Relationship Specialty Start Date End Date Dg Gilliam MD [address] [facility] [address] [place] [address] PCP - General 06/04/12 06/21/21 Jorge Bosch DO [address] [place] [address] PCP - General 06/22/21 documented as of this encounter
--- OUTSIDE RECORDS SUMMARY | 2024-11-13 07:49 | XMS_ITS ---
Author Organization [facility] s Address [address] [place] [address] Care Team Providers Care Medical Assistant Cardiology Name Role Phone Loyd Tucker MD Unavailable Aft, Isabel Chilel MD PhD Unavailable [phone] Esthela Saldana PhD Unavailable [phone] Allie Curiel MD Unavailable [phone] Maico Elaine PERMACULTURE DESIGNER Unavailable [phone] Jorge Bosch DO Primary Care Provider [phone] Active Problems Problem Noted Date Diagnosed Date Essential hypertension 10/10/2024 Assessment & Plan (10/14/2024 11:29 AM CDT): Blood pressure stable without intervention, continue to monitor Assessment & Plan (10/10/2024 1:38 PM CDT): Blood pressure stable, continue only PRN treatment with hydralazine 10 mg q.8h PRN Assessment & Plan (10/10/2024 6:41 AM CDT): We will monitor serial vital signs for trending and continue hydralazine 10 mg Q 8 hours prn systolic blood pressure greater than 160 Gastroesophageal reflux disease without esophagi tis 10/10/2024 Assessment & Plan (10/14/2024 11:30 AM CDT): Symptoms have resolved, can continue PRN Tums Assessment & Plan (10/10/2024 1:25 PM CDT): Patient previously described symptoms consistent with reflux, discussed treatment of reflux with a preventative medicine versus symptomatic medication. Patient does not feel that this is a chronic problem and she feels comfortable with only PRN Tums. There is no clinical evidence of soft tissue swelling, mass, lump, adenopathy, enlarged thyroid today on exam. She denies difficulty swallowing. Constipation 10/02/2024 Assessment & Plan (10/14/2024 11:30 AM CDT): Improved with PRN MiraLax, Jackie Colace Assessment & Plan (10/08/2024 11:26 AM CDT): Resolved with bowel regimen Assessment & Plan (10/07/2024 11:53 AM CDT): Resolved with bowel regimen Assessment & Plan (10/06/2024 1:22 PM CDT): Resolved with bowel regime. Assessment & Plan (10/05/2024 2:47 PM CDT): Resolved with bowel regime. Assessment & Plan (10/04/2024 11:29 AM CDT): Resolved with bowel regime. Assessment & Plan (10/03/2024 3:15 PM CDT): Pt had BM and feels well. Assessment & Plan (10/02/2024 1:42 PM CDT): Pt with hx constipation with stable abd exam. Concern about worsening with Opioids use. Plan aggressive bowel regime and pt aware. Acute exacerbation of chronic low back pain 09/10 Neural foraminal stenosis of lumbar spine 2024 Assessment & Plan (10/14/2024 11:32 AM CDT): Patient with significant multilevel disease/severe neuroforaminal stenosis and multi levels in the lumbar spine. Neurosurgery recommends outpatient follow-up. Patient does not feel she epidural injection was beneficial. Pain is adequately controlled, enough to participate in therapy with Tylenol 650 mg q.6 hours, cyclobenzaprine 10 mg t.i.d. PRN, gabapentin 300 mg t.i.d., oxycodone 10 mg q.6 hours PRN. Pt has done well in therapy, felt stable for discharge. Will arrange home health PT, OT Assessment & Plan (10/10/2024 1:38 PM CDT): Patient with significant multilevel disease/severe neuroforaminal stenosis and multi levels in the lumbar spine. Neurosurgery recommends outpatient follow-up. Patient does not feel she epidural injection was beneficial. Pain is adequately controlled, enough to participate in therapy with Tylenol 650 mg q.6 hours, cyclobenzaprine 10 mg t.i.d. PRN, gabapentin 300 mg t.i.d., oxycodone 10 mg q.6 hours PRN. Therapies are in place, monitor patient's progress. Has a scheduled neurosurgery visit later in October. Assessment & Plan (10/08/2024 11:26 AM CDT): Presenting with worsening left hip/gluteal pain radiating down L leg to foot. 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 Able to ambulate, no bowel/bladder incontinence, no trauma/falls precipitating. Has been dealing with LBP and hip pain OP previously. Was given methylprednisolone dose pack, [place] from OSH 09/25 without significant improvement MRI here with multilevel degenerative changes of the lumbar spine, up to severe neural foraminal stenosis at L3-L4 and L4-L5 and and left neural foraminal stenosis at left L4-L5 and L5-S1 NSGY consulted. No neuro deficits, no inpatient surgical intervention S/p oral prednisone Pain management consulted and s/p epidural steroid injection 10/02. - pain management with scheduled tylenol, flexeril TID, gabapentin 300mg TID, lidocaine patch, oxycodone 10mg Q6H prn - OP NSGY f/u scheduled for 10/31 - plan for DC to SNF today - will place OP pain management referral as well Assessment & Plan (10/07/2024 11:53 AM CDT): Presenting with worsening left hip/gluteal pain radiating down L leg to foot. 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 Able to ambulate, no bowel/bladder incontinence, no trauma/falls precipitating. Has been dealing with LBP and hip pain OP previously. Was given methylprednisolone dose pack, [place] from OSH 09/25 without significant improvement MRI here with multilevel degenerative changes of the lumbar spine, up to severe neural foraminal stenosis at L3-L4 and L4-L5 and and left neural foraminal stenosis at left L4-L5 and L5-S1 NSGY consulted. No neuro deficits, no inpatient surgical intervention S/p oral prednisone Pain management consulted and s/p epidural steroid injection 10/02. - pain management with scheduled tylenol, flexeril TID, gabapentin 300mg TID, lidocaine patch, oxycodone 10mg Q4H prn - OP NSGY f/u scheduled for 10/31 - CM following for possible placement, OT recommending SNF Assessment & Plan (10/06/2024 1:22 PM CDT): Presenting with worsening left hip/gluteal pain radiating down L leg to foot. Endorses some L foot drop as well with walking in the last few days. Able to ambulate, no bowel/bladder incontinence, no trauma/falls precipitating. Has been dealing with LBP and hip pain OP previously. Was given methylprednisolone dose pack, [place] from OSH 09/25 without significant improvement MRI here with multilevel degenerative changes of the lumbar spine, up to severe neural foraminal stenosis at L3-L4 and L4-L5 and and left neural foraminal stenosis at left L4-L5 and L5-S1 - NSGY consulted. Appreciate assistance. Likely no surgical intervention. Ordered pre-op requested labs/CXR/EKG in case - S/p oral prednisone - PTOT>> SNF. CM working . - PAIN consulted ,S/p lumbar epidural steroid injection under fluoroscopy on 10/02 by Pain service. - Stopped prn IV dilaudid on 10/03, as d/w Pain service. -Increased Neurontin dose to 300 mg po tid--10/04. - Out pt f/u with NSGY after d/c , scheduled on 10/31. Assessment & Plan (10/05/2024 2:47 PM CDT): Presenting with worsening left hip/gluteal pain radiating down L leg to foot. Endorses some L foot drop as well with walking in the last few days. Able to ambulate, no bowel/bladder incontinence, no trauma/falls precipitating. Has been dealing with LBP and hip pain OP previously. Was given methylprednisolone dose pack, [place] from OSH 09/25 without significant improvement MRI here with multilevel degenerative changes of the lumbar spine, up to severe neural foraminal stenosis at L3-L4 and L4-L5 and and left neural foraminal stenosis at left L4-L5 and L5-S1 - NSGY consulted. Appreciate assistance. Likely no surgical intervention. Ordered pre-op requested labs/CXR/EKG in case - pain control with scheduled tylneol, flexeril, lidocaine patches, toradol, prn oxycodone, prn IV dilaudid for breakthrough. Could consider adding gabapentin pending pain. - Continue oral prednisone - PTOT>> for dispo - PAIN consulted on 10/01 and start Neurontin 200 mg tid. - S/p lumbar epidural steroid injection under fluoroscopy on 10/02 by Pain service. - Stop prn IV dilaudid on 10/03, as d/w Pain service. -Increase Neurontin dose to 300 mg po tid--10/04. - Out pt f/u with NSGY after d/c , scheduled on 10/31. Assessment & Plan (10/04/2024 11:29 AM CDT): Presenting with worsening left hip/gluteal pain radiating down L leg to foot. Endorses some L foot drop as well with walking in the last few days. Able to ambulate, no bowel/bladder incontinence, no trauma/falls precipitating. Has been dealing with LBP and hip pain OP previously. Was given methylprednisolone dose pack, [place] from OSH 09/25 without significant improvement MRI here with multilevel degenerative changes of the lumbar spine, up to severe neural foraminal stenosis at L3-L4 and L4-L5 and and left neural foraminal stenosis at left L4-L5 and L5-S1 - NSGY consulted. Appreciate assistance. Likely no surgical intervention. Ordered pre-op requested labs/CXR/EKG in case - pain control with scheduled tylneol, flexeril, lidocaine patches, toradol, prn oxycodone, prn IV dilaudid for breakthrough. Could consider adding gabapentin pending pain. - Continue oral prednisone - PTOT>> IPR. - PAIN consulted on 10/01 and start Neurontin 200 mg tid. - S/p lumbar epidural steroid injection under fluoroscopy on 10/02 by Pain service. - Stop prn IV dilaudid on 10/03, as d/w Pain service. -Increase Neurontin dose to 300 mg po tid--10/04. Assessment & Plan (10/03/2024 3:15 PM CDT): Presenting with worsening left hip/gluteal pain radiating down L leg to foot. Endorses some L foot drop as well with walking in the last few days. Able to ambulate, no bowel/bladder incontinence, no trauma/falls precipitating. Has been dealing with LBP and hip pain OP previously. Was given methylprednisolone dose pack, [place] from OSH 09/25 without significant improvement MRI here with multilevel degenerative changes of the lumbar spine, up to severe neural foraminal stenosis at L3-L4 and L4-L5 and and left neural foraminal stenosis at left L4-L5 and L5-S1 - NSGY consulted. Appreciate assistance. Likely no surgical intervention. Ordered pre-op requested labs/CXR/EKG in case - pain control with scheduled tylneol, flexeril, lidocaine patches, toradol, prn oxycodone, prn IV dilaudid for breakthrough. Could consider adding gabapentin pending pain. - Continue oral prednisone - PTOT>> IPR. - PAIN consulted on 10/01 and start Neurontin 200 mg tid. - S/p lumbar epidural steroid injection under fluoroscopy on 10/02 by Pain service. - Stop prn IV dilaudid on 10/03, as d/w Pain service. Assessment & Plan (10/02/2024 1:42 PM CDT): Presenting with worsening left hip/gluteal pain radiating down L leg to foot. Endorses some L foot drop as well with walking in the last few days. Able to ambulate, no bowel/bladder incontinence, no trauma/falls precipitating. Has been dealing with LBP and hip pain OP previously. Was given methylprednisolone dose pack, [place] from OSH 09/25 without significant improvement MRI here with multilevel degenerative changes of the lumbar spine, up to severe neural foraminal stenosis at L3-L4 and L4-L5 and and left neural foraminal stenosis at left L4-L5 and L5-S1 - NSGY consulted. Appreciate assistance. Likely no surgical intervention. Ordered pre-op requested labs/CXR/EKG in case - pain control with scheduled tylneol, flexeril, lidocaine patches, toradol, prn oxycodone, prn IV dilaudid for breakthrough. Could consider adding gabapentin pending pain. - Continue oral prednisone - PTOT>> IPR. - PAIN consulted on 10/01 and start Neurontin 200 mg tid. - D/w PAIN on 10/02, plan for lumbar epidural steroid injection under fluoroscopy. Assessment & Plan (10/01/2024 3:43 PM CDT): Presenting with worsening left hip/gluteal pain radiating down L leg to foot. Endorses some L foot drop as well with walking in the last few days. Able to ambulate, no bowel/bladder incontinence, no trauma/falls precipitating. Has been dealing with LBP and hip pain OP previously. Was given methylprednisolone dose pack, [place] from OSH 09/25 without significant improvement MRI here with multilevel degenerative changes of the lumbar spine, up to severe neural foraminal stenosis at L3-L4 and L4-L5 and and left neural foraminal stenosis at left L4-L5 and L5-S1 - NSGY consulted. Appreciate assistance. Likely no surgical intervention. Ordered pre-op requested labs/CXR/EKG in case - pain control with scheduled tylneol, flexeril, lidocaine patches, toradol, prn oxycodone, prn IV dilaudid for breakthrough. Could consider adding gabapentin pending pain. - Continue oral prednisone - PTOT>> IPR. - PAIN consulted on 10/01 and start Neurontin 200 mg tid. Watch closely Assessment & Plan (09/30/2024 3:44 PM CDT): Presenting with worsening left hip/gluteal pain radiating down L leg to foot. Endorses some L foot drop as well with walking in the last few days. Able to ambulate, no bowel/bladder incontinence, no trauma/falls precipitating. Has been dealing with LBP and hip pain OP previously. Was given methylprednisolone dose pack, [place] from OSH 09/25 without significant improvement MRI here with multilevel degenerative changes of the lumbar spine, up to severe neural foraminal stenosis at L3-L4 and L4-L5 and and left neural foraminal stenosis at left L4-L5 and L5-S1 - NSGY consulted. Appreciate assistance. Likely no surgical intervention. Ordered pre-op requested labs/CXR/EKG in case - pain control with scheduled tylneol, flexeril, lidocaine patches, toradol, prn oxycodone, prn IV dilaudid for breakthrough. Could consider adding gabapentin pending pain. - Continue oral prednisone - Pending course may consider pain management cs for consideration of steroid injection. - PTOT. PT rec SNF Assessment & Plan (09/29/2024 5:26 PM CDT): Presenting with worsening left hip/gluteal pain radiating down L leg to foot. Endorses some L foot drop as well with walking in the last few days. Able to ambulate, no bowel/bladder incontinence, no trauma/falls precipitating. Has been dealing with LBP and hip pain OP previously. Was given methylprednisolone dose pack, [place] from OSH 09/25 without significant improvement MRI here with multilevel degenerative changes of the lumbar spine, up to severe neural foraminal stenosis at L3-L4 and L4-L5 and and left neural foraminal stenosis at left L4-L5 and L5-S1 - NSGY consulted. Appreciate assistance. Likely no surgical intervention. Ordered pre-op requested labs/CXR/EKG in case - pain control with scheduled tylneol, flexeril, lidocaine patches, toradol, prn oxycodone, prn dilaudid for breakthrough. Could consider adding gabapentin pending pain. - Continue oral prednisone - Pending course may consider pain management cs for consideration of steroid injection. - PTOT Assessment & Plan (09/28/2024 11:42 PM CDT): Presenting with worsening left hip/gluteal pain radiating down L leg to foot. Endorses some L foot drop as well with walking in the last few days. Able to ambulate, no bowel/bladder incontinence, no trauma/falls precipitating. Has been dealing with LBP and hip pain OP previously. Was given methylprednisolone dose pack, [place] from OSH 09/25 without significant improvement MRI here prelim with multilevel degenerative changes of the lumbar spine, up to severe neural foraminal stenosis at L4-L5 and L5-S1 on the left, moderate to severe central spinal canal stenosis at the L3-L5 region with multilevel disc bulging - follow up formal MRI read in AM - pain control with scheduled tyneol, flexeril, lidocaine patches, diclofenac gel, prn oxycodone, prn dilaudid for breakthrough - can consider spine eval in AM, curbside overnight and stated most likely OP concern and not usually dealt with inpatient as long as without alarm sxs/acutely worsening neuro exam/trauma - PTOT - consider trial of gabapentin/lyrica if pain not adequately controlled with above regimen Sciatica 09/28/2024 Assessment & Plan (10/08/2024 11:26 AM CDT): Presenting with worsening left hip/gluteal pain radiating down L leg to foot. 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 Able to ambulate, no bowel/bladder incontinence, no trauma/falls precipitating. Has been dealing with LBP and hip pain OP previously. Was given methylprednisolone dose pack, [place] from OSH 09/25 without significant improvement MRI here with multilevel degenerative changes of the lumbar spine, up to severe neural foraminal stenosis at L3-L4 and L4-L5 and and left neural foraminal stenosis at left L4-L5 and L5-S1 NSGY consulted. No neuro deficits, no inpatient surgical intervention S/p oral prednisone Pain management consulted and s/p epidural steroid injection 10/02. - pain management with scheduled tylenol, flexeril TID, gabapentin 300mg TID, lidocaine patch, oxycodone 10mg Q6H prn - OP NSGY f/u scheduled for 10/31 - plan for DC to SNF today - will place OP pain management referral as well Assessment & Plan (10/07/2024 11:53 AM CDT): Presenting with worsening left hip/gluteal pain radiating down L leg to foot. 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 Able to ambulate, no bowel/bladder incontinence, no trauma/falls precipitating. Has been dealing with LBP and hip pain OP previously. Was given methylprednisolone dose pack, [place] from OSH 09/25 without significant improvement MRI here with multilevel degenerative changes of the lumbar spine, up to severe neural foraminal stenosis at L3-L4 and L4-L5 and and left neural foraminal stenosis at left L4-L5 and L5-S1 NSGY consulted. No neuro deficits, no inpatient surgical intervention S/p oral prednisone Pain management consulted and s/p epidural steroid injection 10/02. - pain management with scheduled tylenol, flexeril TID, gabapentin 300mg TID, lidocaine patch, oxycodone 10mg Q4H prn - OP NSGY f/u scheduled for 10/31 - CM following for possible placement, OT recommending SNF Assessment & Plan (10/06/2024 1:22 PM CDT): Presenting with worsening left hip/gluteal pain radiating down L leg to foot. Endorses some L foot drop as well with walking in the last few days. Able to ambulate, no bowel/bladder incontinence, no trauma/falls precipitating. Has been dealing with LBP and hip pain OP previously. Was given methylprednisolone dose pack, [place] from OSH 09/25 without significant improvement MRI here with multilevel degenerative changes of the lumbar spine, up to severe neural foraminal stenosis at L3-L4 and L4-L5 and and left neural foraminal stenosis at left L4-L5 and L5-S1 - NSGY consulted. Appreciate assistance. Likely no surgical intervention. Ordered pre-op requested labs/CXR/EKG in case - S/p oral prednisone - PTOT>> SNF. CM working . - PAIN consulted ,S/p lumbar epidural steroid injection under fluoroscopy on 10/02 by Pain service. - Stopped prn IV dilaudid on 10/03, as d/w Pain service. -Increased Neurontin dose to 300 mg po tid--10/04. - Out pt f/u with NSGY after d/c , scheduled on 10/31. Assessment & Plan (10/05/2024 2:47 PM CDT): Presenting with worsening left hip/gluteal pain radiating down L leg to foot. Endorses some L foot drop as well with walking in the last few days. Able to ambulate, no bowel/bladder incontinence, no trauma/falls precipitating. Has been dealing with LBP and hip pain OP previously. Was given methylprednisolone dose pack, [place] from OSH 09/25 without significant improvement MRI here with multilevel degenerative changes of the lumbar spine, up to severe neural foraminal stenosis at L3-L4 and L4-L5 and and left neural foraminal stenosis at left L4-L5 and L5-S1 - NSGY consulted. Appreciate assistance. Likely no surgical intervention. Ordered pre-op requested labs/CXR/EKG in case - pain control with scheduled tylneol, flexeril, lidocaine patches, toradol, prn oxycodone, prn IV dilaudid for breakthrough. Could consider adding gabapentin pending pain. - Continue oral prednisone - PTOT>> for dispo - PAIN consulted on 10/01 and start Neurontin 200 mg tid. - S/p lumbar epidural steroid injection under fluoroscopy on 10/02 by Pain service. - Stop prn IV dilaudid on 10/03, as d/w Pain service. -Increase Neurontin dose to 300 mg po tid--10/04. - Out pt f/u with NSGY after d/c , scheduled on 10/31. Assessment & Plan (10/04/2024 11:29 AM CDT): Presenting with worsening left hip/gluteal pain radiating down L leg to foot. Endorses some L foot drop as well with walking in the last few days. Able to ambulate, no bowel/bladder incontinence, no trauma/falls precipitating. Has been dealing with LBP and hip pain OP previously. Was given methylprednisolone dose pack, [place] from OSH 09/25 without significant improvement MRI here with multilevel degenerative changes of the lumbar spine, up to severe neural foraminal stenosis at L3-L4 and L4-L5 and and left neural foraminal stenosis at left L4-L5 and L5-S1 - NSGY consulted. Appreciate assistance. Likely no surgical intervention. Ordered pre-op requested labs/CXR/EKG in case - pain control with scheduled tylneol, flexeril, lidocaine patches, toradol, prn oxycodone, prn IV dilaudid for breakthrough. Could consider adding gabapentin pending pain. - Continue oral prednisone - PTOT>> IPR. - PAIN consulted on 10/01 and start Neurontin 200 mg tid. - S/p lumbar epidural steroid injection under fluoroscopy on 10/02 by Pain service. - Stop prn IV dilaudid on 10/03, as d/w Pain service. -Increase Neurontin dose to 300 mg po tid--10/04. Assessment & Plan (10/03/2024 3:15 PM CDT): Presenting with worsening left hip/gluteal pain radiating down L leg to foot. Endorses some L foot drop as well with walking in the last few days. Able to ambulate, no bowel/bladder incontinence, no trauma/falls precipitating. Has been dealing with LBP and hip pain OP previously. Was given methylprednisolone dose pack, [place] from OSH 09/25 without significant improvement MRI here with multilevel degenerative changes of the lumbar spine, up to severe neural foraminal stenosis at L3-L4 and L4-L5 and and left neural foraminal stenosis at left L4-L5 and L5-S1 - NSGY consulted. Appreciate assistance. Likely no surgical intervention. Ordered pre-op requested labs/CXR/EKG in case - pain control with scheduled tylneol, flexeril, lidocaine patches, toradol, prn oxycodone, prn IV dilaudid for breakthrough. Could consider adding gabapentin pending pain. - Continue oral prednisone - PTOT>> IPR. - PAIN consulted on 10/01 and start Neurontin 200 mg tid. - S/p lumbar epidural steroid injection under fluoroscopy on 10/02 by Pain service. - Stop prn IV dilaudid on 10/03, as d/w Pain service. Assessment & Plan (10/02/2024 1:42 PM CDT): Presenting with worsening left hip/gluteal pain radiating down L leg to foot. Endorses some L foot drop as well with walking in the last few days. Able to ambulate, no bowel/bladder incontinence, no trauma/falls precipitating. Has been dealing with LBP and hip pain OP previously. Was given methylprednisolone dose pack, [place] from OSH 09/25 without significant improvement MRI here with multilevel degenerative changes of the lumbar spine, up to severe neural foraminal stenosis at L3-L4 and L4-L5 and and left neural foraminal stenosis at left L4-L5 and L5-S1 - NSGY consulted. Appreciate assistance. Likely no surgical intervention. Ordered pre-op requested labs/CXR/EKG in case - pain control with scheduled tylneol, flexeril, lidocaine patches, toradol, prn oxycodone, prn IV dilaudid for breakthrough. Could consider adding gabapentin pending pain. - Continue oral prednisone - PTOT>> IPR. - PAIN consulted on 10/01 and start Neurontin 200 mg tid. - D/w PAIN on 10/02, plan for lumbar epidural steroid injection under fluoroscopy. Assessment & Plan (10/01/2024 3:43 PM CDT): Presenting with worsening left hip/gluteal pain radiating down L leg to foot. Endorses some L foot drop as well with walking in the last few days. Able to ambulate, no bowel/bladder incontinence, no trauma/falls precipitating. Has been dealing with LBP and hip pain OP previously. Was given methylprednisolone dose pack, [place] from OSH 09/25 without significant improvement MRI here with multilevel degenerative changes of the lumbar spine, up to severe neural foraminal stenosis at L3-L4 and L4-L5 and and left neural foraminal stenosis at left L4-L5 and L5-S1 - NSGY consulted. Appreciate assistance. Likely no surgical intervention. Ordered pre-op requested labs/CXR/EKG in case - pain control with scheduled tylneol, flexeril, lidocaine patches, toradol, prn oxycodone, prn IV dilaudid for breakthrough. Could consider adding gabapentin pending pain. - Continue oral prednisone - PTOT>> IPR. - PAIN consulted on 10/01 and start Neurontin 200 mg tid. Watch closely Assessment & Plan (09/30/2024 3:44 PM CDT): Presenting with worsening left hip/gluteal pain radiating down L leg to foot. Endorses some L foot drop as well with walking in the last few days. Able to ambulate, no bowel/bladder incontinence, no trauma/falls precipitating. Has been dealing with LBP and hip pain OP previously. Was given methylprednisolone dose pack, [place] from OSH 09/25 without significant improvement MRI here with multilevel degenerative changes of the lumbar spine, up to severe neural foraminal stenosis at L3-L4 and L4-L5 and and left neural foraminal stenosis at left L4-L5 and L5-S1 - NSGY consulted. Appreciate assistance. Likely no surgical intervention. Ordered pre-op requested labs/CXR/EKG in case - pain control with scheduled tylneol, flexeril, lidocaine patches, toradol, prn oxycodone, prn IV dilaudid for breakthrough. Could consider adding gabapentin pending pain. - Continue oral prednisone - Pending course may consider pain management cs for consideration of steroid injection. - PTOT. PT rec SNF Assessment & Plan (09/29/2024 5:26 PM CDT): Presenting with worsening left hip/gluteal pain radiating down L leg to foot. Endorses some L foot drop as well with walking in the last few days. Able to ambulate, no bowel/bladder incontinence, no trauma/falls precipitating. Has been dealing with LBP and hip pain OP previously. Was given methylprednisolone dose pack, [place] from OSH 09/25 without significant improvement MRI here with multilevel degenerative changes of the lumbar spine, up to severe neural foraminal stenosis at L3-L4 and L4-L5 and and left neural foraminal stenosis at left L4-L5 and L5-S1 - NSGY consulted. Appreciate assistance. Likely no surgical intervention. Ordered pre-op requested labs/CXR/EKG in case - pain control with scheduled tylneol, flexeril, lidocaine patches, toradol, prn oxycodone, prn dilaudid for breakthrough. Could consider adding gabapentin pending pain. - Continue oral prednisone - Pending course may consider pain management cs for consideration of steroid injection. - PTOT Assessment & Plan (09/28/2024 11:42 PM CDT): Presenting with worsening left hip/gluteal pain radiating down L leg to foot. Endorses some L foot drop as well with walking in the last few days. Able to ambulate, no bowel/bladder incontinence, no trauma/falls precipitating. Has been dealing with LBP and hip pain OP previously. Was given methylprednisolone dose pack, [place] from OSH 09/25 without significant improvement MRI here prelim with multilevel degenerative changes of the lumbar spine, up to severe neural foraminal stenosis at L4-L5 and L5-S1 on the left, moderate to severe central spinal canal stenosis at the L3-L5 region with multilevel disc bulging - follow up formal MRI read in AM - pain control with scheduled tyneol, flexeril, lidocaine patches, diclofenac gel, prn oxycodone, prn dilaudid for breakthrough - can consider spine eval in AM, curbside overnight and stated most likely OP concern and not usually dealt with inpatient as long as without alarm sxs/acutely worsening neuro exam/trauma - PTOT - consider trial of gabapentin/lyrica if pain not adequately controlled with above regimen Central stenosis of spinal canal 09/28/2024 Assessment & Plan (10/10/2024 6:39 AM CDT): This is chronic with a an acute exacerbation and improvement after her recent inpatient care. Prior to her hospitalization she had developed footdrop but this is resolved. She denies numbness in the leg. Physical and occupational therapy as ordered. We will continue the scripting of cyclobenzaprine 10 mg p.o. t.i.d., Lovenox 40 mg subcutaneous daily for prophylaxis, gabapentin 300 mg p.o. t.i.d., topical lidocaine patch, oxycodone 10 mg every 6 hours prn pain. Assessment & Plan (10/08/2024 11:26 AM CDT): Presenting with worsening left hip/gluteal pain radiating down L leg to foot. 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 Able to ambulate, no bowel/bladder incontinence, no trauma/falls precipitating. Has been dealing with LBP and hip pain OP previously. Was given methylprednisolone dose pack, [place] from OSH 09/25 without significant improvement MRI here with multilevel degenerative changes of the lumbar spine, up to severe neural foraminal stenosis at L3-L4 and L4-L5 and and left neural foraminal stenosis at left L4-L5 and L5-S1 NSGY consulted. No neuro deficits, no inpatient surgical intervention S/p oral prednisone Pain management consulted and s/p epidural steroid injection 10/02. - pain management with scheduled tylenol, flexeril TID, gabapentin 300mg TID, lidocaine patch, oxycodone 10mg Q6H prn - OP NSGY f/u scheduled for 10/31 - plan for DC to SNF today - will place OP pain management referral as well Assessment & Plan (10/07/2024 11:53 AM CDT): Presenting with worsening left hip/gluteal pain radiating down L leg to foot. 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 Able to ambulate, no bowel/bladder incontinence, no trauma/falls precipitating. Has been dealing with LBP and hip pain OP previously. Was given methylprednisolone dose pack, [place] from OSH 09/25 without significant improvement MRI here with multilevel degenerative changes of the lumbar spine, up to severe neural foraminal stenosis at L3-L4 and L4-L5 and and left neural foraminal stenosis at left L4-L5 and L5-S1 NSGY consulted. No neuro deficits, no inpatient surgical intervention S/p oral prednisone Pain management consulted and s/p epidural steroid injection 10/02. - pain management with scheduled tylenol, flexeril TID, gabapentin 300mg TID, lidocaine patch, oxycodone 10mg Q4H prn - OP NSGY f/u scheduled for 10/31 - CM following for possible placement, OT recommending SNF Assessment & Plan (10/06/2024 1:22 PM CDT): Presenting with worsening left hip/gluteal pain radiating down L leg to foot. Endorses some L foot drop as well with walking in the last few days. Able to ambulate, no bowel/bladder incontinence, no trauma/falls precipitating. Has been dealing with LBP and hip pain OP previously. Was given methylprednisolone dose pack, [place] from OSH 09/25 without significant improvement MRI here with multilevel degenerative changes of the lumbar spine, up to severe neural foraminal stenosis at L3-L4 and L4-L5 and and left neural foraminal stenosis at left L4-L5 and L5-S1 - NSGY consulted. Appreciate assistance. Likely no surgical intervention. Ordered pre-op requested labs/CXR/EKG in case - S/p oral prednisone - PTOT>> SNF. CM working . - PAIN consulted ,S/p lumbar epidural steroid injection under fluoroscopy on 10/02 by Pain service. - Stopped prn IV dilaudid on 10/03, as d/w Pain service. -Increased Neurontin dose to 300 mg po tid--10/04. - Out pt f/u with NSGY after d/c , scheduled on 10/31. Assessment & Plan (10/05/2024 2:47 PM CDT): Presenting with worsening left hip/gluteal pain radiating down L leg to foot. Endorses some L foot drop as well with walking in the last few days. Able to ambulate, no bowel/bladder incontinence, no trauma/falls precipitating. Has been dealing with LBP and hip pain OP previously. Was given methylprednisolone dose pack, [place] from OSH 09/25 without significant improvement MRI here with multilevel degenerative changes of the lumbar spine, up to severe neural foraminal stenosis at L3-L4 and L4-L5 and and left neural foraminal stenosis at left L4-L5 and L5-S1 - NSGY consulted. Appreciate assistance. Likely no surgical intervention. Ordered pre-op requested labs/CXR/EKG in case - pain control with scheduled tylneol, flexeril, lidocaine patches, toradol, prn oxycodone, prn IV dilaudid for breakthrough. Could consider adding gabapentin pending pain. - Continue oral prednisone - PTOT>> for dispo - PAIN consulted on 10/01 and start Neurontin 200 mg tid. - S/p lumbar epidural steroid injection under fluoroscopy on 10/02 by Pain service. - Stop prn IV dilaudid on 10/03, as d/w Pain service. -Increase Neurontin dose to 300 mg po tid--10/04. - Out pt f/u with NSGY after d/c , scheduled on 10/31. Assessment & Plan (10/04/2024 11:29 AM CDT): Presenting with worsening left hip/gluteal pain radiating down L leg to foot. Endorses some L foot drop as well with walking in the last few days. Able to ambulate, no bowel/bladder incontinence, no trauma/falls precipitating. Has been dealing with LBP and hip pain OP previously. Was given methylprednisolone dose pack, [place] from OSH 09/25 without significant improvement MRI here with multilevel degenerative changes of the lumbar spine, up to severe neural foraminal stenosis at L3-L4 and L4-L5 and and left neural foraminal stenosis at left L4-L5 and L5-S1 - NSGY consulted. Appreciate assistance. Likely no surgical intervention. Ordered pre-op requested labs/CXR/EKG in case - pain control with scheduled tylneol, flexeril, lidocaine patches, toradol, prn oxycodone, prn IV dilaudid for breakthrough. Could consider adding gabapentin pending pain. - Continue oral prednisone - PTOT>> IPR. - PAIN consulted on 10/01 and start Neurontin 200 mg tid. - S/p lumbar epidural steroid injection under fluoroscopy on 10/02 by Pain service. - Stop prn IV dilaudid on 10/03, as d/w Pain service. -Increase Neurontin dose to 300 mg po tid--10/04. Assessment & Plan (10/03/2024 3:15 PM CDT): Presenting with worsening left hip/gluteal pain radiating down L leg to foot. Endorses some L foot drop as well with walking in the last few days. Able to ambulate, no bowel/bladder incontinence, no trauma/falls precipitating. Has been dealing with LBP and hip pain OP previously. Was given methylprednisolone dose pack, [place] from OSH 09/25 without significant improvement MRI here with multilevel degenerative changes of the lumbar spine, up to severe neural foraminal stenosis at L3-L4 and L4-L5 and and left neural foraminal stenosis at left L4-L5 and L5-S1 - NSGY consulted. Appreciate assistance. Likely no surgical intervention. Ordered pre-op requested labs/CXR/EKG in case - pain control with scheduled tylneol, flexeril, lidocaine patches, toradol, prn oxycodone, prn IV dilaudid for breakthrough. Could consider adding gabapentin pending pain. - Continue oral prednisone - PTOT>> IPR. - PAIN consulted on 10/01 and start Neurontin 200 mg tid. - S/p lumbar epidural steroid injection under fluoroscopy on 10/02 by Pain service. - Stop prn IV dilaudid on 10/03, as d/w Pain service. Assessment & Plan (10/02/2024 1:42 PM CDT): Presenting with worsening left hip/gluteal pain radiating down L leg to foot. Endorses some L foot drop as well with walking in the last few days. Able to ambulate, no bowel/bladder incontinence, no trauma/falls precipitating. Has been dealing with LBP and hip pain OP previously. Was given methylprednisolone dose pack, [place] from OSH 09/25 without significant improvement MRI here with multilevel degenerative changes of the lumbar spine, up to severe neural foraminal stenosis at L3-L4 and L4-L5 and and left neural foraminal stenosis at left L4-L5 and L5-S1 - NSGY consulted. Appreciate assistance. Likely no surgical intervention. Ordered pre-op requested labs/CXR/EKG in case - pain control with scheduled tylneol, flexeril, lidocaine patches, toradol, prn oxycodone, prn IV dilaudid for breakthrough. Could consider adding gabapentin pending pain. - Continue oral prednisone - PTOT>> IPR. - PAIN consulted on 10/01 and start Neurontin 200 mg tid. - D/w PAIN on 10/02, plan for lumbar epidural steroid injection under fluoroscopy. Assessment & Plan (10/01/2024 3:43 PM CDT): Presenting with worsening left hip/gluteal pain radiating down L leg to foot. Endorses some L foot drop as well with walking in the last few days. Able to ambulate, no bowel/bladder incontinence, no trauma/falls precipitating. Has been dealing with LBP and hip pain OP previously. Was given methylprednisolone dose pack, [place] from OSH 09/25 without significant improvement MRI here with multilevel degenerative changes of the lumbar spine, up to severe neural foraminal stenosis at L3-L4 and L4-L5 and and left neural foraminal stenosis at left L4-L5 and L5-S1 - NSGY consulted. Appreciate assistance. Likely no surgical intervention. Ordered pre-op requested labs/CXR/EKG in case - pain control with scheduled tylneol, flexeril, lidocaine patches, toradol, prn oxycodone, prn IV dilaudid for breakthrough. Could consider adding gabapentin pending pain. - Continue oral prednisone - PTOT>> IPR. - PAIN consulted on 10/01 and start Neurontin 200 mg tid. Watch closely Assessment & Plan (09/30/2024 3:44 PM CDT): Presenting with worsening left hip/gluteal pain radiating down L leg to foot. Endorses some L foot drop as well with walking in the last few days. Able to ambulate, no bowel/bladder incontinence, no trauma/falls precipitating. Has been dealing with LBP and hip pain OP previously. Was given methylprednisolone dose pack, [place] from OSH 7 without significant improvement MRI here with multilevel degenerative changes of the lumbar spine, up to severe neural foraminal stenosis at L3-L4 and L4-L5 and and left neural foraminal stenosis at left L4-L5 and L5-S1 - NSGY consulted. Appreciate assistance. Likely no surgical intervention. Ordered pre-op requested labs/CXR/EKG in case - pain control with scheduled tylneol, flexeril, lidocaine patches, toradol, prn oxycodone, prn IV dilaudid for breakthrough. Could consider adding gabapentin pending pain. - Continue oral prednisone - Pending course may consider pain management cs for consideration of steroid injection. - PTOT. PT rec SNF Assessment & Plan (09/29/2024 5:26 PM CDT): Presenting with worsening left hip/gluteal pain radiating down L leg to foot. Endorses some L foot drop as well with walking in the last few days. Able to ambulate, no bowel/bladder incontinence, no trauma/falls precipitating. Has been dealing with LBP and hip pain OP previously. Was given methylprednisolone dose pack, [place] from OSH 09/25 without significant improvement MRI here with multilevel degenerative changes of the lumbar spine, up to severe neural foraminal stenosis at L3-L4 and L4-L5 and and left neural foraminal stenosis at left L4-L5 and L5-S1 - NSGY consulted. Appreciate assistance. Likely no surgical intervention. Ordered pre-op requested labs/CXR/EKG in case - pain control with scheduled tylneol, flexeril, lidocaine patches, toradol, prn oxycodone, prn dilaudid for breakthrough. Could consider adding gabapentin pending pain. - Continue oral prednisone - Pending course may consider pain management cs for consideration of steroid injection. - PTOT Assessment & Plan (09/28/2024 11:42 PM CDT): Presenting with worsening left hip/gluteal pain radiating down L leg to foot. Endorses some L foot drop as well with walking in the last few days. Able to ambulate, no bowel/bladder incontinence, no trauma/falls precipitating. Has been dealing with LBP and hip pain OP previously. Was given methylprednisolone dose pack, [place] from OSH 09/25 without significant improvement MRI here prelim with multilevel degenerative changes of the lumbar spine, up to severe neural foraminal stenosis at L4-L5 and L5-S1 on the left, moderate to severe central spinal canal stenosis at the L3-L5 region with multilevel disc bulging - follow up formal MRI read in AM - pain control with scheduled tyneol, flexeril, lidocaine patches, diclofenac gel, prn oxycodone, prn dilaudid for breakthrough - can consider spine eval in AM, curbside overnight and stated most likely OP concern and not usually dealt with inpatient as long as without alarm sxs/acutely worsening neuro exam/trauma - PTOT - consider trial of gabapentin/lyrica if pain not adequately controlled with above regimen Encounter for follow-up surveillance of breast c ancer 06/06/2018 History of breast cancer 06/06/2018 Malignant neoplasm of breast 11/01/2017 Assessment & Plan (10/08/2024 11:26 AM CDT): Dx 2018, s/p partial mastectomy and radiation on surveillance - OP onc follow up Assessment & Plan (10/07/2024 11:53 AM CDT): Dx 2018, s/p partial mastectomy and radiation on surveillance - OP onc follow up Assessment & Plan (10/06/2024 1:22 PM CDT): Dx 2018, s/p partial mastectomy and radiation on surveillance - OP onc follow up Assessment & Plan (10/05/2024 2:47 PM CDT): Dx 2018, s/p partial mastectomy and radiation on surveillance - OP onc follow up Assessment & Plan (10/04/2024 11:29 AM CDT): Dx 2018, s/p partial mastectomy and radiation on surveillance - OP onc follow up Assessment & Plan (10/03/2024 3:15 PM CDT): Dx 2018, s/p partial mastectomy and radiation on surveillance - OP onc follow up Assessment & Plan (10/02/2024 1:42 PM CDT): Dx 2018, s/p partial mastectomy and radiation on surveillance - OP onc follow up Assessment & Plan (10/01/2024 3:43 PM CDT): Dx 2018, s/p partial mastectomy and radiation on surveillance - OP onc follow up Assessment & Plan (09/30/2024 3:44 PM CDT): Dx 2018, s/p partial mastectomy and radiation on surveillance - OP onc follow up Assessment & Plan (09/29/2024 5:26 PM CDT): Dx 2018, s/p partial mastectomy and radiation on surveillance - OP onc follow up Assessment & Plan (09/28/2024 11:41 PM CDT): Dx 2018, s/p partial mastectomy and radiation on surveillance - OP onc follow up Malignant neoplasm of upper- outer quadrant of right female breast 10/01/2017 Cancer Staging:Clinical: Unsigned Pathologic:Stage Unknown(pT1b, pNX, cM0, G2, ER: Positive, MN: Positive, HER2: Negative) - Signed by Esthela Saldana, PhD on 11/01/2017 ER+ (estrogen receptor positive status) 07/03/19 18 Carotid artery disease 05/15/2017 Assessment & Plan (10/08/2024 11:26 AM CDT): - cont asa, statin Assessment & Plan (10/07/2024 11:53 AM CDT): - cont asa, statin Assessment & Plan (10/06/2024 1:22 PM CDT): - cont asa, statin Assessment & Plan (10/05/2024 2:47 PM CDT): - cont asa, statin Assessment & Plan (10/04/2024 11:29 AM CDT): - cont asa, statin Assessment & Plan (10/03/2024 3:15 PM CDT): - cont asa, statin Assessment & Plan (10/02/2024 1:42 PM CDT): - cont asa, statin Assessment & Plan (10/01/2024 3:43 PM CDT): - cont asa, statin Assessment & Plan (09/30/2024 3:44 PM CDT): - cont asa, statin Assessment & Plan (09/29/2024 5:26 PM CDT): - cont asa, statin Assessment & Plan (09/28/2024 11:41 PM CDT): - cont asa, statin Cerebral vascular disorder 05/15/2017 Pulmonary emphysema 05/15/2017 Assessment & Plan (10/08/2024 11:26 AM CDT): - No resp complaints at this time Assessment & Plan (10/07/2024 11:53 AM CDT): - No resp complaints at this time Assessment & Plan (10/06/2024 1:22 PM CDT): - No resp complaints at this time Assessment & Plan (10/05/2024 2:47 PM CDT): - No resp complaints at this time Assessment & Plan (10/04/2024 11:29 AM CDT): - No resp complaints at this time Assessment & Plan (10/03/2024 3:15 PM CDT): - No resp complaints at this time Assessment & Plan (10/02/2024 1:42 PM CDT): - No resp complaints at this time Assessment & Plan (10/01/2024 3:43 PM CDT): - No resp complaints at this time Assessment & Plan (09/30/2024 3:44 PM CDT): - No resp complaints at this time Assessment & Plan (09/29/2024 5:26 PM CDT): - No resp complaints at this time Assessment & Plan (09/28/2024 11:41 PM CDT): No resp complaints at this time Peripheral vascular disease 05/15/2017 Assessment & Plan (10/14/2024 11:30 AM CDT): Stable, continue atorvastatin, aspirin Assessment & Plan (10/10/2024 1:39 PM CDT): Overall stable, continue atorvastatin 40 mg daily, aspirin 81 mg daily, blood pressure control Assessment & Plan (10/10/2024 6:40 AM CDT): We will monitor for ischemic event but continue aspirin 81 mg daily, atorvastatin 40 mg daily. Subclavian steal syndrome 05/15/2017 Mammogram abnormal 03/08/2017 Hypercholesterolemia 05/16/2013 Assessment & Plan (10/08/2024 11:26 AM CDT): - cont statin Assessment & Plan (10/07/2024 11:53 AM CDT): - cont statin Assessment & Plan (10/06/2024 1:22 PM CDT): - cont statin Assessment & Plan (10/05/2024 2:47 PM CDT): - cont statin Assessment & Plan (10/04/2024 11:29 AM CDT): - cont statin Assessment & Plan (10/03/2024 3:15 PM CDT): - cont statin Assessment & Plan (10/02/2024 1:42 PM CDT): - cont statin Assessment & Plan (10/01/2024 3:43 PM CDT): - cont statin Assessment & Plan (09/30/2024 3:44 PM CDT): - cont statin Assessment & Plan (09/29/2024 5:26 PM CDT): - cont statin Assessment & Plan (09/28/2024 11:41 PM CDT): - cont statin Numbness of lower extremity 05/16/2013 Paresis of single lower extremity 05/16/2013 Current Treatment and Therapy Plans No current plan information found. Past Treatment and Therapy Plans No past plan information found. Lifetime Dose Tracking * Chemical Lifetime Dose Automatic Entry Manual Entr y Fluoro Time 0.435 minutes 0.435 minutes 0 minutes Air kerma at the reference point (Ka,r) 3.1 mGy 3 .1 mGy 0 mGy DLP 1,430 mGycm 1,430 mGycm 0 mGycm Resolved Problems Problem Noted Date Diagnosed Date Resolved Date Cardiac arrhythmia 05/16/2013 4
--- OUTSIDE RECORDS SUMMARY | 2024-11-13 07:49 | XMS_ITS | Encounter Summary ---
Author Organization [facility] [employer] [facility] Address [address] [place] [address] Phone Care Team Providers Care Poultry Farmer Name Role Phone Jorge Bosch DO Primary Care Provider Loyd Tucker MD Unavailable Aft, Isabel Chilel MD PhD Unavailable [phone] Danette Schuster DYE WEIGHER HELPER Unavailable [phone] Esthela Saldana PhD Unavailable [phone] Allie Curiel MD Unavailable [phone] Jorge Bosch DO Primary Care Provider [phone] Maico Elaine AQUACULTURE DIRECTOR Unavailable [phone] Maico Elaine NP Primary Care Provider [phone] Jorge Bosch DO Primary Care Provider [phone] Encounter Details Date Type Department Care Team [...] AM CDT Legal 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 [address] [place] [address] Radiation Oncologist Radiation Oncology 11/01/17 AftIsabel MD PhD [address] [place] [address] Referring Physician Surgical Oncology 11/01/17 Danette Schuster DYE WEIGHER HELPER [address] [place] [address] Nurse Practitioner Certified Clinical Nurse Specialist 11/01/17 11/23/22 Esthela Saldana, PhD [address] [place] [address] Nurse Practitioner Radiation Oncology 11/01/17 Allie Curiel MD [address] [place] [address] Referring Physician Medical Oncology 06/06/18 Maico Elaine, AQUACULTURE DIRECTOR [address] [place] [address] Nurse Practitioner Nurse Practitioner 01/29/23 documented as of this encounter
--- OUTSIDE RECORDS SUMMARY | 2024-11-13 07:49 | XMS_ITS | Clinical Summary ---
Author Organization [facility] [employer] Address [address] [place] [address] Care Team Providers Care Seed Analysis Laboratory Assistant Name Role Phone Jorge Bosch DO Primary Care Provider Source Comments [facility],non-owned Affiliates and Associated Physician Practices is amultiple site organization consisting of ambulatory clinics and hospital sitesin [place], [place], [place]. This disclosure is being madepursuant to the Care Everywhere program and may not contain all information available regarding this patient. 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
--- OUTSIDE RECORDS SUMMARY | 2024-11-13 07:49 | XMS_ITS | Clinical Summary ---
Author Organization [facility] Main [facility] Address [address] [place] [address] Care Team Providers Care Certified Marine Mechanic Name Role Phone Loyd Tucker MD Unavailable Aft, Isabel Chilel MD PhD Unavailable [phone] Esthela Saldana PhD Unavailable [phone] Allie Curiel MD Unavailable [phone] Maico Elaine COMPOSITION MIXER Unavailable [phone] Jorge Bosch DO Primary Care Provider [phone] Allergies Active Allergy Reactions Criticality Noted Date Comments Celecoxib Other (See comments) Low 08/28/2023 paresthesias Codeine Unknown 05/16/2013 Cephalexin Unknown 05/16/2013 Nitrofurantoin Monohyd/M-Cryst Unknown 03/28/2017 Medications aspirin 81 mg chewable tablet Take 1 tablet (81 mg total) by mouth daily 5 10/10/19 26 Active atorvastatin (LIPITOR) 40 mg tablet Take 1 tablet (40 mg total) by mouth daily 5 10/10/19 26 Active acetaminophen (TYLENOL) 325 mg tablet Take 2 tablets (650 mg total) by mouth every 6 (six) hours 5 Active calcium carbonate (TUMS) 500 mg (200 mg elemental calcium) chewable tablet Take 1 tablet/chew tab (500 mg total) by mouth 4 (four) times a day as needed for indigestion 5 10/09/19 26 Active cyclobenzaprine (FLEXERIL) 10 mg tablet Take 1 tablet (10 mg total) by mouth 3 (three) times a day 5 Active lidocaine (LIDODERM) 5 % Place 2 patches on the skin daily for 12 hours Remove & discard patch within 12 hours or as directed by MD. 5 Active senna-docusate (PERICOLACE) 8.6-50 mg Take 1 tablet by mouth 2 (two) times a day as needed for constipation 5 Active polyethylene glycol (MIRALAX) 17 gram packetIndicatio ns:constipation Take 1 packet (17 g total) by mouth daily as needed for constipation 5 Active gabapentin (NEURONTIN) 300 mg capsuleIndicati ons:Neural foraminal stenosis of lumbar spine Take 1 capsule (300 mg total) by mouth 3 (three) times a day 90 capsule 5 Active oxyCODONE (ROXICODONE) 10 mg tabletIndicatio ns:Pain Take 1 tablet (10 mg total) by mouth every 6 (six) hours as needed for pain 30 tablet 5 Active enoxaparin (LOVENOX) 40 mg/0.4 mL syringe 5 Active Active Problems Problem Noted Date Diagnosed [...] L 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 Able to ambulate, no bowel/bladder incontinence, no trauma/falls precipitating. Has been dealing with LBP and hip pain OP previously. 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 Able to ambulate, no bowel/bladder incontinence, no trauma/falls precipitating. Has been dealing with LBP and hip pain OP previously. Was given methylprednisolone dose pack, [facility] from [facility] 09/25 without significant improvement MRI [...] OP previously. Was given methylprednisolone dose pack, [facility] from [facility] 09/25 without significant improvement MRI [...] OP previously. Was given methylprednisolone dose pack, [facility] from [facility] 09/25 without significant improvement MRI [...] OP previously. Was given methylprednisolone dose pack, [facility] from [facility] 09/25 without significant improvement MRI [...] OP previously. Was given methylprednisolone dose pack, [facility] from [facility] 09/25 without significant improvement MRI [...] OP previously. Was given methylprednisolone dose pack, [facility] from [facility] 09/25 without significant improvement MRI [...] OP previously. Was given methylprednisolone dose pack, [facility] from [facility] 09/25 without significant improvement MRI [...] OP previously. Was given methylprednisolone dose pack, [facility] from [facility] 7 without significant improvement MRI [...] OP previously. Was given methylprednisolone dose pack, [facility] from [facility] 717 without significant improvement MRI here with multilevel [...] OP previously. 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 Able to ambulate, no bowel/bladder incontinence, no trauma/falls precipitating. Has been dealing with LBP and hip pain OP previously. 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 Able to ambulate, no bowel/bladder incontinence, no trauma/falls precipitating. Has been dealing with LBP and hip pain OP previously. Was given methylprednisolone dose pack, [facility] from [facility] 09/25 without significant improvement MRI [...] OP previously. Was given methylprednisolone dose pack, [facility] from [facility] 09/25 without significant improvement MRI [...] OP previously. Was given methylprednisolone dose pack, [facility] from [facility] 09/25 without significant improvement MRI [...] OP previously. Was given methylprednisolone dose pack, [facility] from [facility] 09/25 without significant improvement MRI [...] OP previously. Was given methylprednisolone dose pack, [facility] from [facility] 09/25 without significant improvement MRI [...] OP previously. Was given methylprednisolone dose pack, [facility] from [facility] 09/25 without significant improvement MRI [...] OP previously. Was given methylprednisolone dose pack, [facility] from [facility] 09/25 without significant improvement MRI [...] OP previously. Was given methylprednisolone dose pack, [facility] from [facility] 09/25 without significant improvement MRI [...] OP previously. Was given methylprednisolone dose pack, [facility] from [facility] 09/25 without significant improvement MRI [...] OP previously. 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 Able to ambulate, no bowel/bladder incontinence, no trauma/falls precipitating. Has been dealing with LBP and hip pain OP previously. 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 Able to ambulate, no bowel/bladder incontinence, no trauma/falls precipitating. Has been dealing with LBP and hip pain OP previously. Was given methylprednisolone dose pack, [facility] from [facility] 09/25 without significant improvement MRI [...] OP previously. Was given methylprednisolone dose pack, [facility] from [facility] 09/25 without significant improvement MRI [...] OP previously. Was given methylprednisolone dose pack, [facility] from [facility] 09/25 without significant improvement MRI [...] OP previously. Was given methylprednisolone dose pack, [facility] from [facility] 09/25 without significant improvement MRI [...] OP previously. Was given methylprednisolone dose pack, [facility] from [facility] 09/25 without significant improvement MRI [...] OP previously. Was given methylprednisolone dose pack, [facility] from [facility] 09/25 without significant improvement MRI [...] OP previously. Was given methylprednisolone dose pack, [facility] from [facility] 09/25 without significant improvement MRI [...] OP previously. Was given methylprednisolone dose pack, [facility] from [facility] 09/25 without significant improvement MRI [...] OP previously. Was given methylprednisolone dose pack, [facility] from [facility] 09/25 without significant improvement MRI [...] OP previously. Was given methylprednisolone dose pack, [facility] from [facility] 09/25 without significant improvement MRI [...] Pathologic:Stage Unknown(pT1b, pNX, cM0, G2, ER: Positive, IN: Positive, HER2: Negative) - Signed by Esthela [...] Encounters Date Type Department Care Team Description 11/06/2024 Documentation [facility] [address] [facility] 4th Floor [address] [place] [address] Wily Juárez MD 10/31/2024 2:00 PM CDT Office Visit [facility] [address] [place] [address] Wily Juárez MD Lumbar radiculopathy (Primary Dx) 10/20/2024 ACO Outreach [facility] Accountable Care Organization [address] [place] [address] 10/17/2024 Telephone [facility] Medical Group Post Acute Care [address] [facility] [address] [place] [id number] Abigail Verdugo MA 10/14/2024 NH/SNF Visit [facility] Medical Group Post Acute Care [facility] [address] [place] [address] Marisa Brady PA Neural foraminal stenosis of lumbar spine (Primary Dx); Slow transit constipation; Essential hypertension; Arthralgia, unspecified joint; Peripheral vascular disease; Gastroesophageal reflux disease without esophagitis 10/13/2024 Orders Only [facility] Medical [facility]ists [address] [place] [phone] Bin Roe MD 10/10/2024 NH/SNF Visit [facility] Medical [facility] Post Acute Care [address] [address] Marisa Brady PA Gastroesophageal reflux disease without esophagitis (Primary Dx); Neural foraminal stenosis of lumbar spine; Essential hypertension; Peripheral vascular disease 10/09/2024 NH/SNF Visit [facility] Medical [facility] Post [address] [address] Bin Roe MD Central stenosis of spinal canal (Primary Dx); Subclavian steal syndrome; Peripheral vascular disease; Essential hypertension 10/08/2024 Orders Only [facility] Medical [facility] Post Acute Care [address] [address] Bin Roe MD Arthralgia, unspecified joint (Primary Dx) 10/02/[address] [facility] [address] [facility] [address] [place] [address] Remigio De Oliveira MD Lumbar radiculopathy (Primary Dx) 09/29/2024 11:45 AM CDT Ancillary Procedure [facility] Medicine Vascular Lab IP [address] [facility] [address] [place] [address] 09/28/2024 3:13 PM CDT - 10/08/2024 1:23 PM CDT Hospital Encounter [address] [address] Bin David MD Liu, Sonya Yannie, MD Pinkerton, MD Joel Sunshine Lakshman B., MD Khan, Ali Ayub, MD Acute exacerbation of chronic low back pain (Primary Dx); Spinal stenosis of lumbar region with neurogenic claudication; Lumbar radiculopathy; Osseous and subluxation stenosis of intervertebral foramina of lumbar region [M99.63]; Central stenosis of spinal canal Discharge Disposition: Discharge to SNF from Last 3 Months Immunizations Immunization Administration [...] 02/08/2018 Surgical History Surgery Date Site/Laterality Comments IN TONSILLECTOMY PRIMARY/SECONDARY <AGE 10 Tonsillectomy - (Added by TW Conv) IN ANTERIOR COLPORRAPHY RPR CYSTOCELE W/CYSTO Anterior Colporrhaphy, Repair Of Cystocele - (Added by TW Conv) IN TOTAL ABDOMINAL HYSTERECT W/WO RMVL TUBE OVARY Hysterectomy - (Added by TW Conv) CATARACT EXTRACTION Cataract Surgery - (Added by TW Conv) URETHRAL DIVERTICULECTOMY 03/12/2004 - 03/11/2005 trans vaginal BREAST SURGERY 1966, 1984, 2018 CATARACT EXTRACTION 2017 COSMETIC SURGERY [...] by TW Conv) Arthritis ~2011 Cancer (HCC) 2018 Cataract ~2016 Emphysema of lung 2015 Osteoporosis Family History Medical History Relation Name Comments COPD Brother 1 Masoud Hakeem Lung cancer Brother 1 Masoud Palacio Family history of lung cancer - (Added by TW Conv) Stroke Brother 1 Masoud Palacio Depression Brother 2 Larry Palacio Mental illness Brother 2 Larry Palacio Arthritis Father Bertram Palacio Heart attack Father Bertram Palacio Heart disease Father Bertram Palacio Obesity Father Bertram Palacio Prostate cancer Father Bertram Paalcio Family histo ry of malignant neoplasm of prostate - (Added by TW Conv) Mental illness Maternal Grandfather Noah Choi Mental illness Maternal Grandmother Nini Choi Dementia Mother Becca Palacio Family history of dementia - (Added by TW Conv) Heart disease Mother Becca aPlacio Family histor y of cardiac disorder - [...] drink = 0.6 oz pur e alcohol) AUDIT-C Answer Date Recorded Q1: How often do you have a drink containing alc ohol? Monthly or less 10/02/2024 Q2: How many drinks containi ng alcohol do you have on a typical day when you are drinking? 1 or 2 10/02/2024 Q3: How often do you have si x or more drinks on one occasion? Never 10/02/2024 PHQ-2 Answer Date Recorded PHQ-2 Total Score (If total score is 3 or more points, staff should administer the PHQ-9) 0 12/27/2023 Personal Safety Answer Date Recorded Have you ever been in or are you currently in a harmful physical or emotional relationship or is someone making you feel afraid or unsafe? 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 Identity Female 12/20/2020 11:06 AM CDT [...] 1971 Term F Vag-S pont Living Complications:None 1987 SAB SAB Demise Last Filed Vital Signs Vital Sign Reading Time Taken Comments Blood Pressure 134/60 10/31/2024 1:52 PM CDT Pulse 84 10/31/2024 1:52 PM CDT Temperature 36.2 C (97.1 F) 10/13/2024 9:34 PM CDT Respiratory Rate 16 10/13/2024 9:34 PM CDT Oxygen Saturation 96% 10/31/2024 1:52 PM CDT Inhaled Oxygen Concentration - - Weight 67.1 kg (148 lb) 10/31/2024 1:52 PM CDT Height 149.9 cm (4' 11) 10/31/2024 1:52 PM CDT Body Mass Index 29.89 10/31/2024 1:52 PM CDT Plan of Treatment Health Maintenance Due Date Last Done Comments Hepatitis C Screening 1950 Hepatitis B Screening 1966 Lung Cancer Screening 1998 Zoster Vaccine (1 of 2) 1998 DTaP/Tdap/Td Vaccine (2 - Td or Tdap) 10/17/2013 10/18/2003 Well Visit 65+ 2013 Osteoporosis Screening-Bone Density Scan 03/17/2018 03/17/2016 Colon Cancer Screening-Colonoscopy 03/12/2023 03/12/2013 Influenza Vaccine (#1) 2024 0, 03/10/2019, 02/08/2018, Additional history exists Depression Screening 12/20/2024 12/21/2023 Fall Risk Assessment 10/08/2025 10/08/2024 Colon Cancer Screening-CT Colonography Discontinued 03/12/2013 Colon Cancer Screening-DNA Stool Discontinued 03/12/19 14 Colon Cancer Screening-FIT Discontinued 03/12/2013 Colon Cancer Screening-Sigmoidoscopy Discontinued 03/12/2013 Pneumococcal vaccine 65+ Completed 02/08/2018, 01/10 Breast Cancer Screening-Mammogram Discontinued 02/15/2024, 11/24/2022, 11/24/2021, Additional history exists Procedures Procedure Name Priority Date/Time Associated Diagnosis Comments EGFR Routine 10/13/2024 6:30 AM CDT COMPREHENSIVE METABOLIC PANEL Routine 10/13/2024 6:30 AM CDT CBC WITHOUT DIFFERENTIAL Routine 10/13/2024 6:30 AM CDT EGFR Timed 10/05/2024 9:44 PM CDT BASIC METABOLIC PANEL Timed 10/05/2024 9:44 PM CDT CBC WITHOUT DIFFERENTIAL Timed 10/05/2024 9:[address] LUMBAR SPINE WO CONTRAST IP Routine 10/02/2024 5:48 PM CDT PAIN MGMT IMAGING LUMBAR/SACRAL SELECTIVE NERVE ROOT INJ (TFE) LEFT Schedule Routine, Read Routine (OP Routine) 10/02/2024 12:57 PM CDT Lumbar radiculopathy EGFR Timed 10/01/2024 10:33 PM CDT BASIC METABOLIC PANEL Timed 10/01/2024 10:33 PM CDT CBC WITHOUT DIFFERENTIAL Timed 10/01/2024 10:33 PM CDT EGFR Routine 09/30/2024 5:08 AM CDT DIFFERENTIAL AUTO Routine 09/30/2024 5:0 8 AM CDT CBC WITH AUTO DIFFERENTIAL Routine 09/30/2024 5:08 AM CDT BASIC METABOLIC PANEL Routine 09/30/2024 5:08 AM CDT XR LUMBAR SPINE AP LAT FLEX EX IP Routine 09/29/2024 8:22 PM CDT URINALYSIS, MICROSCOPIC ONLY STAT 09/29/2024 5:19 PM CDT URINALYSIS AND REFLEX TO MICROSCOPIC AND CULTURE STAT 09/29/2024 5:19 PM CDT XR CHEST 1 VIEW IP Routine 09/29/2024 1:28 PM CDT US VEIN DUPLEX LOWER EXTREMITY BILATERAL COMPLETE IP Routine 09/29/2024 1:03 PM CDT TYPE AND SCREEN STAT 09/29/2024 12:19 PM CDT PROTIME-INR STAT 09/29/2024 12:19 PM CDT APTT STAT 09/29/2024 12:19 PM CDT ECG 12-LEAD STAT 09/29/2024 12:09 PM CDT MRI LUMBAR SPINE WO CONTRAST ED 09/28/2024 7:22 PM CDT EGFR STAT 09/28/2024 3:54 PM CDT DIFFERENTIAL AUTO STAT 09/28/2024 3:5 4 PM CDT CBC WITH AUTO DIFFERENTIAL STAT 09/28/2024 3:54 PM CDT BASIC METABOLIC PANEL STAT 09/28/2024 3:54 PM CDT SCREENING MAMMOGRAM BILATERAL W SALAZAR W IMPLANTS Schedule Routine, Read Routine (OP Routine) 02/15/2024 8:07 AM BALLET DANCER Screening mammogram, encounter for DEXA SCAN Routine 03/17/2016 COLONOSCOPY Routine 03/12/2013 from Last 3 Months or Most Recently Relevant to Health Maintenance Results * eGFR (10/13/2024 6:30 AM CDT) eGFR >90 >=60 mL/min/1. 73 m2 [facility] Comment: Interpretive Data Reference Interval Normal >/= [...] Current interpretive data was last reviewed 2021. [facility], [address] [place] [address], [place]., [address] Blood 10/13/2024 6:30 AM CDT 10/13/2024 7:02 AM CDT us Bin Roe MD LAB BLOOD ORDERABLES Final R esult [facility] [address] [place] [address] * (ABNORMAL) CBC without differential (10/13/2024 6:30 AM CDT) WBC 6.81 3.80 - 9.90 K/cumm [facility] Comment:[address], [address] Hgb 12.3 11.9 - 15.5 g/dL [facility] Comment:[address], [address] Hct 37.4 35.6 - 45.5 % [facility] Comment:[address], [address] Plt 260 150 - 400 K/cumm [facility] Comment:[address], [address] MPV 8.7(L) 9.1 - 12.3 fL [facility] Comment:[address], [address] RBC 4.08 3.90 - 5.20 M/cumm [facility] Comment:[address], [address] MCV 91.7 81.3 - 96.4 fL [facility] Comment:[address], [address] MCH 30.1 27.1 - 33.3 pg [facility] Comment:[address], [address] MCHC 32.9 32.3 - 35.7 g/dL [facility] Comment:[address], [address] RDW CV 12.9 11.1 - 14.9 % [facility] Comment:[address], [address] RDW SD 43.0 35.7 - 48.1 fL [facility] Comment:[address], [address] NRBC abs 0.00 0.00 - 0.01 K/cumm [facility] Comment:[address], [address] Blood 10/13/2024 6:30 AM CDT 10/13/2024 7:02 AM CDT us Bin Roe MD LAB BLOOD ORDERABLES Final R esult [facility] [address] Department [place] [address] * (ABNORMAL) Comprehensive metabolic panel (10/13/2024 6:30 AM CDT) Sodium 140 135 - 145 mmol/L [facility] Comment:[address] [address] Potassium, pl 4.3 3.3 - 4.9 mmol/L [facility] Comment: Hemolyzed; Potassium value may be falsely elevated by as much as 1.0 mmol/L. Suggest redraw and reanalysis. [address] [address] Chloride 108 97 - 110 mmol/L [facility] Comment:[address] [address] CO2 20(L) 22 - 32 mmol/L [facility] Comment:[address] [address] Anion gap 12 2 - 15 mmol/L [facility] Comment:[address] [address] BUN 9 6 - 25 mg/dL [facility] Comment:[address] [address] Creatinine 0.68 0.60 - 1.10 mg/dL [facility] Comment:[address] [address] Glucose 96 70 - 199 mg/dL [facility] Comment: Interpretive Data Fasting glucose >/= 126 [...] classification and Diagnosis of Diabetes Diabetes Care 202; 46: S19-S40. Current interpretive data was last revised 2022. [facility], [address] [place] [address]., [address] Calcium 8.2(L) 8.5 - 10.3 mg/dL [facility] Comment:[address] [address] Bilirubin, total 0.3 0.1 - 1.2 mg/dL [facility] Comment:[address] [address] Protein, pl 5.9(L) 6.5 - 8.5 g/dL [facility] Comment:[address] [address] Albumin 3.4(L) 3.5 - 5.0 g/dL [facility] Comment:[address] [address] Alk phos 176(H) 40 - 130 Units/L [facility] Comment:[address] [address] ALT 51(H) 7 - 45 Units/L [facility] Comment:[address] [address] AST 29 10 - 45 Units/L [facility] Comment:[address] [address] Blood 10/13/2024 6:30 AM CDT 10/13/2024 7:02 AM CDT us Bin Roe MD LAB BLOOD ORDERABLES Final R esult [facility] [address] [facility] Department [place] [address] * eGFR (10/05/2024 9:44 PM CDT) eGFR 71 >=60 mL/min/1. 73 m2 Comment: Interpretive Data [...] interpretive data was last reviewed 2021. Blood 10/05/2024 9:44 PM CDT 10/05/2024 10:21 PM CDT Dinesh Maldonado MD LAB BLOOD ORDERABLES Final Result [facility] [place] [address] * (ABNORMAL) CBC without differential (10/05/2024 9:44 PM CDT) WBC 8.75 3.80 - 9.90 K/cumm Hgb 13.6 11.9 - 15.5 g/dL [facility] Hct 39.5 35.6 - 45.5 % [facility] Plt 304 150 - 400 K/cumm [facility] MPV 8.7(L) 9.1 - 12.3 fL [facility] RBC 4.50 3.90 - 5.20 M/cumm [facility] MCV 87.8 81.3 - 96.4 fL [facility] MCH 30.2 27.1 - 33.3 pg [facility] MCHC 34.4 32.3 - 35.7 g/dL [facility] RDW CV 13.2 11.1 - 14.9 % [facility] RDW SD 42.7 35.7 - 48.1 fL [facility] NRBC abs 0.00 0.00 - 0.01 K/cumm [facility] Blood 10/05/2024 9:44 PM CDT 10/05/2024 10:21 PM CDT Dinesh Maldonado MD LAB BLOOD ORDERABLES Final Result [facility] Department [place] [address] * Basic metabolic panel (10/05/2024 9:44 PM CDT) Sodium 136 135 - 145 mmol/L Potassium, pl 4.8 3.3 - 4.9 mmol/L [facility] Chloride 100 97 - 110 mmol/L [facility] CO2 25 22 - 32 mmol/L [facility] Anion gap 11 2 - 15 mmol/L [facility] BUN 15 6 - 25 mg/dL [facility] Creatinine 0.85 0.60 - 1.10 mg/dL [facility] Glucose 114 70 - 199 mg/dL [facility] Comment: Interpretive Data Fasting glucose [...] classification and Diagnosis of Diabetes Diabetes Care 202; 46: S19-S40. Current interpretive data was last revised 2022. Calcium 9.7 8.5 - 10.3 mg/dL [facility] Blood 10/05/2024 9:44 PM CDT 10/05/2024 10:21 PM CDT us Dinesh Maldonado MD LAB BLOOD ORDERABLES Final Result [facility] [place] [address] * CT Lumbar Spine WO Contrast (10/02/2024 5:48 PM CDT) Anatomical Region Laterality Modality Spine N/A Computed Tomogra phy 10/03/2024 9:36 AM CDT Impressions 10/03/2024 11:35 AM CDT Multilevel degenerative changes of lumbar spine, worst in the mid to lower lumbar spine with severe spinal canal stenosis from L3-L5 and severe left L5-S1 neuroforaminal stenosis. Dictated by: Staci Jade MD The radiology attending physician has personally reviewed this study, and had reviewed and/or edited this written report and agrees with it. Electronically signed by: Aj Murillo M.D. Narrative 10/03/2024 11:35 AM CDT EXAMINATION: CT of the lumbar spine without contrast HISTORY: Radiculopathy with left L5-S1 distribution, concern for superior articular process fracture fragment along the neuroforamen TECHNIQUE: CT of the lumbar spine was performed according to the standard protocol without intravenous contrast. COMPARISON: MRI lumbar spine 09/28/2024 FINDINGS: The alignment of the lumbar spine is normal. There is no acute fracture. There is a cortical step off along the lateral aspect of the left superior articular process of L5 which was present on 2018 CT abdomen and pelvis, could reflect nutrient foramen or sequela of degenerative changes. The vertebral bodies are normal in height without compression fractures. Mild multilevel degenerative disc disease worst at L3-L4. 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 Central calcification in the L5-S1 disc, unchanged from previous study. There is no soft tissue abnormality. The abdominal aorta appears normal caliber with mild atherosclerotic calcifications. L1-L2: Mild diffuse disc bulge. There is mild bilateral facet arthropathy. There is no neuroforaminal stenosis. There is no spinal canal stenosis. L2-L3: Mild diffuse disc bulge. There is mild bilateral facet arthropathy. There is no neuroforaminal stenosis. There is no spinal canal stenosis. L3-L4: Diffuse disc bulge and ligamentum flavum hypertrophy. There is moderate bilateral facet arthropathy. There is mild bilateral neuroforaminal stenosis. There is severe spinal canal stenosis, extent of stenosis better appreciated on recent MRI. L4-L5: Diffuse disc bulge, greater on the left and ligamentum flavum hypertrophy. There is bilateral moderate facet arthropathy. There is moderate bilateral neuroforaminal stenosis. There is severe spinal canal stenosis, extent of stenosis better appreciated on recent MRI. L5-S1: Diffuse disc bulge. There is severe bilateral facet arthropathy. There is moderate right severe left neuroforaminal stenosis. There is no spinal canal stenosis. Procedure Note Aj Murillo MD - 10/03/2024 EXAMINATION: CT of the lumbar spine without contrast HISTORY: Radiculopathy with left L5-S1 distribution, concern for superior articular process fracture fragment along the neuroforamen TECHNIQUE: CT of the lumbar spine was performed according to the standard protocol without intravenous contrast. COMPARISON: MRI lumbar spine 09/28/2024 FINDINGS: The alignment of the lumbar spine is normal. There is no acute fracture. There is a cortical step off along the lateral aspect of the left superior articular process of L5 which was present on 2018 CT abdomen and pelvis, could reflect nutrient foramen or sequela of degenerative changes. The vertebral bodies are normal in height without compression fractures. Mild multilevel degenerative disc disease worst at L3-L4. 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 Central calcification in the L5-S1 disc, unchanged from previous study. There is no soft tissue abnormality. The abdominal aorta appears normal caliber with mild atherosclerotic calcifications. L1-L2: Mild diffuse disc bulge. There is mild bilateral facet arthropathy. There is no neuroforaminal stenosis. There is no spinal canal stenosis. L2-L3: Mild diffuse disc bulge. There is mild bilateral facet arthropathy. There is no neuroforaminal stenosis. There is no spinal canal stenosis. L3-L4: Diffuse disc bulge and ligamentum flavum hypertrophy. There is moderate bilateral facet arthropathy. There is mild bilateral neuroforaminal stenosis. There is severe spinal canal stenosis, extent of stenosis better appreciated on recent MRI. L4-L5: Diffuse disc bulge, greater on the left and ligamentum flavum hypertrophy. There is bilateral moderate facet arthropathy. There is moderate bilateral neuroforaminal stenosis. There is severe spinal canal stenosis, extent of stenosis better appreciated on recent MRI. L5-S1: Diffuse disc bulge. There is severe bilateral facet arthropathy. There is moderate right severe left neuroforaminal stenosis. There is no spinal canal stenosis. IMPRESSION: Multilevel degenerative changes of lumbar spine, worst in the mid to lower lumbar spine with severe spinal canal stenosis from L3-L5 and severe left L5-S1 neuroforaminal stenosis. Dictated by: Staci Jade MD The radiology attending physician has personally reviewed this study, and had reviewed and/or edited this written report and agrees with it. Electronically signed by: jA Murillo M.D. Wily Juárez MD IMG CT PROCEDURES Final Re sult * Imaging Lumbar/Sacral Selective Nerve Root INJ (TFE) Left (25880) (10/02/2024 12:57 PM CDT) Narrative [facility] - 10/02/2024 12:58 PM CDT The images from this study are not interpreted by Radiology. Please refer to the physician's procedure / OR operative note. us Remigio De Oliveira MD IMG PAIN MGMT PROCEDURES Final R esult [facility] * eGFR (10/01/2024 10:33 PM CDT) eGFR 63 >=60 mL/min/1. 73 m2 Comment: Interpretive Data [...] of Race in Diagnosing Kidney Disease, JASN 202). The CKD-EPI equation should not be used for patients with unstable renal function and has not been validated in children and those over 70. Current interpretive data was last reviewed 2021. Blood 10/01/2024 10:3 3 PM CDT 10/01/2024 11:36 PM CDT us Dinesh Maldonado MD LAB BLOOD ORDERABLES Final Result [facility] [place] [address] * (ABNORMAL) CBC without differential (10/01/2024 10:33 PM CDT) [facility] WBC 10.71(H) 3.80 - 9.90 K/cumm Hgb 13.0 11.9 - 15.5 g/dL [facility] Hct 38.4 35.6 - 45.5 % [facility] Plt 288 150 - 400 K/cumm [facility] MPV 8.7(L) 9.1 - 12.3 fL [facility] RBC 4.31 3.90 - 5.20 M/cumm [facility] MCV 89.1 81.3 - 96.4 fL [facility] MCH 30.2 27.1 - 33.3 pg [facility] MCHC 33.9 32.3 - 35.7 g/dL [facility] RDW CV 13.2 11.1 - 14.9 % [facility] RDW SD 43.2 35.7 - 48.1 fL [facility] NRBC abs 0.00 0.00 - 0.01 K/cumm [facility] Blood 10/01/2024 10:3 3 PM CDT 10/01/2024 11:34 PM CDT us Dinesh Maldonado MD LAB BLOOD ORDERABLES Final Result [facility] [place] [address] * Basic metabolic panel (10/01/2024 10:33 PM CDT) [facility] Sodium 141 135 - 145 mmol/L Potassium, pl 4.4 3.3 - 4.9 mmol/L [facility] Chloride 107 97 - 110 mmol/L [facility] CO2 26 22 - 32 mmol/L [facility] Anion gap 8 2 - 15 mmol/L [facility] BUN 18 6 - 25 mg/dL [facility] Creatinine 0.94 0.60 - 1.10 mg/dL [facility] Glucose 152 70 - 199 mg/dL [facility] Comment: Interpretive Data Fasting glucose [...] interpretive data was last revised 2022. Calcium 8.8 8.5 - 10.3 mg/dL [facility] Blood 10/01/2024 10:3 3 PM CDT 10/01/2024 11:36 PM CDT Dinesh Maldonado MD LAB BLOOD ORDERABLES Final Result [facility] [place] [address] * eGFR (09/30/2024 5:08 AM CDT) eGFR 68 >=60 mL/min/1. 73 m2 Comment: Interpretive Data [...] interpretive data was last reviewed 2021. Blood 09/30/2024 5:08 AM CDT 09/30/2024 5:34 AM CDT us Herlinda Bonner MD LAB BLOOD ORDERABLES Mariana trevino Result [facility] [place] [address] * Differential, auto (09/30/2024 5:08 AM CDT) Neutrophil abs 4.87 1.50 - 6.50 K/cumm Imm gran abs 0.03 0.00 - 0.10 K/cumm [facility] Lymphocyte abs 2.29 0.80 - 3.30 K/cumm [facility] Monocyte abs 0.71 0.20 - 0.80 K/cumm [facility] Eosinophil abs 0.09 0.00 - 0.50 K/cumm [facility] Basophil abs 0.05 0.00 - 0.10 K/cumm [facility] Neutrophil pct 60.6 % [facility] Comment: Interpretive Data Percent cell count reference ranges are not reported, since discordance with absolute values may lead to misinterpretation of CBC data. Current Interpretive Data was last revised on 2017. Imm gran pct 0.4 % [facility] Comment: Interpretive Data Percent cell count reference ranges are not reported, since discordance with absolute values may lead to misinterpretation of CBC data. Current Interpretive Data was last revised on 2017. Lymphocyte pct 28.5 % [facility] Comment: Interpretive Data Percent cell count reference ranges are not reported, since discordance with absolute values may lead to misinterpretation of CBC data. Current Interpretive Data was last revised on 2017. Monocyte pct 8.8 % [facility] Comment: Interpretive Data Percent cell count reference ranges are not reported, since discordance with absolute values may lead to misinterpretation of CBC data. Current Interpretive Data was last revised on 2017. Eosinophil pct 1.1 % [facility] Comment: Interpretive Data Percent cell count reference ranges are not reported, since discordance with absolute values may lead to misinterpretation of CBC data. Current Interpretive Data was last revised on 2017. Basophil pct 0.6 % [facility] Comment: Interpretive Data Percent cell count reference ranges are not reported, since discordance with absolute values may lead to misinterpretation of CBC data. Current Interpretive Data was last revised on 2017. Blood 09/30/2024 5:08 AM CDT 09/30/2024 5:35 AM CDT Herlinda Bonner MD LAB BLOOD ORDERABLES Mariana l Result Performing Organization Address City/[facility]/ZIP Co de Phone Number [facility] [place] [address] * CBC with auto differential (09/30/2024 5:08 AM CDT) WBC 8.04 3.80 - 9.90 K/cumm Hgb 13.1 11.9 - 15.5 g/dL [facility] Hct 39.4 35.6 - 45.5 % [facility] Plt 282 150 - 400 K/cumm [facility] MPV 9.2 9.1 - 12.3 fL [facility] RBC 4.44 3.90 - 5.20 M/cumm [facility] MCV 88.7 81.3 - 96.4 fL [facility] MCH 29.5 27.1 - 33.3 pg [facility] MCHC 33.2 32.3 - 35.7 g/dL [facility] RDW CV 13.1 11.1 - 14.9 % [facility] RDW SD 42.3 35.7 - 48.1 fL [facility] NRBC abs 0.00 0.00 - 0.01 K/cumm [facility] Blood 09/30/2024 5:08 AM CDT 09/30/2024 5:35 AM CDT us Herlinda Bonner MD LAB BLOOD ORDERABLES Mariana l Result Performing Organization Address [facility]/ZIP Co de Phone Number [facility] Department [place] [address] * Basic metabolic panel (09/30/2024 5:08 AM CDT) [facility] Sodium 139 135 - 145 mmol/L Potassium, pl 4.3 3.3 - 4.9 mmol/L [facility] Chloride 106 97 - 110 mmol/L [facility] CO2 28 22 - 32 mmol/L [facility] Anion gap 5 2 - 15 mmol/L [facility] BUN 17 6 - 25 mg/dL [facility] Creatinine 0.89 0.60 - 1.10 mg/dL [facility] Glucose 96 70 - 199 mg/dL [facility] Comment: Interpretive Data Fasting glucose [...] interpretive data was last revised 2022. Calcium 8.8 8.5 - 10.3 mg/dL [facility] Blood 09/30/2024 5:08 AM CDT 09/30/2024 5:34 AM CDT us Herlinda Bonner MD LAB BLOOD ORDERABLES Mariana l Result [facility] [place] [address] * XR Spine Lumbar Ap Lat Flex Ext min 4 Views (09/29/2024 8:22 PM CDT) Anatomical Region Laterality Modality L-spine N/A Computed Radiogr aphy 09/30/2024 8:02 AM CDT Impressions 09/30/2024 8:02 AM CDT 1. Mild multilevel lumbar spondylosis, greatest at L3-4. Moderate lower lumbar facet arthropathy. Electronically signed by: Elyse Stearns MD Narrative 09/30/2024 8:02 AM CDT EXAMINATION: XR SPINE LUMBAR AP LAT FLEX EXT MIN 4 VIEWS HISTORY: Acute radiculopathy FINDINGS: 4 radiographs of the lumbar spine are submitted for interpretation with comparison 07/07/2024. No acute compression fracture of the lumbar spine. Sagittal alignment is normal. Mild multilevel degenerative disc disease is greatest at L3-4. There is moderate lower lumbar facet arthropathy. No abnormal translation with flexion or extension. Procedure Note Marlee Stearns MD - 09/30/2024 EXAMINATION: XR SPINE LUMBAR AP LAT FLEX EXT MIN 4 VIEWS HISTORY: Acute radiculopathy FINDINGS: 4 radiographs of the lumbar spine are submitted for interpretation with comparison 07/07/2024. No acute compression fracture of the lumbar spine. Sagittal alignment is normal. Mild multilevel degenerative disc disease is greatest at L3-4. There is moderate lower lumbar facet arthropathy. No abnormal translation with flexion or extension. IMPRESSION: 1. Mild multilevel lumbar spondylosis, greatest at L3-4. Moderate lower lumbar facet arthropathy. Electronically signed by: Elyse Stearns MD us Herlinda Bonner MD IMG XR PROCEDURES Final R esult * (ABNORMAL) Urinalysis reflex to microscopic and culture Urine (09/29/2024 5:19 PM CDT) Color, ur Straw Yellow Clarity, ur Clear Clear [facility] Specific gravity, ur 1.009 1.003 - 1.030 [facility] pH, urine 7.0 [facility] Comment: Interpretive Data U rine pH is affected by diet, medications, systemic acid-base disturbances, and renal tubular function. pH may affect urinary stone formation. For example, urine pH below 6.0 may help reduce the tendency for calcium phosphate stones and pH greater than 6.0 may reduce the tendency for uric acid stone formation. Source: link bird Current Interpretive Data was last revised on 2017 Protein, ur ql Negative Negative [facility] Glucose, ur ql Negative Negative [facility] Ketones, ur Negative Negative [facility] Bilirubin, ur Negative Negative [facility] Blood, ur Negative Negative [facility] Urobilinogen, ur <2.0 <2.0 mg/dL [facility] Nitrite, ur Negative Negative [facility] Leukocyte esterase, ur 2+(A) Negative [facility] UA reflex comment Reflex to microscopic UA will be performed. [facility] Urine 09/29/2024 5:19 PM CDT 09/29/2024 5:42 PM CDT Herlinda Bonner MD LAB MICROBIOLOGY - GENERA L ORDERABLES Final Result Performing Organization Address [facility] de Phone Number [facility] Department [place] [address] * (ABNORMAL) Urinalysis, microscopic only (09/29/2024 5:19 PM CDT) WBC, ur 0-5 0 - 5 /HPF RBC, ur 0-2 0 - 2 /HPF [facility] Epithelial cells, squamous, ur 1-5 0 - 5 /HPF [facility] Mucous, ur Present(A) [facility] Culture Reflex Comment Reflex conditions for urine culture (WBC >10) not met. [facility] Urine 09/29/2024 5:19 PM CDT 09/29/2024 5:42 PM CDT Herlinda Bonner MD LAB URINE ORDERABLES Mariana l Result Performing Organization Address [facility] de Phone Number [facility] Department [place] [address] * XR Chest 1 View (09/29/2024 1:28 PM CDT) Anatomical Region Laterality Modality Body, Chest N/A Computed Radiogr aphy 09/29/2024 3:05 PM CDT Impressions 09/29/2024 3:14 PM CDT The current study is compared with the prior radiograph dated 11/24/2022. Calcified bilateral breast implants. Upper lung predominant emphysematous changes, lungs are otherwise clear. No pleural effusion. No pneumothorax. Normal cardiomediastinal silhouette. Dictated by: Maria Elena Jean M.D. The radiology attending physician has personally reviewed this study, and had reviewed and/or edited this written report and agrees with it. Electronically signed by: Pantera Dong M.D. Narrative 09/29/2024 3:14 PM CDT EXAMINATION: 1 view chest radiograph Procedure Note Pantera Dong MD - 09/29/2024 EXAMINATION: 1 view chest radiograph IMPRESSION: The current study is compared with the prior radiograph dated 11/24/2022. Calcified bilateral breast implants. Upper lung predominant emphysematous changes, lungs are otherwise clear. No pleural effusion. No pneumothorax. Normal cardiomediastinal silhouette. Dictated by: Maria Elena Jean M.D. The radiology attending physician has personally reviewed this study, and had reviewed and/or edited this written report and agrees with it. Electronically signed by: Pantera Dong M.D. us Herlinda Bonner MD IMG XR PROCEDURES Final R esult * US Vein Duplex Lower Extremity Bilateral Complete (09/29/2024 1:03 PM CDT) Anatomical Region Laterality Modality Vascular Bilateral Ultrasound 09/29/2024 12:2 5 PM CDT Narrative 09/29/2024 6:46 PM CDT [facility] - Department of Vascular Surgery, Vascular Laboratory [address] [place] [address] Lower Extremity Venous Ultrasound Report Patient Name: TIFFANY PALACIO : 1950 (73y 9m) Study Date: 09/29/2024 12:25:09 PM Gender: F Tech: Location: [id number] Ref Provider: HERLINDA BONNER Quality: Adequate Order Provider: HERLINDA BONNER PROCEDURES: Vascular Report: Venous Duplex imaging was performed bilaterally in the lower extremities. The common femoral, femoral, popliteal, posterior tibial, peroneal veins were evaluated for patency, spontaneity and phasicity with Doppler, compression and augmentation maneuvers. Great saphenous vein proximal at the junction was evaluated with compression maneuvers. INDICATIONS: Pain in left leg. FINDINGS: Performing Inside Sales Coordinator: Carissa Riojas RVT. Bilateral: Venous Doppler signals in the bilateral lower extremity are within normal limits for spontaneity and phasicity and respond normally to augmentation maneuvers. No evidence of deep vein thrombus by duplex, proximal to the calf. CONCLUSIONS: 1. There is no evidence of acute deep vein thrombosis in the lower extremities bilaterally. Noninvasive venous studies cannot rule out isolated calf vein obstruction. HISTORY: Cancer, former smoker, PVD, CAD, HLD. PREVIOUS STUDIES: No previous studies for comparison. DISCLAIMER: The study images and the final report will be retained in the patient chart by the Vascular Laboratory for the legally required time period. This chart constitutes the legal record of any testing performed. ATTESTATION: I have reviewed and interpreted the pertinent images and measurements of this study. I attest to the conclusions in the final report that is provided above. Electronically Signed By: Reji Mancuso MD FACS 09/29/2024 6:28:53 PM CDT Procedure Note Reji Mancuso MD - 09/29/2024 [facility] - Department of Vascular Surgery,Vascular Laboratory [address] [place] [id number] Lower Extremity Venous Ultrasound Report Patient Name: TIFFANY PALACIO : 1950 (73y 9m) Study Date: 09/29/2024 12:25:09 PM Gender: F Tech: Location: [id number] Ref Provider: HERLINDA BONNER Quality: Adequate Order Provider: HERLINDA BONNER PROCEDURES: Vascular Report: Venous Duplex imaging was performed bilaterally in the lower extremities.The common femoral, femoral, popliteal, posterior tibial, peroneal veins wereevaluated for patency, spontaneity and phasicity with Doppler, compression and augmentationmaneuvers. Great saphenous vein proximal at the junction was evaluated with compressionmaneuvers. INDICATIONS: Pain in left leg. FINDINGS: Performing Inside Sales Coordinator: Carissa Rioajs RVT. Bilateral: Venous Doppler signals in the bilateral lower extremity are within normallimits for spontaneity and phasicity and respond normally to augmentation maneuvers.No evidence of deep vein thrombus by duplex, proximal to the calf. CONCLUSIONS: 1. There is no evidence of acute deep vein thrombosis in the lowerextremities bilaterally. Noninvasive venous studies cannot rule out isolated calf veinobstruction. HISTORY: Cancer, former smoker, PVD, CAD, HLD. PREVIOUS STUDIES: No previous studies for comparison. DISCLAIMER: The study images and the final report will be retained in the patientchart by the Vascular Laboratory for the legally required time period. This chartconstitutes the legal record of any testing performed. ATTESTATION: I have reviewed and interpreted the pertinent images and measurements ofthis study. I attest to the conclusions in the final report that is provided above. Electronically Signed By: Reji Mancuso MD FACS 09/29/2024 6:28:53 PM CDT Herlinda Bonner MD IMG US PROCEDURES Final R esult * (ABNORMAL) aPTT (09/29/2024 12:19 PM CDT) aPTT 27(L) 28 - 38 sec Comment: Interpretive Data Heparin therapeutic range: 66.0 - 100.0 seconds. Range based on correlation with therapeutic heparin activity range of 0.3 - 0.7 Units/mL. Current interpretive data was last revised on 2022. Blood 09/29/2024 12:1 9 PM CDT 09/29/2024 1:26 PM CDT Herlinda Bonner MD LAB BLOOD ORDERABLES Mariana l Result Performing Organization Address [facility] de Phone Number [facility] [place] [address] * Protime-INR (09/29/2024 12:19 PM CDT) PT 10.7 9.7 - 13.0 sec INR 0.99 0.90 - 1.20 [facility] Comment: Interpretive data Oral anticoagulant therapeutic ranges: Venous thromboembolism prophylaxis or treatment: 2.0-3.0 CARDIOLOGY Standard range: 2.0-3.0 High-intensity range: 2.5-3.5 Refer to indication-specific guidelines for appropriate target ranges for prosthetic heart valve replacement. Current interpretive data was last revised on 2019. Blood 09/29/2024 12:1 9 PM CDT 09/29/2024 1:26 PM CDT Herlinda Bonner MD LAB BLOOD ORDERABLES Mariana l Result Performing Organization Address City/[facility]/ZIP Co de Phone Number [facility] [place] [address] * Type and screen (09/29/2024 12:19 PM CDT) Pathologist [facility] Suzi, indirect Negative ABO Rh AB Positive [facility] Blood 09/29/2024 12:1 9 PM CDT 09/29/2024 1:38 PM CDT Narrative [facility] - 09/29/2024 2:38 PM CDT Has the patient had Daratumumab or Isatuximab in the past 6 months?->Unknown us Herlinda Bonner MD LAB BLOOD BANK TEST ORDER KARI Final Result Performing Organization Address [facility] Co de Phone Number [facility] [place] [address] * ECG 12 lead (09/29/2024 12:09 PM CDT) [facility] Ventricular Rate EKG/Min 57 BPM [facility] Atrial Rate 57 BPM [facility] IN-Interval (MSEC) 186 ms [facility] QRS-Interval (MSEC) 78 ms [facility] QT-Interval (MSEC) 414 ms [facility] QTc 402 ms [facility] P [place] 31 degrees [facility] R [place] -1 degrees [facility] T [place] 29 degrees [facility] Diagnosis Sinus bradycardia Low voltage QRS Septal infarct (cited on or before 17-MAY-2017) Abnormal ECG When compared with ECG of 17-MAY-2017 18:04, No significant change was found Confirmed by BHAVESH LÓPEZ M.D ([id number]) on 09/30/2024 6:19:20 PM [facility] 09/29/2024 12:0 9 PM CDT 09/30/2024 6:19 PM CDT us Herlinda Bonner MD ECG ORDERABLES Final Res ult Performing Organization Address [facility]/ZIP Co de Phone Number [facility] * MRI Lumbar Spine WO Contrast (09/28/2024 7:22 PM CDT) Anatomical Region Laterality Modality Spine N/A Magnetic Resonan ce 09/29/2024 12:1 9 PM CDT Impressions 09/29/2024 2:00 PM CDT Significant degenerative changes in the lumbar spine, most prominent at L3-L4, L4-L5 and L5-S1, causing severe spinal canal stenosis at L3-L4 and L4-L5 and and left neural foraminal stenosis at left L4-L5 and L5-S1. Dictated by: Mj Lehman M.D. The radiology attending physician has personally reviewed this study, and had reviewed and/or edited this written report and agrees with it. Electronically signed by: Kate Lancaster M.D. Narrative 09/29/2024 2:00 PM CDT EXAMINATION: Magnetic resonance imaging (MRI) of the lumbar spine without contrast HISTORY: 73 years-old Female with Low back pain and left leg pain. TECHNIQUE: Multiplanar multi-weighted MRI of the lumbar spine was performed without intravenous contrast using the standard protocol. COMPARISON: Radiographs of the lumbar spine from 07/07/2024. FINDINGS: Mild retrolisthesis of L3 on L4. Vertebral bodies demonstrate normal signal intensity on all sequences. There are no compression fractures. The conus medullaris terminates at the level of L1-L2. The distal spinal cord signal intensity is normal. Multilevel disc desiccation. Disc height loss is noted at L3-L4. There are annular fissures from L1 to S1. 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 Limited views of the abdomen and pelvis show no soft tissue abnormality. The aorta is atheromatous. Axial: L1-L2: Diffuse disc bulge. There is mild bilateral facet arthropathy. There is no neuroforaminal stenosis. There is mild spinal canal stenosis. L2-L3: Diffuse disc bulge. There is mild bilateral facet arthropathy. There is no neuroforaminal stenosis. There is no spinal canal stenosis. L3-L4: Diffuse disc bulge There is moderate bilateral facet arthropathy with ligamentum flavum hypertrophy. There is mild bilateral neuroforaminal stenosis. There is severe spinal canal stenosis. L4-L5: Asymmetric disc bulge towards to left. There is severe bilateral facet arthropathy with ligamentum flavum hypertrophy. There is severe left neuroforaminal stenosis. There is severe spinal canal stenosis. L5-S1: Diffuse disc bulge There is severe bilateral facet arthropathy. There is mild right and severe left neuroforaminal stenosis. There is no spinal canal stenosis. Procedure Note Kate Carbajal MD - 09/29/2024 EXAMINATION: Magnetic resonance imaging (MRI) of the lumbar spine without contrast HISTORY: 73 years-old Female with Low back pain and left leg pain. TECHNIQUE: Multiplanar multi-weighted MRI of the lumbar spine was performed without intravenous contrast using the standard protocol. COMPARISON: Radiographs of the lumbar spine from 07/07/2024. FINDINGS: Mild retrolisthesis of L3 on L4. Vertebral bodies demonstrate normal signal intensity on all sequences. There are no compression fractures. The conus medullaris terminates at the level of L1-L2. The distal spinal cord signal intensity is normal. Multilevel disc desiccation. Disc height loss is noted at L3-L4. There are annular fissures from L1 to S1. 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 Limited views of the abdomen and pelvis show no soft tissue abnormality. The aorta is atheromatous. Axial: L1-L2: Diffuse disc bulge. There is mild bilateral facet arthropathy. There is no neuroforaminal stenosis. There is mild spinal canal stenosis. L2-L3: Diffuse disc bulge. There is mild bilateral facet arthropathy. There is no neuroforaminal stenosis. There is no spinal canal stenosis. L3-L4: Diffuse disc bulge There is moderate bilateral facet arthropathy with ligamentum flavum hypertrophy. There is mild bilateral neuroforaminal stenosis. There is severe spinal canal stenosis. L4-L5: Asymmetric disc bulge towards to left. There is severe bilateral facet arthropathy with ligamentum flavum hypertrophy. There is severe left neuroforaminal stenosis. There is severe spinal canal stenosis. L5-S1: Diffuse disc bulge There is severe bilateral facet arthropathy. There is mild right and severe left neuroforaminal stenosis. There is no spinal canal stenosis. IMPRESSION: Significant degenerative changes in the lumbar spine, most prominent at L3-L4, L4-L5 and L5-S1, causing severe spinal canal stenosis at L3-L4 and L4-L5 and and left neural foraminal stenosis at left L4-L5 and L5-S1. Dictated by: Mj Lehman M.D. The radiology attending physician has personally reviewed this study, and had reviewed and/or edited this written report and agrees with it. Electronically signed by: Kate Lancaster M.D. Bin David MD IMG MRI PROCEDURES Final Result * eGFR (09/28/2024 3:54 PM CDT) eGFR 83 >=60 mL/min/1. 73 m2 Comment: Interpretive Data [...] interpretive data was last reviewed 2021. Blood 09/28/2024 3:54 PM CDT 09/28/2024 4:41 PM CDT Bin David MD LAB BLOOD ORDERABLES Fin al Result [facility] Department [place] [address] * (ABNORMAL) Differential, auto (09/28/2024 3:54 PM CDT) Neutrophil abs 9.47(H) 1.50 - 6.50 K/cumm Imm gran abs 0.06 0.00 - 0.10 K/cumm [facility] Lymphocyte abs 0.87 0.80 - 3.30 K/cumm [facility] Monocyte abs 0.59 0.20 - 0.80 K/cumm [facility] Eosinophil abs 0.00 0.00 - 0.50 K/cumm [facility] Basophil abs 0.03 0.00 - 0.10 K/cumm [facility] Neutrophil pct 85.9 % [facility] Comment: Interpretive Data Percent cell count reference ranges are not reported, since discordance with absolute values may lead to misinterpretation of CBC data. Current Interpretive Data was last revised on 2017. Imm gran pct 0.5 % [facility] Comment: Interpretive Data Percent cell count reference ranges are not reported, since discordance with absolute values may lead to misinterpretation of CBC data. Current Interpretive Data was last revised on 2017. Lymphocyte pct 7.9 % [facility] Comment: Interpretive Data Percent cell count reference ranges are not reported, since discordance with absolute values may lead to misinterpretation of CBC data. Current Interpretive Data was last revised on 2017. Monocyte pct 5.4 % [facility] Comment: Interpretive Data Percent cell count reference ranges are not reported, since discordance with absolute values may lead to misinterpretation of CBC data. Current Interpretive Data was last revised on 2017. Eosinophil pct 0.0 % [facility] Comment: Interpretive Data Percent cell count reference ranges are not reported, since discordance with absolute values may lead to misinterpretation of CBC data. Current Interpretive Data was last revised on 2017. Basophil pct 0.3 % [facility] Comment: Interpretive Data Percent cell count reference ranges are not reported, since discordance with absolute values may lead to misinterpretation of CBC data. Current Interpretive Data was last revised on 2017. Blood 09/28/2024 3:54 PM CDT 09/28/2024 4:41 PM CDT us Bin David MD LAB BLOOD ORDERABLES Fin al Result [facility] [place] [address] * (ABNORMAL) CBC with auto differential (09/28/2024 3:54 PM CDT) [facility] WBC 11.02(H) 3.80 - 9.90 K/cumm Hgb 13.7 11.9 - 15.5 g/dL [facility] Hct 40.0 35.6 - 45.5 % [facility] Plt 300 150 - 400 K/cumm [facility] MPV 9.0(L) 9.1 - 12.3 fL [facility] RBC 4.55 3.90 - 5.20 M/cumm [facility] MCV 87.9 81.3 - 96.4 fL [facility] MCH 30.1 27.1 - 33.3 pg [facility] MCHC 34.3 32.3 - 35.7 g/dL [facility] RDW CV 13.0 11.1 - 14.9 % [facility] RDW SD 41.8 35.7 - 48.1 fL [facility] NRBC abs 0.00 0.00 - 0.01 K/cumm [facility] Blood 09/28/2024 3:54 PM CDT 09/28/2024 4:41 PM CDT Bin David MD LAB BLOOD ORDERABLES Fin al Result [facility] [place] [address] * Basic metabolic panel (09/28/2024 3:54 PM CDT) [facility] Sodium 140 135 - 145 mmol/L Potassium, pl 4.2 3.3 - 4.9 mmol/L [facility] Chloride 105 97 - 110 mmol/L [facility] CO2 24 22 - 32 mmol/L [facility] Anion gap 11 2 - 15 mmol/L [facility] BUN 18 6 - 25 mg/dL [facility] Creatinine 0.75 0.60 - 1.10 mg/dL [facility] Glucose 100 70 - 199 mg/dL [facility] Comment: Interpretive Data Fasting glucose [...] classification and Diagnosis of Diabetes Diabetes Care 202; 46: S19-S40. Current interpretive data was last revised 2022. Calcium 9.8 8.5 - 10.3 mg/dL [facility] Blood 09/28/2024 3:54 PM CDT 09/28/2024 4:41 PM CDT us Bin David MD LAB BLOOD ORDERABLES Fin al Result Performing Organization Address City/State/[facility] Co de Phone Number [facility] [place] [address] * Screening Mammogram Bilateral w Salazar w Implants (02/15/2024 8:07 AM BALLET DANCER) Anatomical Region Laterality Modality Breast Bilateral Mammography Narrative 02/18/2024 2:22 PM BALLET DANCER Mammogram Technique: Bilateral Digital Breast Tomosynthesis, Bilateral C-view 2D Screening mammogram. Views obtained: bilateral craniocaudal and bilateral mediolateral oblique. Computer Aided Detection was performed. Mammogram Findings: The present examination has been compared to prior imaging studies performed at [facility] on 01/08/2019, 08/26/2020, 11/24/2021 and 11/24/2022. [...] compared to prior imaging studies performed at [facility] on 01/08/2019, 08/26/2020,11/24/2021 and 11/24/2022. The [...] Recently Relevant to Health Maintenance Insurance MEDICARE [facility] MEDICARE SUPPLEMENT MEDICARE [facility] INSURANCE MEDICARE [facility] MEDICARE SUPPLEMENT Advance Directives For more information, please contact: [phone] * Full Code (Latest Code Status on File) Date Activated Date Inactivated Comments 09/28/2024 9:09 PM 10/08/2024 5:32 PM * Full Code Date Activated Date Inactivated Comments 12/27/2023 2:11 AM 12/27/2023 8:08 PM Care Teams Certified Marine Mechanic Relationship Specialty Start Date End Date Jorge Bosch DO [address] [facility] [address] [place] [id number] PCP - General Internal Medicine 12/27/23 Loyd Tucker MD [address] [facility] [address] [place] [address] Radiation Oncologist Radiation Oncology 11/01/17 Aft, Isabel Chilel MD PhD [address] [place] [address] Referring Physician Surgical Oncology 11/01/17 Esthela Saldana, PhD [address] [place] [address] Nurse Practitioner Radiation Oncology 11/01/17 Allie Curiel MD [address] [place] [address] Referring Physician Medical Oncology 06/06/18 Maico Elaine NP [address] [place] [address] Nurse Practitioner Nurse Practitioner 01/29/23
--- NOTE | 2024-11-13 07:57 | ECG_ITS ---
Test Date: 2024-11-13 08:01:25 Measurements Intervals [place] Rate: 85 P: 44 MO: 145 QRS: 3 QRSD: 70 T: 32 QT: 356 QTc: 425 Interpretive Statements SINUS RHYTHM LOW QRS VOLTAGE IN PRECORDIAL LEADS [QRS DEFLECTION < 1.0 mV IN CHEST LEADS] ANTEROSEPTAL MYOCARDIAL INFARCTION , OF INDETERMINATE AGE [40+ ms Q WAVE IN V1-V4] Compared to ECG 12/21/2023 18:23:38 Myocardial infarct finding now present Electronically Signed On 11-13-2024 11:39:16 CDT by Michael Quiros M.D.
[2024-11-13 08:12] LABS: Hematocrit 42.0 % (37.0-47.0); Hemoglobin 13.8 g/dL (12.0-15.0); Immature Granulocyte Percent A 0.3 % (0-0.5); Lymphocytes Absolute Auto 1.03 K/mm3 (0.9-3.2); Mean Corpuscular HGB Conc 32.9 g/dl (32-36); Mean Corpuscular Hemoglobin 29.6 pg (26-34); Mean Corpuscular Volume 89.9 fl (80-100); Nucleated Red Blood Cells Absolute Auto 0.000 K/mm3 (0.0-0.012); Nucleated Red Blood Cells Perc 0.0 % (0.0-0.2); Platelet Count Result 282 k/mm3 (150-375); Red Blood Count 4.67 M/mm3 (4.2-5.4); White Blood Count 8.8 K/mm3 (4.5-10.0)
--- OUTSIDE RECORDS SUMMARY | 2024-11-13 08:22 | XMS_ITS | Clinical Summary ---
Author Organization [facility] [employer] Address [address] [place] [address] Care Team Providers Care Steam Tender Name Role Phone Jorge Bosch DO Primary Care Provider [phone] Source Comments [facility],non-owned Affiliates and Associated Physician Practices is amultiple site organization consisting of ambulatory clinics and hospital sitesin [place], [place], [place] and [place]. This disclosure is being madepursuant to the Care Everywhere program and may not contain all information available regarding this patient. 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
--- OUTSIDE RECORDS SUMMARY | 2024-11-13 08:22 | XMS_ITS | Encounter Summary ---
Author Organization [facility] [employer] [facility] Address [address] [place] [address] Phone Care Team Providers Care Head Of Stock Name Role Phone Jorge Bosch DO Primary Care Provider [phone] Loyd Tucker MD Unavailable Aft, Isabel Chilel MD PhD Unavailable [phone] Danette Schuster TRANSFORMER INSPECTOR Unavailable [phone] Esthela Saldana PhD Unavailable [phone] Allie Curiel MD Unavailable [phone] Jorge Bosch DO Primary Care Provider [phone] Maico Elaine WINTERIZER Unavailable [phone] Maico Elaine NP Primary Care Provider [phone] Jorge Bosch DO Primary Care Provider [phone] Encounter Details Date Type Department Care Team [...] AM CDT Legal 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 Gender Identity Female 12/20/2020 11:06 AM CDT [...] on filedocumented in this encounter Care Teams Head Of Stock Relationship Specialty Start Date End Date Jorge Bosch DO PCP - General 07/05/17 11/23/21 Jorge Bosch DO [address] [place] [address] PCP - General Internal Medicine 11/24/21 01/28/23 Maico Elaine WINTERIZER [address] [place] [address] PCP - General Nurse Practitioner 01/29/23 12/26/23 Jorge Bosch DO [address] [place] [address] PCP - General Internal Medicine 12/27/23 Loyd Tucker MD [address] [facility] [address] [place] [address] Radiation Oncologist Radiation Oncology 11/01/17 AftIsabel MD PhD [address] [place] [address] Referring Physician Surgical Oncology 11/01/17 Danette Schuster TRANSFORMER INSPECTOR [address] [place] [address] Nurse Practitioner Certified Clinical Nurse Specialist 11/01/17 11/23/22 Esthela Saldana, PhD [address] [place] [address] Nurse Practitioner Radiation Oncology 11/01/17 Allie Curiel MD [address] [place] [address] Referring Physician Medical Oncology 06/06/18 Maico Elaine, WINTERIZER [address] [place] [address] Nurse Practitioner Nurse Practitioner 01/29/23 documented as of this encounter
--- OUTSIDE RECORDS SUMMARY | 2024-11-13 08:22 | XMS_ITS | Encounter Summary ---
Author Organization [employer] Address [address] [place] [address] Care Team Providers Care Front Desk Team Member Name Role Phone Unavailable Primary Care Provider Unavailabl e Encounter Details Date Type Department Care Team (Late st Contact Info) Description 08/16/2001 Outpatient Historical [facility]iology[facility]) [address] [place] [address] William Barriga MD [address] [place] [address] Social History Tobacco Use Types Packs/Day Years Used Date Smoking Tobacco: Never Assessed Comments Unknown Sex and Gender Information Value Date Recorded Sex Assigned at Not on file Legal Sex Female 3:44 AM TELEPHONER Gender Identity Not on file Sexual Orientation Not on file documented as of this encounter Plan of Treatment Not on file documented as of this encounter Visit Diagnoses Not on filedocumented in this encounter
--- OUTSIDE RECORDS SUMMARY | 2024-11-13 08:22 | XMS_ITS | Encounter Summary ---
Author Organization [employer] Address [address] [place] [address] Care Team Providers Care Kiln Furniture Saw Tender Name Role Phone Unavailable Primary Care Provider Unavailabl e Encounter Details Date Type Department Care Team (Late st Contact Info) Description 08/17/2001 Outpatient Historical Division of Neurology 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
--- OUTSIDE RECORDS SUMMARY | 2024-11-13 08:22 | XMS_ITS | Encounter Summary ---
Author Organization [employer] Address 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
--- OUTSIDE RECORDS SUMMARY | 2024-11-13 08:22 | XMS_ITS | Clinical Summary ---
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
--- OUTSIDE RECORDS SUMMARY | 2024-11-13 08:23 | XMS_ITS ---
Author Organization [facility] Address [address] [place] [address] Care Team Providers Care Forestry Aid Technician Name Role Phone Loyd Tucker MD Unavailable Aft, Isabel Chilel MD PhD Unavailable [phone] Esthela Saldana PhD Unavailable [phone] Allie Curiel MD Unavailable [phone] Maico Elaine BROKERAGE OFFICE MANAGER Unavailable [phone] Jorge Bosch DO Primary Care Provider [phone] Active Problems Problem Noted Date Diagnosed Date [...] L foot drop as well with walking LEACHER. Able to ambulate, no bowel/bladder incontinence, no trauma/falls precipitating. Has been dealing with LBP and hip pain OP previously. Was given methylprednisolone dose pack, [place] from [facility] 09/25 without significant improvement MRI [...] L foot drop as well with walking LEACHER. Able to ambulate, no bowel/bladder incontinence, no trauma/falls precipitating. Has been dealing with LBP and hip pain OP previously. Was given methylprednisolone dose pack, [place] from [facility] 09/25 without significant improvement MRI [...] OP previously. Was given methylprednisolone dose pack, [place] from [facility] 09/25 without significant improvement MRI [...] OP previously. Was given methylprednisolone dose pack, [place] from [facility] 09/25 without significant improvement MRI [...] OP previously. Was given methylprednisolone dose pack, [place] from [facility] 09/25 without significant improvement MRI [...] OP previously. Was given methylprednisolone dose pack, [place] from [facility] 09/25 without significant improvement MRI [...] OP previously. Was given methylprednisolone dose pack, [place] from [facility] 09/25 without significant improvement MRI [...] OP previously. Was given methylprednisolone dose pack, [place] from [facility] 09/25 without significant improvement MRI [...] OP previously. Was given methylprednisolone dose pack, [place] from [facility] 09/25 without significant improvement MRI [...] OP previously. Was given methylprednisolone dose pack, [place] from [facility] 09/25 without significant improvement MRI [...] OP previously. Was given methylprednisolone dose pack, [place] from [facility] 09/25 without significant improvement MRI [...] L foot drop as well with walking LEACHER. Able to ambulate, no bowel/bladder incontinence, no trauma/falls precipitating. Has been dealing with LBP and hip pain OP previously. Was given methylprednisolone dose pack, [place] from [facility] 09/25 without significant improvement MRI [...] L foot drop as well with walking LEACHER. Able to ambulate, no bowel/bladder incontinence, no trauma/falls precipitating. Has been dealing with LBP and hip pain OP previously. Was given methylprednisolone dose pack, [place] from [facility] 09/25 without significant improvement MRI [...] OP previously. Was given methylprednisolone dose pack, [place] from [facility] 09/25 without significant improvement MRI [...] OP previously. Was given methylprednisolone dose pack, [place] from [facility] 09/25 without significant improvement MRI [...] OP previously. Was given methylprednisolone dose pack, [place] from [facility] 09/25 without significant improvement MRI [...] OP previously. Was given methylprednisolone dose pack, [place] from [facility] 09/25 without significant improvement MRI [...] OP previously. Was given methylprednisolone dose pack, [place] from [facility] 09/25 without significant improvement MRI [...] OP previously. Was given methylprednisolone dose pack, [place] from [facility] 09/25 without significant improvement MRI [...] OP previously. Was given methylprednisolone dose pack, [place] from [facility] 09/25 without significant improvement MRI [...] OP previously. Was given methylprednisolone dose pack, [place] from [facility] 09/25 without significant improvement MRI [...] OP previously. Was given methylprednisolone dose pack, [place] from [facility] 09/25 without significant improvement MRI [...] L foot drop as well with walking LEACHER. Able to ambulate, no bowel/bladder incontinence, no trauma/falls precipitating. Has been dealing with LBP and hip pain OP previously. Was given methylprednisolone dose pack, [place] from [facility] 09/25 without significant improvement MRI [...] L foot drop as well with walking LEACHER. Able to ambulate, no bowel/bladder incontinence, no trauma/falls precipitating. Has been dealing with LBP and hip pain OP previously. Was given methylprednisolone dose pack, [place] from [facility] 09/25 without significant improvement MRI [...] OP previously. Was given methylprednisolone dose pack, [place] from [facility] 09/25 without significant improvement MRI [...] OP previously. Was given methylprednisolone dose pack, [place] from [facility] 09/25 without significant improvement MRI [...] OP previously. Was given methylprednisolone dose pack, [place] from [facility] 09/25 without significant improvement MRI [...] OP previously. Was given methylprednisolone dose pack, [place] from [facility] 09/25 without significant improvement MRI [...] OP previously. Was given methylprednisolone dose pack, [place] from [facility] 09/25 without significant improvement MRI [...] OP previously. Was given methylprednisolone dose pack, [place] from [facility] 09/25 without significant improvement MRI [...] OP previously. Was given methylprednisolone dose pack, [place] from [facility] 7 without significant improvement MRI [...] OP previously. Was given methylprednisolone dose pack, [place] from [facility] 09/25 without significant improvement MRI [...] OP previously. Was given methylprednisolone dose pack, [place] from [facility] 09/25 without significant improvement MRI [...]
--- OUTSIDE RECORDS SUMMARY | 2024-11-13 08:23 | XMS_ITS | Clinical Summary ---
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 Able to ambulate, no bowel/bladder incontinence, no trauma/falls precipitating. Has been dealing with LBP and hip pain OP previously. 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 Able to ambulate, no bowel/bladder incontinence, no trauma/falls precipitating. Has been dealing with LBP and hip pain OP previously. Was given methylprednisolone dose pack, [place] from [facility] 09/25 without significant improvement MRI [...] OP previously. Was given methylprednisolone dose pack, [place] from [facility] 09/25 without significant improvement MRI [...] OP previously. Was given methylprednisolone dose pack, [place] from [facility] 09/25 without significant improvement MRI [...] OP previously. Was given methylprednisolone dose pack, [place] from [facility] 09/25 without significant improvement MRI [...] OP previously. Was given methylprednisolone dose pack, [place] from [facility] 09/25 without significant improvement MRI [...] OP previously. Was given methylprednisolone dose pack, [place] from [facility] 09/25 without significant improvement MRI [...] OP previously. Was given methylprednisolone dose pack, [place] from [facility] 09/25 without significant improvement MRI [...] OP previously. Was given methylprednisolone dose pack, [place] from [facility] 7 without significant improvement MRI [...] OP previously. Was given methylprednisolone dose pack, [place] from [facility] 717 without significant improvement MRI [...] OP previously. 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 Able to ambulate, no bowel/bladder incontinence, no trauma/falls precipitating. Has been dealing with LBP and hip pain OP previously. 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 Able to ambulate, no bowel/bladder incontinence, no trauma/falls precipitating. Has been dealing with LBP and hip pain OP previously. Was given methylprednisolone dose pack, [place] from [facility] 09/25 without significant improvement MRI [...] OP previously. Was given methylprednisolone dose pack, [place] from [facility] 09/25 without significant improvement MRI [...] OP previously. Was given methylprednisolone dose pack, [place] from [facility] 09/25 without significant improvement MRI [...] OP previously. Was given methylprednisolone dose pack, [place] from [facility] 09/25 without significant improvement MRI [...] OP previously. Was given methylprednisolone dose pack, [place] from [facility] 09/25 without significant improvement MRI [...] OP previously. Was given methylprednisolone dose pack, [place] from [facility] 09/25 without significant improvement MRI [...] OP previously. Was given methylprednisolone dose pack, [place] from [facility] 09/25 without significant improvement MRI [...] OP previously. Was given methylprednisolone dose pack, [place] from [facility] 09/25 without significant improvement MRI [...] OP previously. Was given methylprednisolone dose pack, [place] from [facility] 09/25 without significant improvement MRI [...] OP previously. 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 Able to ambulate, no bowel/bladder incontinence, no trauma/falls precipitating. Has been dealing with LBP and hip pain OP previously. 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 Able to ambulate, no bowel/bladder incontinence, no trauma/falls precipitating. Has been dealing with LBP and hip pain OP previously. Was given methylprednisolone dose pack, [place] from [facility] 09/25 without significant improvement MRI [...] OP previously. Was given methylprednisolone dose pack, [place] from [facility] 09/25 without significant improvement MRI [...] OP previously. Was given methylprednisolone dose pack, [place] from [facility] 09/25 without significant improvement MRI [...] OP previously. Was given methylprednisolone dose pack, [place] from [facility] 09/25 without significant improvement MRI [...] OP previously. Was given methylprednisolone dose pack, [place] from [facility] 09/25 without significant improvement MRI [...] OP previously. Was given methylprednisolone dose pack, [place] from [facility] 09/25 without significant improvement MRI [...] OP previously. Was given methylprednisolone dose pack, [place] from [facility] 09/25 without significant improvement MRI [...] OP previously. Was given methylprednisolone dose pack, [place] from [facility] 09/25 without significant improvement MRI [...] OP previously. Was given methylprednisolone dose pack, [place] from [facility] 09/25 without significant improvement MRI [...] OP previously. Was given methylprednisolone dose pack, [place] from [facility] 09/25 without significant improvement MRI [...] 11/06/2024 Documentation [facility] [address] [facility] 4th Floor [address] [place] [address] Wily Juárez MD 10/31/2024 2:00 PM CDT Office Visit [facility] with [facility] Physicians [address] [place] [address] Wily Juárez MD Lumbar radiculopathy (Primary Dx) 10/20/2024 ACO Outreach [facility] Accountable Care Organization [address] [place] [address] 10/17/2024 Telephone [facility] Medical Group Post Acute Care [address] [place] [id number] Abigail Verdugo MA 10/14/2024 NH/SNF Visit [facility] Medical Group Post Acute Care [facility] [address] [place] [address] Marisa Brady PA Neural foraminal stenosis of lumbar spine (Primary Dx); Slow transit constipation; Essential hypertension; Arthralgia, unspecified joint; Peripheral vascular disease; Gastroesophageal reflux disease without esophagitis 10/13/2024 Orders Only [facility] Medical [facility] [address] [place] [address] Bin Roe MD 10/10/2024 NH/SNF Visit [facility] Medical [facility] Post Acute Care [address] [address] Marisa Brady PA Gastroesophageal reflux disease without esophagitis (Primary Dx); Neural foraminal stenosis of lumbar spine; Essential hypertension; Peripheral vascular disease 10/09/2024 NH/SNF Visit [facility] Medical [facility] Post [address] [address] Bin Roe MD Central stenosis of spinal canal (Primary Dx); Subclavian steal syndrome; Peripheral vascular disease; Essential hypertension 10/08/2024 Orders Only [facility] Medical [facility] Post Acute Care [address] [address] Bin Roe MD Arthralgia, unspecified joint (Primary Dx) 10/02/2024 Orders Only [facility] [address] [facility] [facility] Advanced [facility] [address] [place] [address] Remigio De Oliveira MD Lumbar radiculopathy (Primary Dx) 09/29/2024 11:45 AM CDT Ancillary Procedure [facility] Vascular Lab IP [address] [facility] [address] [place] [address] 09/28/2024 3:13 PM CDT - 10/08/2024 1:23 PM CDT Hospital Encounter [address] [address] Bin David MD Liu, Sonya Yannie, MD [...] AM CDT Legal Sex Female 6:34 AM CLERICAL ASSIGNER Gender Identity Female 12/20/2020 11:06 AM CDT [...] Read Routine (OP Routine) 02/15/2024 8:07 AM CLERICAL ASSIGNER Screening mammogram, encounter for DEXA SCAN Routine [...] Current interpretive data was last reviewed 2021. [facility], [address] [place] [address], [place]., [address] Blood 10/13/2024 6:30 AM CDT 10/13/2024 7:02 AM CDT us Bin Roe MD LAB BLOOD ORDERABLES Final R esult [facility] [address] [place] [address] * (ABNORMAL) CBC without differential (10/13/2024 6:30 AM CDT) WBC 6.81 3.80 - 9.90 K/cumm [facility] Comment:[address], [address] Hgb 12.3 11.9 - 15.5 g/dL [facility] Comment:[address], [address] Hct 37.4 35.6 - 45.5 % [facility] Comment:[address], [address] Plt 260 150 - 400 K/cumm [facility] Comment:[address], [address] MPV 8.7(L) 9.1 - 12.3 fL [facility] Comment:[address], [address] RBC 4.08 3.90 - 5.20 M/cumm [facility] Comment:[address], [address] MCV 91.7 81.3 - 96.4 fL [facility] Comment:[address], [address] MCH 30.1 27.1 - 33.3 pg [facility] Comment:[address], [address] MCHC 32.9 32.3 - 35.7 g/dL [facility] Comment:[address], [address] RDW CV 12.9 11.1 - 14.9 % [facility] Comment:[address], [address] RDW SD 43.0 35.7 - 48.1 fL [facility] Comment:[address], [address] NRBC abs 0.00 0.00 - 0.01 K/cumm [facility] Comment:[address], [address] Blood 10/13/2024 6:30 AM CDT 10/13/2024 7:02 AM CDT us Bin Roe MD LAB BLOOD ORDERABLES Final R esult [facility] [address] Department [place] [address] * (ABNORMAL) Comprehensive metabolic panel (10/13/2024 6:30 AM CDT) Sodium 140 135 - 145 mmol/L [facility] Comment:[address] [address] Potassium, pl 4.3 3.3 - 4.9 mmol/L [facility] Comment: Hemolyzed; Potassium value may be falsely elevated by as much as 1.0 mmol/L. Suggest redraw and reanalysis. [address] [address] Chloride 108 97 - 110 mmol/L [facility] Comment:[address] [address] CO2 20(L) 22 - 32 mmol/L [facility] Comment:[address] [address] Anion gap 12 2 - 15 mmol/L [facility] Comment:[address] [address] BUN 9 6 - 25 mg/dL [facility] Comment:[address] [address] Creatinine 0.68 0.60 - 1.10 mg/dL [facility] Comment:[address] [address] Glucose 96 70 - 199 mg/dL [facility] [...] Current interpretive data was last revised 2022. [facility], [address] [place] [address]., [address] Calcium 8.2(L) 8.5 - 10.3 mg/dL [facility] Comment:[address] [address] Bilirubin, total 0.3 0.1 - 1.2 mg/dL [facility] Comment:[address] [address] Protein, pl 5.9(L) 6.5 - 8.5 g/dL [facility] Comment:[address] [address] Albumin 3.4(L) 3.5 - 5.0 g/dL [facility] Comment:[address] [address] Alk phos 176(H) 40 - 130 Units/L [facility] Comment:[address] [address] ALT 51(H) 7 - 45 Units/L [facility] Comment:[address] [address] AST 29 10 - 45 Units/L [facility] Comment:[address] [address] Blood 10/13/2024 6:30 AM CDT 10/13/2024 7:02 AM CDT us Bin Roe MD LAB BLOOD ORDERABLES Final R esult [facility] [address] [facility] Department [place] [address] * eGFR (10/05/2024 9:44 PM CDT) eGFR [...] Maldonado MD LAB BLOOD ORDERABLES Final Result [facility] [place] [address] * (ABNORMAL) CBC without differential (10/05/2024 9:44 PM CDT) WBC 8.75 3.80 - 9.90 K/cumm Hgb 13.6 11.9 - 15.5 g/dL [facility] Hct 39.5 35.6 - 45.5 % [facility] Plt 304 150 - 400 K/cumm [facility] MPV 8.7(L) 9.1 - 12.3 fL [facility] RBC 4.50 3.90 - 5.20 M/cumm [facility] MCV 87.8 81.3 - 96.4 fL [facility] MCH 30.2 27.1 - 33.3 pg [facility] MCHC 34.4 32.3 - 35.7 g/dL [facility] RDW CV 13.2 11.1 - 14.9 % [facility] RDW SD 42.7 35.7 - 48.1 fL [facility] NRBC abs 0.00 0.00 - 0.01 K/cumm [facility] Blood 10/05/2024 9:44 PM CDT 10/05/2024 10:21 PM CDT Dinesh Maldonado MD LAB BLOOD ORDERABLES Final Result [facility] Department [place] [address] * Basic metabolic panel (10/05/2024 9:44 PM CDT) Sodium 136 135 - 145 mmol/L Potassium, pl 4.8 3.3 - 4.9 mmol/L [facility] Chloride 100 97 - 110 mmol/L [facility] CO2 25 22 - 32 mmol/L [facility] Anion gap 11 2 - 15 mmol/L [facility] BUN 15 6 - 25 mg/dL [facility] Creatinine 0.85 0.60 - 1.10 mg/dL [facility] Glucose 114 70 - 199 mg/dL [facility] Comment: Interpretive Data Fasting glucose >/= [...] 2022. Calcium 9.7 8.5 - 10.3 mg/dL [facility] Blood 10/05/2024 9:44 PM CDT 10/05/2024 10:21 PM CDT us Dinesh Maldonado MD LAB BLOOD ORDERABLES Final Result [facility] Department [place] [address] * CT Lumbar Spine WO Contrast (10/02/2024 [...] it. Electronically signed by: Aj Murillo M.D. Wily Juárez MD IMG CT PROCEDURES Final Re sult * Imaging Lumbar/Sacral Selective Nerve Root INJ (TFE) Left ([address]) (10/02/2024 12:57 PM CDT) Narrative [facility] - [...] BLOOD ORDERABLES Final Result [facility] Department [place] [address] * (ABNORMAL) CBC without differential (10/01/2024 10:33 PM CDT) [facility] WBC 10.71(H) 3.80 - 9.90 K/cumm Hgb 13.0 11.9 - 15.5 g/dL [facility] Hct 38.4 35.6 - 45.5 % [facility] Plt 288 150 - 400 K/cumm [facility] MPV 8.7(L) 9.1 - 12.3 fL [facility] RBC 4.31 3.90 - 5.20 M/cumm [facility] MCV 89.1 81.3 - 96.4 fL [facility] MCH 30.2 27.1 - 33.3 pg [facility] MCHC 33.9 32.3 - 35.7 g/dL [facility] RDW CV 13.2 11.1 - 14.9 % [facility] RDW SD 43.2 35.7 - 48.1 fL [facility] NRBC abs 0.00 0.00 - 0.01 K/cumm [facility] Blood 10/01/2024 10:3 3 PM CDT 10/01/2024 11:34 PM CDT us Dinesh Maldonado MD LAB BLOOD ORDERABLES Final Result [facility] One [facility] Department [place] [address] * Basic metabolic panel (10/01/2024 10:33 PM CDT) [facility] Sodium 141 135 - 145 mmol/L Potassium, pl 4.4 3.3 - 4.9 mmol/L [facility] Chloride 107 97 - 110 mmol/L [facility] CO2 26 22 - 32 mmol/L [facility] Anion gap 8 2 - 15 mmol/L [facility] BUN 18 6 - 25 mg/dL [facility] Creatinine 0.94 0.60 - 1.10 mg/dL [facility] Glucose 152 70 - 199 mg/dL [facility] Comment: Interpretive Data Fasting glucose >/= [...] Calcium 8.8 8.5 - 10.3 mg/dL [facility] Blood 10/01/2024 10:3 3 PM CDT 10/01/2024 11:36 PM CDT Dinesh Maldonado MD LAB BLOOD ORDERABLES Final Result [facility] One [facility] Department [place] [address] * eGFR (09/30/2024 5:08 AM CDT) eGFR [...] MD LAB BLOOD ORDERABLES Mariana trevino Result [facility] One [facility] [place] [address] * Differential, auto (09/30/2024 5:08 AM CDT) Neutrophil abs 4.87 1.50 - 6.50 K/cumm Imm gran abs 0.03 0.00 - 0.10 K/cumm [facility] Lymphocyte abs 2.29 0.80 - 3.30 K/cumm [facility] Monocyte abs 0.71 0.20 - 0.80 [facility] Eosinophil abs 0.09 0.00 - 0.50 K/cumm [facility] Basophil abs 0.05 0.00 - 0.10 K/cumm [facility] Neutrophil pct 60.6 % [facility] Comment: Interpretive Data Percent cell count reference ranges are not reported, since discordance with absolute values may lead to misinterpretation of CBC data. Current Interpretive Data was last revised on 2017. Imm gran pct 0.4 % [facility] Comment: Interpretive Data Percent cell count reference ranges are not reported, since discordance with absolute values may lead to misinterpretation of CBC data. Current Interpretive Data was last revised on 2017. Lymphocyte pct 28.5 % [facility] Comment: Interpretive Data Percent cell count reference ranges are not reported, since discordance with absolute values may lead to misinterpretation of CBC data. Current Interpretive Data was last revised on 2017. Monocyte pct 8.8 % [facility] Comment: Interpretive Data Percent cell count reference ranges are not reported, since discordance with absolute values may lead to misinterpretation of CBC data. Current Interpretive Data was last revised on 2017. Eosinophil pct 1.1 % [facility] Comment: Interpretive Data Percent cell count reference ranges are not reported, since discordance with absolute values may lead to misinterpretation of CBC data. Current Interpretive Data was last revised on 2017. Basophil pct 0.6 % [facility] Comment: Interpretive Data Percent cell count reference ranges are not reported, since discordance with absolute values may lead to misinterpretation of CBC data. Current Interpretive Data was last revised on 2017. Blood 09/30/2024 5:08 AM CDT 09/30/2024 5:35 AM CDT Herlinda Bonner MD LAB BLOOD ORDERABLES Mariana l Result Performing Organization Address City/[facility]/ZIP Co de Phone Number [facility] [place] [address] * CBC with auto differential (09/30/2024 5:08 AM CDT) WBC 8.04 3.80 - 9.90 K/cumm Hgb 13.1 11.9 - 15.5 g/dL [facility] Hct 39.4 35.6 - 45.5 % [facility] Plt 282 150 - 400 K/cumm [facility] MPV 9.2 9.1 - 12.3 fL [facility] RBC 4.44 3.90 - 5.20 M/cumm [facility] MCV 88.7 81.3 - 96.4 fL [facility] MCH 29.5 27.1 - 33.3 pg [facility] MCHC 33.2 32.3 - 35.7 g/dL [facility] RDW CV 13.1 11.1 - 14.9 % [facility] RDW SD 42.3 35.7 - 48.1 fL [facility] NRBC abs 0.00 0.00 - 0.01 K/cumm [facility] Blood 09/30/2024 5:08 AM CDT 09/30/2024 5:35 AM CDT us Herlinda Bonner MD LAB BLOOD ORDERABLES Mariana l Result Performing Organization Address [facility]/ZIP Co de Phone Number [facility] Department [place] [address] * Basic metabolic panel (09/30/2024 5:08 AM CDT) [facility] Sodium 139 135 - 145 mmol/L Potassium, pl 4.3 3.3 - 4.9 mmol/L [facility] Chloride 106 97 - 110 mmol/L [facility] CO2 28 22 - 32 mmol/L [facility] Anion gap 5 2 - 15 mmol/L [facility] BUN 17 6 - 25 mg/dL [facility] Creatinine 0.89 0.60 - 1.10 mg/dL [facility] Glucose 96 70 - 199 mg/dL [facility] Comment: Interpretive Data Fasting glucose >/= [...] 2022. Calcium 8.8 8.5 - 10.3 mg/dL [facility] Blood 09/30/2024 5:08 AM CDT 09/30/2024 5:34 AM CDT us Herlinda Bonner MD LAB BLOOD ORDERABLES Mariana l Result [facility] [place] [address] * XR Spine Lumbar Ap Lat Flex [...] Straw Yellow Clarity, ur Clear Clear [facility] Specific gravity, ur 1.009 1.003 - 1.030 [facility] pH, urine 7.0 [facility] Comment: Interpretive Data U rine pH is affected by diet, medications, systemic acid-base disturbances, and renal tubular function. pH may affect urinary stone formation. For example, urine pH below 6.0 may help reduce the tendency for calcium phosphate stones and pH greater than 6.0 may reduce the tendency for uric acid stone formation. Source: [id number] Current Interpretive Data was last revised on 2017 Protein, ur ql Negative Negative [facility] Glucose, ur ql Negative Negative [facility] Ketones, ur Negative Negative [facility] Bilirubin, ur Negative Negative [facility] Blood, ur Negative Negative [facility] Urobilinogen, ur <2.0 <2.0 mg/dL [facility] Nitrite, ur Negative Negative [facility] Leukocyte esterase, ur 2+(A) Negative [facility] UA reflex comment Reflex to microscopic UA will be performed. [facility] Urine 09/29/2024 5:19 PM CDT 09/29/2024 5:42 PM CDT Herlinda Bonner MD LAB MICROBIOLOGY - GENERA L ORDERABLES Final Result Performing Organization Address [facility] de Phone Number [facility] [place] [address] * (ABNORMAL) Urinalysis, microscopic only (09/29/2024 5:19 PM CDT) WBC, ur 0-5 0 - 5 /HPF RBC, ur 0-2 0 - 2 /HPF [facility] Epithelial cells, squamous, ur 1-5 0 - 5 /HPF [facility] Mucous, ur Present(A) [facility] Culture Reflex Comment Reflex conditions for urine culture (WBC >10) not met. [facility] Urine 09/29/2024 5:19 PM CDT 09/29/2024 5:42 PM CDT Herlinda Bonner MD LAB URINE ORDERABLES Mariana l Result Performing Organization Address [facility] de Phone Number [facility] [place] [address] * XR Chest 1 View (09/29/2024 1:28 [...] PM CDT Narrative 09/29/2024 6:46 PM CDT [facility] - Department of Vascular Surgery, Vascular Laboratory [address] [place] [address] Lower Extremity Venous Ultrasound Report Patient Name: TIFFANY PALACIO : 1950 (73y 9m) Study Date: 09/29/2024 12:25:09 PM Gender: F Tech: Location: [id number] Ref Provider: HERLINDA BONNER Quality: Adequate Order [...] INDICATIONS: Pain in left leg. FINDINGS: Performing Battery Checker: Carissa Riojas RVT. Bilateral: Venous Doppler signals [...] Procedure Note Reji Mancuso MD - 09/29/2024 [facility] - Department of Vascular Surgery,Vascular Laboratory [address] [place] [address] Lower Extremity Venous Ultrasound Report Patient Name: TIFFANY PALACIO : 1950 (73y 9m) Study Date: 09/29/2024 12:25:09 PM Gender: F Tech: Location: [id number] Ref Provider: HERLINDA BONNER Quality: Adequate Order Provider: HERLINDA BONNER PROCEDURES: Vascular Report: Venous Duplex imaging was performed bilaterally in the lower extremities.The common femoral, femoral, popliteal, posterior tibial, peroneal veins wereevaluated for patency, spontaneity and phasicity with Doppler, compression and augmentationmaneuvers. Great saphenous vein proximal at the junction was evaluated with compressionmaneuvers. INDICATIONS: Pain in left leg. FINDINGS: Performing Battery Checker: Carissa Riojas RVT. Bilateral: Venous Doppler signals [...] ORDERABLES Mariana l Result Performing Organization Address [facility] de Phone Number [facility] One [facility] [place] [address] * Protime-INR (09/29/2024 12:19 PM CDT) PT 10.7 9.7 - 13.0 sec INR 0.99 0.90 - 1.20 [facility] Comment: Interpretive data Oral anticoagulant therapeutic [...] ORDERABLES Mariana l Result Performing Organization Address City/[facility]/ZIP Co de Phone Number [facility] [place] [address] * Type and screen (09/29/2024 12:19 PM CDT) Pathologist [facility] Suzi, indirect Negative ABO Rh AB Positive [facility] Blood 09/29/2024 12:1 9 PM CDT 09/29/2024 1:38 PM CDT Narrative [facility] - 09/29/2024 2:38 PM CDT Has the patient had Daratumumab or Isatuximab in the past 6 months?->Unknown us Herlinda Bonner MD LAB BLOOD BANK TEST ORDER KARI Final Result Performing Organization Address [facility] Co de Phone Number [facility] Department [place] [address] * ECG 12 lead (09/29/2024 12:09 PM CDT) [facility] Ventricular Rate EKG/Min 57 BPM [facility] Atrial Rate 57 BPM [facility] MN-Interval (MSEC) 186 ms [facility] QRS-Interval (MSEC) 78 ms [facility] QT-Interval (MSEC) 414 ms [facility] QTc 402 ms [facility] P [place] 31 degrees [facility] R [place] -1 degrees [facility] T [place] 29 degrees [facility] Diagnosis Sinus bradycardia Low voltage QRS 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 * MRI Lumbar Spine WO Contrast (09/28/2024 [...] LAB BLOOD ORDERABLES Fin al Result [facility] Department [place] [address] * (ABNORMAL) Differential, auto (09/28/2024 3:54 PM CDT) Neutrophil abs 9.47(H) 1.50 - 6.50 K/cumm Imm gran abs 0.06 0.00 - 0.10 K/cumm [facility] Lymphocyte abs 0.87 0.80 - 3.30 K/cumm [facility] Monocyte abs 0.59 0.20 - 0.80 K/cumm [facility] Eosinophil abs 0.00 0.00 - 0.50 K/cumm [facility] Basophil abs 0.03 0.00 - 0.10 K/cumm [facility] Neutrophil pct 85.9 % [facility] Comment: Interpretive Data Percent cell count reference ranges are not reported, since discordance with absolute values may lead to misinterpretation of CBC data. Current Interpretive Data was last revised on 2017. Imm gran pct 0.5 % [facility] Comment: Interpretive Data Percent cell count reference ranges are not reported, since discordance with absolute values may lead to misinterpretation of CBC data. Current Interpretive Data was last revised on 2017. Lymphocyte pct 7.9 % [facility] Comment: Interpretive Data Percent cell count reference ranges are not reported, since discordance with absolute values may lead to misinterpretation of CBC data. Current Interpretive Data was last revised on 2017. Monocyte pct 5.4 % [facility] Comment: Interpretive Data Percent cell count reference ranges are not reported, since discordance with absolute values may lead to misinterpretation of CBC data. Current Interpretive Data was last revised on 2017. Eosinophil pct 0.0 % [facility] Comment: Interpretive Data Percent cell count reference ranges are not reported, since discordance with absolute values may lead to misinterpretation of CBC data. Current Interpretive Data was last revised on 2017. Basophil pct 0.3 % [facility] Comment: Interpretive Data Percent cell count reference ranges are not reported, since discordance with absolute values may lead to misinterpretation of CBC data. Current Interpretive Data was last revised on 2017. Blood 09/28/2024 3:54 PM CDT 09/28/2024 4:41 PM CDT us Bin David MD LAB BLOOD ORDERABLES Fin al Result [facility] Department [place] [address] * (ABNORMAL) CBC with auto differential (09/28/2024 3:54 PM CDT) [facility] WBC 11.02(H) 3.80 - 9.90 K/cumm Hgb 13.7 11.9 - 15.5 g/dL [facility] Hct 40.0 35.6 - 45.5 % [facility] Plt 300 150 - 400 K/cumm [facility] MPV 9.0(L) 9.1 - 12.3 fL [facility] RBC 4.55 3.90 - 5.20 M/cumm [facility] MCV 87.9 81.3 - 96.4 fL [facility] MCH 30.1 27.1 - 33.3 pg [facility] MCHC 34.3 32.3 - 35.7 g/dL [facility] RDW CV 13.0 11.1 - 14.9 % [facility] RDW SD 41.8 35.7 - 48.1 fL [facility] NRBC abs 0.00 0.00 - 0.01 K/cumm [facility] Blood 09/28/2024 3:54 PM CDT 09/28/2024 4:41 PM CDT Bin David MD LAB BLOOD ORDERABLES Fin al Result [facility] Department [place] [address] * Basic metabolic panel (09/28/2024 3:54 PM CDT) [facility] Sodium 140 135 - 145 mmol/L Potassium, pl 4.2 3.3 - 4.9 mmol/L [facility] Chloride 105 97 - 110 mmol/L [facility] CO2 24 22 - 32 mmol/L [facility] Anion gap 11 2 - 15 mmol/L [facility] BUN 18 6 - 25 mg/dL [facility] Creatinine 0.75 0.60 - 1.10 mg/dL [facility] Glucose 100 70 - 199 mg/dL [facility] Comment: Interpretive Data Fasting glucose >/= [...] 2022. Calcium 9.8 8.5 - 10.3 mg/dL [facility] Blood 09/28/2024 3:54 PM CDT 09/28/2024 4:41 PM CDT us Bin David MD LAB BLOOD ORDERABLES Fin al Result Performing Organization Address City/State/[facility] Co de Phone Number [facility] Department [place] [address] * Screening Mammogram Bilateral w Salazar w Implants (02/15/2024 8:07 AM CLERICAL ASSIGNER) Anatomical Region Laterality Modality Breast Bilateral Mammography Narrative 02/18/2024 2:22 PM CLERICAL ASSIGNER Mammogram Technique: Bilateral Digital Breast Tomosynthesis, Bilateral C-view 2D Screening mammogram. Views obtained: bilateral craniocaudal and bilateral mediolateral oblique. Computer Aided Detection was performed. Mammogram Findings: The present examination has been compared to prior imaging studies performed at [facility] on 01/08/2019, 08/26/2020, 11/24/2021 and 11/24/2022. [...] compared to prior imaging studies performed at [facility] on 01/08/2019, 08/26/2020,11/24/2021 and 11/24/2022. The [...] Recently Relevant to Health Maintenance Insurance MEDICARE [facility] MEDICARE SUPPLEMENT MEDICARE [facility] INSURANCE MEDICARE [facility] MEDICARE SUPPLEMENT Advance Directives For more information, please contact: [phone] * Full Code (Latest Code Status on File) Date Activated Date Inactivated Comments 09/28/2024 9:09 PM 10/08/2024 5:32 PM * Full Code Date Activated Date Inactivated Comments 12/27/2023 2:11 AM 12/27/2023 8:08 PM Care Teams Towel Hemmer Relationship Specialty Start Date End Date Jorge Bosch DO [address] [facility] [address] [place] [id number] PCP - General Internal Medicine 12/27/23 Loyd Tucker MD [address] [facility] # LL LL [address] [place] [address] Radiation Oncologist Radiation Oncology 11/01/17 Aft, Isabel Chilel MD PhD [address] [place] [address] Referring Physician Surgical Oncology 11/01/17 Esthela Saldana, PhD [address] [place] [address] Nurse Practitioner Radiation Oncology 11/01/17 Allie Curiel MD [address] [place] [address] Referring Physician Medical Oncology 06/06/18 Maico Elaine NP [address] [place] [address] Nurse Practitioner Nurse Practitioner 01/29/23
--- OUTSIDE RECORDS SUMMARY | 2024-11-13 08:23 | XMS_ITS | Encounter Summary ---
Author Organization [facility] Address [address] [facility] [place] [address] Care Team Providers Care Co Founder And Chief Strategy Officer Name Role Phone Jorge Bosch DO Primary Care Provider [phone] Encounter Details Date Type Department Care Team (Late st Contact Info) Description 06/21/2022 Lab Requisition [facility] DermPath Lab [address] [facility] [place] [address] Jayme Mahoney MD [address] [place] [address] Social History Tobacco Use Types Packs/Day Years Used Date Smoking Tobacco: Never Assessed Comments Unknown Sex and Gender Information Value Date Recorded Sex Assigned at Not on file Legal Sex Female 6:23 PM DIRECTOR OF CARDIOPULMONARY SERVICES Gender Identity Not on file Sexual Orientation Not on file documented as of this encounter Plan of Treatment Not on file documented as of this encounter Procedures Procedure Name Priority Date/Time Associated Diagnosis Comments DERMATOPATHOLOGY Routine 06/20/2022 3:33 AM CDT documented in this encounter Results * DERMATOPATHOLOGY (06/20/2022 3:33 AM CDT) Case Report Dermatopathology Report Case: [id number] Authorizing Provider: Jayme Mahoney MD Collected: 06/20/2022 03:33 AM Ordering Location: [facility] DermPath Lab Received: 06/21/2022 01:49 PM [...] characteristic determined by the Dermatopathology Laboratory at [facility], directed by Dr. Elyse Banks. These tests need not be, and therefore are not, approved by the [place] Food and Drug Administration. The tests are used for clinical purposes. Billing Codes Specimen Charges Stain Charges 20155 1 3 2:06 PM CDT DERMATOPATHOLOGY LABORATORY Embedded Images 3 2:06 PM CDT DERMATOPATHOLOGY LABORATORY Pathology/Cytolo gy TISSUE SPECIMEN FROM SKIN / Unknown 06/20/2022 3:33 AM CDT 06/21/2022 1:49 PM CDT us Jayme Mahoney MD LAB - PATHOLOGY/CYTOLOGY ORD ERABLES Final Result DERMATOPATHOLOGY LABORATORY [facility] - Department of Dermatology [facility] Medicine [address] [place] [address], [address] [place] [address], [facility] [phone] documented in this encounter Visit Diagnoses Not on filedocumented in this encounter Care Teams Co Founder And Chief Strategy Officer Relationship Specialty Start Date End Date Jorge Bosch DO [address] [place] [address] PCP - General 06/22/21 documented as of this encounter
--- OUTSIDE RECORDS SUMMARY | 2024-11-13 08:23 | XMS_ITS | Encounter Summary ---
Author Organization [facility] Address [address] [place] [address] Care Team Providers Care Services Mgr Name Role Phone Dg Gilliam MD Primary Care Provider [phone] Jorge Bosch DO Primary Care Provider [phone] Encounter Details Date Type Department Care Team (Late st Contact Info) Description 09/19/2018 Lab Requisition [facility] Care Pathology Lab [address] [place] [address] Nafisa King MD [address] [place] [address] Gross hematuria Social History Tobacco Use Types Packs/Day Years Used Date Smoking Tobacco: Never Assessed Comments Unknown Sex and Gender Information Value Date Recorded Sex Assigned at Not on file Legal Sex Female 6:23 PM INVOICE CODER Gender Identity Not on file Sexual Orientation Not on file documented as of this encounter Plan of Treatment Not on file documented as of this encounter Procedures Procedure Name Priority Date/Time Associated Diagnosis Comments PATHOLOGY TISSUE Routine 09/17/2018 1:32 PM CDT Gross hematuria documented in this encounter Results * PATHOLOGY TISSUE (09/17/2018 1:32 PM CDT) Case Report Surgical Pathology Report Case: [id number] Authorizing Provider: Nafisa King MD Collected: 09/17/2018 [...] Gross Description Prepared slide (1) received from [facility] labeled [id number], Tiffany Palacio. All material will be returned. 09/20/2018 9:53 AM CDT [facility] Disclaimer The performance characteristics of all immunohistochemical and indirect immunofluorescence stains (if any) cited in this report were determined by the Histopathology Laboratory of [facility]. Some of these tests were developed [...] LAB Embedded Images 09/20/2018 9:53 AM CDT [facility] PATHOLOGY LAB Pathology/Cytolo gy URINE / Unknown 09/17/2018 1:32 PM CDT 09/19/2018 1:32 PM CDT us Nafisa King MD LAB - PATHOLOGY/CYTOLOGY ORDERAB LES Final Result Performing Organization Address City/State/[facility] Co de Phone Number [facility] PATH[facility] [address] [phone] documented in this encounter Visit Diagnoses Diagnosis Gross hematuria documented in this encounter Care Teams Services Mgr Relationship Specialty Start Date End Date Dg Gilliam MD [address] [facility] [address] [place] [address] PCP - General 06/04/12 06/21/21 Jorge Bosch DO [address] [place] [address] PCP - General 06/22/21 documented as of this encounter
[2024-11-13 08:29] LABS: Add Urine Microscopic? YES; Appearance Urine Cloudy (Clear); Glucose Urine UA Negative (Negative); Leukocyte Esterase Ur 2+ LEU/UL (Negative); Nitrate Urine Negative (Negative); Non Pathogenic Casts 0-2; Specific Grav Ur 1.016 (1.001-1.035)
[2024-11-13] MEDS: FAMOTIDINE 20 MG/2 ML VIAL IV PUSH (08:34)
[2024-11-13 08:35] LABS: Alanine Aminotransferase 14 U/L (6-35); Albumin Level 3.5 g/dL (3.5-5.1); Alkaline Phosphatase 73 U/L (38-126); Anion Gap 7 mmol/L (4-12); Aspartate Amino Transferase 23 U/L (14-36); Bilirubin,Total 0.7 mg/dL (0.2-1.3); Blood Urea Nitrogen 11 mg/dL (7-17); Calcium 9.2 mg/dL (8.4-10.2); Carbon Dioxide 22 mmol/L (22-30); Chloride 106 mmol/L (98-107); Estimated Glomerular Filt Rate > 60; Glucose 120 mg/dL (65-110); Potassium 4.3 mmol/L (3.4-5.0); Sodium 135 mmol/L (137-145); Total Protein 6.4 g/dL (6.3-8.2)
--- NOTE | 2024-11-13 09:27 | ED.GENADULT ---
HPI - General Adult General Chief complaint: Recheck/Abnormal Lab/Rx Stated complaint: hypotensive, hives Time Seen by Provider: 11/13/24 08:15 History of Present Illness HPI narrative: Patient is a 73-year-old female who presents emergency department chief head pressure. Patient reports that her blood pressure was in the 70s yesterday reports intermittent lightheadedness no pain been feeling weak. Patient reported yesterday she started having hives Related Data Home Medications ?Medication ?Instructions ?Recorded ?Confirmed ?Last Taken ?Type ascorbic acid (vitamin C) 500 mg 500 mg PO DAILY 12/13/22 10/16/24 Unknown History tablet multivitamin 1 tablet PO DAILY 12/13/22 10/16/24 Unknown History omega-3 fatty acids 500 mg capsule 500 mg PO DAILY 12/13/22 10/16/24 Unknown History vitamin K2 100 mcg capsule 100 mcg PO DAILY 12/13/22 10/16/24 Unknown History B-complex with vitamin C 1 tablet PO DAILY 01/02/23 10/16/24 Unknown History mecobalamin (vitamin B12) 1,000 1,000 mcg PO DAILY 01/02/23 10/16/24 Unknown History mcg lozenges coenzyme Q10 100 mg capsule 100 mg PO DAILY 05/14/24 10/16/24 Unknown History (CoQ-10) oxycodone 10 mg tablet 10 mg PO Q6H PRN 10/16/24 10/16/24 Unknown History Allergies Allergy/AdvReac Type Severity Reaction Status Date / Time cephalexin Allergy Mild Rash Verified 11/13/24 07:51 Cephalosporins Allergy Mild Rash Verified 11/13/24 07:51 clindamycin Allergy Mild Rash Verified 11/13/24 07:51 codeine Allergy Mild Rash Verified 11/13/24 07:51 duloxetine Allergy Mild Rash Verified 11/13/24 07:51 simvastatin Allergy Mild Rash Verified 11/13/24 07:51 Review of Systems Review of Systems: A 10 system review of systems was completed on the patient and is negative except for what is stated in the HPI. Nursing and ancillary documentation was reviewed. 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 Bilateral carotid artery stenosis Dyslipidemia Cancer of right breast (05/2017) status post lumpectomy, radiation, tamoxifen Peripheral arterial disease History of tobacco abuse 108 year pack history Emphysema/COPD Fibromyalgia Palpitations Surgical History Surgical History History of benign breast biopsy History of partial mastectomy of right breast (05/2017) History of colonoscopy diverticulosis, hemorrhoids, benign polyps History of total hysterectomy History of tonsillectomy Family History Family History Sibling Family history of bipolar disorder Lung cancer Bladder cancer Emphysema of lung Mother Hypertension Cerebrovascular accident Congestive heart failure Father Malignant neoplasm of prostate Acute myocardial infarction Son Cerebrovascular accident Heart disease Other Family history of mental disorder Social History Social History Social History: Surrogate medical decision maker: Andressa Ash, daughter. Code status: Full code. Smoking packs per day: 2 Smoking cigarettes per day: 40.0 Years smoked: 54 Smoking pack-years: 108.00 Smoking status: Former smoker Tobacco type: cigarettes Second hand tobacco smoke exposure: Yes Smoking end date: 01/10/21 Alcohol intake: current Substance use: never Substance use type: does not use Do You Feel Safe in your Home?: Yes Lack of Transportation: No Lack of Food: Never True Current Housing: I Have Housing Concerned About Future Housing: No Difficulty Paying Gas/Electric Bills: No Difficulty Paying for Meds: No Currently Unemployed: No Education: Associate Degree Difficulty w/ Childcare or Family Care: No Living arrangements: alone Occupation/Education: retired 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 HEAD: Normocephalic, atraumatic. EYES: PERRLA and EOMI. ENT: Nares clear, no rhinorrhea or epistaxis. Mucous membranes moist. NECK: Supple. CHEST: Clear to auscultation. No respiratory distress. HEART: Regular rate and rhythm. No murmur heard. Normal peripheral pulses. ABDOMEN: Soft, nontender, nondistended, normal active bowel sounds. EXTREMITIES: Normal range of motion. No edema. SKIN: Warm, dry, generalized urticaria. NEURO: No focal deficits. Alert and oriented x3. PSYCH: Normal mood and affect. Course Vital Signs Vital signs: Vital Signs Temperature 36.8 C 11/13/24 07:51 Pulse Rate 83 11/13/24 07:51 Respiratory Rate 15 11/13/24 07:51 Blood Pressure 113/61 11/13/24 07:51 Pulse Oximetry 98 11/13/24 07:51 Oxygen Delivery Room Air 11/13/24 07:51 Temperature 36.8 C 11/13/24 07:51 Pulse Rate 97 11/13/24 14:03 Respiratory Rate 17 11/13/24 12:30 Blood Pressure 132/60 11/13/24 14:03 Pulse Oximetry 95 11/13/24 12:30 Oxygen Delivery Room Air 11/13/24 07:51 Medical Decision Making Vital Signs Vital Signs: Vital Signs Temperature 36.8 C 11/13/24 07:51 Pulse Rate 83 11/13/24 07:51 Respiratory Rate 15 11/13/24 07:51 Blood Pressure 113/61 11/13/24 07:51 Pulse Oximetry 98 11/13/24 07:51 Oxygen Delivery Room Air 11/13/24 07:51 Temperature 36.8 C 11/13/24 07:51 Pulse Rate 97 11/13/24 14:03 Respiratory Rate 17 11/13/24 12:30 Blood Pressure 132/60 11/13/24 14:03 Pulse Oximetry 95 11/13/24 12:30 Oxygen Delivery Room Air 11/13/24 07:51 Lab Data 11/13/24 08:05 11/13/24 08:05 Labs: Lab Results 11/13/24 11/13/24 Range/Units 08:05 08:19 WBC 8.8 (4.5-10.0) K/mm3 RBC 4.67 (4.2-5.4) M/mm3 Hgb 13.8 (12.0-15.0) g/dL Hct 42.0 (37.0-47.0) % MCV 89.9 (80-100) fl MCH 29.6 (26-34) pg MCHC 32.9 (32-36) g/dl RDW 12.8 (11.5-14.5) % Plt Count 282 (150-375) k/mm3 MPV 8.3 (7.4-10.4) fl Immature Gran % (Auto) 0.3 (0-0.5) % Neut % (Auto) 81.0 H (45.5-73.1) % Lymph % (Auto) 11.7 L (18.3-44.2) % [place] % (Auto) 6.3 (2.6-8.5) % Eos % (Auto) 0.5 (0-4.4) % Baso % (Auto) 0.2 (0.2-1.2) % Lymph # (Auto) 1.03 (0.9-3.2) K/mm3 [place] # (Auto) 0.6 (0.1-0.6) K/mm3 Eos # (Auto) 0.0 (0-0.3) K/mm3 Baso # (Auto) 0.0 (0.0-0.1) K/mm3 Abs Immat Gran (auto) 0.03 (0.00-0.031) K/mm3 Absolute Neuts (auto) 7.1 H (1.3-6.7) K/mm3 Absolute Nucleated RBC 0.000 (0.0-0.012) K/mm3 Nucleated RBC % 0.0 (0.0-0.2) % Sodium 135 L (137-145) mmol/L Potassium 4.3 (3.4-5.0) mmol/L Chloride 106 (98-107) mmol/L Carbon Dioxide 22 (22-30) mmol/L Anion Gap 7 (4-12) mmol/L BUN 11 D (7-17) mg/dL Creatinine 0.74 (0.7-1.0) mg/dL Estim Creat Clear Calc Not Reportable Estimated GFR > 60 (59 - ) Glucose 120 H (65-110) mg/dL Calcium 9.2 (8.4-10.2) mg/dL Total Bilirubin 0.7 (0.2-1.3) mg/dL AST 23 (14-36) U/L ALT 14 (6-35) U/L Alkaline Phosphatase 73 (38-126) U/L Total Protein 6.4 (6.3-8.2) g/dL Albumin 3.5 (3.5-5.1) g/dL Urine Color Dark yellow (Yellow) Urine Appearance Cloudy H (Clear) Urine pH 5.5 (5.0-9.0) Ur Specific Icard 1.016 (1.001-1.035) Urine Protein Negative (Negative) mg/dL Urine Glucose (UA) Negative (Negative) mg/dL Urine Ketones Trace H (Negative) mg/dL Ur Blood (Man) Negative (Negative) Urine Nitrate Negative (Negative) Urine Bilirubin Negative (Negative) Urine Urobilinogen 1.0 (<2.0) mg/dL Leukocyte Esterase Rfl 2+ H (Negative) ANURADHA/UL Urine RBC 3-5 H (0-2) /hpf Urine WBC 6-10 H (0-3) /hpf Ur Squamous Epith Cells Few (Few) /hpf Urine Bacteria None seen /hpf Urine Casts 0-2 Discharge Plan Discharge Clinical Impression: Orthostatic hypotension, Urticaria Patient Disposition: Home Condition: Stable Instructions: Antibiotic Form, Urticaria (ED) Patient Language: [place] Citizen Prescriptions: New prednisone 20 mg tablet 40 mg PO DAILY 5 Days Qty: 10 0RF No Action multivitamin Tablet 1 tablet PO DAILY omega-3 fatty acids 500 mg capsule 500 mg PO DAILY vitamin K2 100 mcg capsule 100 mcg PO DAILY ascorbic acid (vitamin C) 500 mg tablet 500 mg PO DAILY mecobalamin (vitamin B12) 1,000 mcg lozenge 1,000 mcg PO DAILY Rx Instructions: allow to dissolve in mouth OR may chew lightly before swallowing B-complex with vitamin C Tablet 1 tablet PO DAILY coenzyme Q10 [CoQ-10] 100 mg capsule 100 mg PO DAILY lorazepam [Ativan] 0.5 mg tablet 0.5 mg PO DAILY PRN (Reason: anxiety) Qty: 30 0RF oxycodone 10 mg tablet 10 mg PO Q6H PRN gabapentin 300 mg capsule 300 mg PO TID Qty: 90 5RF methylprednisolone [Medrol (Phani)] 4 mg tablets,dose pack See Rx Instructions .ROUTE .COMPLEX Qty: 21 0RF Rx Instructions: for 6 days cyclobenzaprine 5 mg tablet 5 mg PO TID PRN (Reason: muscle spasm) Qty: 20 0RF hydrocodone-acetaminophen 5-325 mg tablet 1 tablet PO Q8H PRN (Reason: pain) Qty: 10 0RF cholecalciferol (vitamin D3) 125 mcg (5,000 unit) capsule 125 mcg PO DAILY Qty: 30 0RF atorvastatin [Lipitor] 40 mg tablet 40 mg PO DAILY Qty: 90 1RF Follow-up/Referrals: Jorge Bosch DO [Primary Care Provider, Internal Medicine] Time of Disposition: 14:15
[2024-11-13] MEDS: SODIUM CHLORIDE 0.9% IV 1,000 ML 999 ML IV CONT ×3 (10:42→13:12)
== END 2024-11-13 14:29 | disposition home or self-care (01) ==
PROVIDERS: Emergency Provider Emergency Medicine; PCP Internal Medicine
DX: I95.1 Orthostatic hypotension (principal); L50.9 Urticaria, unspecified; I73.9 Peripheral vascular disease, unspecified; I65.23 Occlusion and stenosis of bilateral carotid arteries; J43.9 Emphysema, unspecified; E78.5 Hyperlipidemia, unspecified; M79.7 Fibromyalgia; Z85.3 Personal history of malignant neoplasm of breast; Z92.3 Personal history of irradiation; Z87.891 Personal history of nicotine dependence; Z90.11 Acquired absence of right breast and nipple; Z90.710 Acquired absence of both cervix and uterus; Z79.899 Other long term (current) drug therapy; R94.31 Abnormal electrocardiogram [ECG] [EKG]
CPT/HCPCS: 36415; 71045; 80053; 81001; 85025; 87086; 93005; 96361; 96374; 96375; 99284; J1200; J2919; J7030

== ENCOUNTER 2024-11-14 13:52 | Emergency (ER) | payer MEDICARE, SELFPAY ==
[2024-11-14] VITALS (32 sets, daily range): BP systolic 83–131; BP diastolic 47–74; PULSE 76–90; RESP 15–18; O2SAT 94–100
--- NOTE | ~2024-11-14 | XR_ITS ---
EXAMINATION: XR chest 1V portable 11/14/2024 16:55 INDICATION: Chest pain PROCEDURE: AP portable chest COMPARISON: Comparison to multiple prior studies sequentially, with oldest reviewed study dated 08/05/2013. FINDINGS: The lungs are clear. The cardiomediastinal silhouette is within normal limits. There are no pleural effusions. There is no pneumothorax suspected. IMPRESSION: 1: NO ACUTE CARDIOPULMONARY DISEASE. Reviewed, dictated and finalized at location O.
--- OUTSIDE RECORDS SUMMARY | 2024-11-14 11:30 | XMS_ITS | Encounter Summary ---
Author Organization [facility] Healthcare Address [address] [place] [address] Care Team Providers Care Chip Separator Name Role Phone Loyd Tucker MD Unavailable Aft, Isabel Chilel MD PhD Unavailable [phone] Esthela Saldana PhD Unavailable [phone] Allie Curiel MD Unavailable [phone] Maico Elaine NP Unavailable [phone] Jorge Bosch DO Primary Care Provider [phone] Reason for Visit * Reason Comments Rash Hives started on 11/11 at 2am started and weakness started eating fruits that never eaten before. Took childrens waldryl on 11/12 due to vertigo now has reaction. Went to [facility] ER pepcid kamaljit pred low bp 3L NS. Discharged on Prednisone for 5 days. Encounter Details Date Type Department Care Team (Late st Contact Info) Description 11/14/2024 11:30 AM CDT Office Visit [facility] at [address] [address] Nydia Norwood NP [address] [place] [address] [address] [place] [address] Rash and nonspecific skin eruption (Primary Dx); Weakness; Dizziness; Shortness of breath Social History Tobacco Use Types Packs/Day Years Used Date Smoking Tobacco: Former Cigarettes 1.3 55.8 0 03/12/1965 - 01/10/2021 Passive Smoke Exposure: Past Smokeless Tobacco: Never Alcohol Use Standard Drinks/Week [...] AM CDT 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 Gender Identity Female 12/20/2020 11:06 AM CDT Sexual Orientation Straight 06/06/2018 12 :44 AM CDT documented as of this encounter Last Filed Vital Signs Vital Sign Reading Time Taken Comments Blood Pressure 119/70 11/14/2024 11:40 AM CDT Pulse 80 11/14/2024 11:40 AM CDT Temperature 36.8 C (98.2 F) 11/14/2024 11:40 AM CDT Respiratory Rate 20 11/14/2024 11:40 AM CDT Oxygen Saturation 98% 11/14/2024 11:40 AM CDT Inhaled Oxygen Concentration - - Weight 67.1 kg (148 lb) 11/14/2024 11:40 AM CDT Height - - Body Mass Index 29.89 10/31/2024 1:52 PM CDT documented in this encounter Patient Instructions * Patient Instructions* Nydia Norwood NP - 11/14/2024 11:30 AM CDT --Sending patient's ER for further cardiac workup. Patient with the last couple days of weakness, shortness of breath, and dizziness. Patient with EKG done yesterday at outside ER which showed history of UT of undetermined age. EKG done in office today with same results. Patient was in the ER last night with hypotension and received 3 L. Patient has continued worsening of body rash and itching. Sent out with a prescription for prednisone but has yet to pick it up or start. documented in this encounter Progress Notes * Nydia Norwood NP - 11/14/2024 11:30 AM CDT Images from the original note were not included. Subjective/Objective Patient ID: Tiffany Palacio is a 73 y.o. female. This patient has verbally consented to recording this visit in order to utilize AI technology in generating this note. Chief Complaint Rash (Hives started on 11/11/24 at 2am started and weakness started eating fruits that never eaten before. Took childrens waldryl on 11/12 due to vertigo now has reaction. Went to [facility] ER pepcid kamaljit pred low bp 3L NS. Discharged on Prednisone for 5 days. ) History of Present Illness Tiffany Dubois is a 73 year old female who presents with a rash and concerns about a possible myocardial infarction. She developed a rash that began as a small spot last night and has since spread, initially more prominent on her upper body with a large red spot. The itching is severe and distracting. She has not started the prescribed prednisone as it was not ready before the pharmacy closed and prefers prednisolone due to concerns about liver impact. She has been taking Benadryl (25 mg) for the itching and yayo ns to purchase Shelly. She is concerned about the potential impact of new foods she consumed recently, including blueberries, strawberries, yogurt, and a Hormel meal, on her rash. She recently visited the ER at [facility] for a rash, low blood pressure, dizziness, and near syncope. She reports that an EKG performed at [facility] ER included a note about a possible myocardial infarction of undetermined age, which was not previously known to her. She has no known history of myocardial infarction and mentions a previous EKG at [facility]. She expresses concern about the accuracy of the EKG interpretation at [facility], referencing past issues with diagnostic accuracy there. She describes episodes of low blood pressure, with readings as low as 70/40, and notes that her blood pressure has been fluctuating. She has been monitoring her blood pressure at home, noting it has been 'jumping around a little bit.' She also reports feeling weak and experiencing vertigo since returning from [facility], attributing these symptoms to low blood pressure. She is concerned about the impact of medications on her liver, having recently been on oxycodone, gabapentin, and Tylenol, which she believes may have contributed to her current symptoms. Review of Systems All other systems reviewed and are negative. Physical Exam VITALS: P- 80, BP- 113/ SKIN: Rash on foot and hip, red spots, varying sizes. Physical Exam Vitals reviewed. Constitutional: General: She is not in acute distress. Appearance: Normal appearance. She is ill-appearing. Comments: Patient with baseline tremors noted HENT: Head: Normocephalic. Mouth/Throat: Lips: [place]. Cardiovascular: Rate and Rhythm: Normal rate. Pulmonary: Effort: Pulmonary effort is normal. Tachypnea present. Breath sounds: Normal breath sounds. No decreased breath sounds or wheezing. Skin: General: Skin is warm. Findings: Rash present. Rash is urticarial. Comments: (See images) Neurological: Mental Status: She is alert and oriented to person, place, and time. Psychiatric: Mood and Affect: Mood normal. (Right side of abdomen) (Right thigh) (Left leg) Vitals: 11/14/24 1140 BP: 119/70 Pulse: 80 Resp: 20 Temp: 36.8 ??C (98.2 ??F) TempSrc: Oral SpO2: 98% Weight: 67.1 kg (148 lb) No results found. Past Medical History: Diagnosis Date Arthritis ~2011 Cancer (HCC) 2018 Cataract ~2016 Emphysema of lung 2015 Osteoporosis Personal history of other diseases of the circulatory system History of cardiac arrhythmia - (Added by TW Conv) Personal history of other diseases of the respiratory system History of pulmonary emphysema - (Added by TW Conv) Personal history of other endocrine, nutritional and metabolic disease History of high cholesterol - (Added by TW Conv) Current Outpatient Medications: acetaminophen (TYLENOL) 325 mg tablet, Take 2 tablets (650 mg total) by mouth every 6 (six) hours, Disp: , Rfl: aspirin 81 mg chewable tablet, Take 1 tablet (81 mg total) by mouth daily, Disp: , Rfl: atorvastatin (LIPITOR) 40 mg tablet, Take 1 tablet (40 mg total) by mouth daily, Disp: , Rfl: calcium carbonate (TUMS) 500 mg (200 mg elemental calcium) chewable tablet, Take 1 tablet/chew tab (500 mg total) by mouth 4 (four) times a day as needed for indigestion, Disp: , Rfl: cyclobenzaprine (FLEXERIL) 10 mg tablet, Take 1 tablet (10 mg total) by mouth 3 (three) times a day, Disp: , Rfl: enoxaparin (LOVENOX) 40 mg/0.4 mL syringe, , Disp: , Rfl: gabapentin (NEURONTIN) 300 mg capsule, Take 1 capsule (300 mg total) by mouth 3 (three) times a day, Disp: 90 capsule, Rfl: 0 lidocaine (LIDODERM) 5 %, Place 2 patches on the skin daily for 12 hours Remove & discard patchwithin 12 hours or as directed by MD., Disp: , Rfl: oxyCODONE (ROXICODONE) 10 mg tablet, Take 1 tablet (10 mg total) by mouth every 6 (six) hours as needed for pain, Disp: 30 tablet, Rfl: 0 polyethylene glycol (MIRALAX) 17 gram packet, Take 1 packet (17 g total) by mouth daily as needed for constipation, Disp: , Rfl: senna-docusate (PERICOLACE) 8.6-50 mg, Take 1 tablet by mouth 2 (two) times a day as needed for constipation, Disp: , Rfl: Allergies Allergen Reactions Clindamycin Rash Duloxetine Rash Simvastatin Rash Codeine Unknown Keflex [Cephalexin] Unknown Macrobid [Nitrofurantoin Monohyd/M-Cryst] Unknown Celecoxib Other (See comments) paresthesias Social History Tobacco Use Smoking status: Former Current packs/day: 0.00 Average packs/day: 1.3 packs/day for 55.8 years (69.8 ttl pk-yrs) Types: Cigarettes Start date: 03/12/1965 Quit date: 01/10/2021 Years since quittin.8 Passive exposure: Past Smokeless tobacco: Never Substance and Sexual Activity Drug use: Never Sexual activity: Defer Partners: Male control/protection: Post-menopausal Alcohol Use: Not At Risk (10/02/2024) AUDIT-C Frequency of Alcohol Consumption: Monthly or less Average Number of Drinks: 1 or 2 Frequency of Binge Drinking: Never Past Surgical History: Procedure Laterality Date BREAST SURGERY 1966, 1983, 2018 CATARACT EXTRACTION Cataract Surgery - (Added by Biomode - Biomolecular Determination Conv) CATARACT EXTRACTION 2016 COSMETIC SURGERY 1983 HYSTERECTOMY 2004 NOSE SURGERY SD ANTERIOR COLPORRAPHY RPR CYSTOCELE W/CYSTO Anterior Colporrhaphy, Repair Of Cystocele - (Added by Biomode - Biomolecular Determination Conv) SD TONSILLECTOMY PRIMARY/SECONDARY <AGE 10 Tonsillectomy - (Added by Biomode - Biomolecular Determination Conv) SD TOTAL ABDOMINAL HYSTERECT W/WO RMVL TUBE OVARY Hysterectomy - (Added by Biomode - Biomolecular Determination Conv) URETHRAL DIVERTICULECTOMY 2004 trans vaginal Assessment/Plan 1. Rash and nonspecific skin eruption (Primary) 2. Weakness - ECG 12 lead 3. Dizziness - ECG 12 lead 4. Shortness of breath - ECG 12 lead Results EKG: Myocardial infarction of undetermined age, low voltage (11/13/2024) Assessment & Plan Rash Severe itching noted. - Prescribe prednisolone to minimize liver involvement. - Advise Shelly for itching relief. Weakness, dizziness, and shortness of breath Persistent symptoms with blood pressure fluctuations and hypotension. Possible medication side effects or dehydration. Cardiac issues considered due to EKG findings. - Perform EKG to assess cardiac status. - Recommend ER visit for comprehensive cardiac workup, including blood work and vitals. - Advise against driving; recommend calling daughter or EMS for transport. EMS declined. Education --Patient refused EMS in office, AMA form signed. During visit patient is very anxious and stating that she is short of breath and saying I just don't feel right. Patient also for the past several days has had continued weakness and dizziness. Patient was seen in the ER yesterday and had an EKG performed which showed an UT of undetermined age. Patient reports that she was never told that duringthe visit and that she has no known history of an UT. EKG in office today also showed this results.Discussed with patient that I am limited in the convenient Care and unable to draw blood or do any further workup for cardiac etiology. Given patient's medical history and current symptoms recommending evaluation immediately in ER. Disposition Treatment plan including expectations, follow up, and return precautions discussed with patient/parent, verbalizes understanding. Medication dosage, use, and potential adverse reactions discussed with patient/parent. Advised to follow up with PCP if symptoms do not resolve as expected or sooner if condition worsens. Signs/symptoms warranting ER evaluation reviewed. Patient and/or guardian was given an opportunity to ask questions, questions answered. Nydia Norwood NP This office note has been partially dictated using [employer] software, and as a result portions of the record may have been created with this software. Occasional wrong-word or '[id number]' substitutions may have occurred due to the inherent limitations of voice recognition software. Read the chartcarefully and recognize, using context, where substitutions have occurred. documented in this encounter Plan of Treatment Not on file documented as of this encounter Procedures Procedure Name Priority Date/Time Associated Diagnosis Comments ECG 12-LEAD Routine 11/14/2024 12:14 PM CDT Weakness Dizziness Shortness of breath documented in this encounter Results * ECG 12 lead (11/14/2024 12:14 PM CDT) Nydia Norwood NP ECG ORDERABLES Final Result documented in this encounter Visit Diagnoses Diagnosis Rash and nonspecific skin eruption- Primary Rash and other nonspecific skin eruption Weakness Other malaise and fatigue Dizziness Dizziness and giddiness Shortness of breath documented in this encounter Care Teams Chip Separator Relationship Specialty Start Date End Date Jorge Bosch DO [address] [place] [address] PCP - General Internal Medicine 12/27/23 Loyd Tucker MD [address] [facility] [address] [place] [address] Radiation Oncologist Radiation Oncology 11/01/17 AftIsabel MD PhD [address] [place] [address] Referring Physician Surgical Oncology 11/01/17 Esthela Saldana, PhD [address] [place] [address] Nurse Practitioner Radiation Oncology 11/01/17 Allie Curiel MD [address] [place] [address] Referring Physician Medical Oncology 06/06/18 Maico Elaine WAITER/WAITRESS TAKE OUT [address] [place] [address] Nurse Practitioner Nurse Practitioner 01/29/23 documented as of this encounter
--- OUTSIDE RECORDS SUMMARY | 2024-11-14 14:08 | XMS_ITS | Patient Health Record ---
Author Organization [facility] Address [address] [facility] [address] [place] [address] Care Team Providers Care Fire Claims Adjuster Name Role Phone Aaron Hernandez Unavailable [phone] Reason For Referral No Information Medications Medication SIG (Take, Route, Frequency, Duration) Notes Start Date End Date Status buPROPion HCl 75 MG Tablet Oral Active Wellbutrin SR 100 MG Tablet Extended Release 12 Hour Oral Active Vivelle-Dot 0.075 mg/24 hr Patch Twice Weekly Transdermal Active Wellbutrin 75 mg TABLET ORAL *Reorder from [employer] for eRx and Interaction Alerts* Active Propranolol HCl 20 MG Tablet Oral Active chlordiazePOXIDE HCl 10 MG Capsule Oral Active MethylPREDNISolone (Phani) *Brittany r from [employer] for eRx and Interaction Alerts* Active buPROPion HCl ER (XL) 150 MG Tablet Extended Release 24 Hour Oral Active Wellbutrin SR 150 MG Tablet Extended Release 12 Hour Oral Active Amoxicillin 500 MG Capsule Oral Active KlonoPIN 0.5 MG Tablet Oral Active Azithromycin 250 MG Tablet Oral Active Plan Of Treatment No Information
--- OUTSIDE RECORDS SUMMARY | 2024-11-14 14:08 | XMS_ITS | Encounter Summary ---
Author Organization [facility] Address 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
--- OUTSIDE RECORDS SUMMARY | 2024-11-14 14:08 | XMS_ITS | Clinical Summary ---
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
--- OUTSIDE RECORDS SUMMARY | 2024-11-14 14:08 | XMS_ITS | Encounter Summary ---
Author Organization [employer] Address [address] [place] [address] Care Team Providers Care Cartography Teacher Name Role Phone Unavailable Primary Care Provider Unavailabl e Encounter Details Date Type Department Care Team (Late st Contact Info) Description 08/17/2001 Outpatient Historical Division of Neurology 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
--- OUTSIDE RECORDS SUMMARY | 2024-11-14 14:08 | XMS_ITS | Encounter Summary ---
Author Organization [employer] Address [address] [place] [address] Care Team Providers Care Procurement Specialist Name Role Phone Unavailable Primary Care Provider Unavailabl e Encounter Details Date Type Department Care Team (Late st Contact Info) Description 08/16/2001 Outpatient Historical [facility] ([facility]) [address] 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
--- OUTSIDE RECORDS SUMMARY | 2024-11-14 14:09 | XMS_ITS ---
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 Able to ambulate, no bowel/bladder incontinence, no trauma/falls precipitating. Has been dealing with LBP and hip pain OP previously. 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 Able to ambulate, no bowel/bladder incontinence, no trauma/falls precipitating. Has been dealing with LBP and hip pain OP previously. Was given methylprednisolone dose pack, [facility] from OSH 09/25 without significant improvement MRI [...] OP previously. Was given methylprednisolone dose pack, [facility] from OSH 09/25 without significant improvement MRI [...] OP previously. Was given methylprednisolone dose pack, [facility] from OSH 09/25 without significant improvement MRI [...] OP previously. Was given methylprednisolone dose pack, [facility] from OSH 09/25 without significant improvement MRI [...] OP previously. Was given methylprednisolone dose pack, [facility] from OSH 09/25 without significant improvement MRI [...] OP previously. Was given methylprednisolone dose pack, [facility] from OSH 09/25 without significant improvement MRI [...] OP previously. Was given methylprednisolone dose pack, [place] from OSH 09/25 without significant improvement MRI [...] OP previously. Was given methylprednisolone dose pack, [place] from OSH 09/25 without significant improvement MRI [...] OP previously. Was given methylprednisolone dose pack, [facility] from OSH 09/25 without significant improvement MRI [...] OP previously. 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 Able to ambulate, no bowel/bladder incontinence, no trauma/falls precipitating. Has been dealing with LBP and hip pain OP previously. 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 Able to ambulate, no bowel/bladder incontinence, no trauma/falls precipitating. Has been dealing with LBP and hip pain OP previously. Was given methylprednisolone dose pack, [facility] from OSH 09/25 without significant improvement MRI [...] OP previously. Was given methylprednisolone dose pack, [place] from OSH 09/25 without significant improvement MRI [...] OP previously. Was given methylprednisolone dose pack, [place] from OSH 09/25 without significant improvement MRI [...] OP previously. Was given methylprednisolone dose pack, [place] from OSH 09/25 without significant improvement MRI [...] OP previously. Was given methylprednisolone dose pack, [place] from OSH 09/25 without significant improvement MRI [...] OP previously. Was given methylprednisolone dose pack, [place] from OSH 09/25 without significant improvement MRI [...] OP previously. Was given methylprednisolone dose pack, [place] from OSH 09/25 without significant improvement MRI [...] OP previously. Was given methylprednisolone dose pack, [place] from OSH 09/25 without significant improvement MRI [...] OP previously. Was given methylprednisolone dose pack, [place] from OSH 09/25 without significant improvement MRI [...] OP previously. 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 Able to ambulate, no bowel/bladder incontinence, no trauma/falls precipitating. Has been dealing with LBP and hip pain OP previously. 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 Able to ambulate, no bowel/bladder incontinence, no trauma/falls precipitating. Has been dealing with LBP and hip pain OP previously. Was given methylprednisolone dose pack, [facility] from OSH 09/25 without significant improvement MRI [...] OP previously. Was given methylprednisolone dose pack, [place] from OSH 09/25 without significant improvement MRI [...] OP previously. Was given methylprednisolone dose pack, [place] from OSH 09/25 without significant improvement MRI [...] OP previously. Was given methylprednisolone dose pack, [place] from OSH 09/25 without significant improvement MRI [...] OP previously. Was given methylprednisolone dose pack, [place] from OSH 09/25 without significant improvement MRI [...] OP previously. Was given methylprednisolone dose pack, [place] from OSH 09/25 without significant improvement MRI [...] OP previously. Was given methylprednisolone dose pack, [facility] from OSH 09/25 without significant improvement MRI [...] OP previously. Was given methylprednisolone dose pack, [facility] from [facility]SH 7 without significant improvement MRI [...] OP previously. Was given methylprednisolone dose pack, [facility] from OSH 09/25 without significant improvement MRI [...] OP previously. Was given methylprednisolone dose pack, [facility] from OSH 09/25 without significant improvement MRI [...] Pathologic:Stage Unknown(pT1b, pNX, cM0, G2, ER: Positive, CT: Positive, HER2: Negative) - Signed by Esthela [...]
--- OUTSIDE RECORDS SUMMARY | 2024-11-14 14:09 | XMS_ITS | Clinical Summary ---
Author Organization [facility] [email or web address] Address [address] [place] [address] Care Team Providers Care Supply Chain Engineer Name Role Phone Jorge Bosch DO Primary Care Provider Source Comments [facility],non-owned Affiliates and Associated Physician Practices is amultiple site organization consisting of ambulatory clinics and hospital sitesin [place], [place], [place] and [place]. This disclosure is being madepursuant to the Care Everywhere program and may not contain all information available regarding this patient. 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
--- OUTSIDE RECORDS SUMMARY | 2024-11-14 14:09 | XMS_ITS | Encounter Summary ---
Author Organization [facility] [employer] [facility] Address [address] [place] [address] Phone Care Team Providers Care Destaticizer Feeder Name Role Phone Jorge Bosch DO Primary Care Provider [phone] Loyd Tucker MD Unavailable Aft, Isabel Chilel MD PhD Unavailable [phone] Danette Schuster TRIP RIDER Unavailable [phone] Esthela Saldana PhD Unavailable [phone] Allie Curiel MD Unavailable [phone] Jorge Bosch DO Primary Care Provider [phone] Maico Elaine SPRAY RIG OPERATOR Unavailable [phone] Maico Elaine NP Primary Care Provider [phone] Jorge Bosch DO Primary Care Provider [phone] Encounter Details Date Type Department Care Team [...] AM CDT Legal 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 Gender Identity Female 12/20/2020 11:06 AM CDT [...] on filedocumented in this encounter Care Teams Destaticizer Feeder Relationship Specialty Start Date End Date Jorge Bosch DO PCP - General 07/05/17 11/23/21 Jorge Bosch DO [address] [place] [address] PCP - General Internal Medicine 11/24/21 01/28/23 Maico Elaine NP [address] [place] [address] PCP - General Nurse Practitioner 01/29/23 12/26/23 Jorge Bosch DO [address] [place] [address] PCP - General Internal Medicine 12/27/23 Loyd Tucker MD [address] [facility] [address] [place] [address] Radiation Oncologist Radiation Oncology 11/01/17 Isabel Kennedy MD PhD [address] [place] [address] Referring Physician Surgical Oncology 11/01/17 Danette Schuster, IVETTE [address] [place] [address] Nurse Practitioner Certified Clinical Nurse Specialist 11/01/17 11/23/22 Esthela Saldana, PhD [address] [place] [address] Nurse Practitioner Radiation Oncology 11/01/17 Allie Curiel MD [address] [place] [address] Referring Physician Medical Oncology 06/06/18 Maico Elaine, SPRAY RIG OPERATOR [address] [place] [address] Nurse Practitioner Nurse Practitioner 01/29/23 documented as of this encounter
--- OUTSIDE RECORDS SUMMARY | 2024-11-14 14:09 | XMS_ITS | Encounter Summary ---
Author Organization [facility] Address [address] [place] [address] Care Team Providers Care Engine Specialist Name Role Phone Jorge Bosch DO Primary Care Provider [phone] Encounter Details Date Type Department Care Team (Late st Contact Info) Description 06/21/2022 Lab Requisition [facility] [address] [place] [address] Jayme Mahoney MD [address] [place] [address] Social History Tobacco Use Types Packs/Day Years Used Date Smoking Tobacco: Never Assessed Comments Unknown Sex and Gender Information Value Date Recorded Sex Assigned at Not on file 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 Gender Identity Not on file Sexual Orientation Not on file documented as of this encounter Plan of Treatment Not on file documented as of this encounter Procedures Procedure Name Priority Date/Time Associated Diagnosis Comments DERMATOPATHOLOGY Routine 06/20/2022 3:33 AM CDT documented in this encounter Results * DERMATOPATHOLOGY (06/20/2022 3:33 AM CDT) Case Report Dermatopathology Report Case: [id number] Authorizing Provider: Jayme Mahoney MD Collected: 06/20/2022 03:33 AM Ordering Location: [facility] Received: 06/21/2022 01:49 PM [...] characteristic determined by the Dermatopathology Laboratory at [facility], directed by Dr. Elyse Banks. These tests need not be, and therefore are not, approved by the [place] Food and Drug Administration. The tests are used for clinical purposes. Billing Codes Specimen Charges Stain Charges 47138 1 3 2:06 PM CDT DERMATOPATHOLOGY LABORATORY Embedded Images 3 2:06 PM CDT DERMATOPATHOLOGY LABORATORY Pathology/Cytolo gy TISSUE SPECIMEN FROM SKIN / Unknown 06/20/2022 3:33 AM CDT 06/21/2022 1:49 PM CDT us Jayme Mahoney MD LAB - PATHOLOGY/CYTOLOGY ORD ERABLES Final Result DERMATOPATHOLOGY LABORATORY [facility] - Department of Dermatology [facility] Medicine [address] [place] [address], [address] [place] [address], [facility] [phone] documented in this encounter Visit Diagnoses Not on filedocumented in this encounter Care Teams Engine Specialist Relationship Specialty Start Date End Date Jorge Bosch DO [address] [place] [address] PCP - General 06/22/21 documented as of this encounter
--- OUTSIDE RECORDS SUMMARY | 2024-11-14 14:09 | XMS_ITS | Clinical Summary ---
Author Organization [facility] Main [facility] Address [address] [place] [address] Care Team Providers Care Hydraulic Mechanic Name Role Phone Loyd Tucker MD Unavailable Aft, Isabel Chilel MD PhD Unavailable [phone] Esthela Saldana PhD Unavailable [phone] Allie Curiel MD Unavailable [phone] Maico Elaine FRAME POLISHER Unavailable [phone] Jorge Bosch DO Primary Care Provider Allergies Active Allergy Reactions Criticality Noted Date Comments Celecoxib Other (See comments) Low 08/28/2023 paresthesias Clindamycin Rash Medium 10/16/2024 Codeine Unknown 05/16/2013 Duloxetine Rash Medium 10/16/2024 Cephalexin Unknown 05/16/2013 Nitrofurantoin Monohyd/M-Cryst Unknown 03/28/2017 Simvastatin Rash Medium 10/16/2024 Medications aspirin 81 mg chewable tablet Take [...] within 12 hours or as directed by . 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 Has been dealing with LBP and hip pain OP previously. 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 Has been dealing with LBP and hip pain OP previously. Was given methylprednisolone dose pack, [place] from [facility] 09/25 without significant improvement MRI [...] OP previously. Was given methylprednisolone dose pack, [place] from [facility] 09/25 without significant improvement MRI [...] OP previously. Was given methylprednisolone dose pack, [place] from [facility] 09/25 without significant improvement MRI [...] OP previously. Was given methylprednisolone dose pack, [place] from [facility] 09/25 without significant improvement MRI [...] OP previously. Was given methylprednisolone dose pack, [place] from [facility] 09/25 without significant improvement MRI [...] OP previously. Was given methylprednisolone dose pack, [place] from [facility] 09/25 without significant improvement MRI [...] OP previously. Was given methylprednisolone dose pack, [place] from [facility] 09/25 without significant improvement MRI [...] OP previously. Was given methylprednisolone dose pack, [place] from [facility] 7 without significant improvement MRI [...] OP previously. Was given methylprednisolone dose pack, [place] from [facility] 09/25 without significant improvement MRI [...] OP previously. 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 Has been dealing with LBP and hip pain OP previously. 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 Has been dealing with LBP and hip pain OP previously. Was given methylprednisolone dose pack, [place] from [facility] 09/25 without significant improvement MRI [...] OP previously. Was given methylprednisolone dose pack, [place] from [facility] 09/25 without significant improvement MRI [...] OP previously. Was given methylprednisolone dose pack, [place] from [facility] 09/25 without significant improvement MRI [...] OP previously. Was given methylprednisolone dose pack, [place] from [facility] 09/25 without significant improvement MRI [...] OP previously. Was given methylprednisolone dose pack, [place] from [facility] 09/25 without significant improvement MRI [...] OP previously. Was given methylprednisolone dose pack, [place] from [facility] 09/25 without significant improvement MRI [...] OP previously. Was given methylprednisolone dose pack, [place] from [facility] 09/25 without significant improvement MRI [...] OP previously. Was given methylprednisolone dose pack, [place] from [facility] 09/25 without significant improvement MRI [...] OP previously. Was given methylprednisolone dose pack, [place] from [facility] 09/25 without significant improvement MRI [...] OP previously. 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 Has been dealing with LBP and hip pain OP previously. 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 Has been dealing with LBP and hip pain OP previously. Was given methylprednisolone dose pack, [place] from [facility] 09/25 without significant improvement MRI [...] OP previously. Was given methylprednisolone dose pack, [place] from [facility] 09/25 without significant improvement MRI [...] OP previously. Was given methylprednisolone dose pack, [place] from [facility] 09/25 without significant improvement MRI [...] OP previously. Was given methylprednisolone dose pack, [place] from [facility] 09/25 without significant improvement MRI [...] OP previously. Was given methylprednisolone dose pack, [place] from [facility] 09/25 without significant improvement MRI [...] OP previously. Was given methylprednisolone dose pack, [place] from [facility] 09/25 without significant improvement MRI [...] OP previously. Was given methylprednisolone dose pack, [place] from [facility] 09/25 without significant improvement MRI [...] OP previously. Was given methylprednisolone dose pack, [place] from [facility] 09/25 without significant improvement MRI [...] OP previously. Was given methylprednisolone dose pack, [place] from [facility] 09/25 without significant improvement MRI [...] OP previously. Was given methylprednisolone dose pack, [place] from [facility] 09/25 without significant improvement MRI [...] Pathologic:Stage Unknown(pT1b, pNX, cM0, G2, ER: Positive, CO: Positive, HER2: Negative) - Signed by Esthela [...] Encounters Date Type Department Care Team Description 11/14/2024 11:30 AM CDT Office Visit [facility] [address] [address] Nydia Norwood NP Rash and nonspecific skin eruption (Primary Dx); Weakness; Dizziness; Shortness of breath 11/06/2024 Documentation Specialty [facility] Neurosurgery [facility] 4th Floor [address] [place] [address] Wily Juárez MD 10/31/2024 2:00 PM CDT Office Visit [facility] with [facility] [address] [place] [address] Wily Juárez MD Lumbar radiculopathy (Primary Dx) 10/20/2024 ACO Outreach [facility] Accountable Care Organization [address] [place] [address] RN 10/17/2024 Telephone [facility] Medical [facility] [address] [facility] [address], [place] [id number] Abigail Verdugo MA 10/14/2024 NH/SNF Visit [facility] Medical [facility] [address] [address] Marisa Brady PA Neural foraminal stenosis of lumbar spine (Primary Dx); Slow transit constipation; Essential hypertension; Arthralgia, unspecified joint; Peripheral vascular disease; Gastroesophageal reflux disease without esophagitis 10/13/2024 Orders Only [facility] [address] Bin Roe MD 10/10/2024 NH/SNF Visit [facility] Medical [facility] [address] [address] Marisa Brady PA Gastroesophageal reflux disease without esophagitis (Primary Dx); Neural foraminal stenosis of lumbar spine; Essential hypertension; Peripheral vascular disease 10/09/2024 NH/SNF Visit [facility] Medical [facility] Care [address] [address] Bin Roe MD Central stenosis of spinal canal (Primary Dx); Subclavian steal syndrome; Peripheral vascular disease; Essential hypertension 10/08/2024 Orders Only [facility] [address] [address] Bin Roe MD Arthralgia, unspecified joint (Primary Dx) 10/02/2024 Orders Only [facility] [address] [facility] [address] [place] [address] Remigio De Oliveira MD Lumbar radiculopathy (Primary Dx) 09/29/2024 11:45 AM CDT Ancillary Procedure [facility] Medicine Vascular [facility] IP 1 [facility] [address] [place] [phone] 09/28/2024 3:13 PM CDT - 10/08/2024 1:23 PM CDT Hospital Encounter [facility] 1 [facility] [place] [address] Bin David MD Liu, MD Kailey Sanon, MD Joel Sunshine Lakshman B., MD Khan, Jim Irby MD Acute exacerbation of chronic low back [...] 02/08/2018 Surgical History Surgery Date Site/Laterality Comments CO TONSILLECTOMY PRIMARY/SECONDARY <AGE 10 Tonsillectomy - (Added by TW Conv) CO ANTERIOR COLPORRAPHY RPR CYSTOCELE W/CYSTO Anterior Colporrhaphy, Repair Of Cystocele - (Added by TW Conv) CO TOTAL ABDOMINAL HYSTERECT W/WO RMVL TUBE OVARY Hysterectomy - (Added by TW Conv) CATARACT EXTRACTION Cataract Surgery - (Added by TW Conv) URETHRAL DIVERTICULECTOMY 03/12/2004 - 03/11/2005 trans vaginal BREAST SURGERY 1966, 1983, 2018 CATARACT EXTRACTION 2017 COSMETIC SURGERY [...] ma - (Added by TW Conv) Arthritis ~2012 Cancer (HCC) 2018 Cataract ~2016 Emphysema of [...] AM CDT Legal Sex Female 6:34 AM HEAD OF MARKETING Gender Identity Female 12/20/2020 11:06 AM CDT [...] (148 lb) 11/14/2024 11:40 AM CDT Height 149.9 cm (4' 11) 10/31/2024 [...] PM CDT Weakness Dizziness Shortness of breath EGFR Routine 10/13/2024 6:30 AM CDT COMPREHENSIVE [...] Read Routine (OP Routine) 02/15/2024 8:07 AM HEAD OF MARKETING Screening mammogram, encounter for HM DEXA SCAN Routine 03/17/2016 HM COLONOSCOPY Routine 03/12/2013 from Last 3 Months or Most Recently Relevant to Health Maintenance Results * ECG 12 lead (11/14/2024 12:14 PM CDT) Nydia Norwood FRAME POLISHER ECG ORDERABLES Final Result * eGFR (10/13/2024 6:30 AM CDT) eGFR [...] Current interpretive data was last reviewed 2021. [facility], [facility] [place]., [address] Blood 10/13/2024 6:30 AM CDT 10/13/2024 7:02 AM CDT us Bin Roe MD LAB BLOOD ORDERABLES Final R esult [address] Department [place] [address] * (ABNORMAL) CBC without differential (10/13/2024 6:30 AM CDT) WBC 6.81 3.80 - 9.90 K/cumm [facility] Comment:[address] [address] Hgb 12.3 11.9 - 15.5 g/dL [facility] Comment:[address] [address] Hct 37.4 35.6 - 45.5 % [facility] Comment:[address] [address] Plt 260 150 - 400 K/cumm [facility] MH Comment:[address] [address] MPV 8.7(L) 9.1 - 12.3 fL [facility] MH Comment:[address] [address] RBC 4.08 3.90 - 5.20 M/cumm [facility] MH Comment:[address] [address] MCV 91.7 81.3 - 96.4 fL [facility] MH Comment:[address] [address] MCH 30.1 27.1 - 33.3 pg [facility] MH Comment:[address], [address] MCHC 32.9 32.3 - 35.7 g/dL [facility] MH Comment:[address], [address] RDW CV 12.9 11.1 - 14.9 % [facility] HERNÁNDEZ Comment:[address] [address] RDW SD 43.0 35.7 - 48.1 fL [facility] HERNÁNDEZ Comment:[address] [address] NRBC abs 0.00 0.00 - 0.01 K/cumm [facility] HERNÁNDEZ Comment:[address] [address] Blood 10/13/2024 6:30 AM CDT 10/13/2024 7:02 AM CDT us Bin Roe MD LAB BLOOD ORDERABLES Final R esult [facility] [address] Department [place] [address] * (ABNORMAL) Comprehensive metabolic panel (10/13/2024 6:30 AM CDT) Sodium 140 135 - 145 mmol/L [facility] Comment:[address] [address] Potassium, pl 4.3 3.3 - 4.9 mmol/L [facility] Comment: Hemolyzed; Potassium value may be falsely elevated by as much as 1.0 mmol/L. Suggest redraw and reanalysis. [facility], [address] [place] [address]., [address] Chloride 108 97 - 110 mmol/L [facility] Comment:[address] [address] CO2 20(L) 22 - 32 mmol/L [facility] Comment:[address] [address] Anion gap 12 2 - 15 mmol/L [facility] Comment:[address] [address] BUN 9 6 - 25 mg/dL [facility] Comment:[address] [address] Creatinine 0.68 0.60 - 1.10 mg/dL [facility] HERNÁNDEZ Comment:[address] [address] Glucose 96 70 - 199 mg/dL [facility] [...] Current interpretive data was last revised 2022. [facility], [address] [place]., [address] Calcium 8.2(L) 8.5 - 10.3 mg/dL [facility] Comment:[address] [address] Bilirubin, total 0.3 0.1 - 1.2 mg/dL [facility] Comment:[address] [address] Protein, pl 5.9(L) 6.5 - 8.5 g/dL [facility] Comment:[address] [address] Albumin 3.4(L) 3.5 - 5.0 g/dL [facility] Comment:[address] [address] Alk phos 176(H) 40 - 130 Units/L [facility] Comment:[address] [address] ALT 51(H) 7 - 45 Units/L [facility] Comment:[address] [address] AST 29 10 - 45 Units/L [facility] Comment:[address] [address] Blood 10/13/2024 6:30 AM CDT 10/13/2024 7:02 AM CDT us Bin Roe MD LAB BLOOD ORDERABLES Final R esult [facility] [address] Department [place] [address] * eGFR (10/05/2024 9:44 PM CDT) Pathologist [facility] eGFR 71 >=60 mL/min/1. 73 m2 Comment: [...] Maldonado MD LAB BLOOD ORDERABLES Final Result [facility] Department [place] [address] * (ABNORMAL) CBC without differential (10/05/2024 9:44 PM CDT) Pathologist [facility] WBC 8.75 3.80 - 9.90 K/cumm Hgb 13.6 11.9 - 15.5 g/dL [facility] Hct 39.5 35.6 - 45.5 % [facility] Plt 304 150 - 400 K/cumm [facility] MPV 8.7(L) 9.1 - 12.3 fL [facility] RBC 4.50 3.90 - 5.20 M/cumm [facility] MCV 87.8 81.3 - 96.4 fL [facility] MCH 30.2 27.1 - 33.3 pg [facility] MCHC 34.4 32.3 - 35.7 g/dL [facility] RDW CV 13.2 11.1 - 14.9 % [facility] RDW SD 42.7 35.7 - 48.1 fL [facility] NRBC abs 0.00 0.00 - 0.01 K/cumm [facility] Blood 10/05/2024 9:44 PM CDT 10/05/2024 10:21 PM CDT Dinesh Maldonado MD LAB BLOOD ORDERABLES Final Result [facility] Department [place] [address] * Basic metabolic panel (10/05/2024 9:44 PM CDT) Sodium 136 135 - 145 mmol/L Potassium, pl 4.8 3.3 - 4.9 mmol/L [facility] Chloride 100 97 - 110 mmol/L [facility] CO2 25 22 - 32 mmol/L [facility] Anion gap 11 2 - 15 mmol/L [facility] BUN 15 6 - 25 mg/dL [facility] Creatinine 0.85 0.60 - 1.10 mg/dL [facility] Glucose 114 70 - 199 mg/dL [facility] Comment: Interpretive Data Fasting glucose >/= [...] 2022. Calcium 9.7 8.5 - 10.3 mg/dL [facility] Blood 10/05/2024 9:44 PM CDT 10/05/2024 10:21 PM CDT us Dinesh Maldonado MD LAB BLOOD ORDERABLES Final Result [facility] Department [place] [address] * CT Lumbar Spine WO Contrast (10/02/2024 [...] Lumbar/Sacral Selective Nerve Root INJ (TFE) Left (21748) (10/02/2024 12:57 PM CDT) Narrative [facility] - 10/02/2024 12:58 PM CDT The images from this study are not interpreted by Radiology. Please refer to the physician's procedure / OR operative note. Remigio De Oliveira MD [facility] PA[facility] MGMT PROCEDURES Final R esult [facility] [...] Maldonado MD LAB BLOOD ORDERABLES Final Result [facility] Department [place] [address] * (ABNORMAL) CBC without differential (10/01/2024 10:33 PM CDT) WBC 10.71(H) 3.80 - 9.90 K/cumm Hgb 13.0 11.9 - 15.5 g/dL [facility] Hct 38.4 35.6 - 45.5 % [facility] Plt 288 150 - 400 K/cumm [facility] MPV 8.7(L) 9.1 - 12.3 fL [facility] RBC 4.31 3.90 - 5.20 M/cumm [facility] MCV 89.1 81.3 - 96.4 fL [facility] MCH 30.2 27.1 - 33.3 pg [facility] MCHC 33.9 32.3 - 35.7 g/dL [facility] RDW CV 13.2 11.1 - 14.9 % [facility] RDW SD 43.2 35.7 - 48.1 fL [facility] NRBC abs 0.00 0.00 - 0.01 K/cumm [facility] Blood 10/01/2024 10:3 3 PM CDT 10/01/2024 11:34 PM CDT Dinesh Maldonado MD LAB BLOOD ORDERABLES Final Result [facility] Department [place] [address] * Basic metabolic panel (10/01/2024 10:33 PM CDT) Pathologist [facility] Sodium 141 135 - 145 mmol/L Potassium, pl 4.4 3.3 - 4.9 mmol/L [facility] Chloride 107 97 - 110 mmol/L [facility] CO2 26 22 - 32 mmol/L [facility] Anion gap 8 2 - 15 mmol/L [facility] BUN 18 6 - 25 mg/dL [facility] Creatinine 0.94 0.60 - 1.10 mg/dL [facility] Glucose 152 70 - 199 mg/dL [facility] Comment: Interpretive Data Fasting glucose >/= [...] 2022. Calcium 8.8 8.5 - 10.3 mg/dL [facility] Blood 10/01/2024 10:3 3 PM CDT 10/01/2024 11:36 PM CDT Dinesh Maldonado MD LAB BLOOD ORDERABLES Final Result [facility] Department [place] [address] * eGFR (09/30/2024 5:08 AM CDT) Pathologist [facility] eGFR 68 >=60 mL/min/1. 73 m2 Comment: [...] 5:08 AM CDT 09/30/2024 5:34 AM CDT Herlinda Bonner MD LAB BLOOD ORDERABLES Mariana trevino Result [facility] Department [place] [address] * Differential, auto (09/30/2024 5:08 AM CDT) Pathologist [facility] Neutrophil abs 4.87 1.50 - 6.50 K/cumm Imm gran abs 0.03 0.00 - 0.10 K/cumm [facility] Lymphocyte abs 2.29 0.80 - 3.30 K/cumm [facility] Monocyte abs 0.71 0.20 - 0.80 K/cumm [facility] Eosinophil abs 0.09 0.00 - 0.50 K/cumm [facility] Basophil abs 0.05 0.00 - 0.10 K/cumm [facility] Neutrophil pct 60.6 % [facility] Comment: Interpretive Data Percent cell count reference ranges are not reported, since discordance with absolute values may lead to misinterpretation of CBC data. Current Interpretive Data was last revised on 2017. Imm gran pct 0.4 % [facility] Comment: Interpretive Data Percent cell count reference ranges are not reported, since discordance with absolute values may lead to misinterpretation of CBC data. Current Interpretive Data was last revised on 2017. Lymphocyte pct 28.5 % [facility] Comment: Interpretive Data Percent cell count reference ranges are not reported, since discordance with absolute values may lead to misinterpretation of CBC data. Current Interpretive Data was last revised on 2017. Monocyte pct 8.8 % [facility] Comment: Interpretive Data Percent cell count reference ranges are not reported, since discordance with absolute values may lead to misinterpretation of CBC data. Current Interpretive Data was last revised on 2017. Eosinophil pct 1.1 % [facility] Comment: Interpretive Data Percent cell count reference ranges are not reported, since discordance with absolute values may lead to misinterpretation of CBC data. Current Interpretive Data was last revised on 2017. Basophil pct 0.6 % [facility] Comment: Interpretive Data Percent cell count reference ranges are not reported, since discordance with absolute values may lead to misinterpretation of CBC data. Current Interpretive Data was last revised on 2017. Blood 09/30/2024 5:08 AM CDT 09/30/2024 5:35 AM CDT us Herlinda Bonner MD LAB BLOOD ORDERABLES Mariana trevino Result [facility] Department [place] [address] * CBC with auto differential (09/30/2024 5:08 AM CDT) WBC 8.04 3.80 - 9.90 K/cumm Hgb 13.1 11.9 - 15.5 g/dL [facility] Hct 39.4 35.6 - 45.5 % [facility] Plt 282 150 - 400 K/cumm [facility] MPV 9.2 9.1 - 12.3 fL [facility] RBC 4.44 3.90 - 5.20 M/cumm [facility] MCV 88.7 81.3 - 96.4 fL [facility] MCH 29.5 27.1 - 33.3 pg [facility] MCHC 33.2 32.3 - 35.7 g/dL [facility] RDW CV 13.1 11.1 - 14.9 % [facility] RDW SD 42.3 35.7 - 48.1 fL [facility] NRBC abs 0.00 0.00 - 0.01 K/cumm [facility] Blood 09/30/2024 5:08 AM CDT 09/30/2024 5:35 AM CDT us Herlinda Bonner MD LAB BLOOD ORDERABLES Mariana l Result [facility] Department [place] [address] * Basic metabolic panel (09/30/2024 5:08 AM CDT) Sodium 139 135 - 145 mmol/L Potassium, pl 4.3 3.3 - 4.9 mmol/L [facility] Chloride 106 97 - 110 mmol/L [facility] CO2 28 22 - 32 mmol/L [facility] Anion gap 5 2 - 15 mmol/L [facility] BUN 17 6 - 25 mg/dL [facility] Creatinine 0.89 0.60 - 1.10 mg/dL [facility] Glucose 96 70 - 199 mg/dL [facility] Comment: Interpretive Data Fasting glucose >/= [...] 2022. Calcium 8.8 8.5 - 10.3 mg/dL [facility] Blood 09/30/2024 5:08 AM CDT 09/30/2024 5:34 AM CDT us Herlinda Bonner MD LAB BLOOD ORDERABLES Mariana trevino Result [facility] Department [place] [address] * XR Spine Lumbar Ap Lat Flex [...] arthropathy. Electronically signed by: Elyse Stearns MD Herlinda Bonner MD IMG XR PROCEDURES Final R esult * (ABNORMAL) Urinalysis reflex to microscopic and culture Urine (09/29/2024 5:19 PM CDT) Color, ur Straw Yellow Clarity, ur Clear Clear [facility] Specific gravity, ur 1.009 1.003 - 1.030 [facility] pH, urine 7.0 [facility] Comment: Interpretive Data U rine pH is affected by diet, medications, systemic acid-base disturbances, and renal tubular function. pH may affect urinary stone formation. For example, urine pH below 6.0 may help reduce the tendency for calcium phosphate stones and pH greater than 6.0 may reduce the tendency for uric acid stone formation. Source: [facility] Current Interpretive Data was last revised on 2017 Protein, ur ql Negative Negative [facility] Glucose, ur ql Negative Negative [facility] Ketones, ur Negative Negative [facility] Bilirubin, ur Negative Negative [facility] Blood, ur Negative Negative [facility] Urobilinogen, ur <2.0 <2.0 mg/dL [facility] Nitrite, ur Negative Negative [facility] Leukocyte esterase, ur 2+(A) Negative [facility] UA reflex comment Reflex to microscopic UA will be performed. [facility] Urine 09/29/2024 5:19 PM CDT 09/29/2024 5:42 PM CDT us Herlinda Bonner MD LAB MICROBIOLOGY - GENERA L ORDERABLES Final Result [facility] Department [place] [address] * (ABNORMAL) Urinalysis, microscopic only (09/29/2024 5:19 PM CDT) WBC, ur 0-5 0 - 5 /HPF RBC, ur 0-2 0 - 2 /HPF [facility] Epithelial cells, squamous, ur 1-5 0 - 5 /HPF [facility] Mucous, ur Present(A) [facility] Culture Reflex Comment Reflex conditions for urine culture (WBC >10) not met. [facility] Urine 09/29/2024 5:19 PM CDT 09/29/2024 5:42 PM CDT Herlinda Bonner MD LAB URINE ORDERABLES Mariana l Result [facility] [facility] Department [place] [address] * XR Chest 1 View (09/29/2024 1:28 [...] agrees with it. Electronically signed by: Pantera Dnog M.D. Narrative 09/29/2024 3:14 PM CDT EXAMINATION: [...] PM CDT Narrative 09/29/2024 6:46 PM CDT [facility] - Department of Vascular Surgery, Vascular Laboratory [address] [place] [id number] Lower Extremity Venous Ultrasound Report Patient Name: TIFFANY PALACIO : 1950 (73y 9m) Study Date: 09/29/2024 12:25:09 PM Gender: F Tech: Location: [id number] Ref Provider: HERLINDA BONNER Quality: Adequate Order [...] INDICATIONS: Pain in left leg. FINDINGS: Performing Passenger Screener: Carissa Riojas RVT. Bilateral: Venous Doppler signals [...] Procedure Note Reji Mancuso MD - 09/29/2024 [facility] - Department of Vascular Surgery,Vascular Laboratory [address] [place] [address] Lower Extremity Venous Ultrasound Report Patient Name: TIFFANY PALACIO : 1950 (73y 9m) Study Date: 09/29/2024 12:25:09 PM Gender: F Tech: Location: [id number] Ref Provider: HERLINDA BONNER Quality: Adequate Order Provider: HERLINDA BONNER PROCEDURES: Vascular Report: Venous Duplex imaging was performed bilaterally in the lower extremities.The common femoral, femoral, popliteal, posterior tibial, peroneal veins wereevaluated for patency, spontaneity and phasicity with Doppler, compression and augmentationmaneuvers. Great saphenous vein proximal at the junction was evaluated with compressionmaneuvers. INDICATIONS: Pain in left leg. FINDINGS: Performing Passenger Screener: Carissa Riojas RVT. Bilateral: Venous Doppler signals [...] above. Electronically Signed By: Reji Mancuso MD [facility] 09/29/2024 6:28:53 PM CDT us Herlinda Bonner MD IM US PROCEDURES Final R esult * (ABNORMAL) aPTT (09/29/2024 12:19 PM CDT) aPTT 27(L) 28 - 38 sec Comment: Interpretive Data Heparin therapeutic range: 66.0 - 100.0 seconds. Range based on correlation with therapeutic heparin activity range of 0.3 - 0.7 Units/mL. Current interpretive data was last revised on 2022. Blood 09/29/2024 12:1 9 PM CDT 09/29/2024 1:26 PM CDT us Herlinda Bonner MD LAB BLOOD ORDERABLES Mariana trevino Result [facility] Department [place] [address] * Protime-INR (09/29/2024 12:19 PM CDT) [facility] PT 10.7 9.7 - 13.0 sec INR 0.99 0.90 - 1.20 [facility] Comment: Interpretive data Oral anticoagulant therapeutic [...] ORDERABLES Mariana l Result Performing Organization Address [facility] Co de Phone Number [facility] Department [place] [address] * Type and screen (09/29/2024 12:19 PM CDT) [facility] Suzi, indirect Negative ABO Rh AB Positive [facility] Blood 09/29/2024 12:1 9 PM CDT 09/29/2024 1:38 PM CDT Narrative [facility] - 09/29/2024 2:38 PM CDT Has the patient had Daratumumab or Isatuximab in the past 6 months?->Unknown Herlinda Bonner MD LAB BLOOD BANK TEST ORDER KARI Final Result Performing Organization Address City/[facility] Co de Phone Number [facility] Department [place] [address] * ECG 12 lead (09/29/2024 12:09 PM CDT) [facility] Ventricular Rate EKG/Min 57 BPM [facility] Atrial Rate 57 BPM [facility] CO-Interval (MSEC) 186 ms [facility] QRS-Interval (MSEC) 78 ms [facility] QT-Interval (MSEC) 414 ms [facility] QTc 402 ms [facility] P [place] 31 degrees [facility] R [place] -1 degrees [facility] T [place] 29 degrees [facility] Diagnosis Sinus bradycardia Low voltage QRS Septal infarct (cited on or before 17-MAY-2017) Abnormal ECG When compared with ECG of 17-MAY-2017 18:04, No significant change was found Confirmed by BHAVESH LÓPEZ M.D ([id number]) on 09/30/2024 6:19:20 PM [facility] 09/29/2024 12:0 9 PM CDT 09/30/2024 6:19 PM CDT us Herlinda Bonner MD ECG ORDERABLES Final Res ult [facility] * MRI Lumbar Spine WO Contrast (09/28/2024 [...] MD LAB BLOOD ORDERABLES Fin al Result [facility] Department [place] [address] * (ABNORMAL) Differential, auto (09/28/2024 3:54 PM CDT) Neutrophil abs 9.47(H) 1.50 - 6.50 K/cumm Imm gran abs 0.06 0.00 - 0.10 K/cumm [facility] Lymphocyte abs 0.87 0.80 - 3.30 K/cumm [facility] Monocyte abs 0.59 0.20 - 0.80 K/cumm [facility] Eosinophil abs 0.00 0.00 - 0.50 K/cumm [facility] Basophil abs 0.03 0.00 - 0.10 K[facility] Neutrophil pct 85.9 % [facility] Comment: Interpretive Data Percent cell count reference ranges are not reported, since discordance with absolute values may lead to misinterpretation of CBC data. Current Interpretive Data was last revised on 2017. Imm gran pct 0.5 % [facility] Comment: Interpretive Data Percent cell count reference ranges are not reported, since discordance with absolute values may lead to misinterpretation of CBC data. Current Interpretive Data was last revised on 2017. Lymphocyte pct 7.9 % [facility] Comment: Interpretive Data Percent cell count reference ranges are not reported, since discordance with absolute values may lead to misinterpretation of CBC data. Current Interpretive Data was last revised on 2017. Monocyte pct 5.4 % [facility] Comment: Interpretive Data Percent cell count reference ranges are not reported, since discordance with absolute values may lead to misinterpretation of CBC data. Current Interpretive Data was last revised on 2017. Eosinophil pct 0.0 % [facility] Comment: Interpretive Data Percent cell count reference ranges are not reported, since discordance with absolute values may lead to misinterpretation of CBC data. Current Interpretive Data was last revised on 2017. Basophil pct 0.3 % [facility] Comment: Interpretive Data Percent cell count reference ranges are not reported, since discordance with absolute values may lead to misinterpretation of CBC data. Current Interpretive Data was last revised on 2017. Blood 09/28/2024 3:54 PM CDT 09/28/2024 4:41 PM CDT Bin David MD LAB BLOOD ORDERABLES Fin al Result [facility] Department [place] [address] * (ABNORMAL) CBC with auto differential (09/28/2024 3:54 PM CDT) WBC 11.02(H) 3.80 - 9.90 K/cumm Hgb 13.7 11.9 - 15.5 g/dL [facility] Hct 40.0 35.6 - 45.5 % [facility] Plt 300 150 - 400 K/cumm [facility] MPV 9.0(L) 9.1 - 12.3 fL [facility] RBC 4.55 3.90 - 5.20 M/cumm [facility] MCV 87.9 81.3 - 96.4 fL [facility] MCH 30.1 27.1 - 33.3 pg [facility] MCHC 34.3 32.3 - 35.7 g/dL [facility] RDW CV 13.0 11.1 - 14.9 % [facility] RDW SD 41.8 35.7 - 48.1 fL [facility] NRBC abs 0.00 0.00 - 0.01 K/cumm [facility] Blood 09/28/2024 3:54 PM CDT 09/28/2024 4:41 PM CDT Bin David MD LAB BLOOD ORDERABLES Fin al Result [facility] Department [place] [address] * Basic metabolic panel (09/28/2024 3:54 PM CDT) Sodium 140 135 - 145 mmol/L Potassium, pl 4.2 3.3 - 4.9 mmol/L [facility] Chloride 105 97 - 110 mmol/L [facility] CO2 24 22 - 32 mmol/L [facility] Anion gap 11 2 - 15 mmol/L [facility] BUN 18 6 - 25 mg/dL [facility] Creatinine 0.75 0.60 - 1.10 mg/dL [facility] Glucose 100 70 - 199 mg/dL [facility] Comment: Interpretive Data Fasting glucose >/= [...] 2022. Calcium 9.8 8.5 - 10.3 mg/dL [facility] Blood 09/28/2024 3:54 PM CDT 09/28/2024 4:41 PM CDT Bin David MD LAB BLOOD ORDERABLES Fin al Result Performing Organization Address [facility] Co de Phone Number [facility] Department [place] [address] * Screening Mammogram Bilateral w Salazar w Implants (02/15/2024 8:07 AM [employer]) Anatomical Region Laterality Modality Breast Bilateral Mammography Narrative 02/18/2024 2:22 PM [employer] Mammogram Technique: Bilateral Digital Breast Tomosynthesis, Bilateral C-view 2D Screening mammogram. Views obtained: bilateral craniocaudal and bilateral mediolateral oblique. Computer Aided Detection was performed. Mammogram Findings: The present examination has been compared to prior imaging studies performed at [facility] on 01/08/2019, 08/26/2020, 11/24/2021 and 11/24/2022. The [...] compared to prior imaging studies performed at [facility] on 01/08/2019, 08/26/2020,11/24/2021 and 11/24/2022. 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 Specialty Start Date End Date Jorge oBsch DO [address] [place], [place] [id number] PCP - General Internal Medicine 12/27/23 Loyd Tucker MD [address] [facility] [address] [place] [address] Radiation Oncologist Radiation Oncology 11/01/17 Aft, Isabel Chilel MD PhD [address] [place] [address] Referring Physician Surgical Oncology 11/01/17 Esthela Saldana, PhD [address] [place] [address] Nurse Practitioner Radiation Oncology 11/01/17 Allie Curiel MD [address] [place] [address] Referring Physician Medical Oncology 06/06/18 Maico Elaine FRAME POLISHER [address] [place] [address] Nurse Practitioner Nurse Practitioner 01/29/23
--- OUTSIDE RECORDS SUMMARY | 2024-11-14 14:09 | XMS_ITS | Encounter Summary ---
Author Organization [facility] Address [address] [facility] [place] [address] Care Team Providers Care Diagnostic Tech Name Role Phone Dg Gilliam MD Primary Care Provider [phone] Jorge Bosch DO Primary Care Provider [phone] Encounter Details Date Type Department Care Team (Late st Contact Info) Description 09/19/2018 Lab Requisition [facility] Care Pathology Lab [address] [place] [address] Nafisa King MD [address] [place] [address] Gross hematuria Social History Tobacco Use Types Packs/Day Years Used Date Smoking Tobacco: Never Assessed Comments Unknown Sex and Gender Information Value Date Recorded Sex Assigned at Not on file 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[employer] Gender Identity Not on file Sexual Orientation Not on file documented as of this encounter Plan of Treatment Not on file documented as of this encounter Procedures Procedure Name Priority Date/Time Associated Diagnosis Comments PATHOLOGY TISSUE Routine 09/17/2018 1:32 PM CDT Gross hematuria documented in this encounter Results * PATHOLOGY TISSUE (09/17/2018 1:32 PM CDT) Case Report Surgical Pathology Report Case: [id number] Authorizing Provider: Nafisa King MD Collected: 09/17/2018 [...] Gross Description Prepared slide (1) received from [facility] labeled [id number], Tiffany Palacio. All material will be returned. 09/20/2018 9:53 AM CDT [facility] Disclaimer The performance characteristics of all immunohistochemical and indirect immunofluorescence stains (if any) cited in this report were determined by the Histopathology Laboratory of [facility]. Some of these tests were developed by [...] LAB Embedded Images 09/20/2018 9:53 AM CDT [facility] PATHOLOGY LAB Pathology/Cytolo gy URINE / Unknown 09/17/2018 1:32 PM CDT 09/19/2018 1:32 PM CDT us Nafisa King MD LAB - PATHOLOGY/CYTOLOGY ORDERAB LES Final Result Performing Organization Address City/State/[facility] Co de Phone Number [facility] [address] [phone] documented in this encounter Visit Diagnoses Diagnosis Gross hematuria documented in this encounter Care Teams Diagnostic Tech Relationship Specialty Start Date End Date Dg Gilliam MD [address] [facility] [address] [place] [address] PCP - General 06/04/12 06/21/21 Jorge Bosch DO [address] [place] [address] PCP - General 06/22/21 documented as of this encounter
--- NOTE | 2024-11-14 15:03 | PC.NURSE ---
patient states that the clinic sent her for blood work due to concerns about her heart. TISHA at clinic had concerns and wanted blood work due to possible damage to her heart. patient denies chest pain, tightness, numbness, shoulder pain or abd pain. No other concerns at this time.
--- NOTE | 2024-11-14 16:24 | ECG_ITS ---
Test Date: 2024-11-14 16:28:19 Measurements Intervals [place] Rate: 83 P: 35 IA: 159 QRS: 15 QRSD: 85 T: 32 QT: 352 QTc: 415 Interpretive Statements SINUS RHYTHM LOW QRS VOLTAGE IN PRECORDIAL LEADS [QRS DEFLECTION < 1.0 mV IN CHEST LEADS] ANTEROSEPTAL MYOCARDIAL INFARCTION, INDETERMINATE AGE Compared to ECG 11/13/2024 08:01:25 NO SIGNIFICANT CHANGES Electronically Signed On 11-15-2024 10:43:29 CDT by Michael Quiros M.D.
--- NOTE | 2024-11-14 16:26 | PC.NURSE ---
Patients call light answered at this time. patient states I have having terrible chest pain that just started. EKG ordered and obtained. patient states that this is just acid reflux and she wants water.
[2024-11-14 16:47] LABS: Hematocrit 37.5 % (37.0-47.0); Hemoglobin 12.2 g/dL (12.0-15.0); Immature Granulocyte Percent A 0.5 % (0-0.5); Lymphocytes Absolute Auto 1.23 K/mm3 (0.9-3.2); Mean Corpuscular HGB Conc 32.5 g/dl (32-36); Mean Corpuscular Hemoglobin 29.5 pg (26-34); Mean Corpuscular Volume 90.8 fl (80-100); Nucleated Red Blood Cells Absolute Auto 0.000 K/mm3 (0.0-0.012); Nucleated Red Blood Cells Perc 0.0 % (0.0-0.2); Platelet Count Result 284 k/mm3 (150-375); Red Blood Count 4.13 M/mm3 (4.2-5.4); White Blood Count 10.0 K/mm3 (4.5-10.0)
[2024-11-14 16:59] LABS: INR 1.2; Prothrombin Time 14.7 Seconds (11.1-14.7)
[2024-11-14 17:00] LABS: Alanine Aminotransferase 18 U/L (6-35); Albumin Level 3.9 g/dL (3.5-5.1); Alkaline Phosphatase 71 U/L (38-126); Anion Gap 8 mmol/L (4-12); Aspartate Amino Transferase 26 U/L (14-36); Bilirubin,Total 0.3 mg/dL (0.2-1.3); Blood Urea Nitrogen 11 mg/dL (7-17); Calcium 8.9 mg/dL (8.4-10.2); Carbon Dioxide 24 mmol/L (22-30); Chloride 110 mmol/L (98-107); Estimated Glomerular Filt Rate > 60; Glucose 95 mg/dL (65-110); Lipase 165 U/L (23-300); Partial Thromboplastin Time 23.3 Seconds (22.3-36.8); Potassium 3.4 mmol/L (3.4-5.0); Sodium 142 mmol/L (137-145); Total Protein 6.7 g/dL (6.3-8.2)
[2024-11-14 17:10] LABS: Troponin I < 0.012 ng/mL (0.000-0.034)
--- NOTE | 2024-11-14 17:41 | ED_ITS ---
HPI - Recheck/Abnormal Lab/Rx General Chief Complaint: Recheck/Abnormal Lab/Rx Stated Complaint: hives. Seen here yesterday Time Seen by Provider: 11/14/24 17:05 History of Present Illness HPI narrative: Pt is a 73-year-old female who presents to the ER with multiple medical complaints. She reports she came here yesterday due to variable blood pressure readings and hives. Patient reports she woke up on November 11 with an itching ear. She endorses increased weakness then. Patient was in the ER yesterday and diagnosis of orthostatic hypotension. She was given 3 L of fluid in discharged home. Patient presents today with a worsening skin rash. She reports she went to urgent care earlier today and they expressed concerns regarding her heart. The healthcare provider looked at her previous EKGs and expressed concerns that pt had experienced a previous IN. Pt expressing concerns that she was not made aware of this history. She denies any chest pain, shortness a breath, recent fevers, or or acute back pain. Patient endorses a history of breast cancer, diverticulitis, hysterectomy, low blood pressure. Related Data Home Medications ?Medication ?Instructions ?Recorded ?Confirmed ?Last Taken ?Type ascorbic acid (vitamin C) 500 mg 500 mg PO DAILY 12/1310/16/24 Unknown History tablet multivitamin 1 tablet PO DAILY 12/13/22 0 10/16/24 Unknown History omega-3 fatty acids 500 mg capsule 500 mg PO DAILY 07/0210/16/24 Unknown History vitamin K2 100 mcg capsule 100 mcg PO DAILY 12/13/22 0 10/16/24 Unknown History B-complex with vitamin C 1 tablet PO DAILY 01/02/23 0 10/16/24 Unknown History mecobalamin (vitamin B12) 1,000 1,000 mcg PO DAILY 10/16/24 Unknown History mcg lozenges coenzyme Q10 100 mg capsule 100 mg PO DAILY 05/14/24 0 10/16/24 Unknown History (CoQ-10) oxycodone 10 mg tablet 10 mg PO Q6H PRN 10/16/24 Unknown History Allergies Allergy/AdvReac Type Severity Reaction Status Date / Time cephalexin Allergy Mild Rash Verified 11/14/24 14:25 Cephalosporins Allergy Mild Rash Verified 11/14/24 14:25 clindamycin Allergy Mild Rash Verified 11/14/24 14:25 codeine Allergy Mild Rash Verified 11/14/24 14:25 duloxetine Allergy Mild Rash Verified 11/14/24 14:25 simvastatin Allergy Mild Rash Verified 11/14/24 14:25 Review of Systems 2 Review of Systems: All systems reviewed & are unremarkable except as noted in HPI and below [facility] Past Medical History Medical History BMI 30.0-30.9,adult 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 Bilateral carotid artery stenosis Dyslipidemia Cancer of right breast (05/2017) status post lumpectomy, radiation, tamoxifen Peripheral arterial disease History of tobacco abuse 108 year pack history Emphysema/COPD Fibromyalgia Palpitations Surgical History Surgical History History of benign breast biopsy History of partial mastectomy of right breast (05/2017) History of colonoscopy diverticulosis, hemorrhoids, benign polyps History of total hysterectomy History of tonsillectomy Family History Family History Sibling Family history of bipolar disorder Lung cancer Bladder cancer Emphysema of lung Mother Hypertension Cerebrovascular accident Congestive heart failure Father Malignant neoplasm of prostate Acute myocardial infarction Son Cerebrovascular accident Heart disease Other Family history of mental disorder Social History Social History Social History: Surrogate medical decision maker: Andressa Ash, daughter. Code status: Full code. Smoking packs per day: 2 Smoking cigarettes per day: 40.0 Years smoked: 54 Smoking pack-years: 108.00 Smoking status: Former smoker Tobacco type: cigarettes Second hand tobacco smoke exposure: Yes Smoking end date: 01/10/21 Alcohol intake: current Substance use: never Substance use type: does not use Do You Feel Safe in your Home?: Yes Lack of Transportation: No Lack of Food: Never True Current Housing: I Have Housing Concerned About Future Housing: No Difficulty Paying Gas/Electric Bills: No Difficulty Paying for Meds: No Currently Unemployed: No Education: Associate Degree Difficulty w/ Childcare or Family Care: No Living arrangements: alone Occupation/Education: retired 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 HEAD: Normocephalic, atraumatic. NECK: Supple. No adenopathy, no masses. RESPIRATORY: Airway patent, respirations nonlabored. Clear to auscultation bilaterally, no rales, rhonchi, wheezing. CARDIOVASCULAR: Regular rate and rhythm without murmurs, rubs, or gallops. Peripheral pulses 2+ and equal bilaterally. ABDOMINAL: Soft, nontender, nondistended, no hepatosplenomegaly. Normoactive BS. MUSCULOSKELETAL: Moves all extremities. Strength/ROM intact without gross deformities. SKIN: Warm, dry, normal color. Full body hives (welts to bilateral arms, legs, torso, neck) moving to and from different areas on pt's body.. Concern for cellulitis to R lower arm, and R upper leg. No discharge, no purulent drainage or areas of induration. NEURO: A&O X3. Speech clear. Cranial nerves II-XII intact. No ataxic movements. PSYCHIATRIC: Anxious appearing, speaking quickly Course Vital Signs Vital signs: Vital Signs Pulse Rate 90 11/14/24 15:03 Respiratory Rate 15 11/14/24 15:03 Blood Pressure 115/65 11/14/24 15:03 Pulse Oximetry 100 11/14/24 15:03 Pulse Rate 82 11/14/24 22:46 Respiratory Rate 16 11/14/24 21:58 Blood Pressure 127/68 11/14/24 22:46 Pulse Oximetry 100 11/14/24 21:58 MDM - Recheck/Abnormal Lab/Rx MDM Narrative Medical decision making narrative: Pt is a 73-year-old female who presents to the ER with multiple medical complaints. She reports she came here yesterday due to variable blood pressure readings and hives. Patient reports she woke up on November 11 with an itching ear. She endorses increased weakness then. Patient was in the ER yesterday and diagnosis of orthostatic hypotension. She was given 3 L of fluid in discharged home. Patient presents today with a worsening skin rash. She reports she went to urgent care earlier today and they expressed concerns regarding her heart. The healthcare provider looked at her previous EKGs and expressed concerns that pt had experienced a previous IN. Pt expressing concerns that she was not made aware of this history. She denies any chest pain, shortness of breath, recent fevers, or or acute back pain. Patient endorses a history of breast cancer, diverticulitis, hysterectomy, low blood pressure. Labs Ordered: CBC, CMP, troponin, PTT, INR, lipase, UA Imaging Ordered: Chest x-ray Medications Ordered: 1 L normal saline IV, azithromycin p.o., Benadryl 25 mg IV Results: Patient's chest x-ray indicates NO ACUTE CARDIOPULMONARY DISEASE. Diagnosis: Orthostatic hypotension Pt declines steroid administration to treat her hives, as she is concern about her liver function and read that steroids can make LFTs worse. She also is weary of take Azithromycin, as she has had multiple reactions to other oral antibiotics. Pt requesting Benadryl prior to administration. 1829- Spoke with hospitalist, Sugar Madrigal NP, who understandably advised pt does not meet criteria for admission. Risks: HEART score: low risk HEART Score for Major Cardiac Events from [employer] on 11/14/2024 All calculations should be rechecked by clinician prior to use RESULT SUMMARY: 3 points Low Score (0-3 points) Risk of MACE of 0.9-1.7%. INPUTS: History ?> 1 = Moderately suspicious EKG ?> 0 = Normal Age ?> 2 = >=5 Risk factors ?> 0 = No known risk factors (no history HTN, diabetes, smoking, etc) Initial troponin ?> 0 = <Normal limit Pt reports she would like to be evaluated by a portable router operator regarding her symptoms. She also raises concerns regarding her two trips to urgent care and two trips to the ER over the past two days. Pt also has concerns regarding medication interactions between medication she takes and medications offered here in the ER. Her hives are still present after Benadryl administration. Her orthostatic blood pressures were taken again. Although pt's blood work results and BP readings do not reflect concerns for abnormalities, pt continues to endorse vertigo, lightheadedness, and dizziness. 2129- Spoke with hospitalist, Dr. Garcia, who requests pt receive another 1L NS bolus. If pt's BP readings are worse afterwards, then she will be admitted for observation. If her BP readings are the same or improved then she will be discharged home. 2139- Pt endorses chest pain she believes is related to GERD. She is requesting steroids for her itching. Pt will also receive Pepcid for her GERD. 2299- Upon re-examination, pt's orthostatic hypotension symptoms and vital signs have improved. She inquired about the possibility of adrenal insufficiency the patient was reassured due to her stable lab work results. Patient also endorses swelling to her eyelids in lower extremities. She was reminded she received 5 L of IV fluid over the past 2 days. Reviewed signs/symptoms of anaphylaxis with patient and when to return to the ER. Patient Education/Shared MDM: Results of lab work, vital signs, and imaging shared with patient. She endorses improvement of symptoms following IV fluid administration and steroids. Patient strongly advised to maintain hydration status upon discharge, complete her full dose of antibiotics, take her steroids and follow-up with her PCP as needed. She will also be provided with a referral for cardiology. She will be discharged home with a prescription for Azithromycin. Strict return precautions provided. Patient verbalized understanding and is in agreement with plan. Vital signs stable at time of discharge. All questions answered. Differential Diagnosis Differential diagnosis: Likely other (Orthostatic hypotension, hives, anxiety, reaction to medication) Lab Data Attestation: I reviewed the patient's lab results. 11/14/24 16:42 11/14/24 16:42 Labs: Lab Results 11/14/24 11/14/24 Range/Units 16:42 19:51 WBC 10.0 (4.5-10.0) K/mm3 RBC 4.13 L (4.2-5.4) M/mm3 Hgb 12.2 (12.0-15.0) g/dL Hct 37.5 (37.0-47.0) % MCV 90.8 (80-100) fl MCH 29.5 (26-34) pg MCHC 32.5 (32-36) g/dl RDW 13.0 (11.5-14.5) % Plt Count 284 (150-375) k/mm3 MPV 8.2 (7.4-10.4) fl Immature Gran % (Auto) 0.5 (0-0.5) % Neut % (Auto) 80.7 H (45.5-73.1) % Lymph % (Auto) 12.3 L (18.3-44.2) % Atkinson % (Auto) 6.1 (2.6-8.5) % Eos % (Auto) 0.3 (0-4.4) % Baso % (Auto) 0.1 L (0.2-1.2) % Lymph # (Auto) 1.23 (0.9-3.2) K/mm3 Atkinson # (Auto) 0.6 (0.1-0.6) K/mm3 Eos # (Auto) 0.0 (0-0.3) K/mm3 Baso # (Auto) 0.0 (0.0-0.1) K/mm3 Abs Immat Gran (auto) 0.05 H (0.00-0.031) K/mm3 Absolute Neuts (auto) 8.1 H (1.3-6.7) K/mm3 Absolute Nucleated RBC 0.000 (0.0-0.012) K/mm3 Nucleated RBC % 0.0 (0.0-0.2) % PT 14.7 (11.1-14.7) Seconds INR 1.2 APTT 23.3 (22.3-36.8) Seconds Sodium 142 (137-145) mmol/L Potassium 3.4 (3.4-5.0) mmol/L Chloride 110 H (98-107) mmol/L Carbon Dioxide 24 (22-30) mmol/L Anion Gap 8 (4-12) mmol/L BUN 11 (7-17) mg/dL Creatinine 0.70 (0.7-1.0) mg/dL Estim Creat Clear Calc Not Reportable Estimated GFR > 60 (59 - ) Glucose 95 (65-110) mg/dL Calcium 8.9 (8.4-10.2) mg/dL Total Bilirubin 0.3 (0.2-1.3) mg/dL AST 26 (14-36) U/L ALT 18 (6-35) U/L Alkaline Phosphatase 71 (38-126) U/L Troponin I < 0.012 < 0.012 (0.000-0.034) ng/mL Total Protein 6.7 (6.3-8.2) g/dL Albumin 3.9 (3.5-5.1) g/dL Lipase 165 (23-300) U/L Imaging Data Attestation: I personally reviewed and interpreted this imaging study as follows: Radiologist's impression: Impressions Chest X-Ray 11/14/24 17:00 IMPRESSION: 1: NO ACUTE CARDIOPULMONARY DISEASE. Discharge Plan Discharge Clinical Impression: Full body hives, Acute urticaria, Orthostatic hypotension, History of hypotension, Anxiety, Gastric reflux Patient Disposition: Home Condition: Stable Instructions: Antibiotic Form, Urticaria (ED), Hypotension (ED) Additional Instructions: Please return to the ER with any worsening symptoms. Follow-up with primary care provider as soon as possible for follow-up. You may also schedule appointment with Cardiology. Take all medications as prescribed, including regularly scheduled medications. Complete your full dose of antibiotics. You may take Benadryl or Claritin or Zyrtec along with Pepcid to help relieve itching. Steroids will also help relieve your symptoms. Patient Language: Macedonian Prescriptions: New azithromycin 250 mg tablet See Rx Instructions .ROUTE .COMPLEX Qty: 6 0RF Rx Instructions: For 250 mg dose pack: take 500 mg today (day 1), then 250 mg for 4 days (days 2-5) No Action multivitamin Tablet 1 tablet PO DAILY omega-3 fatty acids 500 mg capsule 500 mg PO DAILY vitamin K2 100 mcg capsule 100 mcg PO DAILY ascorbic acid (vitamin C) 500 mg tablet 500 mg PO DAILY mecobalamin (vitamin B12) 1,000 mcg lozenge 1,000 mcg PO DAILY Rx Instructions: allow to dissolve in mouth OR may chew lightly before swallowing B-complex with vitamin C Tablet 1 tablet PO DAILY coenzyme Q10 [CoQ-10] 100 mg capsule 100 mg PO DAILY lorazepam [Ativan] 0.5 mg tablet 0.5 mg PO DAILY PRN (Reason: anxiety) Qty: 30 0RF oxycodone 10 mg tablet 10 mg PO Q6H PRN gabapentin 300 mg capsule 300 mg PO TID Qty: 90 5RF methylprednisolone [Medrol (Phani)] 4 mg tablets,dose pack See Rx Instructions .ROUTE .COMPLEX Qty: 21 0RF Rx Instructions: for 6 days cyclobenzaprine 5 mg tablet 5 mg PO TID PRN (Reason: muscle spasm) Qty: 20 0RF hydrocodone-acetaminophen 5-325 mg tablet 1 tablet PO Q8H PRN (Reason: pain) Qty: 10 0RF prednisone 20 mg tablet 40 mg PO DAILY 5 Days Qty: 10 0RF cholecalciferol (vitamin D3) 125 mcg (5,000 unit) capsule 125 mcg PO DAILY Qty: 30 0RF atorvastatin [Lipitor] 40 mg tablet 40 mg PO DAILY Qty: 90 1RF Follow-up/Referrals: Chetan Pablo MD [Physician, Cardiology] Referral Note: cardiology Jorge Bosch DO [Primary Care Provider, Internal Medicine] Time of Disposition: 23:22
[2024-11-14] MEDS: SODIUM CHLORIDE 0.9% IV 1,000 ML 999 ML IV CONT ×2 (18:09→21:54)
[2024-11-14] MEDS: AZITHROMYCIN 500 MG TABLET PO (18:10)
--- NOTE | 2024-11-14 19:43 | ECG_ITS ---
Test Date: 2024-11-14 19:48:55 Measurements Intervals White Rate: 72 P: 14 NH: 179 QRS: 4 QRSD: 78 T: 17 QT: 381 QTc: 419 Interpretive Statements SINUS RHYTHM LOW QRS VOLTAGE IN PRECORDIAL LEADS [QRS DEFLECTION < 1.0 mV IN CHEST LEADS] Compared to ECG 11/14/2024 16:28:19 Myocardial infarct finding no longer present Electronically Signed On 11-15-2024 10:49:42 CDT by Michael Quiros M.D.
[2024-11-14 20:21] LABS: Troponin I < 0.012 ng/mL (0.000-0.034)
--- NOTE | 2024-11-14 21:56 | PC.NURSE ---
Pt ambulatory to bathroom with even and steady gait.
[2024-11-14] MEDS: FAMOTIDINE 20 MG/2 ML VIAL IV PUSH (22:07)
== END 2024-11-14 23:38 | disposition home or self-care (01) ==
PROVIDERS: Emergency Medicine; Emergency Provider Registered Nurse; PCP Internal Medicine
DX: L50.9 Urticaria, unspecified (principal); I95.1 Orthostatic hypotension; K21.9 Gastro-esophageal reflux disease without esophagitis; F41.9 Anxiety disorder, unspecified; I65.23 Occlusion and stenosis of bilateral carotid arteries; I73.9 Peripheral vascular disease, unspecified; E78.5 Hyperlipidemia, unspecified; J43.9 Emphysema, unspecified; M79.7 Fibromyalgia; Z92.3 Personal history of irradiation; Z85.3 Personal history of malignant neoplasm of breast; Z87.891 Personal history of nicotine dependence; Z90.710 Acquired absence of both cervix and uterus; Z90.11 Acquired absence of right breast and nipple; Z79.899 Other long term (current) drug therapy; R94.31 Abnormal electrocardiogram [ECG] [EKG]
CPT/HCPCS: 36415; 71045; 80053; 83690; 84484; 85025; 85610; 85730; 93005; 96361; 96374; 96375; 99284; J1200; J7030; J7512

== ENCOUNTER 2024-11-21 11:39 | Outpatient (CLI) | payer MEDICARE, SELFPAY ==
[2024-11-21 12:16] LABS: Add Urine Microscopic? YES; Appearance Urine Clear (Clear); Glucose Urine UA Negative (Negative); Leukocyte Esterase Ur Negative LEU/UL (Negative); Nitrate Urine Negative (Negative); Specific Grav Ur 1.022 (1.001-1.035)
== END 2024-11-21 11:40 | disposition home or self-care (01) ==
PROVIDERS: PCP Internal Medicine; Visit Provider Nurse Practitioner
DX: R30.0 Dysuria (principal)
CPT/HCPCS: 81001